=== PATIENT | female | born 1955 | race Caucasian/White ===

== ENCOUNTER 2019-10-30 12:19 | Outpatient (CLI) | payer BC, SELFPAY ==
--- NOTE | ~2019-10-30 | XR_ITS ---
XR shoulder RT min 2V DATE: 10/30/2019 12:41 INDICATION: Injury. Right shoulder pain. TECHNIQUE: 4 views COMPARISON: None FINDINGS: Osteopenia. There is mild osteoarthritis at the right glenohumeral joint. No fracture or dislocation, periosteal reaction or bone destruction or abnormal soft tissue calcifica tion at the right shoulder. IMPRESSION: Osteopenia Mild osteoarthritis Reviewed, dictated and finalized at location A.
== END 2019-10-30 12:20 | disposition home or self-care (01) ==
LOC: ANHIMG 12:27
PROVIDERS: PCP Internal Medicine; Visit Provider Internal Medicine
DX: S49.91XA Unspecified injury of right shoulder and upper arm, initial encounter (principal); M85.811 Other specified disorders of bone density and structure, right shoulder; M19.011 Primary osteoarthritis, right shoulder
CPT/HCPCS: 73030

== ENCOUNTER 2020-01-03 10:14 | Outpatient (CLI) | payer BC, SELFPAY ==
[2020-01-03 11:27] LABS: Hemoglobin A1C 5.7 % (<5.7)
[2020-01-03 11:29] LABS: Alanine Aminotransferase 19 U/L (4-35); Albumin Level 4.7 g/dL (3.5-5.1); Alkaline Phosphatase 77 U/L (38-126); Aspartate Amino Transferase 24 U/L (14-36); Bilirubin,Total 0.7 mg/dL (0.2-1.3); Blood Urea Nitrogen 21 mg/dL (7-17); Calcium 9.5 mg/dL (8.4-10.2); Carbon Dioxide 25 mmol/L (22-30); Chloride 104 mmol/L (98-107); Cholesterol 206 mg/dL (0-200); Estimated Glomerular Filt Rate > 60; Glucose 98 mg/dL (65-105); HDL Direct 42 mg/dL; Potassium 4.4 mmol/L (3.4-5.0); Sodium 137 mmol/L (137-145); Triglycerides 223 mg/dL (<150)
[2020-01-03 11:39] LABS: LDL Cholesterol Direct 123 mg/dL
[2020-01-03 12:21] LABS: Free T4 Free Thyroxine 0.96 ng/mL (0.78-2.19); Vitamin D 25 Hydroxy 57.4 ng/mL
== END 2020-01-03 10:15 | disposition home or self-care (01) ==
LOC: ANHLAB 10:16
PROVIDERS: PCP Internal Medicine; Visit Provider Internal Medicine
DX: R73.03 Prediabetes (principal); I10 Essential (primary) hypertension; E78.5 Hyperlipidemia, unspecified; Z79.899 Other long term (current) drug therapy; Z13.21 Encounter for screening for nutritional disorder
CPT/HCPCS: 36415; 80048; 80061; 80076; 82306; 83036; 83090; 84439; 84443

== ENCOUNTER 2020-08-11 10:54 | Outpatient (CLI) | payer BC, SELFPAY ==
--- NOTE | ~2020-08-11 | XR_ITS ---
XR thoracic spine 2V DATE: 08/11/2020 11:18 INDICATION: Upper back pain TECHNIQUE: AP, lateral, swimmer views COMPARISON: None FINDINGS: Moderately prominent degenerative disc disease at C5-6. Diffuse osteopenia. There is degenerative spurring of the thoracic spine. There is mild thoracic scoliosis. No fracture o r bone destruction is evident. The thoracic pedicles are intact. There is no paraspinal soft tissue t hickening. One or more apparent surgical clips overlying right upper quadrant, likely due to cholecystectomy. Ev idence of ventral abdominal wall surgical repair. IMPRESSION: Diffuse osteopenia Mild thoracic scoliosis Degenerative change Reviewed, dictated and finalized at location A. LER OPERATOR
--- NOTE | ~2020-08-11 | XR_ITS ---
EXAMINATION: XR chest 2V DATE: 08/11/2020 11:18 INDICATION: Unspecified abdominal pain. TECHNIQUE: Frontal and lateral views of the chest were obtained. COMPARISON: Chest 2 views 11/03/09, CT abdomen 01/03/2015 FINDINGS: The chest demonstrates clear lungs without pneumonia, pleural effusion, or pneumothorax. Th e heart size is normal. Surgical clips in the right upper quadrant are likely from cholecystectomy. T here are changes of ventral hernia repair. There is a benign bone island in right sixth rib. IMPRESSION: 1. No acute cardiopulmonary disease. Reviewed, dictated and finalized at location A. YER AUTOMATIC SPRAY MACHINE
== END 2020-08-11 10:55 | disposition home or self-care (01) ==
PROVIDERS: PCP Internal Medicine; Visit Provider Internal Medicine
DX: R10.9 Unspecified abdominal pain (principal); M54.6 Pain in thoracic spine; M85.88 Other specified disorders of bone density and structure, other site; M41.84 Other forms of scoliosis, thoracic region
CPT/HCPCS: 71046; 72070

== ENCOUNTER 2020-08-13 08:17 | Outpatient (CLI) | payer BC, SELFPAY ==
--- NOTE | ~2020-08-13 | CT_ITS ---
EXAMINATION: CT abdomen w con EXAM DATE: 08/13/2020 08:53 INDICATION: Upper left-sided abdominal pain, symptoms 5 weeks. TECHNIQUE: Spiral CT of the abdomen was performed following intravenous injection of 100 mL Omnipaque 350. Axial, coronal and sagittal images were reviewed. The dose-length product (DLP) for this exam ination was 567.37 mGy-cm. The exposure was tailored according to patient size (auto mA exposure con trol), and iterative reconstruction (ASIR) was used as additional dose reduction technique. Compariso n is made to prior examination from 01/03/2015. FINDINGS: There is large anterior abdominal wall mesh. The liver, spleen, adrenal glands and pancrea s are unremarkable. There are cholecystectomy clips. Portal and splenic veins are patent. Kidneys enhance symmetrically. There is no hydronephrosis. There is no retroperitoneal lymphadenopathy. There is mild scattered arteriosclerotic disease. There is small sliding gastroesophageal hiatal hernia. There is expected amount of colonic stool. No free intraperitoneal gas. The heart is normal in size. There are no pericardial or pleural effu sions. Small amount of basilar groundglass opacity slightly more pronounced than on previous exam, p robably air trapping or atelectasis. There are no osteoblastic or osteolytic lesions identified. IMPRESSION: 1. No acute intra-abdominal findings. 2. Small hiatal hernia. Reviewed, dictated and finalized at location B. UNLOADER HELPER
[2020-08-13 08:43] LABS: Estimated Glomerular Filt Rate 41
== END 2020-08-13 08:18 | disposition home or self-care (01) ==
PROVIDERS: PCP Internal Medicine; Visit Provider Internal Medicine
DX: R10.9 Unspecified abdominal pain (principal); M54.6 Pain in thoracic spine; G89.29 Other chronic pain; K44.9 Diaphragmatic hernia without obstruction or gangrene
CPT/HCPCS: 74160; Q9967

== ENCOUNTER → 2020-12-05 04:06 | Outpatient (CLI) | payer BC, SELFPAY ==
[2020-12-05 19:45] LABS: SARS-CoV-2 RNA PCR Negative
== END ==
PROVIDERS: PCP Internal Medicine; Visit Provider Internal Medicine Gastroenterology
DX: Z01.812 Encounter for preprocedural laboratory examination (principal); Z20.822 Contact with and (suspected) exposure to COVID-19
CPT/HCPCS: C9803; U0003; U0005

== ENCOUNTER 2021-04-02 07:27 | Outpatient (CLI) | payer MEDICARE, SELFPAY ==
--- NOTE | ~2021-04-02 | MM_ITS ---
EXAMINATION: MM screening [facility] BI w tobi HISTORY: Screening mammogram TECHNIQUE: Craniocaudal and mediolateral oblique 3-D tomosynthesis images were obtained and synthetic 2-D images were generated. CAD analysis was submitted and interpreted. COMPARISON: 07/31/2019, 01/16/2017, 10/06/2015 bilateral digital screening mammogram examinations BREAST PARENCHYMAL COMPOSITION: There are scattered areas of fibroglandular density. FINDINGS: There is no evidence of suspicious mass, calcification, or architectural distortion to sugg est malignancy in either breast. There has been no suspicious interval change. IMPRESSION: 1. No mammographic evidence of malignancy. 2. Recommend routine screening mammography in one year. BI-RADS Category 1: Negative Reviewed, dictated and finalized at location A.
== END 2021-04-02 07:28 | disposition home or self-care (01) ==
LOC: ANHIMG 07:30
PROVIDERS: PCP Internal Medicine; Visit Provider Internal Medicine
DX: Z12.31 Encounter for screening mammogram for malignant neoplasm of breast (principal)
CPT/HCPCS: 77063; 77067

== ENCOUNTER 2021-06-18 02:44 | Day surgery (SDC) | payer MEDICARE, SELFPAY ==
[2021-06-10 12:57] VITALS: BMI 33.3
[2021-06-18 10:15] VITALS: BP 148/70; PULSE 84; RESP 20; TEMP 36.2; O2SAT 98; BMI 33.7
--- NOTE | 2021-06-18 10:19 | WPDANESEPPF ---
Anes - Initial Pre Proc Eval Procedure: Operation Date: 06/18/21 11:30 Proposed Procedures p Esophagogastroduodenoscopy - Ferdinand Hightower MD Date/Time: 06/18/21 10:19 Surgeon: Ferdinand Hightower MD Pre Op Diagnosis: abominal pain, anemia, nausea Patient Data Age: 66 Gender: F Height: 1.5 m Weight: 75.8 kg Last Vital Signs Temp 36.2 C L 06/18/21 10:15 Pulse 84 06/18/21 10:15 Resp 20 06/18/21 10:15 BP 148/70 H 06/18/21 10:15 Pulse Ox 98 06/18/21 10:15 Allergies Allergy/AdvReac Type Severity Reaction Status Date / Time ezetimibe [From Zetia] AdvReac Mild myalgia Verified 06/18/21 10:14 Jpsbtse-XUA-DaD Reductase AdvReac Unknown Muscle Pain Verified 06/18/21 10:14 Inhibitor [[employer]-Ctv-Ymm Reductase Inhibitor] bempedoic acid AdvReac Muscle Pain Verified 06/18/21 10:14 [From Nexletol] Home Medications Medication Instructions Recorded Confirmed Type tofacitinib 11 mg tablet,extended 11 mg PO DAILY 06/14/19 06/10/21 History release 24 hr tramadol 50 mg tablet 50 mg PO Q6H PRN 06/14/19 06/10/21 History tizanidine 4 mg capsule 4 mg PO .qd PRN #90 cap 10/30/19 06/10/21 Rx turmeric 400 mg capsule 400 mg PO DAILY 10/30/19 06/10/21 History carvedilol 6.25 mg tablet See Rx Instructions .ROUTE 08/31/20 06/10/21 Rx .COMPLEX #180 tablet losartan 100 mg tablet See Rx Instructions .ROUTE 08/31/20 06/10/21 Rx .COMPLEX #90 tablet amlodipine 5 mg tablet See Rx Instructions .ROUTE 10/12/20 06/10/21 Rx .COMPLEX #90 tablet cholecalciferol (vitamin D3) 50 mcg PO DAILY 11/30/20 06/10/21 History [Vitamin D3] mruaivtbfite-kha-wbyo-FA-vit K 1 tablet PO DAILY 11/30/20 06/10/21 History [Adults Multivitamin] omega-3 fatty acids-vitamin E 4 cap DAILY 11/30/20 06/10/21 History [Fish Oil] spironolactone 25 mg tablet 25 mg PO DAILY 04/09/21 06/10/21 History omeprazole 40 mg capsule,delayed 40 mg PO BID #180 cap 05/05/21 06/10/21 Rx release Patient hx anesthesia problems: none Family hx anesthesia problems: none Results Review: All pre-operative results and documents have been reviewed as part of the pre-operative evaluation. [facility] Past Medical History Medical History Abdominal pain Acne Anemia Anxiety Arthritis Back pain Benign essential hypertension BMI 32.0-32.9,adult BMI 33.0-33.9,adult BMI 34.0-34.9,adult Encounter for routine adult health examination with abnormal findings Encounter for routine adult health examination without abnormal findings Encounter for screening mammogram for malignant neoplasm of breast Exposure to COVID-19 virus Fibromyalgia Follow up Frequent headaches GERD (gastroesophageal reflux disease) Hormone replacement therapy (HRT) Hyperlipidemia Hypersomnolence Hypersomnolence Insomnia Left flank pain Low hemoglobin Nausea On middle or intermediate school principal drug therapy Osteopenia Pre-diabetes Rheumatoid arthritis Right shoulder pain Seborrheic dermatitis Sjogrens syndrome Statin intolerance Family History Family History Mother Hypertension Cerebrovascular accident Father Hypertension Family history of heart disease in male family member before age 55, Onset Age: 60 Family history of cardiovascular disease Sibling Cerebrovascular accident Hypertension Family history of cardiovascular disease, Onset Age: 67 Other Family history of coronary artery disease Family history of premature coronary heart disease Social History Social History Smoking status: Never smoker Second hand tobacco smoke exposure: No Alcohol intake: never Substance use type: does not use Living arrangements: with family Spiritual care concerns: No Anes - Eval Final PreProcedure Day of Procedure 06/18/21 10:19 Patient weight: obese Heart: regular rate and rhythm Lungs: clear to ausc
[2021-06-18] MEDS: LACTATED RINGERS 1,000 ML 150 ML IV CONT (10:27)
--- NOTE | 2021-06-18 10:49 | WPDGICN ---
Assessment and Plan Assessment and plan (1) Low hemoglobin: Code(s): D64.9 - Anemia, unspecified Status: Acute Assessment and Plan: mild normochromic normocytic anemia. Is nonspecific. Stool Hemoccult negative. This may be related to RA. Will be evaluated by EGD (2) Rheumatoid arthritis: Qualifiers: Rheumatoid arthritis location: unspecified site Rheumatoid factor presence: unspecified presence Qualified Code(s): M06.9 - Rheumatoid arthritis, unspecified Code(s): M06.9 - Rheumatoid arthritis, unspecified Status: Acute (3) Epigastric abdominal pain: Code(s): R10.13 - Epigastric pain Status: Acute Assessment and Plan: epigastric pain lasted for several weeks but appears to have improved on starting omeprazole. Plan is for EGD to assess for mucosal damage. Follow-up and plans regarding ongoing therapy will be deferred until after EGD. (4) Dysphagia: Code(s): R13.10 - Dysphagia, unspecified Status: Acute Assessment and Plan: Patient complains of food passing slowly through the esophagus. Plan is for EGD to exclude narrowing of the esophagus further recommendations will be given after endoscopy. GI Consult Note Consult date/time: 06/18/21 10:49 HPI: Anjali Rodriguez is a 66 year old female Presents for EGD. Patient had epigastric pain in lasted for several weeks about a month ago. Patient reports epigastric pain has improved on taking Prilosec 20mg p.o. daily. She states during the same interval she has had difficulty swallowing. She feels as though food may catch in the mid substernal portion of the chest. This sensation has persisted but occurs only intermittently. She denies any weight loss or bleeding. Laboratory testing has revealed her to have a mild normochromic normocytic anemia. Stool Hemoccult has been negative. Patient has a past history of rheumatoid arthritis Review of Systems Review of Systems: All systems reviewed & are unremarkable except as noted in HPI and below PMFSH Past Medical History Medical History Abdominal pain Acne Anemia Anxiety Arthritis Back pain Benign essential hypertension BMI 32.0-32.9,adult BMI 33.0-33.9,adult BMI 34.0-34.9,adult Encounter for routine adult health examination with abnormal findings Encounter for routine adult health examination without abnormal findings Encounter for screening mammogram for malignant neoplasm of breast Exposure to COVID-19 virus Fibromyalgia Follow up Frequent headaches GERD (gastroesophageal reflux disease) Hormone replacement therapy (HRT) Hyperlipidemia Hypersomnolence Hypersomnolence Insomnia Left flank pain Low hemoglobin Nausea On long line [place] drug therapy Osteopenia Pre-diabetes Rheumatoid arthritis Right shoulder pain Seborrheic dermatitis Sjogrens syndrome Statin intolerance Family History Family History Mother Hypertension Cerebrovascular accident Father Hypertension Family history of heart disease in male family member before age 55, Onset Age: 60 Family history of cardiovascular disease Sibling Cerebrovascular accident Hypertension Family history of cardiovascular disease, Onset Age: 67 Other Family history of coronary artery disease Family history of premature coronary heart disease Social History Social History Smoking status: Never smoker Second hand tobacco smoke exposure: No Alcohol intake: never Substance use type: does not use Living arrangements: with family Spiritual care concerns: No Meds Home Medications and Allergies Home Medications Medication Instructions Recorded Confirmed Type tofacitinib 11 mg tablet,extended 11 mg PO DAILY 06/14/19 06/10/21 History release 24 hr tramadol 50 mg tablet 50 mg PO Q6H PRN 06/14/19 1
[2021-06-18 11:05] VITALS: BP 114/66; PULSE 88; RESP 24; O2SAT 99
[2021-06-18 11:15] VITALS: BP 106/61; PULSE 86; RESP 22; O2SAT 96
[2021-06-18 11:25] VITALS: BP 132/81; PULSE 82; RESP 16; O2SAT 97
== END 2021-06-18 12:08 | disposition home or self-care (01) ==
PROVIDERS: PCP Internal Medicine; Visit Provider Internal Medicine Gastroenterology
PROC: 0DJ08ZZ Inspection of Upper Intestinal Tract, Via Natural or Artificial Opening Endoscopic (ICD-10-PCS; CPT 43235; principal; 2021-06-18 11:30)
DX: R10.13 Epigastric pain (principal); Q39.4 Esophageal web; K22.10 Ulcer of esophagus without bleeding; D64.9 Anemia, unspecified; M06.9 Rheumatoid arthritis, unspecified; R13.10 Dysphagia, unspecified; M19.90 Unspecified osteoarthritis, unspecified site; I10 Essential (primary) hypertension; M79.7 Fibromyalgia; K21.9 Gastro-esophageal reflux disease without esophagitis; G47.00 Insomnia, unspecified; G47.10 Hypersomnia, unspecified; R73.03 Prediabetes; M35.00 Sjogren syndrome, unspecified; E66.9 Obesity, unspecified; Z68.33 Body mass index [BMI] 33.0-33.9, adult
CPT/HCPCS: 43450; J2001; J2704; J7120

== ENCOUNTER 2022-04-27 13:47 | Outpatient (CLI) | payer MEDICARE, SELFPAY ==
--- NOTE | ~2022-04-27 | MM_ITS ---
EXAMINATION: MM screening [facility] BI w tobi HISTORY: Screening TECHNIQUE: Craniocaudal and mediolateral oblique 3-D tomosynthesis images were obtained and synthetic 2-D images were generated. CAD analysis was submitted and interpreted. COMPARISON: Comparison to multiple prior studies sequentially, with oldest reviewed study dated 02/2013. BREAST PARENCHYMAL COMPOSITION: There are scattered areas of fibroglandular density. FINDINGS: There is no evidence of suspicious mass, calcification, or architectural distortion to sugg est malignancy in either breast. There has been no suspicious interval change. IMPRESSION: 1. No mammographic evidence of malignancy. 2. Recommend routine screening mammography in one year. BI-RADS Category 1: Negative Reviewed, dictated and finalized at location A.
== END 2022-04-27 13:48 | disposition home or self-care (01) ==
PROVIDERS: PCP Internal Medicine; Visit Provider Internal Medicine
DX: Z12.31 Encounter for screening mammogram for malignant neoplasm of breast (principal)
CPT/HCPCS: 77063; 77067

== ENCOUNTER 2022-05-27 10:45 | Outpatient (CLI) | payer MEDICARE, SELFPAY ==
[2022-05-27 12:17] LABS: Thyroid Stimulating Hormone < 0.015 uIU/mL (0.465-4.680)
[2022-05-31 03:09] LABS: Thyroglobulin 67.4 ng/mL (2.8-40.9); Thyroglobulin Antibodies <1 IU/mL (<=1); Thyroid Peroxidase Antibodies 1 IU/mL (<9)
[2022-05-31 15:38] LABS: Triiodothyronine T3 Free 4.5 pg/mL (2.3-4.2)
== END 2022-05-27 10:46 | disposition home or self-care (01) ==
PROVIDERS: PCP Internal Medicine; Visit Provider Internal Medicine
DX: R94.6 Abnormal results of thyroid function studies (principal)
CPT/HCPCS: 36415; 84432; 84443; 84481; 86376; 86800

== ENCOUNTER 2022-06-10 09:47 | Outpatient (CLI) | payer MEDICARE, SELFPAY ==
--- NOTE | ~2022-06-10 | US_ITS ---
EXAMINATION: US thyroid DATE: 06/10/2022 10:16 INDICATION: Abnormal results of thyroid function tests. TECHNIQUE: Multiple ultrasound images of the thyroid were obtained. COMPARISON: Thyroid ultrasound 10/12/2012. FINDINGS: The right thyroid lobe measures 4.7 x 2.7 x 3.0 cm. The left thyroid lobe measures 4.0 x 0.8 x 1.6 c m. In the right thyroid lobe, there is a 4.0 cm solid, hypoechoic, wider than tall nodule with nahum h margin without echogenic foci (TI-RADS TR4), increased from 2.3 cm on 10/12/2012. Biopsy on 11/09/2012 was benign. IMPRESSION: 1. Right thyroid nodule with increase in size from 10/12/2012. Consider ultrasound-guided fine-needle a spiration. Reviewed, dictated and finalized at location A. ER STRIPPER MACHINE IMPRESSION: 1. Right thyroid nodule with increase in size from 10/12/2012. Consider ultrasoun d-guided fine-needle aspiration.
== END 2022-06-10 09:48 | disposition home or self-care (01) ==
PROVIDERS: PCP Internal Medicine; Visit Provider Internal Medicine
DX: E04.1 Nontoxic single thyroid nodule (principal)
CPT/HCPCS: 76536

== ENCOUNTER 2022-06-22 12:28 | Outpatient (CLI) | payer MEDICARE, SELFPAY ==
--- NOTE | ~2022-06-22 | US_ITS ---
EXAMINATION: US FNA w image guidance DATE: 06/22/2022 13:52 INDICATION: Nontoxic single thyroid nodule. TECHNIQUE: The procedure and its benefits and risks were discussed with the patient. Risks specifically discusse d included bleeding. The patient verbalized understanding of the risks and agreed to proceed. The nec k was prepped and draped in the usual sterile manner. 1% lidocaine was used for local anesthesia. 6 passes were made with a 25G needle into the lesion under ultrasound guidance. There were no immedia te complications. FINDINGS: Grayscale ultrasound images demonstrate needles advanced into a 4.2 cm nodule in right thyroid lobe f or biopsy. IMPRESSION: 1. Ultrasound-guided fine needle aspiration of a right thyroid nodule. Reviewed, dictated and finalized at location A. EF DRILLER
== END 2022-06-22 12:29 | disposition home or self-care (01) ==
PROVIDERS: PCP Internal Medicine; Visit Provider Internal Medicine
DX: E04.1 Nontoxic single thyroid nodule (principal)
CPT/HCPCS: 10005; 88173; 88305

== ENCOUNTER 2022-11-02 13:54 | Outpatient (CLI) | payer MEDICARE, SELFPAY ==
--- NOTE | ~2022-11-02 | MMUS_ITS ---
EXAMINATION: MM diagnostic bautista LT w tobi, US breast LT complete HISTORY: Mastodynia, 4 o'clock TECHNIQUE: ML, MLO and CC 3-D tomosynthesis images of left breast were performed and synthetic 2-D im ages were generated. CAD analysis was submitted and interpreted. High resolution breast ultrasound wa s performed. COMPARISON: 04/27/2022, 04/02/2021, 07/31/2019 bilateral screening mammograms BREAST PARENCHYMAL COMPOSITION: There are scattered areas of fibroglandular density. FINDINGS: MAMMOGRAPHIC FINDINGS: No suspicious mass or architectural distortion, malignant calcification, skin thickening or retractio n or significant new or developing density is detected. ULTRASOUND: No suspicious mass or shadowing, cyst or other significant sonographic abnormality is noted. IMPRESSION: 1. No mammographic evidence of malignancy 2. Routine annual mammographic screening is recommended. BIRADS Category 1: Negative Reviewed, dictated and finalized at location A. IMPRESSION: 1. No mammographic evidence of malignancy 2. Routine annual mammographic screening is recommended. BIRADS Category 1: Negative
== END 2022-11-02 13:55 | disposition home or self-care (01) ==
LOC: ANHIMG 13:57
PROVIDERS: PCP Internal Medicine; Visit Provider Internal Medicine
DX: N64.4 Mastodynia (principal); N64.89 Other specified disorders of breast
CPT/HCPCS: 76641; 77061; 77065; G0279

== ENCOUNTER 2023-08-24 13:20 | Emergency (ER) | payer MEDICARE, SELFPAY ==
--- NOTE | ~2023-08-24 | XR_ITS ---
EXAMINATION: XR hand LT 2V DATE: 08/24/2023 17:08 INDICATION: Left hand pain post fall TECHNIQUE: Posteroanterior, oblique and lateral views of the left hand were obtained. COMPARISON: None. FINDINGS: Alignment is normal. No fracture. Mild polyarticular osteoarthritis at the triscaphe, first carpometa carpal and multiple interphalangeal joints. Soft tissues are unremarkable. IMPRESSION: 1. Mild polyarticular osteoarthritis at the left hand. No acute osseous abnormality. Reviewed, dictated and finalized at location A. OGICAL SCIENCE TECHNICIAN FISH IMPRESSION: 1. Mild polyarticular osteoarthritis at the left hand. No acute osseous abnorma lity.
--- NOTE | ~2023-08-24 | XR_ITS ---
EXAMINATION: XR forearm LT 2V, XR elbow LT 2V DATE: 08/24/2023 17:08 INDICATION: Left elbow and forearm pain post fall TECHNIQUE: 1. AP and lateral views of the left elbow were obtained. 2. AP an lateral views of the left forearm were obtained. COMPARISON: none FINDINGS: Small intra-articular fracture at the proximal head of the left radius. There is approximately 3 mm d epression of the head fragment which involves <20% of the articular surface area. No other fractures identified. Otherwise normal alignment at the left elbow, wrist and visualized hand. Mild osteoarthri tis at the left elbow with elbow joint effusion. Additional mild osteoarthritis at the radial aspect of the carpus. IMPRESSION: 1. Intra-articular fracture of the head of the proximal left radius with 3 mm depression of the small head fragment. Reviewed, dictated and finalized at location A. AGE COLLECTOR IMPRESSION: 1. Intra-articular fracture of the head of the proximal left radius with 3 mm d epression of the small head fragment.
--- NOTE | ~2023-08-24 | CT_ITS ---
EXAMINATION: CT brain wo con DATE: 08/24/2023 16:57 INDICATION: Ground-level fall. Facial injury and bruising. Left orbital, nasal abrasion TECHNIQUE: Computed tomography (CT) of the head was performed without intravenous contrast. The mA wa s adjusted according to patient size. Iterative reconstruction technique was employed. Exam dose: 60 5.33 mGy-cm total exam DLP. COMPARISON: 12/01/2010 MRI brain 12/01/2010 CT brain FINDINGS: No intracranial mass lesion or hemorrhage or cerebrovascular accident. No midline shift or mass effect. Normal ventricular size. No subdural or epidural hematoma is detected. Included portions of the nasal bones and orbits and frontozygomatic sutures and zygomatic arches are intact. Included paranasal sinuses are normally aerated. The mastoid air cells are normally aerated. No skull fracture or bone destruction is detected. IMPRESSION: No skull fracture or acute intracranial finding Reviewed, dictated and finalized at Location A. Reviewed, dictated and finalized at location L. VIORAL SCIENCES INSTRUCTOR
--- NOTE | ~2023-08-24 | XR_ITS ---
XR wrist LT 2V DATE: 08/24/2023 17:08 INDICATION: Fall. Left wrist pain TECHNIQUE: AP and lateral views COMPARISON: None FINDINGS: Osteopenia. Mild osteoarthritis at first carpometacarpal joint and some metacarpophalangeal joints. No fracture or dislocation, periosteal reaction or bone destruction is evident. No erosive change or chondrocalcinosis. IMPRESSION: Osteopenia Mild osteoarthritis Reviewed, dictated and finalized at location L. TABLE LOADER MACHINE OPERATOR
--- NOTE | ~2023-08-24 | CT_ITS ---
EXAMINATION: CT facial & cervical spine wo DATE: 08/24/2023 16:57 INDICATION: Head injury. TECHNIQUE: Computed tomography (CT) of the maxillofacial region and cervical spine was performed with out intravenous contrast. Automated exposure control and iterative reconstruction technique were empl oyed. The dose-length product was 476.21 mGy-cm. COMPARISON: None FINDINGS: MAXILLOFACIAL CT: The orbits are normal. There is rightward deviation of the nasal septum. No fracture. The paranasal s inuses are clear. The mastoid air cells are normal. CERVICAL SPINE CT: Bone alignment is normal. Vertebral body heights are normal. There is moderately decreased disc heigh t at C5-C6 and mildly decreased disc height at C6-C7. The following disc levels are specifically disc ussed: C2-C3: There is severe left uncovertebral joint osteoarthritis. There is mild right and severe left f acet joint osteoarthritis. There is mild left neural foraminal stenosis. There is no central canal st enosis. C3-C4: There is mild bilateral uncovertebral joint osteoarthritis. There is severe bilateral facet stephen int osteoarthritis. There is mild bilateral neural foraminal stenosis. There is no central canal sten osis. C4-C5: There is mild left uncovertebral joint osteoarthritis. There is severe left facet joint osteoa rthritis. There is mild left neural foraminal stenosis. There is no central canal stenosis. C5-C6: There is severe bilateral uncovertebral joint osteoarthritis. There is mild bilateral facet stephen int osteoarthritis. There is mild bilateral neural foraminal stenosis. There is mild central canal st enosis. C6-C7: There is mild right and severe left uncovertebral joint osteoarthritis. There is severe bilate ral facet joint osteoarthritis. There is mild bilateral neural foraminal stenosis. There is mild cent ral canal stenosis. C7-T1: There is no uncovertebral joint osteoarthritis. There is moderate right and severe left facet joint osteoarthritis. There is mild left neural foraminal stenosis. There is no central canal stenosi s. IMPRESSION: 1. No fracture. 2. Moderate cervical spondylosis. Reviewed, dictated and finalized at location A. LOT PACKER
--- NOTE | ~2023-08-24 | XR_ITS ---
XR humerus LT DATE: 08/24/2023 17:08 INDICATION: Injury TECHNIQUE: AP and lateral views COMPARISON: None FINDINGS: Osteopenia. Intra-articular radial head fracture is noted. Normal alignment at the acromioclavicular, glenohumeral and elbow joints. No humeral fracture or disl ocation, periosteal reaction or bone destruction. IMPRESSION: Radial head fracture Osteopenia Reviewed, dictated and finalized at location L. SORTER
--- NOTE | ~2023-08-24 | XR_ITS ---
EXAMINATION: XR chest 1V DATE: 08/24/2023 17:08 INDICATION: Fall. Trauma. TECHNIQUE: A single frontal view of the chest was obtained. COMPARISON: Chest 2 views 08/11/2020, CT abdomen 08/13/2020 FINDINGS: There is no pneumonia, pleural effusion, or pneumothorax. The heart size is normal. Surgica l clips in the right upper quadrant are likely from cholecystectomy. IMPRESSION: 1. No acute cardiopulmonary disease. Reviewed, dictated and finalized at location A. ECHNOLOGIST
[2023-08-24 13:40] VITALS: BP 164/81; PULSE 90; RESP 20; TEMP 36.3; O2SAT 96
--- NOTE | 2023-08-24 16:32 | WC.ED.TRAUMA ---
HPI - Trauma General Chief Complaint: Extremity Injury, Upper Stated Complaint: Fall Time Seen by Provider: 08/24/23 16:16 History of Present Illness HPI narrative: Patient is a 68 year old female with history of rheumatoid arthritis here after a fall. She notes that around 1:00 p.m. she was out for a walk. She states that she tripped over something on the ground and went face forward. She does note that she reached out her left hand to try to catch herself and has been having pain in her left arm since. She additionally did hit her face on the ground. She is not on blood thinners, she did not lose consciousness. She denies a headache, vision changes, difficulty breathing through her nares, any abnormal alignment with her jaw. She notes that her arm hurts around her elbow and throughout her forearm and hand. Related Data Home Medications Medication Instructions Recorded Confirmed tramadol 50 mg tablet 50 mg PO Q6H PRN Pain 06/14/19 05/25/23 turmeric 400 mg capsule 400 mg PO DAILY 10/30/19 05/25/23 multivit with minerals-iron 18 1 tablet PO DAILY 11/30/20 05/25/23 mg-folic ac 400 mcg-vit K 25 mcg tablet (Adults Multivitamin) omega-3 fatty acids-vitamin E 4 cap DAILY 11/30/20 05/25/23 1,000 mg capsule cholecalciferol (vitamin D3) 100 100 mcg PO DAILY 10/24/22 05/25/23 mcg (4,000 unit) tablet acetaminophen 500 mg tablet 1,000 mg PO TID 08/11/23 (Tylenol Extra Strength) leflunomide 20 mg tablet 20 mg PO DAILY 08/11/23 multivit with min-folic 1 tablet PO DAILY 08/11/23 acid-lutein 400 mcg-250 mcg chewable tablet (Centrum Silver) Allergies Allergy/AdvReac Type Severity Reaction Status Date / Time tofacitinib [From Xeljanz] AdvReac Intermediate Other Verified 05/25/23 13:44 ezetimibe [From Zetia] AdvReac Mild myalgia Verified 05/25/23 13:44 Xzdsbwe-FCP-FoH Reductase AdvReac Unknown Muscle Pain Verified 05/25/23 13:44 Inhibitor [Iihmqaq-Xxp-Vqy Reductase Inhibitor] bempedoic acid AdvReac Muscle Pain Verified 05/25/23 13:44 [From Nexletol] Review of Systems Review of Systems: All systems reviewed & are unremarkable except as noted in HPI and below PMFSH Past Medical History Medical History (Updated 08/24/23 @ 18:24 by Chelsea Jensen MD) Abdominal pain Abnormal urinalysis Acne Anemia Anxiety Anxiety with depression Back pain Benign essential hypertension BMI 32.0-32.9,adult BMI 33.0-33.9,adult BMI 34.0-34.9,adult BMI 35.0-35.9,adult Breast tenderness in female Colon cancer screening Elevated serum creatinine Encounter for routine adult health examination with abnormal findings Encounter for routine adult health examination without abnormal findings Encounter for screening mammogram for malignant neoplasm of breast Exposure to COVID-19 virus FHx: breast cancer Fibromyalgia Follow up Frequent headaches Fullness of breast Gastritis GERD (gastroesophageal reflux disease) Heterozygous familial hypercholesterolemia Hormone replacement therapy (HRT) Hyperlipidemia Hypersomnolence Hypothyroidism associated with surgical procedure Insomnia Left flank pain Low hemoglobin Muscle cramps at night Nausea On buttermaker drug therapy Osteopenia Pre-diabetes Rheumatoid arthritis Right shoulder pain Seborrheic dermatitis Sjogrens syndrome Statin intolerance Family History Family History Mother Hypertension Cerebrovascular accident Father Hypertension Family history of heart disease in male family member before age 55, Onset Age: 60 Family history of cardiovascular disease Sibling Cerebrovascular accident Hypertension Family history of cardiovascular disease, Onset Age: 67 Other Family history of coronary artery disease Family history of premature coronary heart disease Social History Social History Smoking status: Never smoker Second hand tobacc
[2023-08-24] MEDS: HYDROcodone/acetaminophen (*CRX) 5-325 MG TABLET 1 TAB PO (18:18)
== END 2023-08-24 18:54 | disposition home or self-care (01) ==
PROVIDERS: Emergency Provider Student in an Organized Health Care Education/Training Program; PCP Internal Medicine
DX: S52.122A Displaced fracture of head of left radius, initial encounter for closed fracture (principal); S00.12XA Contusion of left eyelid and periocular area, initial encounter; S69.92XA Unspecified injury of left wrist, hand and finger(s), initial encounter; S00.81XA Abrasion of other part of head, initial encounter; I10 Essential (primary) hypertension; K21.9 Gastro-esophageal reflux disease without esophagitis; E78.01 Familial hypercholesterolemia; R73.03 Prediabetes; M79.7 Fibromyalgia; M85.822 Other specified disorders of bone density and structure, left upper arm; M06.9 Rheumatoid arthritis, unspecified; M35.00 Sjogren syndrome, unspecified; Z86.2 Personal history of diseases of the blood and blood-forming organs and certain disorders involving the immune mechanism; M47.812 Spondylosis without myelopathy or radiculopathy, cervical region; M19.032 Primary osteoarthritis, left wrist; M19.042 Primary osteoarthritis, left hand; M18.9 Osteoarthritis of first carpometacarpal joint, unspecified; W18.09XA Striking against other object with subsequent fall, initial encounter
CPT/HCPCS: 29125; 70450; 70486; 71045; 72125; 73060; 73070; 73090; 73100; 73120; 99284; A9270

== ENCOUNTER 2023-10-02 09:41 | Outpatient (CLI) | payer MEDICARE, SELFPAY ==
--- NOTE | ~2023-10-02 | XR_ITS ---
XR elbow LT min 3V 10/02/2023 10:04 Indication: Nondisplaced fracture of the left radius Procedure: 4 views left elbow Comparison: 08/24/2023 Findings: The alignment of displaced intra-articular fracture left radius with approximately 2-3 mm d epression. No significant joint effusion. No foreign bodies. Impression: 1: Stable alignment of depressed radial head fracture. Reviewed, dictated and finalized at location B. Impression: 1: Stable alignment of depressed radial head fracture.
== END 2023-10-02 09:42 | disposition home or self-care (01) ==
LOC: ANHIMG 09:45
PROVIDERS: PCP Internal Medicine; Visit Provider Orthopaedic Surgery
DX: S52.125A Nondisplaced fracture of head of left radius, initial encounter for closed fracture (principal)
CPT/HCPCS: 73080

== ENCOUNTER 2023-10-31 13:25 | Outpatient (CLI) | payer MEDICARE, SELFPAY ==
--- NOTE | ~2023-10-31 | DEXA_ITS ---
Bone Density Report Name: VINCE TIAN I Age: 68 Sex: Female Ethnicity: White Date of : 1955 Indication: postmenopausal; screening for osteoporosis; history of glucocorticoids; hysterectomy; rheumatoid arthritis; Referring Provider: STEPH, MADIHA Carr Study: Bone densitometry was performed. Exam Date: October 31, 2023 Accession number: [id number] Bone Density: Region BMD T-score Z-score Classification AP Spine(L1-L4) 0.779 -2.4 -0.4 Osteopenia Femoral Neck (Left) 0.715 -1.2 0.5 Osteopenia Total Hip (Left) 0.870 -0.6 0.8 Normal Femoral Neck (Right) 0.637 -1.9 -0.2 Osteopenia Total Hip (Right) 0.889 -0.4 1.0 Normal Total Hip Mean 0.879 -0.5 0.9 Normal World Health Organization criteria for BMD impression classify patients as: Normal (T-score at or above -1.0), Osteopenia (T-score between -1.0 and -2.5), or Osteoporosis (T-score at or below -2.5). 10-year Fracture Risk(1): Major Osteoporotic Fracture 20% Hip Fracture 3.9% Reported Risk Factors: [place] (), Neck BMD=0.637, BMI=35.0, glucocorticoids, rheumatoid arthritis (1) FRAX(R) Version 3.08. Fracture probability calculated for an untreated patient. Fracture probability may be lower if the patient has received treatment. Clinical Information Provided by Patient: Has taken Glucocorticoids Has rheumatoid arthritis Has used the following medications: Vitamin D Has the following medical conditions: Hysterectomy Patient maximum height was 59 Menopause Age: 48 No regular weight bearing exercise Does not regularly consume dairy products Drinks caffeinated beverages Onset of menses at age 12 Number of children 2 Impression: The patient has low bone mass, based on the Total Spine T-score. The patient has an estimated ten-year risk of hip fracture of 3.9% and an estimated ten-year risk of major fracture of 20%, based on the WHO FRAX algorithm. The patient has risk factors, including: history of glucocorticoid therapy. Discussion: BONE DENSITY IS LOW AT ONE OR MORE SKELETAL SITES. THE PATIENT'S BMD AND CLINICAL RISK FACTORS CONTRIBUTE TO THIS PATIENT'S HIGH RISK OF FRACTURE. This patient's lowest T-score is low at one or more skeletal sites. It meets the World Health Organization's (WHO) criteria for ?low bone mass? (T-score between -1.0 and -2.5). The patient's 10-year risk of hip fracture and 10 year risk of a major osteoporotic fracture as calculated by FRAX exceeds the threshold where pharmacological therapy is recommended by the National Osteoporosis Foundation (NOF). However, all treatment decisions require clinical judgment and consideration of individual patient factors, including patient preferences, comorbidities, previous drug use, risk factors not captured in the FRAX model (e.g., frailty, falls, vitamin D defic
== END 2023-10-31 13:26 | disposition home or self-care (01) ==
LOC: ANHIMG 13:50
PROVIDERS: PCP Internal Medicine; Visit Provider Internal Medicine
DX: M05.79 Rheumatoid arthritis with rheumatoid factor of multiple sites without organ or systems involvement (principal); M85.89 Other specified disorders of bone density and structure, multiple sites; M47.812 Spondylosis without myelopathy or radiculopathy, cervical region; Z79.899 Other long term (current) drug therapy
CPT/HCPCS: 77080

== ENCOUNTER 2024-03-25 13:08 | Outpatient (CLI) | payer MEDICARE, SELFPAY ==
--- NOTE | ~2024-03-25 | XR_ITS ---
XR cervical spine 4-5V Ordering provider: David Savage MD History: . M54.2 - Cervicalgia NECK W/LT ARM PAIN AND TINGLING . Comparison: None. FINDINGS: VERTEBRAL BODIES: Normal height and alignment. No visible fracture or subluxation. The dens is intact . DISK SPACES: Narrowing of the disc C5-C6 and C6-C7. Multilevel uncovertebral joint osteoarthritic jori nges. PARASPINOUS SOFT TISSUES: No prevertebral soft tissue swelling. IMPRESSION: No acute osseous abnormality cervical spine. Multilevel degenerative disc disease. Reviewed, dictated and finalized at location A.
== END 2024-03-25 13:09 | disposition home or self-care (01) ==
PROVIDERS: PCP Internal Medicine; Visit Provider Internal Medicine
DX: M50.322 Other cervical disc degeneration at C5-C6 level (principal); M50.323 Other cervical disc degeneration at C6-C7 level
CPT/HCPCS: 72050

== ENCOUNTER 2024-04-17 12:02 | Outpatient (CLI) | payer MEDICARE, SELFPAY ==
--- NOTE | ~2024-04-17 | XR_ITS ---
Left Knee Technique: AP, lateral, and sunrise views were obtained. Clinical History: Pain Findings: No fracture or dislocation is seen. Osseous alignment is anatomic. There is large osteophyt e versus loose bodies along the superior pole of the patella. There is minimal spurring at the medial lateral joint lines. Soft tissues are unremarkable. No joint effusion is seen. Impression: Large osteophyte versus loose bodies along the superior pole the patella. Additional minimal degenerative changes, as above. Reviewed, dictated and finalized at location M. Impression: Large osteophyte versus loose bodies along the superior pole the patella. Additional minimal degenerative changes, as above.
== END 2024-04-17 12:03 | disposition home or self-care (01) ==
PROVIDERS: PCP Internal Medicine; Visit Provider Internal Medicine
DX: M25.562 Pain in left knee (principal); M25.462 Effusion, left knee
CPT/HCPCS: 73564

== ENCOUNTER 2024-04-18 09:12 | Outpatient (CLI) | payer MEDICARE, SELFPAY ==
--- NOTE | ~2024-04-18 | MR_ITS ---
MRI of the cervical spine Clinical History: Radiculopathy Technique: Axial T2-weighted and gradient images, and sagittal T1-weighted, T2-weighted, and STIR daron ges were acquired. Findings: There is no fracture or subluxation of the cervical spine. Vertebral bodies maintain normal height and alignment. No bone marrow signal abnormality seen. At C2-C3, there is no disc bulge or herniation. No spinal canal stenosis, cord compression, or neural foraminal narrowing. At C3-C4, there is no significant disc bulge or herniation. No spinal canal stenosis, cord compressio n, or neural foraminal narrowing. At C4-C5, there is no disc bulge or herniation. No spinal canal stenosis, cord compression, or right neural foraminal narrowing. There is mild left neural foraminal narrowing. Left facet arthropathy. At C5-C6, there is mild disc osteophyte complex. There is bilateral neural foraminal narrowing. There is minimal canal stenosis without reynaldo cord compression. At C6-C7, there is mild disc osteophyte complex. No canal stenosis or cord compression. There is mild bilateral neural foraminal narrowing. No abnormal signal seen in the spinal cord. Paravertebral soft tissues are unremarkable. Impression: Mild degenerative spondylosis overall, as above. Reviewed, dictated and finalized at [facility]. Impression: Mild degenerative spondylosis overall, as above.
== END 2024-04-18 09:13 | disposition home or self-care (01) ==
LOC: GOSHIMG 09:13
PROVIDERS: PCP Internal Medicine; Visit Provider Nurse Practitioner Family
DX: M47.812 Spondylosis without myelopathy or radiculopathy, cervical region (principal); M54.12 Radiculopathy, cervical region
CPT/HCPCS: 72141

== ENCOUNTER 2024-05-27 10:02 | Outpatient (CLI) | payer MEDICARE, SELFPAY ==
[2024-05-27 10:26] LABS: Hematocrit 37.1 % (37.0-47.0); Hemoglobin 12.4 g/dL (12.0-15.0)
--- NOTE | 2024-05-27 10:27 | ECG_ITS ---
Test Date: 2024-05-27 10:37:42 Measurements Intervals [place] Rate: 75 P: 15 [place]: 148 QRS: 18 QRSD: 77 T: 24 QT: 350 QTc: 392 Interpretive Statements SINUS RHYTHM CONSIDER INFERIOR INFARCT, AGE INDETERMINATE BASELINE ARTIFACT- I, II, III, AVR, AVF ABNORMAL ECG No previous ECG available for comparison Electronically Signed On 05-27-2024 10:40:29 OPTICAL MANUFACTURING TECHNICIAN by Feliciano Chang D.O.
[2024-05-27 10:56] LABS: Albumin Level 4.6 g/dL (3.5-5.1); Estimated Glomerular Filt Rate > 60; Glucose 99 mg/dL (65-110)
== END 2024-05-27 10:03 | disposition home or self-care (01) ==
PROVIDERS: PCP Internal Medicine; Visit Provider Orthopaedic Surgery
DX: Z01.818 Encounter for other preprocedural examination (principal); D64.9 Anemia, unspecified; R73.03 Prediabetes; R79.89 Other specified abnormal findings of blood chemistry; E78.2 Mixed hyperlipidemia; R94.31 Abnormal electrocardiogram [ECG] [EKG]; Z82.49 Family history of ischemic heart disease and other diseases of the circulatory system
CPT/HCPCS: 36415; 82040; 82565; 82947; 83036; 85014; 85018; 93005

== ENCOUNTER 2024-06-03 14:25 | Outpatient (CLI) | payer MEDICARE, SELFPAY ==
--- NOTE | ~2024-06-03 | MM_ITS ---
EXAMINATION: MM screening bautista BI w tobi HISTORY: Screening TECHNIQUE: Craniocaudal and mediolateral oblique 3-D tomosynthesis images were obtained and synthetic 2-D images were generated. CAD analysis was submitted and interpreted. COMPARISON: Comparison to multiple prior studies sequentially, with oldest reviewed study dated 10/05. BREAST PARENCHYMAL COMPOSITION: Not dense: There are scattered areas of fibroglandular density. FINDINGS: There is no evidence of suspicious mass, calcification, or architectural distortion to sugg est malignancy in either breast. There has been no suspicious interval change. IMPRESSION: 1. No mammographic evidence of malignancy. 2. Recommend routine screening mammography in one year. BI-RADS Category 1: Negative Reviewed, dictated and finalized at location B. E THINNER
== END 2024-06-03 14:26 | disposition home or self-care (01) ==
LOC: ANHIMG 14:28
PROVIDERS: PCP Internal Medicine; Visit Provider Internal Medicine
DX: Z12.31 Encounter for screening mammogram for malignant neoplasm of breast (principal)
CPT/HCPCS: 77063; 77067

== ENCOUNTER 2024-06-21 15:21 | Outpatient (CLI) | payer MEDICARE, SELFPAY ==
--- NOTE | 2024-06-21 15:36 | ECHO_ITS ---
Patient Info Name: Anjali Rodriguez Age: 69 years : 1955 Gender: Female Ht: 51 in Wt: 175 lbs BSA: 1.75 m2 HR: 77 bpm BP: 165 / 83 mmHg Technical Quality: Poor Exam Date: 06/21/2024 3:44 PM Exam Location: Echo Lab Patient Status: Outpatient Admit Date: 06/21/2024 Staff Ordering Physician: David Savage MD Department Of Mathematics Chair: Andre Stephenson RDCS Attending Provider: David Savage MD Referring Physician: Hussein THOMAS; Exam Type: CA echo dop color flow w con Study Info Indications - abnormal ekg Complete two-dimensional, color flow and Doppler transthoracic echocardiogram is performed with contrast to opacify the left ventricle and to improve the deliniation of the left ventricle endocardial borders. Contrast/Agitated Saline Contrast/Ag. Saline: Definity Amount: 2.00 ml Existing IV Access: Yes Reason for Poor Study: poor echocardiographic windows Summary 1. Left ventricular systolic function is normal, estimated at 65-70%. 2. There is mildly increased left ventricular wall thickness. 3. The left ventricular diastolic function is grade I diastolic dysfunction. 4. Left atrial chamber dimension is mildly enlarged. Left Ventricle Left ventricular chamber dimension is normal. Left ventricular systolic function is normal, estimated at 65-70%. There is mildly increased left ventricular wall thickness. Left ventricular septal wall motion is normal. The left ventricular diastolic function is grade I diastolic dysfunction. Right Ventricle Right ventricular chamber dimension is normal. Right ventricular systolic function is normal. Left Atria Left atrial chamber dimension is mildly enlarged. Right Atria Right atrial chamber dimension is normal. Atrial Septum Intact interatrial septum visualized by color flow imaging. Aortic Valve The aortic valve is trileaflet. There is no aortic valve sclerosis. There is no aortic valve stenosis. There is no aortic valve regurgitation. Pulmonic Valve The pulmonic valve is normal. There is no pulmonic valve stenosis. There is no pulmonic regurgitation. Mitral Valve The mitral valve has normal leaflets. There is no mitral valve stenosis. There is no mitral valve regurgitation. There is mild mitral valve calcification. Tricuspid Valve The tricuspid valve leaflets are normal. There is no significant tricuspid valve stenosis. There is no tricuspid valve regurgitation. No pulmonary hypertension, estimated pulmonary arterial systolic pressure is Empty. Pericardium/Pleural The pericardium appears normal. There is no pericardial effusion. Inferior Vena Cava Normal inferior vena cava with >50% collapse upon inspiration consistent with Empty right atrial pressure, 5 mmHg. Aorta The aortic root size at the sinus of Valsalva is normal. The prox ascending aorta size is normal. Left Ventricular Outflow Tract Name Value Normal LVOT 2D LVOT Diameter 2.07 cm LVOT Doppler LVOT Peak Gradient 4 mmHg LVOT Mean Gradient 2 mmHg LVOT VTI 18.80 cm LVOT VTI/AV VTI Ratio 0.65 LVOT Stroke Volume 63.44 ml LVOT CO 4.94 l/min LVOT CI 2.82 L/min/m2 Pulmonic Valve Name Value Normal RVOT Doppler RVOT Peak Gradient 4 mmHg PV Doppler PV Peak Gradient 5 mmHg Mitral Valve Name Value Normal MV Doppler MV Decel Tensas 316.14 cm/s2 MV PHT 0 s MV Area (PHT) 4.08 cm2 4.00-5.00 MV Diastolic Function MV E Peak Velocity 58.71 cm/s MV A Peak Velocity 129.67 cm/s MV E/A 0.45 MV Decel Time 0 s MV Annular TDI MV E/e' (Septal) 9.58 <=8.00 MV E/e' (Lateral) 7.43 <=8.00 MV E/e' (Average) 8.51 Tricuspid Valve Name Value Normal Estimated PAP/RSVP RA Pressure 5 mmHg <=5 Aorta Name Value Normal Ascending Aorta Ao Root Diameter (MM) 3.28 cm Ao Root Diam Index (MM) 1.87 cm/m2 Aortic Valve Name Value Normal AV Doppler AV Peak Velocity 138.48 cm/s AV Peak Gradient 8 mmHg AV Mean Gradient 5 mmHg AV VTI 28.83 cm AV Area (Cont Eq VTI) 2.20 cm2 >=3.00 AV Area (Cont Eq Guy) 2.38 cm2 AV Regurgitation 2D LVOT Area 3.37 cm2 Ventricles Name Value Normal LV Dimensions 2D/MM IVS Diastolic Thickness (2D) 1.51 cm 0.60-1.00 LVID Diastole (2D) 3.53 cm 3.80-5.20 LVIW Diastolic Thickness (2D) 1.35 cm 0.60-0.90 LVID Systole (2D) 2.08 cm 2.20-3.50 LVOT Diameter 2.07 cm LV Mass (2D Cubed) 181.27 g 67.00-162.00 LV Mass Index (2D Cubed) 0.01 g/cm2 0.00-0.01 Relative Wall Thickness (2D) 0.77 LV Fractional Shortening/Ejection Fraction 2D/MM LV Fractional Shortening (2D) 39 % 27-45 LV EF (2D Teicholz) 70 % 54-74 LV Diastolic Volume (4C MOD) 61.92 ml LV EF (4C MOD) 73 % LV Diastolic Volume (2C MOD) 58.74 ml LV EF (2C MOD) 72 % LV Diastolic Volume (BP MOD) 60.69 ml 46.00-106.00 LV Diastolic Volume Index (BP MOD) 0.03 l/m2 0.03-0.06 LV Systolic Volume (BP MOD) 16.78 ml 14.00-42.00 LV Systolic Volume Index (BP MOD) 0.01 l/m2 0.01-0.02 LV EF (BP MOD) 72 % 54-74 LV Diastolic Length (4C) 7.44 cm LV Systolic Length (4C) 6.09 cm LV Stroke Volume (4C MOD) 44.92 ml Atria Name Value Normal LA Dimensions LA Dimension (MM) 4.26 cm 2.70-3.80 LA Volume (4C A-L) 54.88 ml LA Volume (BP A-L) 51.17 ml Report Signatures
[2024-06-21] MEDS: PERFLUTREN LIPID MICROSPHERES 1.5 ML VIAL DILUTED TO 10 ML TOTAL VOLUME IV PUSH (16:40)
--- NOTE | 2024-06-21 17:03 | IVDEFINITY ---
Prior to administration of IV Definity the patient was educated on the risks and benefits of the imaging enhancing agent including potential adverse side effects. The patient verbalized understanding. Allergies were verified. No exclusion criteria were identified and at least one of the following inclusion criteria were met: 1) physician request, 2) patient technically difficult to image (per the [place] [employer] guidelines of two or more segments not discernable within the apical view), or 3) questionable left ventricular function. ?
--- NOTE | 2024-06-24 15:55 | IVDEFINITY ---
Prior to administration of IV Definity the patient was educated on the risks and benefits of the imaging enhancing agent including potential adverse side effects. The patient verbalized understanding. Allergies were verified. No exclusion criteria were identified and at least one of the following inclusion criteria were met: 1) physician request, 2) patient technically difficult to image (per the [place] [employer] guidelines of two or more segments not discernable within the apical view), or 3) questionable left ventricular function. ?
--- OUTSIDE RECORDS SUMMARY | 2024-06-25 01:26 | XMS_ITS | Clinical Summary ---
Author Organization [facility] [employer] Address [address] [place] [address] Care Team Providers Care Heavy Duty Press Operator Name Role Phone Unavailable Primary Care Provider Unavailabl e Source Comments [facility] [employer],non-owned Affiliates and Associated Physician Practices is amultiple site organization consisting of ambulatory clinics and hospital sitesin [place], [place], [place] and [place]. This disclosure is being madepursuant to the Care Everywhere program and may not contain all information available regarding this patient. Last updated 18.[facility] [employer] Allergies Active Allergy Reactions Criticality Noted Date Comments Amitriptyline 02/22/2012 Drowsiness Enbrel GI Discomfort 12/09/2014 Adalimumab GI Discomfort 12/09/2014 Hydroxychloroquine Nausea and/or Vomiting 04/09 Stomach pain Golimumab GI Discomfort 12/09/2014 Medications * Be aware that medications may not be up to date on this document. Alwaysverify current medications with the patient. Medication Sig Dispensed Refills Start Date End Date Status FISH OIL 1200 MG CAPS Take by mouth 2 times daily. Active Cyanocobalamin (B-12) 1000 MCG CAPS Take 1,000 mg by mouth once daily. 1 qd. Active aspirin 325 MG tablet Take 325 mg by mouth daily. Active vitamin D, cholecalciferol, 2000 UNITS tabletIndications:Vi tamin d deficiency Take 2 Tabs by mouth once daily. 08/06/2012 Active Additional Information Patient taking differently: 2,000 UnitsOral DAILY, Reported on 04/09/2015 indapamide (LOZOL) 2.5 MG tablet Take 2.5 mg by mouth once daily. Active traMADol (ULTRAM) 50 MG tablet Take 1 Tab by mouth 2 times daily as needed for Pain. 60 Tab 0 12/27/2012 Active losartan (COZAAR) 100 MG tablet Take by mouth once daily. Active amLODIPine (NORVASC) 5 MG tablet Take by mouth once daily. Active tiZANidine (ZANAFLEX) 4 MG tabletIndications:My ofascial pain Take 1 Tab by mouth at bedtime. 90 Tab 3 01/31/2014 Active Active Problems Problem Noted Date Diagnosed Date Fibromyalgia 10/01/2012 Rheumatoid arthritis 08/06/2012 Overview (05/17/2015): First seen by Dr. Moura 02/2006. Original dx wa fibromyalgia. She improved with trigger point injections and muscle relaxants. Had intermittent flares through 2009 and 2010. Dx by Dr. Moura 07/2011 based on steroid responsive arthralgias and markedly elevated CRP; CCP (+). She has always had severe paresthesias. Started on MTX. Cimzia added 05/2012; great response. Has seen neurologist Dr. Blake 2010; no dx was found. Switch to Humira 2012. Had to stop due to GI side effects. Tried Simponi. Also GI issues. Enbrel provoked cervical pain. On 04/2015 VAL (+) 1:640; SSA (+). Acquired polyneuropathy 06/28/2012 Myofascial pain Family History Medical History Relation Name Comments Diabetes Brother 1 High Blood Pressure Brother 2 High Blood Pressure Father Stroke Father High Blood Pressure Mother Stroke Mother Diabetes Sister 1 High Blood Pressure Sister 2 Relation Name Status Comments Brother 1 Brother 2 Father (Age 60) heart anup ck Mother Alive Sister 1 Sister 2 Social History Tobacco Use Types Packs/Day Years Used Date Smoking Tobacco: Never Alcohol Use Standard Drinks/Week Comments No 0 (1 standard drink = 0.6 oz pur e alcohol) Sex and Gender Information Value Date Recorded Sex Assigned at Not on file Gender Identity Not on file Sexual Orientation Not on file Last Filed Vital Signs Vital Sign Reading Time Taken Comments Blood Pressure 120/70 07/26/2016 2:39 PM AUTOMATIC COIN MACHINE MECHANIC Pulse 89 07/26/2016 2:39 PM AUTOMATIC COIN MACHINE MECHANIC Temperature 36.8 ??C (98.3 ??F) 07/26/2016 2:39 PM CS T Respiratory Rate 16 07/26/2016 2:39 PM AUTOMATIC COIN MACHINE MECHANIC Oxygen Saturation - - Inhaled Oxygen Concentration - - Weight 74.4 kg (164 lb) 07/26/2016 2:39 PM AUTOMATIC COIN MACHINE MECHANIC Height 149.9 cm (4' 11 ) 07/26/2016 2:39 PM AUTOMATIC COIN MACHINE MECHANIC Body Mass Index 33.12 07/26/2016 2:39 PM AUTOMATIC COIN MACHINE MECHANIC Plan of Treatment Health Maintenance Due Date Last Done Comments COLOGUARD (AGES 45-75) - COL ON CA SCREENING 1955 COLON MONITORING 1955 COLONOSCOPY - COLON CA SCREENING 1955 CT COLONOGRAPHY - COLON CA SCREENING 1955 Colorectal Cancer Screening 1955 FIT - COLON CA SCREENING 1955 FLEX SIG - COLON CA SCREENING 1955 LIPID TESTING 1955 MAMMOGRAM 1955 MEDICARE AWV ? 12 MONTHS 1955 DTAP/TDAP/TD VACCINES (1 - Tdap) 1974 ZOSTER VACCINE (1 of 2) 2005 PNEUMOCOCCAL VACCINE 65+ (1 of 1 - PCV) 2020 DEPRESSION SCREENING 07/10/2023 COVID-19 VACCINE ( - 2023-2 5 season) 2024 INFLUENZA VACCINE (#1) 2024 Respiratory Syncytial Virus (RSV) Vaccine Pt: or over 60 yrs (1 - 1-dose 75+ series) 2030 HEPATITIS C SCREENING Completed 07/21/2011 BONE DENSITY TESTING Completed 04/04/2018 HEPATITIS B VACCINE Aged Out No longe r eligible based on patient's age to complete this topic HIB VACCINE Aged Out No longer eligi ble based on patient's age to complete this topic HPV VACCINE Aged Out No longer eligi ble based on patient's age to complete this topic MENINGOCOCCAL VACCINE Aged Out No cathryn aliyah eligible based on patient's age to complete this topic Procedures Procedure Name Priority Date/Time Associated Diagnosis Comments DEXA BONE DENSITY AXIAL SKELETON Routine 04/04/2018 2:06 PM CDT Osteoporosis screening HEPATITIS SCREEN ACUTE Routine 07/21/2011 3:59 PM AUTOMATIC COIN MACHINE MECHANIC Fatigue from Last 3 Months or Most Recently Relevant to Health Maintenance Results * DEXA BONE DENSITY AXIAL SKELETON (04/04/2018 2:06 PM CDT) Anatomical Region Laterality Modality Mammography 04/04/2018 3:17 PM CDT Narrative 04/04/2018 3:25 PM CDT BONE MINERAL DENSITY STUDY INDICATION: ??Ovarian failure. FINDINGS: The average bone mineral density from L1 to L4 is 0.926 g/cm2. ??T-score is -2.1. ??Z-score is -1.1. The average bone mineral density of the total neck mean is 0.825 g/cm2. T-score is -1.5. ??Z-score is -0.4. ASSESSMENT: The above findings represent moderate increased risk of fracture through the spine and mild increased risk of fracture through femur. WORLD HEALTH ORGANIZATION DEFINITIONS OSTEOPENIA = -1 TO -2.5 SD BELOW T-SCORE OSTEOPOROSIS = LESS THAN -2.5 SD BELOW T-SCORE Edited by Deya Solorio on 04/04/2018 3:23 PM Reading Radiologist: Joe Ruffin MD on 04/04/2018 at 3:25 PM Procedure Note Joe Ruffin MD - 04/04/2018 BONE MINERAL DENSITY STUDY INDICATION: Ovarian failure. FINDINGS: The average bone mineral density from L1 to L4 is 0.926 g/cm2. T-score is -2.1. Z-score is -1.1. The average bone mineral density of the total neck mean is 0.825 g/cm2. T-score is -1.5. Z-score is -0.4. ASSESSMENT: The above findings represent moderate increased risk of fracture through the spine and mild increased risk of fracture through femur. WORLD HEALTH ORGANIZATION DEFINITIONS OSTEOPENIA = -1 TO -2.5 SD BELOW T-SCORE OSTEOPOROSIS = LESS THAN -2.5 SD BELOW T-SCORE Edited by Deya Solorio on 04/04/2018 3:23 PM Reading Radiologist: Joe Ruffin MD on 04/04/2018 at 3:25 PM Rio Carlton MD DEXA ORDERABLES * HEPATITIS SCREEN ACUTE (07/21/2011 3:59 PM AUTOMATIC COIN MACHINE MECHANIC) Hepatitis A Virus Antibody IgM Negative Negative [facility] ACCOUNT BILL Hepatitis B Virus Surface Antigen Negative Negative [facility] ACCOUNT BILL Hepatitis B Core Virus Antibody IgM Negative Negative [facility] ACCOUNT BILL Hepatitis C Virus Antibody <0.1 0.0 - 0.9 s/co ratio [facility] ACCOUNT BILL Comment: ? Negative: ? < 0.8 ? Indeterminate 0.8 - 0.9 ? Positive: ? > 0.9 ? . ? In order to reduce the incidence of a false positive ? result, the CDC recommends that all s/co ratios ? between 1.0 and 10.9 be confirmed with additional ? RIBA or PCR testing. Blood specimen (specimen) BLOOD SPECIMEN / Unknown 07/21/2011 3:59 PM AUTOMATIC COIN MACHINE MECHANIC 07/21/2011 10:03 PM AUTOMATIC COIN MACHINE MECHANIC Narrative Resulting Agency Comment [facility] [place] [address] ??[place] [id number] Grupo Moura MD LAB - CHEMISTRY O RDERABLES [facility] ACCOUNT BILL from Last 3 Months or Most Recently Relevant to Health Maintenance Anjali Rodriguez I Personal/Family Self 1955 [address] [place] [address] Anjali Rodriguez I Personal/Family Self 1955 [address] [place] [address]
--- OUTSIDE RECORDS SUMMARY | 2024-06-25 01:27 | XMS_ITS | Encounter Summary ---
Author Organization [facility] Address [address] [place] [address] Care Team Providers Care Press Smith Helper Name Role Phone Unavailable Primary Care Provider Unavailabl e Reason for Visit * Reason Onset Date Comments MEDICATION REFILL 10/06/2011 Encounter Details Date Type Department Care Team (Late st Contact Info) Description 10/06/2011 Refill [facility] Medical [facility] - Rheumatology [address] [place] [phone] Grupo Moura MD [address] [place] [address] [phone] MEDICATION REFILL Social History Tobacco Use Types Packs/Day Years Used Date Smoking Tobacco: Never Alcohol Use Standard Drinks/Week Comments No 0 (1 standard drink = 0.6 oz pur e alcohol) Sex and Gender Information Value Date Recorded Sex Assigned at Not on file Gender Identity Not on file Sexual Orientation Not on file documented as of this encounter Miscellaneous Notes * Telephone Encounter - Kimberly Huang RN - 10/07/2011 4:06 PM CDT Rx submitted. Pt aware via [employer]. * Telephone Encounter - Grupo Moura MD - 10/07/2011 9:02 AM CDT Try alternate 5 and 7.5. See me mid November. * Telephone Encounter - Kimberly Huang, SVITLANA - 10/06/2011 4:42 PM CDT Pt requesting prednisone refill. She resumed 7.5 mg due to flare at [facility] & was given 30 day supply. Please advise if should con't dose. documented in this encounter Plan of Treatment Not on file documented as of this encounter Visit Diagnoses Diagnosis Seronegative arthritis- Primary Other specified arthropathy, site unspecified documented in this encounter
--- OUTSIDE RECORDS SUMMARY | 2024-06-25 01:27 | XMS_ITS | Encounter Summary ---
Author Organization [facility] Address [address] [place] [address] Care Team Providers Care Claims Auditor Name Role Phone Unavailable Primary Care Provider Unavailabl e Reason for Visit * Reason Comments Follow-up Encounter Details Date Type Department Care Team (Late st Contact Info) Description 08/06/2012 3:00 PM ASSOCIATE DEAN OF STUDENTS Office Visit [facility] Medical [facility] - Rheumatology [address] [place] [phone] Grupo Moura MD [address] [place] [phone] Rheumatoid arthritis (HCC) (Primary Dx); Vitamin d deficiency; Acquired polyneuropathy; Myofascial pain; Immunosuppressed status (HCC) Social History Tobacco Use Types Packs/Day Years Used Date Smoking Tobacco: Never Alcohol Use Standard Drinks/Week Comments No 0 (1 standard drink = 0.6 oz pur e alcohol) Sex and Gender Information Value Date Recorded Sex Assigned at Not on file Gender Identity Not on file Sexual Orientation Not on file documented as of this encounter Last Filed Vital Signs Vital Sign Reading Time Taken Comments Blood Pressure 124/80 08/06/2012 3:11 PM ASSOCIATE DEAN OF STUDENTS Pulse 80 08/06/2012 3:11 PM ASSOCIATE DEAN OF STUDENTS Temperature - - Respiratory Rate - - Oxygen Saturation - - Inhaled Oxygen Concentration - - Weight 77.1 kg (170 lb) 08/06/2012 3:11 PM ASSOCIATE DEAN OF STUDENTS Height 149.9 cm (4' 11 ) 08/06/2012 3:11 PM ASSOCIATE DEAN OF STUDENTS Body Mass Index 34.34 08/06/2012 3:11 PM ASSOCIATE DEAN OF STUDENTS documented in this encounter Patient Instructions * Patient Instructions* Grupo Moura MD - 08/06/2012 3:29 PM ASSOCIATE DEAN OF STUDENTS Continue current plan See me 4 mos CIATE DEAN OF STUDENTS documented in this encounter Progress Notes * Grupo Moura MD - 08/06/2012 3:15 PM CST Subjective: PCP Dr. David Savage Stiffness lasts 30 History She's having the most stiffness in lower back, knees and ankles. She has noted improvement since starting Cimzia injections 1.5 months ago. She said she feels like I have my life back. Off prednisone. Off pain med. Review of Systems Fever: - Rash: - Raynaud's: - Nodules: - Med Side Effects: - Hair Loss: - Diff. swallowing: - Dry Eyes: - Dry Mouth: + Takes Meds: + Depression: - Swelling: - Smoke: - ETOH: - Sx: - Chest Pain: - Dyspnea: - GI Sx: - Elaborate on positives: RHEUM VITALS 06/18/2012 06/28/2012 08/06/2012 BP 122/84 133/90 124/80 Pulse 84 87 80 Wgt 166 lbs 169 lbs 170 lbs RHEUM GENA 02/22/2012 06/18/2012 08/06/2012 MHAQ 1.7 4.7 2.3 Pain 2 8 3 Global 4 7 3 Rapid 3 7.7 19.7 8.3 Sleep 4 9 6 GI 0 3.5 0 Fatigue 3 7 5 Tender Joints 0 7 - Swollen Joints 0 - - Global 4 - - Health Assessment Questionnaire MHAQ: 2.3 Pain: 3 Global: 3 Rapid 3: 8.3 Sleep: 6 GI: 0 Fatigue: 5 Objective: BP 124/80 Pulse 80 Ht 1.499 m (4' 11 ) Wt 77.111 kg (170 lb) BMI 34.34 kg/m2 General: alert; cooperative; no distress. Skin: Rash - Nodes/ Nodules: - Lungs: clear to auscultation bilaterally. Heart: regular rate and rhythm. S1, S2 normal. No murmur, click, rub or gallop. Pulses OK. No edema Abdomen: exam not performed Tinel???s Test +: Right: not done Left: not done Joint Review Right Left Shoulder Normal Normal Elbow Normal Normal Wrist Normal Normal MCP Normal Normal PIP Normal Normal DIP Normal Normal Knee Normal Normal Ankle Normal Normal Foot Normal Normal Normal Hip ROM: yes Swollen Joints: 0 Trigger/ tender Points; Tight Muscle Groups: no Imaging: Assessment RA doing well Immunosuppressed status Acquired neuropathy Plan Continue current plan See me 4 mos Avoid live vaccines; Flu shot OK CIATE DEAN OF STUDENTS documented in this encounter Plan of Treatment Not on file documented as of this encounter Visit Diagnoses Diagnosis Rheumatoid arthritis(714.0) ([facility])- Primary Rheumatoid arthritis Vitamin d deficiency Unspecified vitamin D deficiency Acquired polyneuropathy Unspecified hereditary and idiopathic peripheral neuropathy Myofascial pain Mylagia and myositis, unspecified Immunosuppressed status (HCC) Unspecified disorder of immune mechanism documented in this encounter
--- OUTSIDE RECORDS SUMMARY | 2024-06-25 01:27 | XMS_ITS | Encounter Summary ---
Author Organization [facility] Address [address] [place] [address] Care Team Providers Care Rn Community Name Role Phone Unavailable Primary Care Provider Unavailabl e Encounter Details Date Type Department Care Team (Latest Contact Info) Description 07/17/2020 Travel Social History Tobacco Use Types Packs/Day Years Used Date Smoking Tobacco: Never Alcohol Use Standard Drinks/Week Comments No 0 (1 standard drink = 0.6 oz pur e alcohol) Sex and Gender Information Value Date Recorded Sex Assigned at Not on file Gender Identity Not on file Sexual Orientation Not on file COVID-19 Exposure Response Date Recorded In the last month, have you been in contact with someone who was confirmed or suspected to have Coronavirus / COVID-19? 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
--- OUTSIDE RECORDS SUMMARY | 2024-06-25 01:27 | XMS_ITS | Encounter Summary ---
Author Organization [facility] Address [address] [place] [address] Care Team Providers Care Shore Working Supervisor Name Role Phone Unavailable Primary Care Provider Unavailabl e Reason for Visit * Reason Onset Date Comments General 08/10/2012 Encounter Details Date Type Department Care Team (Late st Contact Info) Description 08/10/2012 Telephone [facility] - Rheumatology [address] [place] [phone] Grupo Moura MD [address] [place] [address] [phone] General Social History Tobacco Use Types Packs/Day Years [...] Telephone Encounter - Kimberly Huang RN - 08/10/2012 4:45 PM CST Cimzia approved to be administered in office 08/08/2012-08/08/2013. Auth # [id number] [employer]SHAL * Telephone Encounter - Radha Martin - 08/10/2012 12:39 PM CST [facility] ([phone]) called. They called to speak with Gale regarding Cimzia. Please callhim back RVISING [employer] MARSHAL documented in this encounter Plan of Treatment Not on file documented as of this encounter Visit Diagnoses Not on filedocumented in this encounter
--- OUTSIDE RECORDS SUMMARY | 2024-06-25 01:27 | XMS_ITS | Encounter Summary ---
Author Organization [facility] Address [address] [place] [address] Care Team Providers Care Surgical Product Sales Consultant Name Role Phone Unavailable Primary Care Provider Unavailabl e Reason for Referral * Radiology Services (Routine) - Closed Specialty Diagnoses / Procedures Referred By Contac t Referred To Contact Diagnoses Osteoporosis screening Procedures DEXA BONE DENSITY AXIAL SKELETON Rio Carlton MD Referral ID Status Reason Start Date Expiration Date Visits Re quested Visits Authorized [id number] Closed 04/04/2018 10/01/2018 1 1 Reason for Visit * Radiology Services (Routine) - Closed Specialty Diagnoses / Procedures Referred By Contac t Referred To Contact Diagnoses Osteoporosis screening Procedures DEXA BONE DENSITY AXIAL SKELETON Rio Carlton MD Referral ID Status Reason Start Date Expiration Date Visits Re quested Visits Authorized [id number] Closed 04/04/2018 10/01/2018 1 1 Encounter Details Date Type Department Care Team (Latest Contact Info) Description 04/04/2018 1:52 PM CDT - 04/04/2018 11:59 PM CDT Hospital Encounter [facility] [address] [place], [place] [phone] Rio Carlton MD Discharge Disposition: Home or Self Care Social History Tobacco Use Types Packs/Day Years Used Date Smoking Tobacco: Never Alcohol Use Standard Drinks/Week Comments No 0 (1 standard drink = 0.6 oz pur e alcohol) Sex and Gender Information Value Date Recorded Sex Assigned at Not on file Gender Identity Not on file Sexual Orientation Not on file documented as of this encounter Medications at Time of Discharge Medication Sig Dispensed Refills Start Date End Date amLODIPine (NORVASC) 5 MG tablet Take by mouth once daily. aspirin 325 MG tablet Take 325 mg by mouth daily. Cyanocobalamin (B-12) 1000 MCG CAPS Take 1,000 mg by mouth once daily. 1 qd. FISH OIL 1200 MG CAPS Take by mouth 2 times daily. indapamide (LOZOL) 2.5 MG tablet Take 2.5 mg by mouth once daily. losartan (COZAAR) 100 MG tablet Take by mouth once daily. tiZANidine (ZANAFLEX) 4 MG tabletIndications:Myofasci al pain Take 1 Tab by mouth at bedtime. 90 Tab 3 01/31/2014 traMADol (ULTRAM) 50 MG tablet Take 1 Tab by mouth 2 times daily as needed for Pain. 60 Tab 0 12/27/2012 vitamin D, cholecalciferol, 2000 UNITS tabletIndications:Vitamin d deficiency Take 2 Tabs by mouth once daily. 08/06/2012 documented as of this encounter Plan of Treatment Not on file documented as of this encounter Procedures Procedure Name Priority Date/Time Associated Diagnosis Comments DEXA BONE DENSITY AXIAL SKELETON Routine 04/04/2018 2:06 PM CDT Osteoporosis screening documented in this encounter Results * DEXA BONE DENSITY AXIAL SKELETON [...] 3:25 PM Rio Carlton MD DEXA ORDERABLES documented in this encounter Visit Diagnoses Diagnosis Osteoporosis screening Special screening for osteoporosis documented in this encounter
--- OUTSIDE RECORDS SUMMARY | 2024-06-25 01:27 | XMS_ITS | Encounter Summary ---
Author Organization [facility] Address [address] [facility] [place] [address] Care Team Providers Care Production Truck Driver Name Role Phone Unavailable Primary Care Provider Unavailabl e Reason for Visit * Reason Onset Date Comments General 11/28/2012 Encounter Details Date Type Department Care Team (Late st Contact Info) Description 11/28/2012 Telephone [facility] - Rheumatology [address] [place] [phone] Grupo Moura MD [address] [place] [phone] General Social History Tobacco Use Types Packs/Day Years Used Date Smoking Tobacco: Never Alcohol Use Standard Drinks/Week Comments No 0 (1 standard drink = 0.6 oz pur e alcohol) Sex and Gender Information Value Date Recorded Sex Assigned at Not on file Gender Identity Not on file Sexual Orientation Not on file documented as of this encounter Miscellaneous Notes * Telephone Encounter - Francisca Cook LPN - 12/05/2012 1:36 PM CDT Patient notified. Remicade brochure mailed, she will contact us with her decision. * Telephone Encounter - Grupo Moura MD - 12/05/2012 10:19 AM CDT May need to opt for IV medicine. Give it another 2 weeks; if no better switch to Remicade. * Telephone Encounter - Francisca Cook LPN - 12/05/2012 9:10 AM CDT Results given. She doesn't think the Cimzia is as effective as it was the first 2 months. After herlast injection 2 weeks ago, she didn't feel well for about a week. She was fatigued and nauseous. * Telephone Encounter - Francisca Cook LPN - 12/04/2012 9:33 AM CDT Call returned, received voice mail. * Telephone Encounter - Priyanka Nichole MA - 11/28/2012 3:53 PM CDT Pt returning call about results, would like a call back documented in this encounter Plan of Treatment Not on file documented as of this encounter Visit Diagnoses Not on filedocumented in this encounter
--- OUTSIDE RECORDS SUMMARY | 2024-06-25 01:27 | XMS_ITS | Encounter Summary ---
Author Organization [facility] Address [address] [place] [address] Care Team Providers Care Director Of Preclinical Research Name Role Phone Unavailable Primary Care Provider Unavailabl e Reason for Referral * - Closed Specialty Diagnoses / Procedures Referred By Contac t Referred To Contact Diagnoses Acquired polyneuropathy Procedures EMG WITH [place] [id number] [place] [address] Referral ID Status Reason Start Date Expiration Date Visits Re quested Visits Authorized [id number] Closed 06/28/2012 12/25/2012 1 1 L WORKER Reason for Visit * Reason Comments Numbness Pain Encounter Details Date Type Department Care Team (Latest Contact Info) Description 06/28/2012 9:00 AM OFFAL WORKER Office Visit [facility] Neurosciences [id number] [place] [address] [place] [id number] [place] [address] Acquired polyneuropathy (Primary Dx) Social History Tobacco Use Types Packs/Day Years [...] Sign Reading Time Taken Comments Blood Pressure 133/90 06/28/2012 9:17 AM OFFAL WORKER Pulse 87 06/28/2012 9:17 AM OFFAL WORKER Temperature - - Respiratory Rate - - Oxygen Saturation - - Inhaled Oxygen Concentration - - Weight 76.7 kg (169 lb) 06/28/2012 9:17 AM OFFAL WORKER Height 147.3 cm (4' 10 ) 06/28/2012 9:17 AM OFFAL WORKER Body Mass Index 35.32 06/28/2012 9:17 AM OFFAL WORKER documented in this encounter Patient Instructions * Patient Instructions* Bubba Hawkins MD - 06/28/2012 9:54 AM OFFAL WORKER Stop SOMA until we are using Gabapentin. Use 300 mg Gabapentin at bedtime daily. If no side effects like increased drowsiness or dizzy feeling can start taking twice a day. Do not take [place] with Gabapentin and take Tramadol with care specially if driving. All these medications can alter your state of consciousness and impair driving ability if taken together. Javier Romano Peripheral Neuropathy GENERAL INFORMATION: What is peripheral neuropathy? Peripheral neuropathy is a condition that affects how your nerves work. Nerves carry information from your brain to your body and back. The information does not transfer along your nerves correctly when you have neuropathy. When you have peripheral neuropathy, the nerves in your legs, arms, feet, or hands are affected. It also may affect your organs, such as your lungs, stomach, bladder, or genitals. This condition may go away on its own or you may always have it. What causes peripheral neuropathy? The following are common risks: ?? Trauma or pressure on the nerve: A car or sports accident may cause nerve damage that leads to neuropathy. If you wear a cast or a splint, it may cause pressure that pinches nerves. Repeated movements, such as typing, may cause nerve pressure and pain. An example is carpal tunnel syndrome. ?? Alcohol abuse: You may develop neuropathy if you drink a lot of alcohol. This may cause a decrease of vitamins in your body which may cause peripheral neuropathy. ?? Family history: You may inherit a medical disorder that causes peripheral neuropathy. ?? Infections: You may get neuropathy after you are exposed to certain infections, such as herpes and Lyme disease. ?? Health conditions or treatments: Certain health conditions may cause you to develop neuropathy. Some examples are rheumatoid arthritis, cancer, and lupus. You are also at risk if you have some medical treatments, such as chemotherapy or surgery. Certain medicines for heart conditions or HIV alsoput you at risk. Ask for more information about these or other health conditions or treatments. What are the signs and symptoms of peripheral neuropathy? Peripheral neuropathy can affect the nerves that allow you to move or to feel things. It also may affect nerves that control your body functions, such as digestion (breaking down food) or urination. The following are common signs and symptoms: ?? You have pain or tingling in your legs, feet, arms, or hands. The pain may feel sharp, stabbing,or burning. The area may itch or be numb. ?? It is hard for you to walk or to keep your balance. ?? You feel weak or have a hard time holding things. ?? You lose your sense of touch. ?? You bruise easily. ?? It is hard for you to control your bladder or bowels, or to have sex. How is peripheral neuropathy diagnosed? Your caregiver will examine you and ask questions about your symptoms. He may ask you about your overall health and about your family history. Your caregiver may gently touch your skin in different areas with a cotton ball or a pin. This test is done to checkyour sense of touch. He may also check how well you can feel hot and cold. Your caregiver will ask you to do simple movements. For example, he may ask you to walk or to move your fingers. You may also have any of the following tests: ?? Blood tests: You may need blood taken to check for conditions that may be causing your peripheral neuropathy. The blood can be taken from a blood vessel in your hand, arm, or the bend in your elbow. You may need to have blood drawn more than once. ?? Electromyography: This is also called an EMG. An EMG is done to test the function of your muscles and the nerves that control them. Electrodes (wires) are placed on the area of muscle being tested. [place] that enter your skin may be attached to the electrodes. The electrical activity of your muscles and nerves is measured by a machine attached to the electrodes. Your muscles are tested at rest and with activity. ?? Nerve conduction studies: Nerve conduction studies (NCS) test how your nerves respond to stimulation. Electrodes (wires) are placed on affected areas of your body. Then they send electrical currents into the nerve to see how quickly it responds. ?? Nerve biopsies: A sample of skin and nerve tissue is collected by biopsy. Many methods and sitesmay be used for a biopsy. After a site is selected and cleaned, the area is numbed. A small piece of skin is removed so that nerves in the sample can be examined. Ask for more information about nervebiopsies. How is peripheral neuropathy treated? Treatment may help relieve your pain and help you function inyour daily activities. Treatment of the condition causing the peripheral neuropathy may improve your symptoms. You may need the following treatments: ?? Medicines: ?? Pain medicine: You may be given medicine to take away or decrease pain. You may take pain medicine as a pill or apply it to your skin. Do not wait until the pain is severe before you take your medicine. ?? Antidepressants: This medicine is given to decrease or stop the symptoms of depression. It also may be given to help with your pain. Take this medicine as directed. ?? Antiseizure medicine: This medicine is usually given to control seizures (uncontrolled movements), but it also helps with nerve pain. ?? Therapy: Physical and occupational therapists may exercise your arms, legs, and hands. They may teach you new ways to do things at home. ?? Transcutaneous electrical nerve stimulation: This treatment, called TENS, stimulates your nervesand may decrease your pain. Wires are attached to pads. The pads are attached to your skin. The wires send a mild current through your nerves. Do not have TENS if you have a pacemaker or are . ?? Brace or splint: You may need a device that supports you or holds a body part still. For example, if you have carpal tunnel syndrome, you may need to wear a wrist brace. What are the risks of peripheral neuropathy? ?? The needles used during EMG may cause pain when they are inserted and may leave bruises. If you have a nerve biopsy, you may lose your sense of touch in that area. Medicines used to treat your condition may cause you to feel sick to your stomach, dizzy, or sleepy. You may become dependent on some medicines (you feel like you have to take them). You may still have pain even while you are takingmedicines. Peripheral neuropathy may cause permanent damage to your nerves. It may not go away. ?? You may get a blood clot in your leg or arm. This can cause pain and swelling. It can also stop blood from flowing where it needs to go in your body. The blood clot may break loose and travel to your lungs. A blood clot in your lungs can cause chest pain and trouble breathing. This problem can be life-threatening. ?? You may injure yourself because you cannot control your movements. You may have a poor sense of touch and not be able to grasp things, such as zippers or keys. You may develop muscle or bone weakness and sores from lack of movement. Pain may make you feel upset or cause you not to sleep. You mayget an infection or kidney disease if it is hard for you to control your bladder or bowels. You mayhave trouble breathing if the nerves that work with your lungs are affected. This can be life-threatening. How can I manage my peripheral neuropathy? ?? Avoid falls: Move with care and stand up slowly. Wear shoes that support your feet, and do not go barefoot. Ask about walking aids, such as a cane or walker. You may want to install railings or nonslip pads in your home, especially in the bathroom. Ask for more information on how to avoid falls. ?? Check your skin daily: Sores can form where your skin makes contact with chairs, beds, or other body parts. They also can form under splints. Keep your skin clean, and check your skin daily for sores. ?? Exercise: Physical activity makes the heart stronger, lowers blood pressure, and helps keep you healthy. It may increase your balance and strength and may decrease your pain. It is best to start exercising slowly and do more as you get stronger. Talk to your primary healthcare provider before you start exercising. Together you can plan the best exercise program for you. ?? Limit alcohol: Limit the amount of alcohol you drink. Drinking too much can damage your brain, heart, and liver. The risk of getting high blood pressure and certain types of cancer are greater forpeople who drink too much alcohol. Drinking too much alcohol also increases the risk of having a stroke. Women should limit alcohol to one drink a day. Men should limit alcohol to two drinks a day. Adrink of alcohol is 12 ounces of beer, or five ounces of wine. One and one-half ounces of liquor, such as whiskey, is one drink of alcohol. If you drink alcohol, talk to your caregiver. ?? Manage stress: Stress may slow healing and cause illness later. Because it is hard to avoid stress, learn to control it. Learn new ways to relax, such as deep breathing, meditating, or listening to music. Talk to someone about things that upset you. Where can I find more information? Contact the following: ?? National [place] [employer] [address] [place] [address] Phone: Phone: Web Address: http://www.ninds.nih.gov ?? Neuropathy Association [address] [place] [address] Phone: Web Address: www.neuropathy.org When should I contact my caregiver? Contact your caregiver if: ?? Your pain is severe. ?? You cannot control your bladder. ?? You have trouble with sex. ?? Your medicine makes you feel sick to your stomach, sleepy, or dizzy. ?? You have questions about your condition or care. When should I seek immediate help? Seek care immediately or call 911 if: ?? You fall down. ?? You cannot walk at all. ?? Your arm or leg feels warm, tender, and painful. It may look swollen and red. ?? You have chest pain or trouble breathing that is getting worse over time. ?? You suddenly feel lightheaded and have trouble breathing. ?? You have new and sudden chest pain. You may have more pain when you take deep breaths or cough. You may cough up blood. CARE AGREEMENT: You have the right to help plan your care. Learn about your health condition and how it may be treated. Discuss treatment options with your caregivers to decide what care you want to receive. You always have the right to refuse treatment. Copyright ?? 2012. [employer]. All rights reserved. Information is for End User's use only andmay not be sold, redistributed or otherwise used for commercial purposes. The above information is an diet aide only. It is not intended as medical advice for individual conditions or treatments. Talk to your doctor, nurse or pharmacist before following any medical regimen to see if it is safe and effective for you. Call physician if symptoms worsen or with any questions. Take Medications as prescribed. For descriptions of a variety of neurological conditions please visit: [email or web address] Please contact our office 48 hours after testing is complete for results. L WORKER documented in this encounter Progress Notes * Adriana Shi - 07/11/2012 2:10 PM CST 25 modifier neede to be added to office visit because of same day testing. L WORKER * Bubba Hawkins MD - 06/28/2012 9:56 AM CST 06/28/2012 Anjali Rodriguez 57 y.o. Referring Physician: Dr. David Savage MD Chief Complaint: Chief Complaint Patient presents with ??? Numbness ??? Pain HPI: Ms Rodriguez is a 57 year old female who presents with chief complain of burning sensations of herfeet and hands for over 6-7 months. She says she has rheumatoid arthritis and is just starting on some injectable treatment for it. In the past she has been on steroids and that had helped initially but not any more. She thinks the burning sensations are worse now than before. She denies any bowel of bladder problems. She denies any visual symptoms or weakness. She has not fallen. About a year ago she had an episode of unstable gait and confusion and was worked up for possible TIA but MRI of the brain was normal and she was told it was likely due to sugar levels. She denies any recent illnesses but says she has had multiple hernia repairs. She also had low vitamin D levels and is being replaced. She says the pain of the arthritis has been helped by the injections and the prednisone. The burning is restricted to her feet and hands only. She feels otherwise healthy. She says when she moves it seems to be better. She denies any skin lesions or rash. She denies any memory problems. She has not had any injuries. She recently had an MRI of the C-Spine and L-Spine which I do not have the reports for. She tells me they found some disc bulging in her neck which she has know about for a while and has had epidural injections in the past. She says she also had an EMG NCV studies done of herLE BL which were normal. Past Medical History Diagnosis Date ??? High blood pressure ??? Migraine headache ??? High cholesterol Past Surgical History Procedure Date ??? Hernia repair 2008 2 ??? Hysterectomy ??? Other surgery gall bladder ??? Other surgery ovarian Current Outpatient Prescriptions Medication Sig Dispense Refill ??? gabapentin (NEURONTIN) 300 MG capsule Take 1 Cap by mouth at bedtime. 30 Cap 3 ??? certolizumab pegol (CIMZIA) KIT injection Inject 200 mg subcutaneously every 28 days. ??? traMADol (ULTRAM) 50 MG tablet Take 50 mg by mouth every 6 hours as needed. ??? certolizumab pegol (CIMZIA) KIT injection Inject 400 mg subcutaneously every 28 days. ??? hydrocodone-acetaminophen (NORCO) 5-325 MG tablet Take 1 Tab by mouth every 8 hours as needed for Pain. 12 Tab 0 ??? vitamin D, cholecalciferol, 2000 UNITS tablet Take 2,000 Units by mouth once daily. ??? indapamide (LOZOL) 1.25 MG tablet Take 1.25 mg by mouth once daily. ??? predniSONE (DELTASONE) 5 MG tablet Take 2 Tabs by mouth once daily. 45 Tab 1 ??? carisoprodol (SOMA) 350 MG tablet Take 2 Tabs by mouth at bedtime. 180 Tab 2 ??? aspirin 325 MG tablet Take 325 mg by mouth daily. ??? B-12 PO Take by mouth. 1 qd ??? ACIPHEX 20 MG TBEC Take 20 mg by mouth daily. ??? amlodipine-olmesartan (KEIKO) 5-20 MG tablet Take 1 Tab by mouth daily. ??? FISH OIL 1200 MG CAPS Take by mouth 4 times daily. Allergies Allergen Reactions ??? Amitriptyline Drowsiness History Social History ??? Marital Status: Spouse Name: N/A Number of Children: N/A ??? Years of Education: N/A Occupational History ??? Not on file. Social History Main Topics ??? Smoking status: Never Smoker ??? Smokeless tobacco: Not on file ??? Alcohol Use: No ??? Drug Use: No ??? Sexually Active: Not on file Other Topics Concern ??? Not on file Social History Narrative ??? No narrative on file Family Status Relation Status Age ??? Mother Alive ??? Father 60 heart attack REVIEW OF SYSTEMS: ROS Symptoms within the past 90 days include those in bold type. General: Tiredness, fatigue, fever Skin: Rash, abnormal color, cafe- au-lait spots, hair texture, recurrent sores or infections, hives, ulcers, scars. Head: Headache, recent trauma or falls. Ears: Infection, drainage, loss of hearing. Eyes: Changes in vision, pain, double vision, droopy eyelid, infection, drainage. Neck: Soreness, problems swallowing, hoarseness, stiffness, swollen glands, goiter or enlargement of thyroid gland. Respiratory: Cough, chest pain, wheezing,pneumonia, short of breath, erratic breathing pattern at night. Cardiac: Rapid heart beat, shortness of breath, palpitations, irregular heartbeat, fainting spells,increased sweating, ankle swelling. GI: Nausea, vomiting, diarrhea, constipation, heartburn, difficulty swallowing, recurrent abdominalpain or cramps, change in consistency or color of stool, blood in stool/bowel movements. : Blood pr pain when urinating, difficulty urinating, bedwetting, frequent urination. MS: Cramps, muscle pain, muscle weakness, neck pain, back pain, joint pain, joint swelling, curvature of back, injury Psych: Anxiety, sleep disturbances, depression, nervousness, emotional instability, loss of appetite. Neuro: Headache, dizziness, vertigo, light headedness, blackout spells, seizure, double vision, weakness of arm or leg, loss of coordination or balance, tremors, tingling sensation, numbness in fingers, toes or around lips, memory problems, speech changes, changes in hand writing. EXAMINATION: BP 133/90 Pulse 87 Wt 76.658 kg (169 lb) BMI 35.32 kg/m2 General: General appearance: well developed, in no distress Distal pulses are preserved. CVS: S1 S2 heard. No murmurs or gallop heard. Resp: Air entry is equal bilaterally without evidence of crackles or ronchi. Neurological Examination: Mental Status: Awake, Alert. Oriented x3. Follows commands, has normal fund of knowledge, attention, short term recall, fluency, comprehension and insight. Cranial Nerves: PERRLA 1. (Cranial Nr 2) Fundii - No evidence of papilledema. Venous pulsations - N Visual Acuity - 20/20 BL Visual [place] - Intact 2. (Cranial Nr 3,4,6) Extra Ocular Movements - Intact 3. (Cranial Nr 5) Facial sensation - Equal Bilaterally 4. (Cranial Nr 7) Facial expression - No Facial Asymmetry 5. (Cranial Nr 8) Hearing - Intact to conversation and finger rub 6. (Cranial Nr 9, 10) Voice - No change in quality or pitch Palate - Elevates equally Gag - Present 7. (Cranial Nr 11) Elevate shoulder - Bilaterally without paralysis 8. (Cranial Nr 12) Tongue - No deviation or wasting Motor: She has weakness in UE BL most so in arm extension. LE strength is symmetric and equal. No spasticity. No changes in in tone. No tremor. Sensation: She has 30% vibratory and pin prick sensations in her feet BL up to her ankles. She has no sensory loss noted in her fingers and hand. Reflexes: DTRs No clonus 1. Triceps(C7) - 2+ 2. Biceps (C5,6) - 2+ 2. Brachioradialis (C6) - 2+ 3. Patellar (L4) - 3+ 4. Achilles (S1) - 3+ 5. Plantar responses down going bilaterally. Coordination/Cerebellar: Intact to bdkrqm-niss-twcidc, nylr-vy-vthy exam. Gait: walks heel and toe without difficulty, normal tandem gait and Romberg test. Imaging/Laboratory review: Component Name 06/18/12 1552 10/26/11 1027 08/31/11 1557 SODIUM 139 137 138 POTASSIUM 4.4 4.0 4.0 CHLORIDE 102 101 101 CO2 22 23 25 BUN 12 13 17 CREATININE 0.59 0.62 0.56* GLUCOSE 100* 68 99 CALCIUM 9.9 9.7 9.3 Component Name 06/18/12 1552 10/26/11 1028 08/31/11 1557 WBC 9.8 12.6* 11.0* HGB 12.3 12.3 11.9 HCT 36.2 35.6 35.1 PLTCOUNT 392 382 363 No results found. Impression: 1) Acquired Polyneuropathy Differentials to be excluded include Vitamin deficiencies or hypervitaminoses, heavy metal exposure, iron deficiency, auto immune neuropathy, secondary to arthritic disease and vasculitis etc. HbA1C - 5.7 VAL +ve in past (2010). CRP increased in past (normal now - responded to steroids). Pain was responsive to prednisone clinically (could be incidental?). Vitamin D was 13 some time back now up to 22. Hepatitis screening has been negative. (July 2011) repeat testing is pending. High Cholesterol and LDL. (no statin use indicated in past) TSH normal. (November 2011) Discussion: Reflexes are brick in LE but no signs of myelopathy. She has posterior column signs in LE. Vitamin B12 and Folate need to be evaluated. I don't have the reports of the MRI cervical and lumbar spine done 2 days ago. Will review those. She has had an unremarkable EMG NCV of LE. Will do for UE and seeif repeat testing shows any more damage. No evidence that this is a central process. No overt signs of vasculitis. Does not appear to be hereditary. Further therapeutic and diagnostic considerations after testing results are reviewed along with imaging characteristics. I made the following recommendations: 1) B12 Folate B6 Heavy metal screen Vitamin E Copper Iron panel 2) Follow up on MRI reports of C-Spine and Lumbar spine 3) Follow up on MRI Brain done 1 year ago at [facility]. 4) EMG NCV UE Bilaterally. 5) Gabapentin 300 mg HS daily. Increase to 300 mg TID if no side effects. Follow up 3 months. L WORKER documented in this encounter Miscellaneous Notes * Addendum Note - Adriana Shi - 07/11/2012 2:11 PM CSTAddended by: ADRIANA SHI on: 07/11/2012 02:11 PM Modules accepted: Level of Service L WORKER documented in this encounter Plan of Treatment Not on file documented as of this encounter Procedures Procedure Name Priority Date/Time Associated Diagnosis Comments VDRL BLOOD Routine 06/28/2012 10:29 AM OFFAL WORKER Acquired polyneuropathy VITAMIN B6 Routine 06/28/2012 10:29 AM OFFAL WORKER Acquired polyneuropathy VITAMIN B12 FOLATE PANEL Routine 06/28/2012 10:29 AM OFFAL WORKER Acquired polyneuropathy HEAVY METALS BLOOD SCREEN Routine 06/28/2012 10:28 AM OFFAL WORKER Acquired polyneuropathy VITAMIN E Routine 06/28/2012 10:28 AM OFFAL WORKER Acquired polyneuropathy IRON + TIBC PANEL Routine 06/28/2012 10: 28 AM OFFAL WORKER Acquired polyneuropathy EMG WITH NERVE CONDUCTION STUDY Routine 06/28/2012 Acquired polyneuropathy documented in this encounter Results * VDRL BLOOD (06/28/2012 10:29 AM OFFAL WORKER) VDRL [facility] INSURANCE BILL Comment:Non Reactive VDRL Titer NOT NEEDED [facility] INSURANCE BILL Comment:Ancillary determined the test is not needed Blood specimen (specimen) BLOOD SPECIMEN / Unknown 06/28/2012 10:29 AM OFFAL WORKER 06/28/2012 1:27 PM OFFAL WORKER Narrative Resulting Agency Comment [address] ??[facility] [id number] Bubba Hawkins MD LAB - SEROLOGY ORDER DAYNE [facility] INSURANCE BILL * VITAMIN B6 (06/28/2012 10:29 AM OFFAL WORKER) Vitamin B6 28.0 2.0 - 32.8 ug/L [facility] INSURANCE BILL Blood specimen (specimen) BLOOD SPECIMEN / Unknown 06/28/2012 10:29 AM OFFAL WORKER 06/28/2012 1:27 PM OFFAL WORKER Narrative Resulting Agency Comment [facility] ??[facility] [phone] Bubba Hawkins MD LAB - CHEMISTRY ELIEZER BACON [facility] INSURANCE BILL * (ABNORMAL) VITAMIN B12 FOLATE PANEL (06/28/2012 10:29 AM OFFAL WORKER) Vitamin B12 1026(H) 211 - 946 pg/mL [facility] INSURANCE BILL Folate 16.2 >3.0 ng/mL [facility] INSURANCE BILL Comment: A serum folate concentration of less than 3.1 ng/mL is considered to represent clinical deficiency. Blood specimen (specimen) BLOOD SPECIMEN / Unknown 06/28/2012 10:29 AM OFFAL WORKER 06/28/2012 1:27 PM OFFAL WORKER Narrative Resulting Agency Comment [place] [id number] ??[facility] [phone] Bubba Hawkins MD LAB - CHEMISTRY ELIEZER BACON [facility] INSURANCE BILL * IRON + TIBC PANEL (06/28/2012 10:28 AM OFFAL WORKER) TIBC 268 250 - 450 ug/dL [facility] INS[facility]ANCE BILL UIBC 168 150 - 375 ug/dL [facility] BILL Iron 100 35 - 155 ug/dL [facility] BILL Iron Saturation 37 15 - 55 % [facility] BILL Blood specimen (specimen) BLOOD SPECIMEN / Unknown 06/28/2012 10:28 AM OFFAL WORKER 06/28/2012 1:27 PM OFFAL WORKER Narrative Resulting Agency Comment [facility] [address] [facility] ??[facility] [phone] Bubba Hawkins MD LAB - CHEMISTRY ELIEZER BACON Performing Organization Address [facility]/ZIP Co de Phone Number [facility] INS[facility]ANCE BILL * VITAMIN E (06/28/2012 10:28 AM OFFAL WORKER) Vitamin E Alpha Tocopherol 12.3 4.6 - 17.8 mg/L [facility] INS[facility]ANCE BILL Blood specimen (specimen) BLOOD SPECIMEN / Unknown 06/28/2012 10:28 AM OFFAL WORKER 06/28/2012 1:27 PM OFFAL WORKER Narrative Resulting Agency Comment [facility] [address] ??[facility] [phone] Bubba Hawkins MD LAB - CHEMISTRY ELIEZER BACON Performing Organization Address City/[facility]/ZIP Co de Phone Number [facility] INS[facility]ANCE BILL * HEAVY METALS BLOOD SCREEN (06/28/2012 10:28 AM OFFAL WORKER) Lead Blood 1 0 - 19 ug/dL [facility] INSURANCE BILL Comment: ? The Centers for Disease Control and Prevention states ? blood lead levels less than 10 ug/dL in children have ? been associated with numerous adverse health effects. ? [facility] Guidelines: Blood lead levels in the ? range 5-9 ug/dL have been associated with adverse ? health effects in children aged 6 years and younger. ? . ? Environmental Exposure: ?WHO Recommendation ?<20 ? Occupational Exposure: ?OSHA Lead Std ?40 ?SAÚL ?30 ?. ? Detection Limit = ??1 Arsenic 5 2 - 23 ug/L [facility] INSURANCE BILL Comment:Detection Limit = 1 Mercury 1.2 0.0 - 14.9 ug/L [facility] INS[facility]ANCE BILL Comment: ? Environmental Exposure: ??<15.0 ? Occupational Exposure: ?SAÚL - Inorganic Mercury: 15.0 ?. ? Detection Limit = ??1.0 Cadmium None Detected 0.0 - 1.2 ug/L [facility] INSURANCE BILL Comment: ?Environmental Exposure: ? Nonsmokers ?0.3 - 1.2 ? Smokers ? 0.6 - 3.9 ?Occupational Exposure: ? OSHA Cadmium Std ?5.0 ? SAÚL ? 5.0 ? . ? Detection Limit = 0.5 BLOOD SPECIMEN / Unknown 06/28/2012 10:28 AM OFFAL WORKER 06/28/2012 1:27 PM OFFAL WORKER Narrative Resulting Agency Comment [facility] [address] ??[facility] [phone] Bubba Hawkins MD LAB - CHEMISTRY ELIEZER BACON Performing Organization Address City/[facility]/ZIP Co de Phone Number [facility] INSURANCE BILL * EMG WITH NERVE CONDUCTION STUDY (06/28/2012) Bubba Hawkins MD NEUROLOGY ORDERABLES Performing Organization Address City/[facility]/ZIP Co de Phone Number [facility] RESULT SCAN documented in this encounter Visit Diagnoses Diagnosis Acquired polyneuropathy- Primary Unspecified hereditary and idiopathic peripheral neuropathy documented in this encounter
--- OUTSIDE RECORDS SUMMARY | 2024-06-25 01:27 | XMS_ITS | Encounter Summary ---
Author Organization [facility] Address [address] [facility] [place] [address] Care Team Providers Care Thiokol Operator Name Role Phone Unavailable Primary Care Provider Unavailabl e Reason for Visit * Reason Onset Date Comments MEDICATION REFILL 01/30/2014 Encounter Details Date Type Department Care Team (Late st Contact Info) Description 01/30/2014 Refill [facility] Medical [facility] - Rheumatology [address] [place] [phone] Grupo Moura MD [address] [place] [address] MEDICATION REFILL Social History Tobacco Use Types [...] Telephone Encounter - Kimberly Huang RN - 01/31/2014 10:01 AM CDT Called tizanidine [employer] home delivery documented in this encounter Plan of Treatment Not on file documented as of this encounter Visit Diagnoses Diagnosis Myofascial pain Mylagia and myositis, unspecified documented in this encounter
--- OUTSIDE RECORDS SUMMARY | 2024-06-25 01:27 | XMS_ITS | Encounter Summary ---
Author Organization [facility] Address [address] [facility] [place] [address] Care Team Providers Care Engineer Booster And Exhauster Name Role Phone Unavailable Primary Care Provider Unavailabl e Reason for Visit * Reason Onset Date Comments MEDICATION REFILL 12/27/2012 Encounter Details Date Type Department Care Team (Late st Contact Info) Description 12/27/2012 Refill [facility] Medical [facility] - Rheumatology [address] [place] [phone] Grupo Moura MD [address] [place] [address] [phone] MEDICATION REFILL Social History Tobacco Use Types Packs/Day Years Used Date Smoking Tobacco: Never Alcohol Use Standard Drinks/Week Comments No 0 (1 standard drink = 0.6 oz pur e alcohol) Sex and Gender Information Value Date Recorded Sex Assigned at Not on file Gender Identity Not on file Sexual Orientation Not on file documented as of this encounter Plan of Treatment Not on file documented as of this encounter Visit Diagnoses Not on filedocumented in this encounter
--- OUTSIDE RECORDS SUMMARY | 2024-06-25 01:27 | XMS_ITS | Encounter Summary ---
Author Organization [facility] Address [address] [facility] [place] [address] Care Team Providers Care Branch Director Name Role Phone Unavailable Primary Care Provider Unavailabl e Reason for Visit * Reason Comments Follow-up Rheumatoid Arthritis Encounter Details Date Type Department Care Team (Late st Contact Info) Description 11/20/2013 4:20 PM CDT Office Visit [facility] - Rheumatology [address] [place] [phone] Grupo Moura MD [address] [place] [address] [phone] Rheumatoid arthritis (HCC) (Primary Dx); Myofascial pain; Medication monitoring encounter; Immunosuppressed status (HCC); Medication side effect Social History Tobacco Use Types Packs/Day Years [...] Sign Reading Time Taken Comments Blood Pressure 142/80 11/20/2013 4:27 PM CDT Pulse 64 11/20/2013 4:27 PM CDT Temperature - - Respiratory Rate - - Oxygen Saturation - - Inhaled Oxygen Concentration - - Weight 75.3 kg (166 lb) 11/20/2013 4:27 PM CDT Height 149.9 cm (4' 11 ) 11/20/2013 4:27 PM CDT Body Mass Index 33.53 11/20/2013 4:27 PM CDT documented in this encounter Patient Instructions * Patient Instructions* Grupo Moura MD - 11/20/2013 4:52 PM CDT Stay at prednisone 10 MG OD Two more doses of Simponi Taper prednisone in 2 mos See me 3 mos; consider Actemra documented in this encounter Progress Notes * Grupo Moura MD - 11/20/2013 4:29 PM CDT Subjective: Stiffness: lasts 60 , returns with inactivity History Constant pain in feet, lower back, and knees. Intermittent pain in wrists and elbows. Pain has been worse the past week. She started 10 mg prednisone 3 days ago; pain has improved some. She's distracted by the pain; is starting to forget things and have difficulty concentrating. She'sfearful she'll lose her job. No improvement since she started Simponi. Has had two doses. Humira was helpful but made her develop GI issues. Methotrexate has not been helpful. Duc worked for only 3 months No recent hand films or TB test Review of Systems Fever: - Rash: - Raynaud's: - Nodules: - Med Side Effects: - Hair Loss: - Diff. swallowing: - Dry Eyes: - Dry Mouth: - Takes Meds: + Depression: + Swelling: + Smoke: - ETOH: - Sx: + Chest Pain: + Dyspnea: - GI Sx: + Elaborate on positives: Swelling L knee Dysuria recently GERD RHEUM VITALS 03/06/2013 08/06/2013 11/20/2013 BP 126/70 144/86 142/80 Pulse 80 88 64 Wgt 171 lbs 171 lbs 166 lbs RHEUM GENA 03/06/2013 08/06/2013 11/20/2013 MHAQ 1.3 2.7 3.3 Pain 2.5 2 7.5 Global 2.5 3 7 Rapid 3 6.3 7.7 17.8 Sleep 3.5 6.5 7.5 GI 2 3 3 Fatigue 7 4 5.5 Tender Joints - 0 2 Swollen Joints - 0 0 Global - 2 4 Health Assessment Questionnaire MHAQ: 3.3 Pain: 7.5 Global: 7 Rapid 3: 17.8 Sleep: 7.5 GI: 3 Fatigue: 5.5 Tender Joints: 2 Swollen Joints: 0 MD GLOBAL: 4 Objective: BP 142/80 Pulse 64 Ht 1.499 m (4' 11 ) Wt 75.297 kg (166 lb) BMI 33.51 kg/m2 General: alert; cooperative; no distress. Skin: [...] Tight Muscle Groups: no Imaging: Assessment RA Immunosuppressed status Steroid therapy Plan Stay at prednisone 10 MG OD Two more doses of Simponi Taper prednisone in 2 mos See me 3 mos; consider Actemra documented in this encounter Plan of Treatment Not on file documented as of this encounter Visit Diagnoses Diagnosis Rheumatoid arthritis(714.0) ([facility])- Primary Rheumatoid arthritis Myofascial pain Mylagia and myositis, unspecified Medication monitoring encounter Encounter for therapeutic drug monitoring Immunosuppressed status (HCC) Unspecified disorder of immune mechanism Medication side effect Unspecified adverse effect of unspecified drug, medicinal and biological substance documented in this encounter
--- OUTSIDE RECORDS SUMMARY | 2024-06-25 01:27 | XMS_ITS | Encounter Summary ---
Author Organization [facility] Address [address] [facility] [place] [address] Care Team Providers Care Counter Sales Representative Name Role Phone Unavailable Primary Care Provider Unavailabl e Encounter Details Date Type Department Care Team (Latest Contact Info) Description 04/16/2018 10:03 AM CDT - 04/16/2018 11:59 PM T Hospital Encounter [facility] Imaging Services - Radiology [address] [place], [place] [phone] Rio Carlton MD Discharge Disposition: Home or [...] Procedure Name Priority Date/Time Associated Diagnosis Comments XR ABDOMEN KUB Routine 04/16/2018 10:30 AM CDT Colon abnormality documented in this encounter Results * XR ABDOMEN 1 VW (04/16/2018 10:30 AM CDT) Anatomical Region Laterality Modality Abdomen Radiographic Sofy ging 04/16/2018 12:2 4 PM CDT Impressions 04/16/2018 12:25 PM CDT Normal bowel gas pattern. Reading Radiologist: Destiny Le MD on 04/16/2018 at 12:25 PM Narrative 04/16/2018 12:25 PM CDT Abdomen KUB one view INDICATION: Abdominal pain colonic abnormality KUB of the abdomen shows surgical coils in place throughout the abdomen. There is stool scattered throughout the colon. There is no obstruction. There are clips in the right upper quadrant. Bowel gas pattern is within normal limits. Degenerative changes are noted in the lumbar spine with a mild right convex scoliosis. Procedure Note Destiny Le MD - 04/16/2018 Abdomen KUB one view INDICATION: Abdominal pain colonic abnormality KUB of the abdomen shows surgical coils in place throughout the abdomen. There is stool scattered throughout the colon. There is no obstruction. There are clips in the right upper quadrant. Bowel gas pattern is within normal limits. Degenerative changes are noted in the lumbar spine with a mild right convex scoliosis. IMPRESSION Normal bowel gas pattern. Reading Radiologist: Destiny Le MD on 04/16/2018 at 12:25 PM Rio Carlton MD DIAGNOSTIC IMAGING O RDERABLES documented in this encounter Visit Diagnoses Diagnosis Colon abnormality Unspecified disorder of intestine documented in this encounter
--- OUTSIDE RECORDS SUMMARY | 2024-06-25 01:27 | XMS_ITS | Encounter Summary ---
Author Organization [facility] Address [address] [facility] [place] [address] Care Team Providers Care Counter Maker Name Role Phone Unavailable Primary Care Provider Unavailabl e Reason for Visit * Reason Onset Date Comments MEDICATION REFILL 11/01/2013 Encounter Details Date Type Department Care Team (Late st Contact Info) Description 11/01/2013 Refill [facility] Medical [facility] - Rheumatology [address] [place] [phone] Grupo Moura MD [address] [place] [phone] MEDICATION REFILL Social History Tobacco Use Types [...] Telephone Encounter - Kimberly Huang RN - 11/01/2013 9:05 AM CDT Spoke with t pharmacy & advised them additional Simponi refills should be for auto-injectorpens instead of PFS. documented in this encounter Plan of Treatment Not on file documented as of this encounter Visit Diagnoses Not on filedocumented in this encounter
--- OUTSIDE RECORDS SUMMARY | 2024-06-25 01:27 | XMS_ITS | Encounter Summary ---
Author Organization [facility] Address [address] [facility] [place] [address] Care Team Providers Care Hay Rake Operator Name Role Phone Unavailable Primary Care Provider Unavailabl e Reason for Visit * Reason Comments Follow-up Rheumatoid Arthritis Encounter Details Date Type Department Care Team (Late st Contact Info) Description 04/09/2015 2:20 PM CDT Office Visit [facility] - Rheumatology [address] [place] [phone] Grupo Moura MD [address] [place] [address] [phone] Rheumatoid arthritis(714.0) ([facility]) (Primary Dx); Acquired polyneuropathy; Abdominal pain, generalized Social History Tobacco Use Types Packs/Day Years [...] Sign Reading Time Taken Comments Blood Pressure 138/78 04/09/2015 2:47 PM CDT Pulse 92 04/09/2015 2:47 PM CDT Temperature - - Respiratory Rate - - Oxygen Saturation - - Inhaled Oxygen Concentration - - Weight 73.5 kg (162 lb) 04/09/2015 2:47 PM CDT Height 149.9 cm (4' 11 ) 04/09/2015 2:47 PM CDT Body Mass Index 32.72 04/09/2015 2:47 PM CDT documented in this encounter Progress Notes * Francisca Cook LPN - 04/28/2015 12:08 PM CDTQuick Note: Results given. * Grupo Moura MD - 04/23/2015 10:42 AM CDTQuick Note: Need VAL titer. * Grupo Moura MD - 04/09/2015 2:51 PM CDT Subjective: Stiffness: lasts 20 History Having pain feet, back, and neck. Pain is worst at night. I just can't get comfortable to sleep. Uses Tramadol during the day. It helps. Taking two Tylenol with tizanidine at hs. It helps some. She only took the Plaquenil for 2 weeks. Caused severe stomach pain and N/V. Was evaluated in [facility]. They could not find anything. Weaned off prednisone 2 months ago. Pain has been worse since. No recent hand films Review of Systems Fever: - Rash: - Raynaud's: - Nodules: - Med Side Effects: - Hair Loss: - Diff. swallowing: - Dry Eyes: - Dry Mouth: - Takes Meds: + Depression: + Swelling: - Smoke: - ETOH: - Sx: - Chest Pain: - Dyspnea: - GI Sx: + Elaborate on positives: Depression sometimes Frequently has stomach pain. Saw GI 12/2014; did not find cause. RHEUM VITALS 11/04/2014 12/09/2014 04/09/2015 BP 152/86 130/82 138/78 Pulse 74 82 92 Wgt 160 lbs 160 lbs 162 lbs RHEUM GENA 11/20/2013 02/05/2014 04/09/2015 MHAQ 3.3 2.3 2.3 Pain 7.5 2 3 Global 7 4 4 Rapid 3 17.8 8.3 9.3 Sleep 7.5 4 7 GI 3 3 7 Fatigue 5.5 8 7 Tender Joints 2 - - Swollen Joints 0 - - Global 4 - - Health Assessment Questionnaire MHAQ: 2.3 Pain: 3 Global: 4 Rapid 3: 9.3 Sleep: 7 GI: 7 Fatigue: 7 Objective: BP 138/78 mmHg Pulse 92 Ht 1.499 m (4' 11 ) Wt 73.483 kg (162 lb) BMI 32.70 kg/m2 General: alert; cooperative; no distress. Skin: [...] Tight Muscle Groups: no Imaging: Assessment RA not her major issue at present Recurrent abdominal pain with paresthesias Low D HBP Plan Screen for porphyria; it may be more helpful to do these tests when she's having an acute attack Recheck serology documented in this encounter Plan of Treatment Scheduled Orders Name Type Priority Associated Diagnoses Orde r Schedule CYCLIC CITRUL PEPTIDE ANTIBODY IGG/IGA ([facility]) Lab Routine Rheumatoid arthritis(714.0) ([facility]) Ordered: 04/09/2015 documented as of this encounter Procedures Procedure Name Priority Date/Time Associated Diagnosis Comments PORPHOBILINOGEN URINE QUANTITATIVE TIMED Routine 04/20/2015 2:21 PM CDT Abdominal pain, generalized VAL W REFLX (POSITIVE) Routine 5 3:57 PM CDT Rheumatoid arthritis(714.0) ([facility]) RHEUMATOID FACTOR BLOOD QUANTITATIVE Routine 04/09/2015 3:57 PM CDT Rheumatoid arthritis(714.0) ([facility]) VAL BLOOD SCREEN W/REFLEX TITER Routine 04/09/2015 3:57 PM CDT Rheumatoid arthritis(714.0) ([facility]) PORPHYRINS TOTAL BLOOD Routine 5 3:53 PM CDT Abdominal pain, generalized documented in this encounter Results * PORPHOBILINOGEN URINE QUANTITATIVE (04/20/2015 2:21 PM CDT) [facility] Total Volume 1100 mL [facility] Porphobilinogen umol/24 Hour Urine 0.0 <2.4 mg/24 h [facility] Interpretation see note [facility] Comment: Porphobilinogen (PBG) was within the normal range. This test may not detect an elevation of PBG if the patient is asymptomatic or is undergoing treatment at the time of collection. Test Performed at: [facility] [address] ??[phone] MIMI WILSON MD,PHD Urine specimen (specimen) TIMED URINE SPECIMEN / Unknown 04/20/2015 2:21 PM CDT 04/20/2015 2:22 PM CDT Grupo Moura MD LAB - URINE CHEMI STRY ORDERABLES Performing Organization Address [facility] Co de Phone Number [address] [address] * (ABNORMAL) VAL W REFLX (POSITIVE) (PO REF LAB) (04/09/2015 3:57 PM CDT) [facility] ANAchoice [TM] Screen POSITIVE( A) NEGATIVE [facility] Comment: Test Performed at: [facility] [address] [place], [place] ??[phone] ALYSSA MILLER DO,MPH Blood specimen (specimen) BLOOD SPECIMEN / Unknown 04/09/2015 3:57 PM CDT 04/09/2015 3:58 PM CDT Grupo Moura MD LAB - SEROLOGY OR DERABLES Performing Organization Address [facility] Co de Phone Number [address] [address] * (ABNORMAL) VAL BLOOD SCREEN W/REFLEX TITER (04/09/2015 3:57 PM CDT) [facility] VAL Screen POSITIVE( A) NEGATIVE [facility] Comment: Test Performed at: [facility] [address] [place], [place] ??[phone] ALYSSA MILLER DO,MPH Blood specimen (specimen) BLOOD SPECIMEN / Unknown 04/09/2015 3:57 PM CDT 04/09/2015 3:58 PM CDT Grupo Moura MD LAB - CHEMISTRY O RDERABLES Performing Organization Address [facility]/ZIP Co de Phone Number [facility] [phone] [place] [address] * RHEUMATOID FACTOR BLOOD QUANTITATIVE (04/09/2015 3:57 PM CDT) Pathologist [facility] Rheumatoid Factor 8 <14 IU/mL [facility] Comment: Test Performed at: [facility] [address] ??[phone] ALYSSA MILLER DO,MPH Blood specimen (specimen) BLOOD SPECIMEN / Unknown 04/09/2015 3:57 PM CDT 04/09/2015 3:58 PM CDT Grupo Moura MD LAB - CHEMISTRY O RDERABETTY Performing Organization Address [facility] Co de Phone Number [facility] [address] [place] [address] * (ABNORMAL) PORPHYRINS TOTAL BLOOD (04/09/2015 3:53 PM CDT) Pathologist [facility] Uroporphyrin SEE NOTE 0.2 OR LESS mcg/L [facility] Comment:Result is below repo rtable range for this analyte. Heptacarboxyporphyrin SEE NOTE 0.2 OR LESS mcg/L [facility] Comment:Result is below repo rtable range for this analyte. Hexacarboxyporphyrins SEE NOTE 0.3 OR LESS mcg/L [facility] Comment:Result is below repo rtable range for this analyte. Pentacarboxylporphyrin SEE NOTE 0.4 OR LESS mcg/L [facility] Comment:Result is below repo rtable range for this analyte. Coproporphyrin 1.0(H) 0.8 OR LESS mcg/L [facility] Protoporphyrin 0.7 0.4 - 4.8 mcg/L [facility] Total Porphyrins 1.7 1.0 - 5.6 mcg/L [facility] Interpretation SEE NOTE [facility] Comment: ?? Coproporphyrin was mildly elevated. All other porphyrins were within the normal range. An isolated mild elevation of coproporphyrin is likely of no clinical significance. However, this level of coproporphyrin has been found in mild cases of hereditary coproporphyria (HCP), variegate porphyria (TITLE INSURANCE AGENT), and in liver disease. If you haven't done so and in order to help with the differential diagnosis, please consider ordering either random or 24 hour urine fractionated porphyrins and porphobilinogen analyses and fecal fractionated porphyrins analysis. Please be aware that some porphyrins degrade when samples are unprotected from light or are transported at refrigerated or ambient temperature. Results reported as below reportable range are considered normal as there are no associations between low porphyrin levels and porphyrin disorders. Interpretation reviewed by: Zoraida Gonzalez, Ph.D., [facility] IF YOU HAVE ANY QUESTIONS REGARDING THESE RESULTS, PLEASE CONTACT THE [facility] AT ext [phone] or ext [phone] AND ASK TO SPEAK WITH THE ASSISTANT ACCOUNTING MANAGER HEEL SEAT FILLER. ??FOR GENERAL QUESTIONS ABOUT [facility], PLEASE CALL THE GENE INFO LINE AT [phone]. REPORT COMMENT: COLLECTION KIT GIVEN TO PATIENT. PATIENT ADVISED TO RETURN. Test Performed at: [facility] [address] [place], [place] ??[phone] DAR MATAMOROS MD PHD Blood specimen (specimen) BLOOD SPECIMEN / Unknown 04/09/2015 3:53 PM CDT 04/09/2015 3:55 PM CDT Narrative Authorizing Provider Result Case Moura MD LAB - CHEMISTRY O MARLYN [facility] [address] [place] [address] documented in this encounter Visit Diagnoses Diagnosis Rheumatoid arthritis(714.0) (HCC)- Primary Rheumatoid arthritis Acquired polyneuropathy Unspecified hereditary and idiopathic peripheral neuropathy Abdominal pain, generalized documented in this encounter
--- OUTSIDE RECORDS SUMMARY | 2024-06-25 01:27 | XMS_ITS | Encounter Summary ---
Author Organization [facility] Address [address] [facility] [place] [address] Care Team Providers Care Management Retail Intern Name Role Phone Unavailable Primary Care Provider Unavailabl e Reason for Visit * Reason Comments Follow-up Encounter Details Date Type Department Care Team (Late st Contact Info) Description 10/26/2011 10:00 AM CDT Office Visit [facility] Medical [facility] - Rheumatology [address] [place] [phone] Grupo Moura MD [address] [place] [phone] Myofascial pain (Primary Dx); Seronegative arthritis; Vitamin D deficiency; Medication monitoring encounter Social History Tobacco Use Types Packs/Day Years [...] Sign Reading Time Taken Comments Blood Pressure 146/82 10/26/2011 9:58 AM CDT Pulse 78 10/26/2011 9:58 AM CDT Temperature - - Respiratory Rate - - Oxygen Saturation - - Inhaled Oxygen Concentration - - Weight 75.8 kg (167 lb) 10/26/2011 9:58 AM CDT Height - - Body Mass Index 33.73 04/06/2009 3:10 PM CDT documented in this encounter Progress Notes * Grupo Moura MD - 10/27/2011 8:40 AM CDTQuick Note: Add D3 4000 u daily. Recheck D 4 weeks. CC PCP. * Grupo Moura MD - 10/26/2011 9:59 AM CDT Subjective: PCP Dr. Savage No hand films or ASAD Stiffness lasts 60 if not on prednisone History She's having pain and stiffness in both feet and knees. She feels like she walks like Frankenstein. She has sharp pains in bottom of feet and hands. In general she feels much better. She wonders what makes matters flare up. Review of Systems Fever: - Rash: - Raynaud's: - Nodules: + Med Side Effects: - Hair Loss: - Diff. swallowing: - Dry Eyes: - Dry Mouth: + Takes Meds: + Depression: + Swelling: + Smoke: - ETOH: - Sx: - Chest Pain: - Dyspnea: - GI Sx: - Elaborate on positives: Bump on top of right foot she's had for 6 months. She also has had a bump on side of left ankle for years that's non-painful. RHEUM VITALS 07/21/2011 08/31/2011 10/26/2011 BP 120/80 128/72 146/82 Pulse 84 100 78 Wgt 167 lbs 171 lbs 167 lbs RHEUM GENA 07/21/2011 08/31/2011 10/26/2011 MHAQ 2.7 1.3 3.3 Pain 7 1 8 Global 4 2 2 Rapid 3 13.7 4.3 13.3 Sleep 6 3 8 GI 1 3 0 Fatigue 4 2 6 Tender Joints 0 0 0 Swollen Joints 0 0 0 Global 5 1 2 Health Assessment Questionnaire MHAQ: 3.3 Pain: 8 Global: 2 Rapid 3: 13.3 Sleep: 8 GI: 0 Fatigue: 6 Tender Joints: 0 Swollen Joints: 0 MD GLOBAL: 2 Objective: BP 146/82 Pulse 78 Wt 167 lb (75.751 kg) General: alert; cooperative; no distress. Skin: Rash [...] Points; Tight Muscle Groups: no Imaging: Assessment Seronegative arthritis Myofascial pain Plan Discussed gluten and dairy elimination Add turmeric; continue fish oil CBC CMP CRP See me 4 mos documented in this encounter Plan of Treatment Not on file documented as of this encounter Procedures Procedure Name Priority Date/Time Associated Diagnosis Comments CBC W AUTO DIFFERENTIAL Routine 10/26/2011 10:28 AM CDT Medication monitoring encounter C-REACTIVE PROTEIN Routine 10/26/2011 10 :27 AM CDT Myofascial pain VITAMIN D 25-HYDROXY Routine 10/26/2011 10:27 AM CDT Vitamin D deficiency COMPREHENSIVE METABOLIC PANEL Routine 10/26/2011 10:27 AM CDT Medication monitoring encounter documented in this encounter Results * (ABNORMAL) CBC W AUTO DIFFERENTIAL (10/26/2011 10:28 AM CDT) WBC 12.6(H) 4.0 - 10.5 x10E3/uL [facility] ACCOUNT BILL RBC 4.03 3.80 - 5.10 x10E6/uL [facility] ACCOUNT BILL Hemoglobin 12.3 11.5 - 15.0 g/dL [facility] ACCOUNT BILL Hematocrit 35.6 34.0 - 44.0 % [facility] ACCOUNT BILL MCV 88 80 - 98 fL [facility] ACCOUNT BILL MCH 30.5 27.0 - 34.0 pg [facility] ACCOUNT BILL MCHC 34.6 32.0 - 36.0 g/dL [facility] ACCOUNT BILL RDW 14.4 11.7 - 15.0 % [facility] ACCOUNT BILL Platelet Count 382 140 - 415 x10E3/uL [facility] ACCOUNT BILL Granulocytes % 51 40 - 74 % [facility] ACCOUNT BILL Lymphocytes % 34 14 - 46 % [facility] ACCOUNT BILL Monocytes % 12 4 - 13 % [facility] ACCOUNT BILL Eosinophils % 2 0 - 7 % [facility] ACCOUNT BILL Basophils % 1 0 - 3 % [facility] ACCOUNT BILL Immature Cells NOT NEEDED [facility] ACCOUNT BILL Comment:Ancillary determined the test is not needed Granulocytes Absolute 6.5 1.8 - 7.8 x10E3/uL [facility] ACCOUNT BILL Lymphocytes Absolute 4.3 0.7 - 4.5 x10E3/uL [facility] ACCOUNT BILL Monocytes Absolute 1.5(H) 0.1 - 1.0 x10E3/uL [facility] ACCOUNT BILL Eosinophils Absolute 0.3 0.0 - 0.4 x10E3/uL [facility] ACCOUNT BILL Basophils Absolute 0.1 0.0 - 0.2 x10E3/uL [facility] ACCOUNT BILL Immature Granulocytes 0 0 - 2 % [facility] ACCOUNT BILL Immature Granulocytes Absolute 0.0 0.0 - 0.1 x10E3/uL [facility] ACCOUNT BILL nRBC NOT NEEDED [facility] ACCOUNT BILL Comment:Ancillary determined the test is not needed Comment Hematology NOT NEEDED [facility] ACCOUNT BILL Comment:Ancillary determined the test is not needed Blood specimen (specimen) BLOOD SPECIMEN / Unknown 10/26/2011 10:28 AM CDT 10/26/2011 9:15 PM CDT Narrative Resulting Agency Comment [facility] [address] ??[facility] [phone] Authorizing Provider Result Case Moura MD LAB - HEMATOLOGY ORDERABLES [facility] ACCOUNT BILL * (ABNORMAL) VITAMIN D 25-HYDROXY (10/26/2011 10:27 AM CDT) Vitamin D, 25 Hydroxy 13.3(L) 30.0 - 100.0 ng/mL [facility] ACCOUNT BILL Comment: Vitamin D deficiency has been defined by the Emm[place] of Medicine and an Endocrine Society practice guideline as a level of serum 25-OH vitamin D less than 20 ng/mL (1,2). The Endocrine Society went on to further define vitamin D insufficiency as a level between 21 and 29 ng/mL (2). 1. IOM ([place]ons of Medicine). 2010. Dietary reference ?? intakes for calcium and D. [place]: The ?? National Academies Press. 2. Lamar MF, Kartik NC, Kaity MUELLER, et al. ?? Evaluation, treatment, and prevention of vitamin D ?? deficiency: an Endocrine Society clinical practice ?? guideline. JCEM. 2010; 96(7):1911-30. Blood specimen (specimen) BLOOD SPECIMEN / Unknown 10/26/2011 10:27 AM CDT 10/26/2011 9:16 PM CDT Narrative Resulting Agency Comment [facility] [id number] ??[facility] [phone] Grupo Moura MD LAB - CHEMISTRY O RDERABLES Performing Organization Address City/[facility]/ZIP Co de Phone Number [facility] ACCOUNT BILL * C-REACTIVE PROTEIN (10/26/2011 10:27 AM CDT) C-Reactive Protein 1.5 0.0 - 4.9 mg/L [facility] ACCOUNT BILL Blood specimen (specimen) BLOOD SPECIMEN / Unknown 10/26/2011 10:27 AM CDT 10/26/2011 9:16 PM CDT Narrative Resulting Agency Comment [facility] [id number] ??[facility] [phone] Grupo Moura MD LAB - CHEMISTRY O RDERABLES [facility] ACCOUNT BILL * COMPREHENSIVE METABOLIC PANEL (10/26/2011 10:27 AM CDT) Glucose 68 65 - 99 mg/dL [facility] ACCOUNT BILL BUN 13 6 - 24 mg/dL [facility] ACCOUNT BILL Creatinine 0.62 0.57 - 1.00 mg/dL [facility] ACCOUNT BILL eGFR by MDRD 101 >59 mL/min/1.7 3 [facility] ACCOUNT BILL eGFR by MDRD 117 >59 mL/min/1.7 3 [facility] ACCOUNT BILL Comment: Note: A persistent eGFR <60 mL/min/1.73 m2 (3 months or more) may indicate chronic kidney disease. An eGFR >59 mL/min/1.73 m2 with an elevated urine protein also may indicate chronic kidney disease. Calculated using CKD-EPI formula. BUN/Creatinine Ratio 21 9 - 23 [facility] ACCOUNT BILL Sodium 137 134 - 144 mmol/L [facility] ACCOUNT BILL Potassium 4.0 3.5 - 5.2 mmol/L [facility] ACCOUNT BILL Chloride 101 97 - 108 mmol/L [facility] ACCOUNT BILL CO2 23 20 - 32 mmol/L [facility] ACCOUNT BILL Calcium 9.7 8.7 - 10.2 mg/dL [facility] ACCOUNT BILL Protein Total 7.1 6.0 - 8.5 g/dL [facility] ACCOUNT BILL Albumin 4.7 3.5 - 5.5 g/dL [facility] ACCOUNT BILL Globulin Total 2.4 1.5 - 4.5 g/dL [facility] ACCOUNT BILL Albumin/Globulin Ratio 2.0 1.1 - 2.5 [facility] ACCOUNT BILL Bilirubin Total 0.3 0.0 - 1.2 mg/dL [facility] ACCOUNT BILL Alkaline Phosphatase 67 25 - 150 IU/L [facility] ACCOUNT BILL AST 10 0 - 40 IU/L [facility] ACCOUNT BILL ALT 12 0 - 40 IU/L [facility] ACCOUNT BILL Blood specimen (specimen) BLOOD SPECIMEN / Unknown 10/26/2011 10:27 AM CDT 10/26/2011 9:16 PM CDT Narrative Resulting Agency Comment [facility] [address] ??[facility] [phone] Authorizing Provider Result Case Moura MD LAB - CHEMISTRY O RDERABLES [facility] ACCOUNT BILL documented in this encounter Visit Diagnoses Diagnosis Myofascial pain- Primary Mylagia and myositis, unspecified Seronegative arthritis Other specified arthropathy, site unspecified Vitamin d deficiency Unspecified vitamin D deficiency Medication monitoring encounter Encounter for therapeutic drug monitoring documented in this encounter
--- OUTSIDE RECORDS SUMMARY | 2024-06-25 01:27 | XMS_ITS | Encounter Summary ---
Author Organization [facility] Address [address] [place] [address] Care Team Providers Care Basic Acoustic Analyst Name Role Phone Unavailable Primary Care Provider Unavailabl e Reason for Visit * Reason Onset Date Comments Question 08/22/2012 Encounter Details Date Type Department Care Team (Late st Contact Info) Description 08/22/2012 Telephone [facility] Neurosciences [address] [place] [address] [place] [phone] [address] [facility] [address] [place], [place] [id number] Question Social History Tobacco Use Types Packs/Day Years Used Date Smoking Tobacco: Never Alcohol Use Standard Drinks/Week Comments No 0 (1 standard drink = 0.6 oz pur e alcohol) Sex and Gender Information Value Date Recorded Sex Assigned at Not on file Gender Identity Not on file Sexual Orientation Not on file documented as of this encounter Miscellaneous Notes * Telephone Encounter - Nancy Jang - 08/22/2012 4:50 PM CST Patient informed of Dr. Hawkins's response and stated she would try the increased dose of Gabapentin and she did not want to try the Ambien CR at this time. Mrs. Rodriguez will wait to see if the increased dose of Gabapentin will help. OMER EXPERIENCE LEADER * Telephone Encounter - Bubba Hawkins MD - 08/22/2012 3:25 PM CST Please call in A dose of Ambien CR 6.25 mg to be taken every night (#30) 3 refills. She can also double the dose of the gabapentin from 300 mg at night to 2pills at bedtime (total 600mg) Thanks Javier Hawkins OMER EXPERIENCE LEADER * Telephone Encounter - Nancy Jang - 08/22/2012 3:01 PM CST Patient called and stated she can not sleep at night due to the discomfort from her carpal tunnel. She is currently taking Gabapentin 300 mg at bedtime. Patient stated she doesn't really want pain medication, she just wants to be able to sleep at night. OMER EXPERIENCE LEADER documented in this encounter Plan of Treatment Not on file documented as of this encounter Visit Diagnoses Not on filedocumented in this encounter
--- OUTSIDE RECORDS SUMMARY | 2024-06-25 01:27 | XMS_ITS | Encounter Summary ---
Author Organization [facility] Address [address] [place] [address] Care Team Providers Care Business Services Administrator Name Role Phone Unavailable Primary Care Provider Unavailabl e Reason for Visit * Reason Comments Follow-up Rheumatoid Arthritis Encounter Details Date Type Department Care Team (Late st Contact Info) Description 11/04/2014 2:40 PM CDT Office Visit [facility] - Rheumatology [address] [place] [phone] Grupo Moura MD [address] [place] [phone] Rheumatoid arthritis(714.0) ([facility]) (Primary Dx); Myofascial pain; Acquired polyneuropathy Social History Tobacco Use Types Packs/Day Years [...] Sign Reading Time Taken Comments Blood Pressure 152/86 11/04/2014 2:45 PM CDT Pulse 74 11/04/2014 2:45 PM CDT Temperature - - Respiratory Rate - - Oxygen Saturation - - Inhaled Oxygen Concentration - - Weight 72.6 kg (160 lb) 11/04/2014 2:45 PM CDT Height 149.9 cm (4' 11 ) 11/04/2014 2:45 PM CDT Body Mass Index 32.32 11/04/2014 2:45 PM CDT documented in this encounter Progress Notes * Grupo Moura MD - 11/04/2014 2:48 PM CDT Subjective: Stiffness: lasts 45 History Intermittent pain in neck and lower back. She stopped taking Enbrel for a month. Neck and back pain improved. Pain has been worse since she resumed taking Enbrel. She was switched to Enbrel from [facility] 06/2014 due to GI upset; some improvement. She consulted Dr Thao. She had EGD; diagnosed with GERD. New grandson. No recent TB test or hand films Review of Systems Fever: - Rash: - Raynaud's: - Nodules: - Med Side Effects: + Hair Loss: - Diff. swallowing: - Dry Eyes: - Dry Mouth: - Takes Meds: + Depression: - Swelling: - Smoke: - ETOH: - Sx: - Chest Pain: + Dyspnea: - GI Sx: + Elaborate on positives: Recent chest pain after lifting; she says feels like costochondritis. RHEUM VITALS 02/05/2014 03/19/2014 11/04/2014 BP 130/70 158/86 152/86 Pulse 80 80 74 Wgt 167 lbs - - RHEUM GENA 08/06/2013 11/20/2013 02/05/2014 MHAQ 2.7 3.3 2.3 Pain 2 7.5 2 Global 3 7 4 Rapid 3 7.7 17.8 8.3 Sleep 6.5 7.5 4 GI 3 3 3 Fatigue 4 5.5 8 Tender Joints 0 2 - Swollen Joints 0 0 - Global 2 4 - Objective: BP 152/86 Pulse 74 Ht 1.499 m (4' 11 ) General: alert; cooperative; no distress. Skin: Rash [...] Muscle Groups: no Imaging: Assessment RA not well controlled Many med side effects Immunosuppressed status Hx of neuropathy Plan I suggested prednisone and Plaquenil She would prefer to take prednisone alone; will try 5 MG OD OV and weigh 4 weeks documented in this encounter Plan of Treatment Not on file documented as of this encounter Visit Diagnoses Diagnosis Rheumatoid arthritis(714.0) (HCC)- Primary Rheumatoid arthritis Myofascial pain Mylagia and myositis, unspecified Acquired polyneuropathy Unspecified hereditary and idiopathic peripheral neuropathy documented in this encounter
--- OUTSIDE RECORDS SUMMARY | 2024-06-25 01:27 | XMS_ITS | Encounter Summary ---
Author Organization [facility] Address [address] [place] [address] Care Team Providers Care Shrimp Boat Captain Name Role Phone Unavailable Primary Care Provider Unavailabl e Reason for Visit * Reason Comments Follow-up Encounter Details Date Type Department Care Team (Late st Contact Info) Description 11/21/2012 3:40 PM CDT Office Visit [facility] - Rheumatology [address] [place] [phone] Grupo Moura MD [address] [place] [address] [phone] Rheumatoid arthritis (HCC) (Primary Dx); Insomnia; Medication monitoring encounter; Immunosuppressed status (HCC) Social History Tobacco Use [...] Reading Time Taken Comments Blood Pressure 138/78 11/21/2012 4:01 PM CDT Pulse 80 11/21/2012 4:01 PM CDT Temperature - - Respiratory Rate - - Oxygen Saturation - - Inhaled Oxygen Concentration - - Weight 77.6 kg (171 lb) 11/21/2012 4:01 PM CDT Height 149.9 cm (4' 11 ) 11/21/2012 4:01 PM CDT Body Mass Index 34.54 11/21/2012 4:01 PM CDT documented in this encounter Patient Instructions * Patient Instructions* Grupo Moura MD - 11/21/2012 4:29 PM CDT Redo serology Continue Cimzia Restart prednisone 5 MG OD See POLYMER MATERIALS CONSULTANT 4 weeks; me 3 mos documented in this encounter Progress Notes * Francisca Cook LPN - 12/05/2012 11:45 AM CDT Cimzia Injections given subcu, 200 mg each arm (400 mg total) Patient tolerated well. * Francisca Cook LPN - 11/26/2012 3:37 PM CDT Cimzia injections given subcu, 200 mg, each upper arm (400 mg total). Patient tolerated well. * Grupo Moura MD - 11/25/2012 8:18 PM CDTQuick Note: Tell her RA test is now strong (+). Dx is RA. If not much improvement with Cimzia will need IV Rx. CC PCP. * Grupo Moura MD - 11/21/2012 4:04 PM CDT Subjective: Stiffness: lasts 60 , better warmer weather History Stopped taking prednisone 3 weeks ago. Increased pain and brain fog. Does not want to gain weight. Constant pain to feet, wrists, and hands. Swelling, redness, and pruritic sensation to knuckles. Pain to feet; burning sensation. Wonders if she has arthritis not rheumatiod arthritis. Improvement with Cimzia. Increased fatigue and brain fog. Trouble finishing thoughts. Does not sleep well. Stopped Soma; on gabapentin and Topamax HS now. Still not sleeping. She's not stressed; just wants to feel better. Review of Systems Fever: - Rash: - Raynaud's: - Nodules: + Med Side Effects: - Hair Loss: - Diff. swallowing: - Dry Eyes: - Dry Mouth: - Takes Meds: + Depression: + Swelling: + Smoke: - ETOH: - Sx: - Chest Pain: + Dyspnea: - GI Sx: - Elaborate on positives: Nodule to R foot Swelling to knuckle , toes and feet Feeling of pulled muscle to left side of chest RHEUM VITALS 08/06/2012 10/01/2012 11/21/2012 BP 124/80 121/80 138/78 Pulse 80 92 80 Wgt 170 lbs 171 lbs 171 lbs RHEUM GENA 06/18/2012 08/06/2012 11/21/2012 MHAQ 4.7 2.3 3.3 Pain 8 3 6 Global 7 3 7 Rapid 3 19.7 8.3 16.3 Sleep 9 6 7 GI 3.5 0 5 Fatigue 7 5 7.5 Tender Joints 7 0 0 Swollen Joints - 0 0 Global - 2 1 Health Assessment Questionnaire MHAQ: 3.3 Pain: 6 Global: 7 Rapid 3: 16.3 Sleep: 7 GI: 5 Fatigue: 7.5 Tender Joints: 0 Swollen Joints: 0 MD GLOBAL: 1 Objective: BP 138/78 Pulse 80 Ht 4' 11 (1.499 m) Wt 171 lb (77.565 kg) BMI 34.54 kg/m2 General: alert; cooperative; no distress. Skin: [...] 0 Trigger/ tender Points; Tight Muscle Groups: yes traps Imaging: Assessment Seronegative arthritis; steroid responsive. Partial improvement with Cimzia Insomnia due to above Immunosuppressed status Neuropathy Plan Redo serology Continue Cimzia Restart prednisone 5 MG OD See POLYMER MATERIALS CONSULTANT 4 weeks; me 3 mos documented in this encounter Miscellaneous Notes * Addendum Note - Francisca Cook LPN - 12/05/2012 11:47 AM CDTAddended by: FRANCISCA COOK on: 12/05/2012 11:47 AM Modules accepted: Orders * Addendum Note - Francisca Cook LPN - 11/26/2012 3:38 PM CDTAddended by: FRANCISCA COOK on: 11/26/2012 03:38 PM Modules accepted: Orders documented in this encounter Plan of Treatment Not on file documented as of this encounter Procedures Procedure Name Priority Date/Time Associated Diagnosis Comments CYCLIC CITRUL PEPTIDE ANTIBODY IGG/IGA ([facility]) Routine 11/21/2012 5:01 PM CDT Rheumatoid arthritis (HCC) CATALINO STAINING PATTERNS REFLEXED Routine 11/21/2012 5:01 PM CDT Rheumatoid arthritis ([facility]) RHEUMATOID FACTOR BLOOD QUANTITATIVE Routine 11/21/2012 5:01 PM CDT Rheumatoid arthritis ([facility]) VAL BLOOD SCREEN W/REFLEX TITER Routine 11/21/2012 5:01 PM CDT Rheumatoid arthritis ([facility]) documented in this encounter Results * CATALINO STAINING PATTERNS ([facility]) (11/21/2012 5:01 PM CDT) Homogeneous Pattern NOT NEEDED [facility] ACCOUNT BILL Comment:Ancillary determined the test is not needed Nucleolar Pattern NOT NEEDED [facility] ACCOUNT BILL Comment:Ancillary determined the test is not needed Speckled Pattern 1:80 [facility] ACCOUNT BILL Centromere Pattern NOT NEEDED [facility] ACCOUNT BILL Comment:Ancillary determined the test is not needed Note [facility] ACCOUNT BILL Comment: A positive VAL result may occur in healthy individuals or be associated with a variety of diseases. ??See interpre- tation below: ? . Pattern ?Antigen Detected ??Suggested Disease Association ? Homogeneous ??DNA(ds,ss,), ?High titers - SLE (Smooth) ? Histone ? Speckled ? Sm, MANAGER QA, SCL-70, ??SLE,MCTD,Scleroderma,Sjogrens ? SS-A/SS-B ? Nucleolar ?SCL-70, PM-1/SCL ??High titers Scleroderma Poly- ? myositis/Scleroderma Overlap ? Centromere ?? Centromere ?PSS w/Crest syndrome variable ?? BLOOD SPECIMEN / Unknown 11/21/2012 5:01 PM CDT 11/21/2012 9:48 PM CDT Narrative Resulting Agency Comment [facility] [place] [address] ??[place] [phone] Grupo Moura MD LAB - PATHOLOGY/C YTOLOGY ORDERABLES Performing Organization Address [facility] de Phone Number [facility] ACCOUNT BILL * VAL BLOOD SCREEN W/REFLEX TITER (11/21/2012 5:01 PM CDT) VAL See patterns [facility] ACCOUNT BILL Comment: ?Negative ?? <1:80 ?Borderline ??1:80 ?Positive ?? >1:80 Blood specimen (specimen) BLOOD SPECIMEN / Unknown 11/21/2012 5:01 PM CDT 11/21/2012 9:48 PM CDT Narrative Resulting Agency Comment [facility] [place] [address] ??[place] [phone] Grupo Moura MD LAB - CHEMISTRY O RDERABLES Performing Organization Address [facility] de Phone Number [facility] ACCOUNT BILL * (ABNORMAL) CYCLIC CITRUL PEPTIDE ANTIBODY IGG/IGA ([facility]) (11/21/2012 5:01 PM CDT) CCP Antibodies IgG/IgA 69(H) 0 - 19 units [facility] ACCOUNT BILL Comment: ? Negative ? <20 ? Weak positive ?20 - 39 ? Moderate positive ??40 - 59 ? Strong positive ?>59 BLOOD SPECIMEN / Unknown 11/21/2012 5:01 PM CDT 11/21/2012 9:48 PM CDT Narrative Resulting Agency Comment [facility] [address] ??[facility] [phone] Grupo Moura MD LAB - SEROLOGY OR DERABLES Performing Organization Address [facility] de Phone Number [facility] ACCOUNT BILL * RHEUMATOID FACTOR BLOOD QUANTITATIVE (RF) (11/21/2012 5:01 PM CDT) Rheumatoid Factor 7.2 0.0 - 13.9 IU/mL [facility] ACCOUNT BILL Blood specimen (specimen) BLOOD SPECIMEN / Unknown 11/21/2012 5:01 PM CDT 11/21/2012 9:48 PM CDT Narrative Resulting Agency Comment [facility] [place] [address] ??[facility] [phone] Grupo Moura MD LAB - CHEMISTRY O RDERABLES Performing Organization Address [facility] Co de Phone Number [facility] ACCOUNT BILL documented in this encounter Visit Diagnoses Diagnosis Rheumatoid arthritis(714.0) (HCC)- Primary Rheumatoid arthritis Insomnia Insomnia, unspecified Medication monitoring encounter Encounter for therapeutic drug monitoring Immunosuppressed status (HCC) Unspecified disorder of immune mechanism documented in this encounter
--- OUTSIDE RECORDS SUMMARY | 2024-06-25 01:27 | XMS_ITS | Encounter Summary ---
Author Organization [facility] Address [address] [place] [address] Care Team Providers Care Supplier Quality Specialist Name Role Phone Unavailable Primary Care Provider Unavailabl e Reason for Visit * Reason Comments Pain Leg Encounter Details Date Type Department Care Team (Late st Contact Info) Description 03/19/2014 1:00 PM CDT Office Visit [facility] Medical [facility] - Rheumatology [address] [place] [phone] Grupo Moura MD [address] [place] [phone] Phlebitis and thrombophlebitis of superficial vessels of lower extremities, left (Primary Dx) Social History Tobacco Use Types [...] Sign Reading Time Taken Comments Blood Pressure 158/86 03/19/2014 12:48 PM CDT Pulse 80 03/19/2014 12:48 PM CDT Temperature - - Respiratory Rate - - Oxygen Saturation - - Inhaled Oxygen Concentration - - Weight - - Height - - Body Mass Index - - documented in this encounter Progress Notes * Kimberly Huang RN - 03/19/2014 12:49 PM CDT Anjali Rodriguez BP 158/86 Pulse 80 During the night she developed severe pain in L thigh. Leg is tender to palpation. She feels a nodule or thickness under the skin but it is not visible. No erythema, swelling, or heat to area. Off prednisone. Tender superficial varicose vein; has a cord 3 cm long. A: Superficial phlebitis P: Aleve BID for 4 days Call if no better documented in this encounter Plan of Treatment Not on file documented as of this encounter Visit Diagnoses Diagnosis Phlebitis and thrombophlebitis of superficial vessels of lower extremities, left- Primary documented in this encounter
--- OUTSIDE RECORDS SUMMARY | 2024-06-25 01:27 | XMS_ITS | Encounter Summary ---
Author Organization [facility] Address [address] [facility] [place] [address] Care Team Providers Care Choir Director Name Role Phone Unavailable Primary Care Provider Unavailabl e Encounter Details Date Type Department Care Team (Late st Contact Info) Description 09/02/2011 Orders Only [facility] Medical [facility] - Rheumatology [address] [place] [id number] Francisca Cook LPN Medication monitoring encounter Social History Tobacco Use [...] as of this encounter Visit Diagnoses Diagnosis Medication monitoring encounter Encounter for therapeutic drug monitoring documented in this encounter
--- OUTSIDE RECORDS SUMMARY | 2024-06-25 01:27 | XMS_ITS | Encounter Summary ---
Author Organization [facility] Address [address] [facility] [place] [address] Care Team Providers Care Manager Drug Safety Name Role Phone Unavailable Primary Care Provider Unavailabl e Reason for Visit * Reason Comments Pain Muscle INSOMNIA Encounter Details Date Type Department Care Team (Late st Contact Info) Description 10/01/2012 11:20 AM CDT Office Visit [facility] Neurosciences [address] [place] [address] [place] [id number] [address] [place], [place] [id number] Fibromyalgia (Primary Dx); Rheumatoid arthritis (HCC) Social History Tobacco Use Types Packs/Day [...] Sign Reading Time Taken Comments Blood Pressure 121/80 10/01/2012 11:17 AM CDT Pulse 92 10/01/2012 11:17 AM CDT Temperature - - Respiratory Rate - - Oxygen Saturation - - Inhaled Oxygen Concentration - - Weight 77.6 kg (171 lb) 10/01/2012 11:17 AM CDT Height 149.9 cm (4' 11 ) 10/01/2012 11:17 AM CDT Body Mass Index 34.54 10/01/2012 11:17 AM CDT documented in this encounter Patient Instructions * Patient Instructions* Maia Yan 10/01/2012 11:45 AM CDT Call physician if symptoms worsen or with any questions. Take Medications as prescribed. For descriptions of a variety of neurological conditions please visit: [email or web address] documented in this encounter Progress Notes * Bubba Hawkins MD - 10/01/2012 11:45 AM CDT RE: Anjali Hobson Brinkmeyer Still having pins and needles in her hands and legs. Did get Trazodone for sleep. Somewhat helping.Wakes up due to pain in her shoulders and arms BL. Also pins and needles in her feet intermittently. Did get MRI of the neck and lower back. Never tried Ambien CR. Took Gabapentin in the day time andmade her too drowsy. No other neurological symptoms. Past medical history, social history, and family history are otherwise unchanged. A ten system Review of systems was obtained, and is unchanged from the last visit. Medicines include: Current Outpatient Prescriptions Medication Sig Dispense Refill ??? predniSONE (DELTASONE) 10 MG tablet Take 1 Tab by mouth once daily for 90 days. 90 Tab 4 ??? gabapentin (NEURONTIN) 300 MG capsule Take 2 Caps by mouth at bedtime for 90 days. 180 Cap 4 ??? indapamide (LOZOL) 2.5 MG tablet Take 2.5 mg by mouth once daily. ??? vitamin D, cholecalciferol, 2000 UNITS tablet Take 2 Tabs by mouth once daily. ??? certolizumab pegol (CIMZIA) KIT injection Inject 400 mg subcutaneously every 28 days. ??? traMADol (ULTRAM) 50 MG tablet Take 50 mg by mouth every 6 hours as needed. ??? aspirin 325 MG tablet Take 325 mg by mouth daily. ??? Cyanocobalamin (B-12) 1000 MCG CAPS Take 1,000 mg by mouth once daily. 1 qd. ??? ACIPHEX 20 MG TBEC Take 20 mg by mouth as needed. ??? amlodipine-olmesartan (KEIKO) 5-40 MG tablet Take 1 Tab by mouth once daily. ??? FISH OIL 1200 MG CAPS Take by mouth 2 times daily. . On examination, vital signs are as follows: BP 121/80 Pulse 92 Wt 171 lb (77.565 kg) BMI 34.54 kg/m2 General appearance: Well developed, in no distress Mental Status: Awake, Alert. Oriented x3. Follows commands. Speech fluent. Cranial Nerves: Extraocular movements intact. Facial movement intact, symmetric. Facial sensation intact V1-V3. Hearing intact to conversation. Tongue midline. Shoulder shrug full strength. Motor: limb movements and strength symmetric. Normal tone. Gait normal, no ataxia. Fibromyalgia Tender point survey: LEFT RIGHT 1. Base of Skull - N N 2. Neck Front - Y Y 3. Neck Back - Y Y 4. Shoulder - Y Y 5. Upper breast/chest - Y Y 6. Medial Elbow - N N 7. Medial Knee - Y Y 8. Upper Outer Buttock - Y Y 9. Hip bone - Y Y TOTAL - Also tender points over BL deltoids and triceps. I reviewed the following studies: Component Name 06/18/12 1552 10/26/11 1027 08/31/11 [...] 36.2 35.6 35.1 PLTCOUNT [id number] @RISNT@ IMPRESSION: 1. Fibromyalgia 2. Cervical radiculopathy 3. BL CTS Comment: She has severe muscle pain in UE and LE as well as multiple allied tender points. She could have Fibromyalgia and or dermatomyositis? She said this pain was helped by prednisone in the past and I would like to restart her on Prednisone small dose daily and see if that would alleviate her pain sincehigher doses of Gabapentin seem to make her drowsy. Also she is on Trazodone and that would be okay. If prednisone does not help I discussed using maybe Cymblata or Amitriptyline which she has tried in the past but has made her loopy. MRI reports of cervical spine and lumbar spine reviewed. Mild to moderate BL foraminal stenoses noted in cervical and lumbar spine. This would explain her numbness and pain symptoms although I feel not enough to explain the deep muscular pain. Non surgical changes overall. Would have to be conservatively managed. I recommend the followin) Start daily Prednisone 10 mg 2) Continue Gabapentin 600 mg HS 3) Continue Trazodone 100 mg HS More than half of 30 minutes was spent discussing the pathophysiology and treatment of the above medical issues and all questions were answered. I will plan to see Anjali Joce Rodriguez again in 4 months. documented in this encounter Plan of Treatment Not on file documented as of this encounter Visit Diagnoses Diagnosis Fibromyalgia- Primary Mylagia and myositis, unspecified Rheumatoid arthritis(714.0) ([facility]) Rheumatoid arthritis documented in this encounter
--- OUTSIDE RECORDS SUMMARY | 2024-06-25 01:27 | XMS_ITS | Encounter Summary ---
Author Organization [facility] Address [address] [facility] [place] [address] Care Team Providers Care Pump Operator Byproducts Name Role Phone Unavailable Primary Care Provider Unavailabl e Reason for Visit * Reason Comments Follow-up Encounter Details Date Type Department Care Team (Late st Contact Info) Description 08/31/2011 2:45 PM EMAIL SPECIALIST Office Visit [facility] - Rheumatology [address] [place] [id number] Grupo Moura MD [address] [place] [id number] Seronegative arthritis (Primary Dx); Medication monitoring encounter Social History Tobacco Use [...] Sign Reading Time Taken Comments Blood Pressure 128/72 08/31/2011 2:56 PM EMAIL SPECIALIST Pulse 100 08/31/2011 2:56 PM EMAIL SPECIALIST Temperature - - Respiratory Rate - - Oxygen Saturation - - Inhaled Oxygen Concentration - - Weight 77.6 kg (171 lb) 08/31/2011 2:56 PM EMAIL SPECIALIST Height - - Body Mass Index 34.54 04/06/2009 3:10 PM CDT documented in this encounter Progress Notes * Kimberly Huang RN - 09/02/2011 9:38 AM CSTQuick Note: LMOR; pt aware of results. Pt to return call if any questions. L SPECIALIST * Grupo Moura MD - 09/01/2011 5:15 PM Gee Note: OK. Same plan. CCPCP. L SPECIALIST * Grupo Moura MD - 08/31/2011 2:59 PM CST Subjective: Stiffness: lasts until she takes hot shower History Intermittent sharp pains and burning in hands and feet. Markedly better since I met her. Stiffness and pain has improved since DOMINIC. She had a flare; resumed 7.5 mg prednisone. She wants to know if she can take raspberry ketones for belly fat; she saw it on Dr Luis M. No recent hand films Review of Systems Fever: - Rash: - Raynaud's: - Nodules: - Med Side Effects: + Hair Loss: - Diff. swallowing: - Dry Eyes: - Dry Mouth: + Takes Meds: + Depression: - Swelling: + Smoke: - ETOH: - Sx: - Chest Pain: - Dyspnea: - GI Sx: + Elaborate on positives: Reflux, dry skin & mouth due to meds Swelling in feet & knees RHEUM VITALS 05/13/2011 07/21/2011 08/31/2011 BP 120/76 120/80 128/72 Pulse 92 84 100 Wgt - 167 lbs 171 lbs RHEUM GENA 12/03/2010 05/13/2011 07/21/2011 MHAQ 1.3 1 2.7 Pain 7 7 7 Global 2 7 4 Rapid 3 10.3 15 13.7 Sleep 10 9.5 6 GI 1 8.5 1 Fatigue 10 9 4 Tender Joints 0 - 0 Swollen Joints 0 - 0 Global 2 - 5 Health Assessment Questionnaire MHAQ: 1.3 Pain: 1 Global: 2 Rapid 3: 4.3 Sleep: 3 GI: 3 Fatigue: 2 Objective: BP 128/72 Pulse 100 Wt 171 lb (77.565 kg) General: alert; cooperative; no distress. Skin: Rash - Nodes/ Nodules: - Lungs: clear to auscultation bilaterally. Heart: regular rate and rhythm. S1, S2 normal. No murmur, click, rub or gallop. Pulses OK. No edema Abdomen: soft without mass, non-tender, with normal bowel sounds. Tinel???s Test +: Right: not done Left: not done Joint Review Right Left Shoulder Normal Normal Elbow Normal Normal Wrist Normal Normal MCP Normal Normal PIP Normal Normal DIP Normal Normal Knee Normal Normal Ankle Normal Normal Foot Normal Normal Normal Hip ROM: yes Swollen Joints: 0 Trigger/ tender Points; Tight Muscle Groups: no Imaging: Assessment Seronegative arthritis Myofascial pain Plan CBC CMP CRP See me 2 mos L SPECIALIST documented in this encounter Plan of Treatment Not on file documented as of this encounter Procedures Procedure Name Priority Date/Time Associated Diagnosis Comments C-REACTIVE PROTEIN Routine 08/31/2011 3: 57 PM EMAIL SPECIALIST Seronegative arthritis CBC W AUTO DIFFERENTIAL Routine 08/31/2011 3:57 PM EMAIL SPECIALIST Medication monitoring encounter COMPREHENSIVE METABOLIC PANEL Routine 08/31/2011 3:57 PM EMAIL SPECIALIST Medication monitoring encounter documented in this encounter Results * C-REACTIVE PROTEIN (08/31/2011 3:57 PM EMAIL SPECIALIST) C-Reactive Protein 1.7 0.0 - 4.9 mg/L [facility] ACCOUNT BILL Blood specimen (specimen) BLOOD SPECIMEN / Unknown 08/31/2011 3:57 PM EMAIL SPECIALIST 08/31/2011 6:40 PM EMAIL SPECIALIST Narrative Resulting Agency Comment [facility] [address] [facility] ??[facility] [id number] Grupo Moura MD LAB - CHEMISTRY O RDERABLES [facility] ACCOUNT BILL * (ABNORMAL) COMPREHENSIVE METABOLIC PANEL (08/31/2011 3:57 PM EMAIL SPECIALIST) Glucose 99 65 - 99 mg/dL [facility] ACCOUNT BILL BUN 17 6 - 24 mg/dL [facility] ACCOUNT BILL Creatinine 0.56(L) 0.57 - 1.00 mg/dL [facility] ACCOUNT BILL eGFR by MDRD 105 >59 mL/min/1.7 3 [facility] ACCOUNT BILL eGFR by MDRD 121 >59 mL/min/1.7 3 [facility] ACCOUNT BILL Comment: Note: A persistent eGFR <60 mL/min/1.73 m2 (3 months or more) may indicate chronic kidney disease. An eGFR >59 mL/min/1.73 m2 with an elevated urine protein also may indicate chronic kidney disease. Calculated using CKD-EPI formula. BUN/Creatinine Ratio 30(H) 9 - 23 [facility] ACCOUNT BILL Sodium 138 134 - 144 mmol/L [facility] ACCOUNT BILL Potassium 4.0 3.5 - 5.2 mmol/L [facility] ACCOUNT BILL Chloride 101 97 - 108 mmol/L [facility] ACCOUNT BILL CO2 25 20 - 32 mmol/L [facility] ACCOUNT BILL Calcium 9.3 8.7 - 10.2 mg/dL [facility] ACCOUNT BILL Protein Total 6.7 6.0 - 8.5 g/dL [facility] ACCOUNT BILL Albumin 4.2 3.5 - 5.5 g/dL [facility] ACCOUNT BILL Globulin Total 2.5 1.5 - 4.5 g/dL [facility] ACCOUNT BILL Albumin/Globulin Ratio 1.7 1.1 - 2.5 [facility] ACCOUNT BILL Bilirubin Total 0.2 0.0 - 1.2 mg/dL [facility] ACCOUNT BILL Alkaline Phosphatase 74 25 - 150 IU/L [facility] ACCOUNT BILL AST 12 0 - 40 IU/L [facility] ACCOUNT BILL ALT 14 0 - 40 IU/L [facility] ACCOUNT BILL Blood specimen (specimen) BLOOD SPECIMEN / Unknown 08/31/2011 3:57 PM EMAIL SPECIALIST 08/31/2011 6:40 PM EMAIL SPECIALIST Narrative Resulting Agency Comment [facility] [address] [facility] ??[facility] [id number] Authorizing Provider Result Case Moura MD LAB - CHEMISTRY O RDERABLES [facility] ACCOUNT BILL * (ABNORMAL) CBC W AUTO DIFFERENTIAL (08/31/2011 3:57 PM EMAIL SPECIALIST) WBC 11.0(H) 4.0 - 10.5 x10E3/uL [facility] ACCOUNT BILL RBC 3.98 3.80 - 5.10 x10E6/uL [facility] ACCOUNT BILL Hemoglobin 11.9 11.5 - 15.0 g/dL [facility] ACCOUNT BILL Hematocrit 35.1 34.0 - 44.0 % [facility] ACCOUNT BILL MCV 88 80 - 98 fL [facility] ACCOUNT BILL MCH 29.9 27.0 - 34.0 pg [facility] ACCOUNT BILL MCHC 33.9 32.0 - 36.0 g/dL [facility] ACCOUNT BILL RDW 13.9 11.7 - 15.0 % [facility] ACCOUNT BILL Platelet Count 363 140 - 415 x10E3/uL [facility] ACCOUNT BILL Granulocytes % 49 40 - 74 % [facility] ACCOUNT BILL Lymphocytes % 37 14 - 46 % [facility] ACCOUNT BILL Monocytes % 10 4 - 13 % [facility] ACCOUNT BILL Eosinophils % 3 0 - 7 % [facility] ACCOUNT BILL Basophils % 1 0 - 3 % [facility] ACCOUNT BILL Immature Cells NOT NEEDED [facility] ACCOUNT BILL Comment:Ancillary determined the test is not needed Granulocytes Absolute 5.5 1.8 - 7.8 x10E3/uL [facility] ACCOUNT BILL Lymphocytes Absolute 4.1 0.7 - 4.5 x10E3/uL [facility] ACCOUNT BILL Monocytes Absolute 1.1(H) 0.1 - 1.0 x10E3/uL [facility] ACCOUNT BILL [...] Blood specimen (specimen) BLOOD SPECIMEN / Unknown 08/31/2011 3:57 PM EMAIL SPECIALIST 08/31/2011 6:40 PM EMAIL SPECIALIST Narrative Resulting Agency Comment [facility] [address] ??[facility] [id number] Authorizing Provider Result Case Moura MD LAB - HEMATOLOGY ORDERABLES [facility] ACCOUNT BILL documented in this encounter Visit Diagnoses Diagnosis Seronegative arthritis- Primary Other specified arthropathy, site unspecified Medication monitoring encounter Encounter for therapeutic drug monitoring documented in this encounter
--- OUTSIDE RECORDS SUMMARY | 2024-06-25 01:27 | XMS_ITS | Encounter Summary ---
Author Organization [facility] Address [address] [facility] [place] [address] Care Team Providers Care Hand Mica Plate Layer Name Role Phone Unavailable Primary Care Provider Unavailabl e Encounter Details Date Type Department Care Team (Late st Contact Info) Description 06/05/2012 [facility] Visit EXTERNAL NON-[facility] DEPT Grupo Moura MD [address] [place] [id number] Social History Tobacco Use Types Packs/Day Years [...]
--- OUTSIDE RECORDS SUMMARY | 2024-06-25 01:27 | XMS_ITS | Encounter Summary ---
Author Organization [facility] Address [address] [place] [address] Care Team Providers Care Aircraft Part Assembler Name Role Phone Unavailable Primary Care Provider Unavailabl e Reason for Referral * Evaluate & Treat - Closed Specialty Diagnoses / Procedures Referred By Contandrew t Referred To Contact Diagnoses Cervical myelopathy (HCC) Grupo Morua MD [address] [place] [id number] [place]ub[place] [phone] [place] [phone] Referral ID Status Reason Start Date Expiration Date V isits Requested Visits Authorized [id number] Closed Specialty Services Required 06/18/2012 12/15/2012 1 1 TION SERVICES MANAGER Reason for Visit * Reason Comments Follow-up Encounter Details Date Type Department Care Team (Late st Contact Info) Description 06/18/2012 2:45 PM ADOPTION SERVICES MANAGER Office Visit [facility] - Rheumatology [phone] [place] [address] [address] [place] [address] Grupo Moura MD [address] [place] [address] [phone] Seronegative arthritis (Primary Dx); Myofascial pain; Medication monitoring encounter; Immunosuppressed status (HCC); Cervical myelopathy (HCC); Vitamin d deficiency; Rheumatoid arthritis (HCC) Social History Tobacco Use [...] Sign Reading Time Taken Comments Blood Pressure 122/84 06/18/2012 3:02 PM ADOPTION SERVICES MANAGER Pulse 84 06/18/2012 3:02 PM ADOPTION SERVICES MANAGER Temperature - - Respiratory Rate - - Oxygen Saturation - - Inhaled Oxygen Concentration - - Weight 75.3 kg (166 lb) 06/18/2012 3:02 PM ADOPTION SERVICES MANAGER Height 149.9 cm (4' 11 ) 06/18/2012 3:02 PM ADOPTION SERVICES MANAGER Body Mass Index 33.53 06/18/2012 3:02 PM ADOPTION SERVICES MANAGER documented in this encounter Patient Instructions * Patient Instructions* Grupo Moura MD - 06/18/2012 3:30 PM ADOPTION SERVICES MANAGER Get 2nd opinion from neurology Stay on prednisone for now. CBC CMP CRP D See me 6 weeks TION SERVICES MANAGER documented in this encounter Progress Notes * Francisca Cook LPN - 06/20/2012 11:30 AM CSTQuick Note: Results and notes sent via My Chart. Copy to Dr. Savage. TION SERVICES MANAGER * Grupo Moura MD - 06/19/2012 10:23 AM CSTQuick Note: Should be on D 4000 u OD. CC PCP. Proceed with neuro opinion. TION SERVICES MANAGER * Francisca Cook LPN - 06/19/2012 8:34 AM CST Cimzia loading dose injections given subcu, 200 mg left and right upper arm Patient tolerated well and supplied own medication. TION SERVICES MANAGER * Grupo Moura MD - 06/18/2012 3:04 PM CST Subjective: Stiffness: lasts until she showers; returns with inactivity History Intermittent pain in soles of feet, wrists, hands, hips, back, and knees. Pain is worse in the AM. She'd like x ray of her back. She doesn't sleep well due to pain. Arms (not hands) are numb. She had first Cimzia injections 06/04. She felt fatigue and aching the first 2 days after injections. She has not noticed any improvement. Had foot pains. Bone scan was (-). No recent hand films PPD current(PCP) Review of Systems Fever: - Rash: - Raynaud's: - Nodules: + Med Side Effects: + Hair Loss: - Diff. swallowing: - Dry Eyes: - Dry Mouth: + Takes Meds: + Depression: + Swelling: + Smoke: - ETOH: - Sx: - Chest Pain: - Dyspnea: - GI Sx: - Elaborate on positives: Nodules on fingers Intermittent swelling in hands & feet RHEUM VITALS 10/26/2011 02/22/2012 06/18/2012 BP 146/82 128/78 122/84 Pulse 78 100 84 Wgt 167 lbs 169 lbs 166 lbs RHEUM GENA 10/26/2011 02/22/2012 06/18/2012 MHAQ 3.3 1.7 4.7 Pain 8 2 8 Global 2 4 7 Rapid 3 13.3 7.7 19.7 Sleep 8 4 9 GI 0 0 3.5 Fatigue 6 3 7 Tender Joints 0 0 7 Swollen Joints 0 0 - Global 2 4 - Health Assessment Questionnaire MHAQ: 4.7 Pain: 8 Global: 7 Rapid 3: 19.7 Sleep: 9 GI: 3.5 Fatigue: 7 Tender Joints: 7 Objective: BP 122/84 Pulse 84 Ht 4' 11 (1.499 m) Wt 166 lb (75.297 kg) BMI 33.53 kg/m2 General: alert; cooperative; no distress. Skin: Rash - Nodes/ Nodules: - Lungs: clear to auscultation bilaterally. Heart: regular rate and rhythm. S1, S2 normal. No murmur, click, rub or gallop. Pulses OK. No edema Abdomen: soft without mass, non-tender, with normal bowel sounds. Tinel???s Test +: Right: yes Left: yes Joint Review Right Left Shoulder Normal Normal Elbow Normal Normal Wrist Normal Normal MCP Normal Normal PIP Normal Normal DIP Normal Normal Knee Normal Normal Ankle Normal Normal Foot Normal Normal Normal Hip ROM: yes Swollen Joints: 0 Trigger/ tender Points; Tight Muscle Groups: yes Imaging: Assessment Diffuse pain; may be neuropathic; very steroid responsive CTS bilateral. This may not be a primary finding. Low D Immunosuppressed status On steroids Plan Get 2nd opinion from neurology After verbal consent obtained, administered lido 1 ml. DM 20 MG L wrist under sterile technique. Nocomplications. Stay on prednisone for now. CBC CMP CRP D See me 6 weeks TION SERVICES MANAGER documented in this encounter Miscellaneous Notes * Addendum Note - Francisca Cook LPN - 06/19/2012 8:36 AM CSTAddended by: FRANCISCA COOK on: 06/19/2012 08:36 AM Modules accepted: Orders TION SERVICES MANAGER documented in this encounter Plan of Treatment Scheduled Referrals Name Type Priority Associated Diagnoses Orde r Schedule AMB REFERRAL TO NEUROLOGY Outpatient Referral Routine Cervical myelopathy (HCC) Ordered: 06/18/2012 documented as of this encounter Procedures Procedure Name Priority Date/Time Associated Diagnosis Comments C-REACTIVE PROTEIN Routine 06/18/2012 3: 52 PM ADOPTION SERVICES MANAGER Seronegative arthritis VITAMIN D 25-HYDROXY Routine 06/18/2012 3:52 PM ADOPTION SERVICES MANAGER Vitamin d deficiency CBC W AUTO DIFFERENTIAL Routine 06/18/2012 3:52 PM ADOPTION SERVICES MANAGER Medication monitoring encounter COMPREHENSIVE METABOLIC PANEL Routine 06/18/2012 3:52 PM ADOPTION SERVICES MANAGER Medication monitoring encounter documented in this encounter Results * (ABNORMAL) VITAMIN D 25-HYDROXY (06/18/2012 3:52 PM ADOPTION SERVICES MANAGER) Vitamin D, 25 Hydroxy 22.6(L) 30.0 - 100.0 ng/mL [facility] ACCOUNT BILL Comment: Vitamin D deficiency has been defined by the [place] of Medicine and an Endocrine Society practice guideline as a level of serum 25-OH vitamin D less than 20 ng/mL (1,2). The Endocrine Society went on to further define vitamin D insufficiency as a level between 21 and 29 ng/mL (2). 1. IOM ([place] of Medicine). 2010. Dietary reference ?? intakes for calcium and D. [place]: The ?? National [employer] Press. 2. Lamar MF, Kartik LINK, Kaity MUELLER, et al. ?? Evaluation, treatment, and prevention of vitamin D ?? deficiency: an Endocrine Society clinical practice ?? guideline. JCEM. 2010; 96(7):1911-30. Blood specimen (specimen) BLOOD SPECIMEN / Unknown 06/18/2012 3:52 PM ADOPTION SERVICES MANAGER 06/18/2012 8:56 PM ADOPTION SERVICES MANAGER Narrative Resulting Agency Comment [facility] [address] ??[facility] [id number] Grupo Moura MD LAB - CHEMISTRY O RDERABETTY Performing Organization Address [facility] Co de Phone Number [facility] ACCOUNT BILL * C-REACTIVE PROTEIN (06/18/2012 3:52 PM ADOPTION SERVICES MANAGER) C-Reactive Protein 1.7 0.0 - 4.9 mg/L [facility] ACCOUNT BILL Blood specimen (specimen) BLOOD SPECIMEN / Unknown 06/18/2012 3:52 PM ADOPTION SERVICES MANAGER 06/18/2012 8:56 PM ADOPTION SERVICES MANAGER Narrative Resulting Agency Comment [facility] ??[facility] [phone] Grupo Moura MD LAB - CHEMISTRY O RDERABETTY Performing Organization Address [facility]/State/ZIP Co de Phone Number [facility] ACCOUNT BILL * (ABNORMAL) COMPREHENSIVE METABOLIC PANEL (06/18/2012 3:52 PM ADOPTION SERVICES MANAGER) Glucose 100(H) 65 - 99 mg/dL [facility] ACCOUNT BILL BUN 12 6 - 24 mg/dL [facility] ACCOUNT BILL Creatinine 0.59 0.57 - 1.00 mg/dL [facility] ACCOUNT BILL eGFR by MDRD 102 >59 mL/min/1.7 3 [facility] ACCOUNT BILL eGFR by MDRD 118 >59 mL/min/1.7 3 [facility] ACCOUNT BILL BUN/Creatinine Ratio 20 9 - 23 [facility] ACCOUNT BILL Sodium 139 134 - 144 mmol/L [facility] ACCOUNT BILL Potassium 4.4 3.5 - 5.2 mmol/L [facility] ACCOUNT BILL Chloride 102 97 - 108 mmol/L [facility] ACCOUNT BILL CO2 22 20 - 32 mmol/L [facility] ACCOUNT BILL Calcium 9.9 8.7 - 10.2 mg/dL [facility] ACCOUNT BILL Protein Total 7.4 6.0 - 8.5 g/dL [facility] ACCOUNT BILL Albumin 4.7 3.5 - 5.5 g/dL [facility] ACCOUNT BILL Globulin Total 2.7 1.5 - 4.5 g/dL [facility] ACCOUNT BILL Albumin/Globulin Ratio 1.7 1.1 - 2.5 [facility] ACCOUNT BILL Bilirubin Total 0.2 0.0 - 1.2 mg/dL [facility] ACCOUNT BILL Alkaline Phosphatase 77 25 - 150 IU/L [facility] ACCOUNT BILL AST 13 0 - 40 IU/L [facility] ACCOUNT BILL ALT 13 0 - 32 IU/L [facility] ACCOUNT BILL Blood specimen (specimen) BLOOD SPECIMEN / Unknown 06/18/2012 3:52 PM ADOPTION SERVICES MANAGER 06/18/2012 8:56 PM ADOPTION SERVICES MANAGER Narrative Resulting Agency Comment [facility] [address] ??[facility] [phone] Authorizing Provider Result Case Moura MD LAB - CHEMISTRY O RDERABLES [facility] ACCOUNT BILL * CBC W AUTO DIFFERENTIAL (06/18/2012 3:52 PM ADOPTION SERVICES MANAGER) WBC 9.8 4.0 - 10.5 x10E3/uL [facility] ACCOUNT BILL RBC 4.22 3.77 - 5.28 x10E6/uL [facility] ACCOUNT BILL Hemoglobin 12.3 11.1 - 15.9 g/dL [facility] ACCOUNT BILL Hematocrit 36.2 34.0 - 46.6 % [facility] ACCOUNT BILL MCV 86 79 - 97 fL [facility] ACCOUNT BILL MCH 29.1 26.6 - 33.0 pg [facility] ACCOUNT BILL MCHC 34.0 31.5 - 35.7 g/dL [facility] ACCOUNT BILL RDW 13.8 12.3 - 15.4 % [facility] ACCOUNT BILL Platelet Count 392 140 - 415 x10E3/uL [facility] ACCOUNT BILL Granulocytes % 59 40 - 74 % [facility] ACCOUNT BILL Lymphocytes % 32 14 - 46 % [facility] Monocytes % 7 4 - 13 % [facility] ACCOUNT BILL Eosinophils % 1 0 - 7 % [facility] ACCOUNT BILL Basophils % 1 0 - 3 % [facility] ACCOUNT BILL Immature Cells NOT NEEDED [facility] ACCOUNT BILL Comment:Ancillary determined the test is not needed Granulocytes Absolute 5.8 1.8 - 7.8 x10E3/uL [facility] ACCOUNT BILL Lymphocytes Absolute 3.1 0.7 - 4.5 x10E3/uL [facility] ACCOUNT BILL Monocytes Absolute 0.7 0.1 - 1.0 x10E3/uL [facility] ACCOUNT BILL Eosinophils Absolute 0.1 0.0 - 0.4 x10E3/uL [facility] ACCOUNT BILL [...] Blood specimen (specimen) BLOOD SPECIMEN / Unknown 06/18/2012 3:52 PM ADOPTION SERVICES MANAGER 06/18/2012 8:56 PM ADOPTION SERVICES MANAGER Narrative Resulting Agency Comment [facility] [address] ??[facility] [phone] Authorizing Provider Result Case Moura MD LAB - HEMATOLOGY ORDERABLES [facility] ACCOUNT BILL documented in this encounter Visit Diagnoses Diagnosis Seronegative arthritis- Primary Other specified arthropathy, site unspecified Myofascial pain Mylagia and myositis, unspecified Medication monitoring encounter Encounter for therapeutic drug monitoring Immunosuppressed status (HCC) Unspecified disorder of immune mechanism Cervical myelopathy (HCC) Cervical spondylosis with myelopathy Vitamin d deficiency Unspecified vitamin D deficiency Rheumatoid arthritis(714.0) (HCC) Rheumatoid arthritis documented in this encounter
--- OUTSIDE RECORDS SUMMARY | 2024-06-25 01:27 | XMS_ITS | Encounter Summary ---
Author Organization [facility] Address [address] [place] [address] Care Team Providers Care Oil Dispatcher Name Role Phone Unavailable Primary Care Provider Unavailabl e Encounter Details Date Type Department Care Team (Latest Contact Info) Description 04/04/2018 1:51 PM CDT Hospital Encounter [facility] Imaging Services - Radiology [address] [place] [address] Discharge Disposition: Home or Self Care Social [...] Name Priority Date/Time Associated Diagnosis Comments XR LUMBAR SPINE COMPL 6VWS Routine 04/04/2018 2:05 PM CDT Neck pain documented in this encounter Results * XR LUMBAR SPINE W BENDING VW (04/04/2018 2:05 PM CDT) Anatomical Region Laterality Modality Spine Radiographic Sofy ging 04/04/2018 3:30 PM CDT Impressions 04/04/2018 3:31 PM CDT Mild anterolisthesis L4 upon L5 See above Reading Radiologist: Joe Ruffin MD on 04/04/2018 at 3:31 PM Narrative 04/04/2018 3:31 PM CDT Lumbar spine 6 views INDICATION: Low back pain and lumbar spine pain FINDINGS: 6 views of the lumbar spine to include flexion extension views reveal spina bifida occulta of L5. There is otherwise no acute fracture, subluxation or dislocation. Mild endplate degenerative changes are present. There is minimal anterolisthesis L4 upon L5. This is unchanged on the flexion extension view. Surgical clips are seen in the right side of the abdomen. Procedure Note Joe Ruffin MD - 04/04/2018 Lumbar spine 6 views INDICATION: Low back pain and lumbar spine pain FINDINGS: 6 views of the lumbar spine to include flexion extension views reveal spina bifida occulta of L5. There is otherwise no acute fracture, subluxation or dislocation. Mild endplate degenerative changes are present. There is minimal anterolisthesis L4 upon L5. This is unchanged on the flexion extension view. Surgical clips are seen in the right side of the abdomen. IMPRESSION Mild anterolisthesis L4 upon L5 See above Reading Radiologist: Joe Ruffin MD on 04/04/2018 at 3:31 PM Rio Carlton MD DIAGNOSTIC IMAGING O RDERABLES documented in this encounter Visit Diagnoses Diagnosis Neck pain Cervicalgia documented in this encounter
--- OUTSIDE RECORDS SUMMARY | 2024-06-25 01:27 | XMS_ITS | Encounter Summary ---
Author Organization [facility] Address [address] [facility] [place] [address] Care Team Providers Care Camouflage Specialist Name Role Phone Unavailable Primary Care Provider Unavailabl e Reason for Visit * Reason Onset Date Comments MEDICATION REFILL 01/29/2014 Encounter Details Date Type Department Care Team (Late st Contact Info) Description 01/29/2014 Refill [facility] Medical [facility] - Rheumatology [address] [place] [phone] Grupo Moura MD [address] [place] [address] [phone] MEDICATION REFILL Social History Tobacco Use Types [...]
--- OUTSIDE RECORDS SUMMARY | 2024-06-25 01:27 | XMS_ITS | Encounter Summary ---
Author Organization [facility] Address [address] [facility] [place] [address] Care Team Providers Care Ocean Freight Agent Name Role Phone Unavailable Primary Care Provider Unavailabl e Encounter Details Date Type Department Care Team (Latest Contact Info) Description 07/17/2020 10:03 AM HOSPITALITY SERVICES MANAGER - 07/17/2020 11:59 PM HOSPITALITY SERVICES MANAGER Hospital Encounter [facility] Imaging Services - Radiology [address] [place], [place] [phone] Rio Carlton MD Discharge Disposition: Home or [...] COVID-19? No / Unsure 07/17/2020 10:00 AM HOSPITALITY SERVICES MANAGER documented as of this encounter Medications at [...] Name Priority Date/Time Associated Diagnosis Comments XR KNEE BILAT 2VW OR LESS Routine 07/17/2020 10:14 AM HOSPITALITY SERVICES MANAGER Pain in both knees, unspecified chronicity documented in this encounter Results * XR KNEE BILAT ONE OR TWO VIEWS (07/17/2020 10:14 AM HOSPITALITY SERVICES MANAGER) Anatomical Region Laterality Modality Lower Extremity Radiographic Sofy ging 07/17/2020 2:35 PM HOSPITALITY SERVICES MANAGER Narrative 07/17/2020 2:37 PM HOSPITALITY SERVICES MANAGER EXAM: XR KNEE BILAT 2VW OR LESS*[id number] INDICATION: Bilateral knee pain COMPARISON: none available FINDINGS: There is no fracture, dislocation or osseous destruction in either knee. There is tricompartmental joint space narrowing and hypertrophic spurring in both knees. Enthesopathic changes are present at the quadriceps insertion in bilateral knees. There is a cluster of calcifications in the suprapatellar left knee which may represent a calcified loose body. *Reading Radiologist: Gion Frank on 07/17/2020 at 2:37 PM Procedure Note Gino Frank MD - 07/17/2020 EXAM: XR KNEE BILAT 2VW OR LESS*[id number] INDICATION: Bilateral knee pain COMPARISON: none available FINDINGS: There is no fracture, dislocation or osseous destruction in either knee. There is tricompartmental joint space narrowing and hypertrophic spurring in both knees. Enthesopathic changes are present at the quadriceps insertion in bilateral knees. There is a cluster of calcifications in the suprapatellar left knee which may represent a calcified loose body. *Reading Radiologist: Gino Frank on 07/17/2020 at 2:37 PM Rio Carlton MD DIAGNOSTIC IMAGING O RDERABLES documented in this encounter Visit Diagnoses Diagnosis Pain in both knees, unspecified chronicity documented in this encounter
--- OUTSIDE RECORDS SUMMARY | 2024-06-25 01:27 | XMS_ITS | Encounter Summary ---
Author Organization [facility] Address [address] [facility] [place] [address] Care Team Providers Care Special Effects Makeup Artist Name Role Phone Unavailable Primary Care Provider Unavailabl e Reason for Visit * Reason Onset Date Comments Update 10/01/2012 Encounter Details Date Type Department Care Team (Late st Contact Info) Description 10/01/2012 Telephone [facility] Neurosciences [id number] [address] [place] [address] [place] [id number] [address] [place] [address] Update Social History Tobacco Use Types Packs/Day Years Used Date Smoking Tobacco: Never Alcohol Use Standard Drinks/Week Comments No 0 (1 standard drink = 0.6 oz pur e alcohol) Sex and Gender Information Value Date Recorded Sex Assigned at Not on file Gender Identity Not on file Sexual Orientation Not on file documented as of this encounter Miscellaneous Notes * Telephone Encounter - Maia Yan - 10/01/2012 2:34 PM CDT Informed the patient of the response. * Telephone Encounter - Bubba Hawkins MD - 10/01/2012 2:21 PM CDT Yes to 2 pills at bedtime. Nas Hawkins * Telephone Encounter - Maia Yan - 10/01/2012 1:59 PM CDT The patient was suppose to call you and clarify what medication she was on. She is on trazadone 50 mg 1 tablet q hs. Is she suppose to increase this. documented in this encounter Plan of Treatment Not on file documented as of this encounter Visit Diagnoses Not on filedocumented in this encounter
--- OUTSIDE RECORDS SUMMARY | 2024-06-25 01:27 | XMS_ITS | Encounter Summary ---
Author Organization [facility] Address [address] [facility] [place] [address] Care Team Providers Care Lace Roller Operator Name Role Phone Unavailable Primary Care Provider Unavailabl e Encounter Details Date Type Department Care Team (Latest Contact Info) Description 04/04/2018 1:47 PM CDT - 04/04/2018 1:50 PM CDT Hospital Encounter [facility] Imaging Services - Radiology [address] [place] [phone] Rio Carlton MD Discharge Disposition: Home or [...] Name Priority Date/Time Associated Diagnosis Comments XR CERVICAL SPINE 6VW OR MORE Routine 04/04/2018 2:05 PM CDT Neck pain documented in this encounter Results * XR CERVICAL SPINE W OBL AND FLEX/EXT (04/04/2018 2:05 PM CDT) Anatomical Region Laterality Modality Spine Radiographic Sofy ging 04/04/2018 3:28 PM CDT Impressions 04/04/2018 3:29 PM CDT Cervical spondylitic changes as described Reading Radiologist: Joe Ruffin MD on 04/04/2018 at 3:29 PM Narrative 04/04/2018 3:29 PM CDT Cervical spine 7 views INDICATION: Neck pain and cervical spine pain FINDINGS: AP, lateral, oblique views, flexion-extension views and open-mouth odontoid views of the cervical spine were obtained. Endplate degenerative changes are present at C4, C5 and C6. There is no acute fracture or subluxation. The prevertebral soft tissues unremarkable. Procedure Note Joe Ruffin MD - 04/04/2018 Cervical spine 7 views INDICATION: Neck pain and cervical spine pain FINDINGS: AP, lateral, oblique views, flexion-extension views and open-mouth odontoid views of the cervical spine were obtained. Endplate degenerative changes are present at C4, C5 and C6. There is no acute fracture or subluxation. The prevertebral soft tissues unremarkable. IMPRESSION Cervical spondylitic changes as described Reading Radiologist: Joe Ruffin MD on 04/04/2018 at 3:29 PM Rio Carlton MD DIAGNOSTIC IMAGING O RDERABLES documented in this encounter Visit Diagnoses Diagnosis Neck pain Cervicalgia documented in this encounter
--- OUTSIDE RECORDS SUMMARY | 2024-06-25 01:27 | XMS_ITS | Encounter Summary ---
Author Organization [facility] Address [address] [facility] [place] [address] Care Team Providers Care Mimeograph Operator Name Role Phone Unavailable Primary Care Provider Unavailabl e Reason for Visit * Reason Comments Follow-up Rheumatoid Arthritis Encounter Details Date Type Department Care Team (Late st Contact Info) Description 03/06/2013 3:20 PM CDT Office Visit [facility] - Rheumatology [address] [place] [id number] Grupo Moura MD [address] [place] [address] [phone] Rheumatoid arthritis (HCC) (Primary Dx); Acquired polyneuropathy; Immunosuppressed status (HCC); Medication monitoring encounter Social History Tobacco Use [...] Sign Reading Time Taken Comments Blood Pressure 126/70 03/06/2013 3:20 PM CDT Pulse 80 03/06/2013 3:20 PM CDT Temperature - - Respiratory Rate - - Oxygen Saturation - - Inhaled Oxygen Concentration - - Weight 77.6 kg (171 lb) 03/06/2013 3:20 PM CDT Height 149.9 cm (4' 11 ) 03/06/2013 3:20 PM CDT Body Mass Index 34.54 03/06/2013 3:20 PM CDT documented in this encounter Patient Instructions * Patient Instructions* Grupo Moura MD - 03/06/2013 3:33 PM CDT Had lab tests done recently Suggest green tea with khang See me 4 mos documented in this encounter Progress Notes * Grupo Moura MD - 03/06/2013 3:21 PM CDT Subjective: Stiffness: lasts 10 History She has no pain. Only takes one tramadol a day, and this is for neuropathy discomfort. Noted improvement since she started Humira. Fatigue is her biggest complaint. Recent anxiety attacks with diaphoresis, palpitations, and fatigue. She questions if this is a Humira side effect. No recent TB or hand films Review of Systems Fever: - Rash: - Raynaud's: - Nodules: - Med Side Effects: + Hair Loss: - Diff. swallowing: - Dry Eyes: - Dry Mouth: - Takes Meds: + Depression: + Swelling: - Smoke: - ETOH: - Sx: - Chest Pain: - Dyspnea: - GI Sx: - Elaborate on positives: RHEUM VITALS 12/27/2012 01/31/2013 03/06/2013 BP 128/70 129/84 126/70 Pulse 76 89 80 Wgt 171 lbs 171 lbs 10 oz 171 lbs RHEUM GENA 08/06/2012 11/21/2012 12/27/2012 MHAQ 2.3 3.3 2.7 Pain 3 6 7 Global 3 7 6.5 Rapid 3 8.3 16.3 16.2 Sleep 6 7 7 GI 0 5 5 Fatigue 5 7.5 7.5 Tender Joints 0 0 - Swollen Joints 0 0 - Global 2 1 - Health Assessment Questionnaire MHAQ: 1.3 Pain: 2.5 Global: 2.5 Rapid 3: 6.3 Sleep: 3.5 GI: 2 Fatigue: 7 Objective: BP 126/70 Pulse 80 Ht 1.499 m (4' 11 ) Wt 77.565 kg (171 lb) BMI 34.54 kg/m2 General: alert; cooperative; no [...] Muscle Groups: no Imaging: Assessment RA doing better Immunosuppressed status Fatigue and anxiety; undiagnosed Neuropathy Plan Had lab tests done recently Suggest green tea with chamomille See me 4 mos documented in this encounter Plan of Treatment Not on file documented as of this encounter Visit Diagnoses Diagnosis Rheumatoid arthritis(714.0) ([facility])- Primary Rheumatoid arthritis Acquired polyneuropathy Unspecified hereditary and idiopathic peripheral neuropathy Immunosuppressed status ([facility]) Unspecified disorder of immune mechanism Medication monitoring encounter Encounter for therapeutic drug monitoring documented in this encounter
--- OUTSIDE RECORDS SUMMARY | 2024-06-25 01:27 | XMS_ITS | Encounter Summary ---
Author Organization [facility] Address [address] [place] [address] Care Team Providers Care Associate Director Of Sales Name Role Phone Unavailable Primary Care Provider Unavailabl e Reason for Visit * Reason Comments Imm Inj Cimzia Encounter Details Date Type Department Care Team (Latest Contact Info) Description 07/16/2012 3:30 PM BLANKET WASHER Clinical Support [facility] - Rheumatology [address] [place] [id number] Seronegative arthritis Social History Tobacco Use Types Packs/Day Years Used Date Smoking Tobacco: Never Alcohol Use Standard Drinks/Week Comments No 0 (1 standard drink = 0.6 oz pur e alcohol) Sex and Gender Information Value Date Recorded Sex Assigned at Not on file Gender Identity Not on file Sexual Orientation Not on file documented as of this encounter Progress Notes * Kimberly Huang, SVITLANA - 07/16/2012 3:09 PM CST Administered Cimzia 200 mg sub-Q each upper arm. Pt tolerated well; no adverse reaction. She has had significant improvement since last injections. I haven't felt this good in 3 years. She has not been taking prednisone. Advised her as long as she's feeling okay, no need to take it. Can call if she has a flare. She has completed 3 loading doses. Next injection scheduled 08/06. Pt supplied med from specialty pharmacy. KET WASHER documented in this encounter Plan of Treatment Not on file documented as of this encounter Visit Diagnoses Diagnosis Seronegative arthritis- Primary Other specified arthropathy, site unspecified documented in this encounter
--- OUTSIDE RECORDS SUMMARY | 2024-06-25 01:27 | XMS_ITS | Encounter Summary ---
Author Organization [facility] Address [address] [place] [address] Care Team Providers Care Assistant Men'S Lacrosse Coach Name Role Phone Unavailable Primary Care Provider Unavailabl e Encounter Details Date Type Department Care Team (Late st Contact Info) Description 06/08/2012 SS Outpatient Visit EXTERNAL NON-SS DEPT Grupo Moura MD [address] [place] [id number] Social History Tobacco Use Types Packs/Day Years [...]
--- OUTSIDE RECORDS SUMMARY | 2024-06-25 01:27 | XMS_ITS | Encounter Summary ---
Author Organization [facility] Address [address] [place] [address] Care Team Providers Care Barbecue Cook Name Role Phone Unavailable Primary Care Provider Unavailabl e Encounter Details Date Type Department Care Team (Late st Contact Info) Description 12/31/2012 SS Outpatient Visit EXTERNAL NON-SS DEPT Grupo Moura MD [address] [place] [id number] Social History Tobacco Use Types Packs/Day Years [...]
--- OUTSIDE RECORDS SUMMARY | 2024-06-25 01:27 | XMS_ITS | Encounter Summary ---
Author Organization [facility] Address [address] [facility] [place] [address] Care Team Providers Care Foundry Melt Supervisor Name Role Phone Unavailable Primary Care Provider Unavailabl e Encounter Details Date Type Department Care Team (Late st Contact Info) Description 04/09/2015 Orders Only [facility] - Rheumatology [address] [place] [id number] Grupo Moura MD [address] [place] [phone] Social History Tobacco Use Types Packs/Day Years Used Date Smoking Tobacco: Never Alcohol Use Standard Drinks/Week Comments No 0 (1 standard drink = 0.6 oz pur e alcohol) Sex and Gender Information Value Date Recorded Sex Assigned at Not on file Gender Identity Not on file Sexual Orientation Not on file documented as of this encounter Progress Notes * Yeimi Mueller RN - 04/15/2015 11:32 AM CDTQuick Note: See phone encounter * Grupo Moura MD - 04/13/2015 5:10 PM CDTQuick Note: One lupus test strongly (+); some of the labs not back yet. [facility] her will not prescribe anything new until we have all results. CC PCP. documented in this encounter Plan of Treatment Not on file documented as of this encounter Procedures Procedure Name Priority Date/Time Associated Diagnosis Comments INTERPRETATION (7) 04/09/2015 3: 57 PM CDT STAGE 1 REFLEXED 04/09/2015 3:57 PM CDT STAGE 2 REFLEXED 04/09/2015 3:57 PM CDT VAL BLOOD TITER 04/09/2015 3:57 PM CDT documented in this encounter Results * INTERPRETATION (7) (PO REF LAB) (04/09/2015 3:57 PM CDT) Interpretation [facility] Comment: This finding suggests Sjogren's syndrome. These antibodies may occasionally be positive early in other connective tissue diseases. A positive result at this stage of testing stops further testing, and does not preclude additional positive antibodies. Clinical correlation is required to assess the need for testing additional analytes. Test Performed at: [facility] [place], [place] ??[phone] ALYSSA MILLER DO,MPH 04/09/2015 3:57 PM CDT 04/09/2015 3:58 PM CDT Narrative Authorizing Provider Result Case Moura MD LAB - SEROLOGY OR DERABLES Performing Organization Address City/State/[facility] Co de Phone Number [facility] [address] [place] [address] * (ABNORMAL) STAGE 2 REFLEXED (PO REF LAB) (04/09/2015 3:57 PM CDT) Sjogren's Antibodies (SSA) 2.3 POS(A) <1.0 NEG AI [facility] Sjogren's Antibodies (SSB) <1.0 NEG <1.0 NEG AI [facility] SCL-70 Antibody <1.0 NEG <1.0 NEG AI [facility] Bela-1 Antibody <1.0 NEG <1.0 NEG AI [facility] Comment: Test Performed at: [facility] [address] [place], [place] ??[phone] ALYSSA MILLER DO,MPH 04/09/2015 3:57 PM CDT 04/09/2015 3:58 PM CDT Grupo Moura MD LAB - CHEMISTRY O MARLYN Performing Organization Address [facility] de Phone Number [facility] [address] [place] [address] * STAGE 1 REFLEXED (PO REF LAB) (04/09/2015 3:57 PM CDT) dsDNA Antibody 2 IU/mL [facility] Comment: ? IU/mL ? Interpretation ? < or = 4 ?Negative ? 5-9 ? Indeterminate ? > or = 10 ?? Positive SM Antibody <1.0 NEG <1.0 NEG AI [facility] SM/CREAM BEATER Antibody <1.0 NEG <1.0 NEG AI [facility] CREAM BEATER Antibody <1.0 NEG <1.0 NEG AI [facility] Chromatin Nucleosomal Antibody <1.0 NEG <1.0 NEG AI [facility] Comment: Test Performed at: [facility] [address] ??[phone] ALYSSA MILLER DO,MPH 04/09/2015 3:57 PM CDT 04/09/2015 3:58 PM CDT Grupo Moura MD LAB - CHEMISTRY O MARLYN Performing Organization Address [facility] de Phone Number [facility] [address] [place] [address] * (ABNORMAL) VAL BLOOD TITER (04/09/2015 3:57 PM CDT) VAL Pattern DUAL(A) [facility] VAL SEE BELOW(A) titer [facility] Comment: Pattern:ATYPICAL SPECKLED Titer: ??1:640 Pattern:HOMOGENEOUS Titer: ??1:160 ?Reference Range ?<1:40 ?Negative ?1:40-1:80 ?Low Antibody Level ?>1:80 ?Elevated Antibody Level Test Performed at: [facility] [id number] [place] [address] ??[phone] ALYSSA MILLER DO,MPH 04/09/2015 3:57 PM CDT 04/09/2015 3:58 PM CDT Narrative Authorizing Provider Result Case Moura MD LAB - CHEMISTRY O RDERABLES [facility] [address] [place] [address] documented in this encounter Visit Diagnoses Not on filedocumented in this encounter
--- OUTSIDE RECORDS SUMMARY | 2024-06-25 01:27 | XMS_ITS | Encounter Summary ---
Author Organization [facility] Address [address] [place] [address] Care Team Providers Care Silk Spooler Name Role Phone Unavailable Primary Care Provider Unavailabl e Reason for Visit * Reason Comments Imm Inj request tb skin test Encounter Details Date Type Department Care Team (Late st Contact Info) Description 12/11/2017 3:20 PM CDT Office Visit [facility] [address] [place] [address] Provider, Fausto Exp Nameoki PPD screening test (Primary Dx) Social History Tobacco Use Types Packs/Day Years Used Date Smoking Tobacco: Never Alcohol Use Standard Drinks/Week Comments No 0 (1 standard drink = 0.6 oz pur e alcohol) Sex and Gender Information Value Date Recorded Sex Assigned at Not on file Gender Identity Not on file Sexual Orientation Not on file documented as of this encounter Progress Notes * Wes Singh APRN-KYE - 12/11/2017 2:43 PM CDT PPD Placement note Anjali Rodriguez, 62 y.o. female is here today for placement of PPD test Reason for PPD test: tx protocol Pt taken PPD test before: yes Verified in allergy area and with patient that they are not allergic to the products PPD is made of(Phenol or Tween). None Is patient taking any oral or IV steroid medication now or have they taken it in the last month? No Has the patient ever received the BCG vaccine?: no Has the patient been in recent contact with anyone known or suspected of having active TB disease?:no Patient's Country of origin?: [place] O: Alert and oriented in NAD. P: PPD placed on 12/11/2017. Patient advised to return for reading within 48-72 hours. documented in this encounter Plan of Treatment Not on file documented as of this encounter Procedures Procedure Name Priority Date/Time Associated Diagnosis Comments SKIN TEST PPD - POINT OF CARE Routine 12/11/2017 PPD screening test documented in this encounter Results * SKIN TEST PPD - POINT OF CARE (12/11/2017) PPD 0 mm Other MISCELLANEOUS SAMPLE S / Unknown 12/11/2017 [facility] - POINT OF CARE ORDERABLES documented in this encounter Visit Diagnoses Diagnosis PPD screening test- Primary Screening examination for pulmonary tuberculosis documented in this encounter Administered Medications Administered Medications Medication Order MAR Action Action Date Dose Rate Site PPD Intradermal Given 12/11/2017 14:45 CDT 0.1 mL Left Fore arm documented in this encounter
--- OUTSIDE RECORDS SUMMARY | 2024-06-25 01:27 | XMS_ITS | Patient Health Summary ---
Author Organization [facility] Address [address] [place] [address] Care Team Providers Care Business Services Associate Name Role Phone Unavailable Primary Care Provider Unavailabl e Note from [facility],non-owned Affiliates and Associated Physician Practices is amultiple site organization consisting of ambulatory clinics and hospital sitesin [place], [place], [place] and [place]. This disclosure is being madepursuant to the Care Everywhere program and may not contain all information available regarding this patient. Last updated 18.[facility] [employer] Allergies * Amitriptyline(Drowsiness) * Enbrel(GI Discomfort) * Adalimumab(GI Discomfort) * Hydroxychloroquine(Nausea and/or Vomiting) * Golimumab(GI Discomfort) * Other-See Past Updates,Inactive Medications * Be aware that medications may not be up to date on this document. Alwaysverify current medications with the patient. * FISH OIL 1200 MG CAPS Take by mouth 2 times daily. * Cyanocobalamin (B-12) 1000 MCG CAPS Take 1,000 mg by mouth once daily. 1 qd. * aspirin 325 MG tablet Take 325 mg by mouth daily. * vitamin D, cholecalciferol, 2000 UNITS tablet(Started 08/06/2012) Take 2 Tabs by mouth once daily. * indapamide (LOZOL) 2.5 MG tablet Take 2.5 mg by mouth once daily. * traMADol (ULTRAM) 50 MG tablet(Started 12/27/2012) Take 1 Tab by mouth 2 times daily as needed for Pain. * losartan (COZAAR) 100 MG tablet Take by mouth once daily. * amLODIPine (NORVASC) 5 MG tablet Take by mouth once daily. * tiZANidine (ZANAFLEX) 4 MG tablet(Started 01/31/2014) Take 1 Tab by mouth at bedtime. 3 refills left Active Problems Problem Noted Date Diagnosed Date Fibromyalgia 10/01/2012 Rheumatoid arthritis 08/06/2012 Acquired polyneuropathy 06/28/2012 Myofascial pain Social History Tobacco Use Types Packs/Day Years [...] Comments Blood Pressure 120/70 07/26/2016 2:39 PM BOLOGNA MAKER Pulse 89 07/26/2016 2:39 PM BOLOGNA MAKER Temperature 36.8 ??C (98.3 ??F) 07/26/2016 2:39 PM CS T Respiratory Rate 16 07/26/2016 2:39 PM BOLOGNA MAKER Oxygen Saturation - - Inhaled Oxygen Concentration - - Weight 74.4 kg (164 lb) 07/26/2016 2:39 PM BOLOGNA MAKER Height 149.9 cm (4' 11 ) 07/26/2016 2:39 PM BOLOGNA MAKER Body Mass Index 33.12 07/26/2016 2:39 PM BOLOGNA MAKER Procedures * XR KNEE BILAT 2VW OR LESS(Performed 07/17/2020) Performed for Pain in both knees, unspecified chronicity * XR ABDOMEN KUB(Performed 04/16/2018) Performed for Colon abnormality * DEXA BONE DENSITY AXIAL SKELETON(Performed 04/04/2018) Performed for Osteoporosis screening * XR LUMBAR SPINE COMPL 6VWS(Performed 04/04/2018) Performed for Neck pain * XR CERVICAL SPINE 6VW OR MORE(Performed 04/04/2018) Performed for Neck pain * SKIN TEST PPD - POINT OF CARE(Performed 12/11/2017) Performed for PPD screening test * CULTURE URINE(Performed 07/26/2016) Performed for Dysuria * URINALYSIS AUTO - POINT OF CARE (AMB) STL(Performed 07/26/2016) Performed for Dysuria * PORPHOBILINOGEN URINE QUANTITATIVE TIMED(Performed 04/20/2015) Performed for Abdominal pain, generalized * INTERPRETATION (7)(Performed 04/09/2015) * STAGE 2 REFLEXED(Performed 04/09/2015) * STAGE 1 REFLEXED(Performed 04/09/2015) * VAL BLOOD TITER(Performed 04/09/2015) * VAL W REFLX (POSITIVE)(Performed 04/09/2015) Performed for Rheumatoid arthritis(714.0) ([facility]) * VAL BLOOD SCREEN W/REFLEX TITER(Performed 04/09/2015) Performed for Rheumatoid arthritis(714.0) ([facility]) * RHEUMATOID FACTOR BLOOD QUANTITATIVE(Performed 04/09/2015) Performed for Rheumatoid arthritis(714.0) ([facility]) * PORPHYRINS TOTAL BLOOD(Performed 04/09/2015) Performed for Abdominal pain, generalized * REF LAB-SPECIMEN NOT CENTRIFUGED(Performed 12/09/2014) * C-REACTIVE PROTEIN(Performed 12/09/2014) Performed for Medication monitoring encounter * CBC W AUTO DIFFERENTIAL(Performed 12/09/2014) Performed for Medication monitoring encounter * COMPREHENSIVE METABOLIC PANEL(Performed 12/09/2014) Performed for Medication monitoring encounter * C-REACTIVE PROTEIN(Performed 08/06/2013) Performed for Rheumatoid Arthritis ([facility]) * COMPREHENSIVE METABOLIC PANEL(Performed 08/06/2013) Performed for Immunosuppressed status ([facility]), Medication monitoring encounter * CBC W AUTO DIFFERENTIAL(Performed 08/06/2013) Performed for Immunosuppressed status ([facility]), Medication monitoring encounter * CATALINO STAINING PATTERNS REFLEXED(Performed 11/21/2012) Performed for Rheumatoid arthritis ([facility]) * VAL BLOOD SCREEN W/REFLEX TITER(Performed 11/21/2012) Performed for Rheumatoid arthritis ([facility]) * CYCLIC CITRUL PEPTIDE ANTIBODY IGG/IGA (CCP)(Performed 11/21/2012) Performed for Rheumatoid arthritis ([facility]) * RHEUMATOID FACTOR BLOOD QUANTITATIVE(Performed 11/21/2012) Performed for Rheumatoid arthritis ([facility]) * VDRL BLOOD(Performed 06/28/2012) Performed for Acquired polyneuropathy * VITAMIN B6(Performed 06/28/2012) Performed for Acquired polyneuropathy * VITAMIN B12 FOLATE PANEL(Performed 06/28/2012) Performed for Acquired polyneuropathy * IRON + TIBC PANEL(Performed 06/28/2012) Performed for Acquired polyneuropathy * VITAMIN E(Performed 06/28/2012) Performed for Acquired polyneuropathy * HEAVY METALS BLOOD SCREEN(Performed 06/28/2012) Performed for Acquired polyneuropathy * EMG WITH NERVE CONDUCTION STUDY(Performed 06/28/2012) Performed for Acquired polyneuropathy * IMAGING/RADIOLOGY/XRAY RESULTS ORDER(Performed 06/26/2012) * IMAGING/RADIOLOGY/XRAY RESULTS ORDER(Performed 06/26/2012) * VITAMIN D 25-HYDROXY(Performed 06/18/2012) Performed for Vitamin d deficiency * C-REACTIVE PROTEIN(Performed 06/18/2012) Performed for Seronegative arthritis * COMPREHENSIVE METABOLIC PANEL(Performed 06/18/2012) Performed for Medication monitoring encounter * CBC W AUTO DIFFERENTIAL(Performed 06/18/2012) Performed for Medication monitoring encounter * EMG WITH NERVE CONDUCTION STUDY(Performed 11/24/2011) * LAB RESULTS ORDER(Performed 11/23/2011) * CBC W AUTO DIFFERENTIAL(Performed 10/26/2011) Performed for Medication monitoring encounter * VITAMIN D 25-HYDROXY(Performed 10/26/2011) Performed for Vitamin D deficiency * C-REACTIVE PROTEIN(Performed 10/26/2011) Performed for Myofascial pain * COMPREHENSIVE METABOLIC PANEL(Performed 10/26/2011) Performed for Medication monitoring encounter * C-REACTIVE PROTEIN(Performed 08/31/2011) Performed for Seronegative arthritis * COMPREHENSIVE METABOLIC PANEL(Performed 08/31/2011) Performed for Medication monitoring encounter * CBC W AUTO DIFFERENTIAL(Performed 08/31/2011) Performed for Medication monitoring encounter * CBC W AUTO DIFFERENTIAL(Performed 08/18/2011) Performed for Medication monitoring encounter * CBC W AUTO DIFFERENTIAL(Performed 08/04/2011) Performed for Medication monitoring encounter * URINE MICROSCOPIC ONLY(Performed 07/21/2011) Performed for Seronegative arthritis * URINALYSIS REFLEX MICROSCOPIC REFLEX CULTURE(Performed 07/21/2011) Performed for Seronegative arthritis * CK BLOOD(Performed 07/21/2011) Performed for Seronegative arthritis * C-REACTIVE PROTEIN(Performed 07/21/2011) Performed for Seronegative arthritis * HEPATITIS SCREEN ACUTE(Performed 07/21/2011) Performed for Fatigue * CULTURE URINE(Performed 07/21/2011) Performed for Seronegative arthritis * CK BLOOD(Performed 05/13/2011) Performed for Seronegative arthritis * VAL BLOOD SCREEN W/REFLEX TITER(Performed 05/13/2011) Performed for Seronegative arthritis * C-REACTIVE PROTEIN(Performed 05/13/2011) Performed for Seronegative arthritis * RHEUMATOID FACTOR BLOOD QUANTITATIVE(Performed 05/13/2011) Performed for Seronegative arthritis * CBC W AUTO DIFFERENTIAL(Performed 05/13/2011) Performed for Seronegative arthritis Results * XR KNEE BILAT ONE OR TWO VIEWS (07/17/2020 10:14 AM BOLOGNA MAKER) Anatomical Region Laterality Modality Lower Extremity Radiographic Sofy ging 07/17/2020 2:35 PM BOLOGNA MAKER Narrative 07/17/2020 2:37 PM BOLOGNA MAKER EXAM: XR KNEE BILAT 2VW OR LESS*[id number] INDICATION: Bilateral knee pain COMPARISON: none available [...] Gino Frank on 07/17/2020 at 2:37 PM Procedure Note Gino Frank MD - 07/17/2020 EXAM: XR KNEE BILAT 2VW OR LESS*[id number] INDICATION: Bilateral knee pain COMPARISON: none available [...] Rio Carlton MD DIAGNOSTIC IMAGING O RDERABLES * XR ABDOMEN 1 VW (04/16/2018 10:30 [...] Rio Carlton MD DIAGNOSTIC IMAGING O RDERABLES * DEXA BONE DENSITY AXIAL SKELETON (04/04/2018 [...] Solorio on 04/04/2018 3:23 PM Reading Radiologist: Jeo Ruffin MD on 04/04/2018 at 3:25 PM [...] PM Rio Carlton MD DEXA ORDERABLES * XR LUMBAR SPINE W BENDING VW [...] Rio Carlton MD DIAGNOSTIC IMAGING O RDERABLES * XR CERVICAL SPINE W OBL AND [...] Rio Carlton MD DIAGNOSTIC IMAGING O RDERABLES * SKIN TEST PPD - POINT OF CARE (12/11/2017) PPD 0 mm Other MISCELLANEOUS SAMPLE S / Unknown 12/11/2017 Wes Singh EMPLOYMENT LAW ATTORNEY-HEAD TURNING MACHINE OPERATOR LAB - POINT OF CARE ORDERABLES * CULTURE URINE (07/26/2016 2:41 PM BOLOGNA MAKER) Only the most recent of2 resultswithin the time period is included. Urine Culture Routine Final report [facility] ACCOUNT BILL Result 1 [facility] ACCOUNT BILL Comment: Mixed urogenital sheridan Less than 10,000 colonies/mL Urine URINE SPECIMEN OBTAINED BY CLEAN CATCH PROCEDURE / Unknown 07/26/2016 2:41 PM BOLOGNA MAKER 07/26/2016 Narrative Resulting Agency Comment [facility] [place] [address] ??[place] [id number] Felecia Lay EMPLOYMENT LAW ATTORNEY-HEAD TURNING MACHINE OPERATOR LAB - MICROBI OLOGY ORDERABLES [facility] [address] * (ABNORMAL) URINALYSIS AUTO - POINT OF CARE (AMB) STL (07/26/2016 2:40 PM BOLOGNA MAKER) Clarity UA POCT clear Color UA POCT yellow Leukocyte UA 15 Negative Nitrite UA POCT neg Negative Urobilinogen UA 0.2 0.1 - 1.0 Protein UA POCT 15 Negative pH UA 5.0 5.0 - 8.0 pH units Blood UA 50 Negative Specific [place] UA POCT 1.020 1.002 - 1.030 Ketone UA neg Negative Bilirubin UA POCT neg Negative Glucose UA neg Negative Expiration Date [id number] Lot # [id number] QC Verified Yes Yes URINE / Unknown 07/26/2016 2 :40 PM BOLOGNA MAKER Felecia Lay EMPLOYMENT LAW ATTORNEY-HEAD TURNING MACHINE OPERATOR LAB - POINT O F CARE ORDERABLES * PORPHOBILINOGEN URINE QUANTITATIVE (04/20/2015 2:21 PM CDT) Total Volume 1100 mL [facility] Porphobilinogen umol/24 Hour Urine 0.0 <2.4 mg/24 h [facility] Interpretation see note [facility] Comment: Porphobilinogen (PBG) was within the normal range. This test may not detect an elevation of PBG if the patient is asymptomatic or is undergoing treatment at the time of collection. Test Performed at: [facility] [address] ??[phone] MIMI WILSON MD,PHD Urine specimen (specimen) TIMED URINE SPECIMEN / Unknown 04/20/2015 2:21 PM CDT 04/20/2015 2:22 PM CDT Grupo Moura MD LAB - URINE CHEMI STRY ORDERABLES [facility] [address] [place] [address] * INTERPRETATION (7) (PO REF LAB) (04/09/2015 3:57 PM CDT) Interpretation [facility] Comment: This finding suggests Sjogren's syndrome. These antibodies may occasionally be positive early in other connective tissue diseases. A positive result at this stage of testing stops further testing, and does not preclude additional positive antibodies. Clinical correlation is required to assess the need for testing additional analytes. Test Performed at: [place] ??[phone] ALYSSA MILLER DO,MPH 04/09/2015 3:57 PM CDT 04/09/2015 3:58 PM CDT Grupo Moura MD LAB - SEROLOGY OR DERABLES Performing Organization Address [facility] de Phone Number [facility] [address] [place] [address] * STAGE 1 REFLEXED (PO REF LAB) (04/09/2015 3:57 PM CDT) dsDNA Antibody 2 IU/mL [facility] Comment: ? IU/mL ? Interpretation ? < or = 4 ?Negative ? 5-9 ? Indeterminate ? > or = 10 ?? Positive SM Antibody <1.0 NEG <1.0 NEG AI [facility] SM/MANAGER SALES TRAINING Antibody <1.0 NEG <1.0 NEG AI [facility] MANAGER SALES TRAINING Antibody <1.0 NEG <1.0 NEG AI [facility] Chromatin Nucleosomal Antibody <1.0 NEG <1.0 NEG AI [facility] Comment: Test Performed at: [facility] [address] [place] ??[phone] ALYSSA MILLER DO,MPH 04/09/2015 3:57 PM CDT 04/09/2015 3:58 PM CDT Grupo Moura MD LAB - CHEMISTRY O RDERABLES Performing Organization Address [facility] Co de Phone Number [facility] [phone] [place] [address] * (ABNORMAL) STAGE 2 REFLEXED (PO REF LAB) (04/09/2015 3:57 PM CDT) Pathologist [facility] Sjogren's Antibodies (SSA) 2.3 POS(A) <1.0 NEG AI [facility] Sjogren's Antibodies (SSB) <1.0 NEG <1.0 NEG AI [facility] SCL-70 Antibody <1.0 NEG <1.0 NEG AI [facility] Bela-1 Antibody <1.0 NEG <1.0 NEG AI [facility] Comment: Test Performed at: [facility] [address] [place] ??[phone] ALYSSA MILLER DO,MPH 04/09/2015 3:57 PM CDT 04/09/2015 3:58 PM CDT Narrative Authorizing Provider Result Case Moura MD LAB - CHEMISTRY O RDERABLES Performing Organization Address [facility] [place] [address] * (ABNORMAL) VAL W REFLX (POSITIVE) (PO REF LAB) (04/09/2015 3:57 PM CDT) Pathologist [facility] ANAchoice [TM] Screen POSITIVE( A) NEGATIVE [facility] Comment: Test Performed at: [facility] [address] [place] ??[phone] ALYSSA MILLER DO,MPH Blood specimen (specimen) BLOOD SPECIMEN / Unknown 04/09/2015 3:57 PM CDT 04/09/2015 3:58 PM CDT Narrative Authorizing Provider Result Case Moura MD LAB - SEROLOGY OR DERABLES Performing Organization Address [facility] [place] [address] * RHEUMATOID FACTOR BLOOD QUANTITATIVE (04/09/2015 3:57 PM CDT) Only the most recent of3 resultswithin the time period is included. Pathologist [facility] Rheumatoid Factor 8 <14 IU/mL [facility] Comment: Test Performed at: [facility] [address] ??[phone] ALYSSA MILLER DO,MPH Blood specimen (specimen) BLOOD SPECIMEN / Unknown 04/09/2015 3:57 PM CDT 04/09/2015 3:58 PM CDT Grupo Moura MD LAB - CHEMISTRY O RDYASSINE Performing Organization Address [facility] de Phone Number [facility] [phone] [place] [phone] * (ABNORMAL) VAL BLOOD TITER (04/09/2015 3:57 PM CDT) Pathologist [facility] VAL Pattern DUAL(A) [facility] VAL SEE BELOW(A) titer [facility] Comment: Pattern:ATYPICAL SPECKLED Titer: ??1:640 Pattern:HOMOGENEOUS Titer: ??1:160 ?Reference Range ?<1:40 ?Negative ?1:40-1:80 ?Low Antibody Level ?>1:80 ?Elevated Antibody Level Test Performed at: [facility] [address] ??[phone] ALYSSA MILLER DO,MPH 04/09/2015 3:57 PM CDT 04/09/2015 3:58 PM CDT Grupo Moura MD LAB - CHEMISTRY O MARLYN Performing Organization Address [facility] de Phone Number [facility] [phone] [place] [address] * (ABNORMAL) VAL BLOOD SCREEN W/REFLEX TITER (04/09/2015 3:57 PM CDT) Only the most recent of3 resultswithin the time period is included. Pathologist [facility] VAL Screen POSITIVE( A) NEGATIVE [facility] Comment: Test Performed at: [facility] [address] [place], [place] ??[address] ALYSSA MILLER DO,MPH Blood specimen (specimen) BLOOD SPECIMEN / Unknown 04/09/2015 3:57 PM CDT 04/09/2015 3:58 PM CDT Grupo Moura MD LAB - CHEMISTRY O RDERABLES [facility] [address] [place] [address] * (ABNORMAL) PORPHYRINS TOTAL BLOOD (04/09/2015 3:53 PM CDT) [facility] Uroporphyrin SEE NOTE 0.2 OR LESS mcg/L [...] cases of hereditary coproporphyria (HCP), variegate porphyria (MERCHANDISING CONSULTANT), and in liver disease. If you haven't [...] disorders. Interpretation reviewed by: Zoraida Gonzalez, Ph.D., [facility] IF YOU HAVE ANY QUESTIONS REGARDING THESE RESULTS, PLEASE CONTACT THE [facility] AT ext [phone] or ext [phone] AND ASK TO SPEAK WITH THE TOOL AND DIE ENGINEER NURSE REVIEWER. ??FOR GENERAL QUESTIONS ABOUT [facility], PLEASE CALL THE GENE INFO LINE AT [phone]. REPORT COMMENT: COLLECTION KIT GIVEN TO PATIENT. PATIENT ADVISED TO RETURN. Test Performed at: [facility] [address] [place], [place] ??[phone] DAR MATAMOROS MD PHD Blood specimen (specimen) BLOOD SPECIMEN / Unknown 04/09/2015 3:53 PM CDT 04/09/2015 3:55 PM CDT Grupo Moura MD LAB - CHEMISTRY O RDERABLES Performing Organization Address [facility] Co de Phone Number [employer] [address] [place] [address] * NO REF LAB-SPECIMEN NOT CENTRIFUGED (12/09/2014 3:19 PM CDT) Specimen Integrity Compromised See Below [facility] Comment: Whole blood, unspun or partially spun gel barrier tube was received more than 6 hours since collection. A false elevation of K, Phos and LD as well as a false decrease in glucose may occur due to prolonged contact with red cells. Test Performed at: [facility] [address] [place], [place] ??[phone] ALYSSA MILLER DO,MPH 12/09/2014 3:19 PM CDT 12/10/2014 5:11 AM CDT Sabrina Mcdaniels EMPLOYMENT LAW ATTORNEY-HEAD TURNING MACHINE OPERATOR LAB - CHEMISTRY ORDERABLES Performing Organization Address [facility] Co de Phone Number [facility] [address] [place] [address] * C-REACTIVE PROTEIN (12/09/2014 3:19 PM CDT) Only the most recent of7 resultswithin the time period is included. [facility] C-Reactive Protein 0.19 <0.80 mg/dL [facility] Comment: Please be advised that patients taking Carboxypenicillins may exhibit falsely decreased C-Reactive Protein levels due to an analytical interference in this assay. Test Performed at: [facility] [address] [place] ??[phone] ALYSSA MILLER DO,MPH Blood specimen (specimen) BLOOD SPECIMEN / Unknown 12/09/2014 3:19 PM CDT 12/10/2014 5:11 AM CDT Sabrina Mcdaniels EMPLOYMENT LAW ATTORNEY-HEAD TURNING MACHINE OPERATOR LAB - CHEMISTRY ORDERABLES Performing Organization Address City/State/[facility] Co de Phone Number [facility] [address] [place] [address] * (ABNORMAL) CBC W AUTO DIFFERENTIAL (12/09/2014 3:19 PM CDT) Only the most recent of8 resultswithin the time period is included. [facility] White Blood Cell Count 11.5(H) 3.8 - 10.8 Thousand/u L [facility] RBC 4.08 3.80 - 5.10 Million/uL [facility] Hemoglobin 12.7 11.7 - 15.5 g/dL [facility] Hematocrit 36.8 35.0 - 45.0 % [facility] MCV 90.3 80.0 - 100.0 fL [facility] MCH 31.3 27.0 - 33.0 pg [facility] MCHC 34.6 32.0 - 36.0 g/dL [facility] RDW 14.1 11.0 - 15.0 % [facility] Platelet Count 373 140 - 400 Thousand/u L [facility] MPV 8.1 7.5 - 11.5 fL [facility] Neutrophil Absolute 9005(H) 1500 - 7800 cells/uL [facility] Lymphocytes Absolute 1886 850 - 3900 cells/uL [facility] Absolute Monocytes 529 200 - 950 cells/uL [facility] Eosinophils Absolute 35 15 - 500 cells/uL [facility] Basophils Absolute 46 0 - 200 cells/uL [facility] Granulocytes % 78.3 % [facility] Lymphocytes % 16.4 % [facility] Monocytes % 4.6 % [facility] Eosinophils % 0.3 % [facility] Basophils % 0.4 % [facility] Comment: Test Performed at: [facility] [address] [place] ??[phone] ALYSSA MILLER DO,MPH Blood specimen (specimen) BLOOD SPECIMEN / Unknown 12/09/2014 3:19 PM CDT 12/10/2014 5:11 AM CDT Sabrina Mcdaniels EMPLOYMENT LAW ATTORNEY-HEAD TURNING MACHINE OPERATOR LAB - HEMATOLOGY ORDERABLES [facility] [address] [place] [address] * (ABNORMAL) COMPREHENSIVE METABOLIC PANEL (12/09/2014 3:19 PM CDT) Only the most recent of5 resultswithin the time period is included. Glucose 115(H) 65 - 99 mg/dL [facility] Comment: ? Fasting reference interval BUN 18 7 - 25 mg/dL [facility] Creatinine 0.83 0.50 - 1.05 mg/dL [facility] Comment: For patients >49 years of age, the reference limit for Creatinine is approximately 13% higher for people identified as -Citizen Of [place]. eGFR by MDRD 77 > OR = 60 mL/min/1 .73m2 [facility] eGFR by MDRD 89 > OR = 60 mL/min/1 .73m2 [facility] BUN/Creatinine Ratio NOT APPLICABLE 6 - 22 (calc) [facility] Sodium 134(L) 135 - 146 mmol/L [facility] Potassium 4.0 3.5 - 5.3 mmol/L [facility] Chloride 98 98 - 110 mmol/L [facility] CO2 24 19 - 30 mmol/L [facility] Calcium 9.9 8.6 - 10.4 mg/dL [facility] Protein Total 7.6 6.1 - 8.1 g/dL [facility] Albumin 4.5 3.6 - 5.1 g/dL [facility] Globulin Total 3.1 1.9 - 3.7 g/dL (calc) [facility] Albumin/Globulin Ratio 1.5 1.0 - 2.5 (calc) [facility] Bilirubin Total 0.3 0.2 - 1.2 mg/dL [facility] Alkaline Phosphatase 74 33 - 130 U/L [facility] AST 10 10 - 35 U/L [facility] ALT 13 6 - 29 U/L [facility] Comment: Test Performed at: [facility] [address] [place] ??[address] ALYSSA MILLER DO,MPH Blood specimen (specimen) BLOOD SPECIMEN / Unknown 12/09/2014 3:19 PM CDT 12/10/2014 5:11 AM CDT Sabrina Mcdaniels EMPLOYMENT LAW ATTORNEY-HEAD TURNING MACHINE OPERATOR LAB - CHEMISTRY ORDERABLES Performing Organization Address [facility] Co de Phone Number [facility] [address] [place] [address] * (ABNORMAL) CYCLIC CITRUL PEPTIDE ANTIBODY IGG/IGA (CCP) (11/21/2012 5:01 PM CDT) CCP Antibodies IgG/IgA 69(H) 0 - 19 units [facility] ACCOUNT BILL Comment: ? Negative ? <20 ? Weak positive ?20 - 39 ? Moderate positive ??40 - 59 ? Strong positive ?>59 BLOOD SPECIMEN / Unknown 11/21/2012 5:01 PM CDT 11/21/2012 9:48 PM CDT Narrative Resulting Agency Comment [facility] [address] ??[facility] [phone] Grupo Moura MD LAB - SEROLOGY OR DERABLES [facility] ACCOUNT BILL * CATALINO STAINING PATTERNS ([facility]) (11/21/2012 5:01 PM CDT) Homogeneous Pattern NOT NEEDED [facility] ACCOUNT [place] Comment:Ancillary determined the test is not needed Nucleolar Pattern NOT NEEDED [facility] ACCOUNT [place] Comment:Ancillary determined the test is not needed Speckled Pattern 1:80 [facility] ACCOUNT BILL Centromere Pattern NOT NEEDED [facility] ACCOUNT [place] Comment:Ancillary determined the test is not needed Note [facility] ACCOUNT [place] Comment: A positive VAL result may occur in healthy individuals or be associated with a variety of diseases. ??See interpre- tation below: ? . Pattern ?Antigen Detected ??Suggested Disease Association ? Homogeneous ??DNA(ds,ss,), ?High titers - SLE (Smooth) ? Histone ? Speckled ? Sm, MANAGER SALES TRAINING, SCL-70, ??SLE,MCTD,Scleroderma,Sjogrens ? SS-A/SS-B ? Nucleolar ?SCL-70, PM-1/SCL ??High titers Scleroderma Poly- ? myositis/Scleroderma Overlap ? Centromere ?? Centromere ?PSS w/Crest syndrome variable ?? BLOOD SPECIMEN / Unknown 11/21/2012 5:01 PM CDT 11/21/2012 9:48 PM CDT Narrative Resulting Agency Comment [facility] ??[facility] [phone] Grupo Moura MD LAB - PATHOLOGY/C YTOLOGY ORDERABLES [facility] ACCOUNT BILL * VDRL BLOOD (06/28/2012 10:29 AM BOLOGNA MAKER) VDRL [facility] INSURANCE BILL Comment:Non Reactive VDRL Titer NOT NEEDED [facility] INSURANCE BILL Comment:Ancillary determined the test is not needed Blood specimen (specimen) BLOOD SPECIMEN / Unknown 06/28/2012 10:29 AM BOLOGNA MAKER 06/28/2012 1:27 PM BOLOGNA MAKER Narrative Resulting Agency Comment [facility] [address] ??[facility] [phone] Bubba Hawkins MD LAB - SEROLOGY ORDER DAYNE [facility] INSURANCE BILL * VITAMIN B6 (06/28/2012 10:29 AM BOLOGNA MAKER) Vitamin B6 28.0 2.0 - 32.8 ug/L [facility] INSURANCE BILL Blood specimen (specimen) BLOOD SPECIMEN / Unknown 06/28/2012 10:29 AM BOLOGNA MAKER 06/28/2012 1:27 PM BOLOGNA MAKER Narrative Resulting Agency Comment [facility] [address] ??[facility] [phone] Bubba Hawkins MD LAB - CHEMISTRY ELIEZER BACON Performing Organization Address [facility] Co de Phone Number [facility] INSURANCE BILL * (ABNORMAL) VITAMIN B12 FOLATE PANEL (06/28/2012 10:29 AM BOLOGNA MAKER) Vitamin B12 1026(H) 211 - 946 pg/mL [facility] INSURANCE BILL Folate 16.2 >3.0 ng/mL [facility] INSURANCE BILL Comment: A serum folate concentration of less than 3.1 ng/mL is considered to represent clinical deficiency. Blood specimen (specimen) BLOOD SPECIMEN / Unknown 06/28/2012 10:29 AM BOLOGNA MAKER 06/28/2012 1:27 PM BOLOGNA MAKER Narrative Resulting Agency Comment [facility] ??[facility] [phone] Bubba Hawkins MD LAB - CHEMISTRY ELIEZER BACON Performing Organization Address [facility] de Phone Number [facility] INSURANCE BILL * HEAVY METALS BLOOD SCREEN (06/28/2012 10:28 AM BOLOGNA MAKER) Lead Blood 1 0 - 19 ug/dL [facility] INSURANCE BILL Comment: ? The Centers for Disease Control and Prevention states ? blood lead levels less than 10 ug/dL in children have ? been associated with numerous adverse health effects. ? [place] Guidelines: Blood lead levels in the ? [...] BLOOD SPECIMEN / Unknown 06/28/2012 10:28 AM BOLOGNA MAKER 06/28/2012 1:27 PM BOLOGNA MAKER Narrative Resulting Agency Comment [address] ??[facility] [phone] Bubba Hawkins MD LAB - CHEMISTRY ELIEZER BACON Performing Organization Address [facility] de Phone Number [facility] INSURANCE BILL * VITAMIN E (06/28/2012 10:28 AM BOLOGNA MAKER) Vitamin E Alpha Tocopherol 12.3 4.6 - 17.8 mg/L [facility] INSURANCE BILL Blood specimen (specimen) BLOOD SPECIMEN / Unknown 06/28/2012 10:28 AM BOLOGNA MAKER 06/28/2012 1:27 PM BOLOGNA MAKER Narrative Resulting Agency Comment [address] ??[facility] [phone] Bubba Hawkins MD LAB - CHEMISTRY ELIEZER BACON Performing Organization Address City/State/ZIP [place] de Phone Number [facility] INSURANCE BILL * IRON + TIBC PANEL (06/28/2012 10:28 AM BOLOGNA MAKER) TIBC 268 250 - 450 ug/dL [facility] INSURANCE BILL UIBC 168 150 - 375 ug/dL [facility] INSURANCE BILL Iron 100 35 - 155 ug/dL [facility] INSURANCE BILL Iron Saturation 37 15 - 55 % [facility] INSURANCE BILL Blood specimen (specimen) BLOOD SPECIMEN / Unknown 06/28/2012 10:28 AM BOLOGNA MAKER 06/28/2012 1:27 PM BOLOGNA MAKER Narrative Resulting Agency Comment [facility] [place] [address] ??[facility] [phone] Bubba Hawkins MD LAB - CHEMISTRY GISELLEGail BACON Performing Organization Address [facility] de Phone Number [facility] INSURANCE BILL * EMG WITH NERVE CONDUCTION STUDY (06/28/2012) Bubba Hawkins MD NEUROLOGY ORDERABLES Performing Organization Address [facility] Co de Phone Number [facility] RESULT SCAN * IMAGING/RADIOLOGY/XRAY RESULTS ORDER (06/26/2012) Only the most recent of2 resultswithin the time period is included. Anatomical Region Laterality Modality Other Bubba Hawkins MD IMAGING * (ABNORMAL) VITAMIN D 25-HYDROXY (06/18/2012 3:52 PM BOLOGNA MAKER) Only the most recent of2 resultswithin the time period is included. Vitamin D, 25 Hydroxy 22.6(L) 30.0 - 100.0 ng/mL [facility] ACCOUNT BILL Comment: Vitamin D deficiency has been defined by the [place] of Medicine and an Endocrine Society practice guideline as a level of serum 25-OH vitamin D less than 20 ng/mL (1,2). The Endocrine Society went on to further define vitamin D insufficiency as a level between 21 and 29 ng/mL (2). 1. IOM ([place] of [place]). 2010. Dietary reference ?? intakes for calcium and D. [place]: The ?? National Academies Press. 2. Lamar MF, Kartik NC, Kaity MUELLER, et al. ?? Evaluation, treatment, and prevention of vitamin D ?? deficiency: an Endocrine Society clinical practice ?? guideline. JCEM. 2010; 96(7):1911-30. Blood specimen (specimen) BLOOD SPECIMEN / Unknown 06/18/2012 3:52 PM BOLOGNA MAKER 06/18/2012 8:56 PM BOLOGNA MAKER Narrative Resulting Agency Comment [facility] [place] [address] ??[facility] [phone] Grupo Moura MD LAB - CHEMISTRY O RDERABLES [facility] ACCOUNT BILL * EMG WITH NERVE CONDUCTION STUDY (11/24/2011) David Savage MD NEUROLOGY ORDERABLES * LAB RESULTS ORDER (11/23/2011) David Savage MD LAB - THERAPEUTIC DR UG MONITORING ORDERABLES * (ABNORMAL) URINALYSIS ROUTINE W/REFLEX TO CULTURE (07/21/2011 3:59 PM BOLOGNA MAKER) Specific [place] UA 1.014 1.005 - 1.030 [facility] ACCOUNT BILL pH UA 7.0 5.0 - 7.5 [facility] ACCOUNT BILL Color UA Yellow Yellow [facility] ACCOUNT BILL Appearance Clear Clear [facility] ACCOUNT BILL Leukocyte UA 1+(A) Negative [facility] ACCOUNT BILL Protein UA Negative Negative/Tra ce [facility] ACCOUNT BILL Glucose UA Negative Negative [facility] ACCOUNT BILL Glucose Reflex NOT NEEDED [facility] ACCOUNT BILL Comment:Ancillary determined the test is not needed Ketone UA Negative Negative [facility] ACCOUNT BILL Occult Blood Urine Negative Negative [facility] ACCOUNT BILL Bilirubin UA Negative Negative [facility] ACCOUNT BILL Urobilinogen 0.2 0.0 - 1.9 mg/dL [facility] ACCOUNT BILL Nitrite UA Negative Negative [facility] ACCOUNT BILL Microscopic Examination Urine See below: [facility] ACCOUNT BILL Microscopic Examination Urine NOT NEEDED [facility] ACCOUNT BILL Comment:Ancillary determined the test is not needed Urinalysis Reflex [facility] ACCOUNT BILL Comment:This specimen has re flexed to a Urine Culture. Urine specimen (specimen) BLOOD SPECIMEN / Unknown 07/21/2011 3:59 PM BOLOGNA MAKER 07/21/2011 10:03 PM BOLOGNA MAKER Narrative Resulting Agency Comment [facility] [address] ??[facility] [phone] Grupo Moura MD LAB - URINALYSIS ORDERABLES [facility] ACCOUNT BILL * (ABNORMAL) URINALYSIS MICROSCOPIC ONLY (07/21/2011 3:59 PM BOLOGNA MAKER) WBC UA 6-10(A) 0 - 5 /hpf [facility] ACCOUNT BILL RBC UA 0-3 0 - 3 /hpf [facility] ACCOUNT BILL Epithelial Cells (non renal) 0-10 0 - 10 /hpf [facility] ACCOUNT BILL Epithelial Cells (renal) NOT NEEDED [facility] ACCOUNT BILL Comment:Ancillary determined the test is not needed Casts ua NOT NEEDED [facility] ACCOUNT BILL Comment:Ancillary determined the test is not needed Casts UA NOT NEEDED [facility] ACCOUNT BILL Comment:Ancillary determined the test is not needed Crystals UA Present(A) N/A [facility] ACCOUNT BILL Crystals UA Amorphous Sediment N/A [facility] ACCOUNT BILL Mucus UA NOT NEEDED [facility] ACCOUNT BILL Comment:Ancillary determined the test is not needed Bacteria UA Few None seen/Few [facility] ACCOUNT BILL Yeast UA NOT NEEDED [facility] ACCOUNT BILL Comment:Ancillary determined the test is not needed Trichomonas UA NOT NEEDED [facility] ACCOUNT BILL Comment:Ancillary determined the test is not needed Comment Urine NOT NEEDED [facility] ACCOUNT BILL Comment:Ancillary determined the test is not needed BLOOD SPECIMEN / Unknown 07/21/2011 3:59 PM BOLOGNA MAKER 07/21/2011 10:03 PM BOLOGNA MAKER Narrative Resulting Agency Comment [facility] [address] ??[facility] [phone] Authorizing Provider Result Case Moura MD LAB - URINALYSIS ORDERABLES Performing Organization Address City/[facility]/ZIP Co de Phone Number [facility] ACCOUNT BILL * CK BLOOD (07/21/2011 3:59 PM BOLOGNA MAKER) Only the most recent of2 resultswithin the time period is included. CK 39 24 - 173 U/L [facility] ACCOUNT BILL Blood specimen (specimen) BLOOD SPECIMEN / Unknown 07/21/2011 3:59 PM BOLOGNA MAKER 07/21/2011 10:03 PM BOLOGNA MAKER Narrative Resulting Agency Comment [facility] [address] ??[facility] [phone] Authorizing Provider Result Case Moura MD LAB - CHEMISTRY O RDERABLES Performing Organization Address City/[facility]/ZIP Co de Phone Number [facility] ACCOUNT BILL * HEPATITIS SCREEN ACUTE (07/21/2011 3:59 PM BOLOGNA MAKER) Hepatitis A Virus Antibody IgM Negative Negative [...] BLOOD SPECIMEN / Unknown 07/21/2011 3:59 PM BOLOGNA MAKER 07/21/2011 10:03 PM BOLOGNA MAKER Narrative Resulting Agency Comment [facility] [place] [address] ??[place] [phone] Grupo Moura MD LAB - CHEMISTRY O RDERABLES [facility] ACCOUNT BILL
--- OUTSIDE RECORDS SUMMARY | 2024-06-25 01:27 | XMS_ITS | Encounter Summary ---
Author Organization [facility] Address [address] [facility] [place] [address] Care Team Providers Care Performance Makeup Artist Name Role Phone Unavailable Primary Care Provider Unavailabl e Reason for Visit * Reason Comments Imm Inj Cimzia Encounter Details Date Type Department Care Team (Latest Contact Info) Description 09/03/2012 3:30 PM TICKER MAINTAINER Clinical Support [facility] - Rheumatology [address] [place] [id number] Rheumatoid arthritis ([facility]) Social History Tobacco Use Types Packs/Day Years Used Date Smoking Tobacco: Never Alcohol Use Standard Drinks/Week Comments No 0 (1 standard drink = 0.6 oz pur e alcohol) Sex and Gender Information Value Date Recorded Sex Assigned at Not on file Gender Identity Not on file Sexual Orientation Not on file documented as of this encounter Progress Notes * Kimberly Huang RN - 09/03/2012 3:48 PM CST Administered Cimzia 200 mg sub-Q each upper arm. Pt tolerated well; no adverse reaction noted. Pt supplied med. Pt had a flare & she took 10 mg prednisone for 3 days & then decreased to 7.5 mg for the past 3 days. She is feeling better. Advised to con't to taper by 2.5 mg every 3 days until she is off of it again & to contact office if s/s recur. ER MAINTAINER documented in this encounter Plan of Treatment Not on file documented as of this encounter Visit Diagnoses Diagnosis Rheumatoid arthritis(714.0) ([facility])- Primary Rheumatoid arthritis documented in this encounter
--- OUTSIDE RECORDS SUMMARY | 2024-06-25 01:27 | XMS_ITS | Encounter Summary ---
Author Organization [facility] Address [address] [place] [address] Care Team Providers Care Rapid Outsole Stitcher Name Role Phone Unavailable Primary Care Provider Unavailabl e Reason for Visit * Reason Comments Follow-up Encounter Details Date Type Department Care Team (Late st Contact Info) Description 12/27/2012 3:00 PM CDT Office Visit [facility] Medical [facility] - Rheumatology [address] [place] [address] HiramgiudiSabrina mckee, FRUIT OR NUT FARM WORKER-COAL HIKER [id number] [place] [address] Rheumatoid arthritis (HCC) (Primary Dx); Myofascial pain; Neuropathy; Immunosuppressed status (HCC); Fatigue; Vitamin d deficiency Social History Tobacco Use Types Packs/Day Years [...] Sign Reading Time Taken Comments Blood Pressure 128/70 12/27/2012 3:02 PM CDT Pulse 76 12/27/2012 3:02 PM CDT Temperature - - Respiratory Rate - - Oxygen Saturation - - Inhaled Oxygen Concentration - - Weight 77.6 kg (171 lb) 12/27/2012 3:02 PM CDT Height 149.9 cm (4' 11 ) 12/27/2012 3:02 PM CDT Body Mass Index 34.54 12/27/2012 3:02 PM CDT documented in this encounter Patient Instructions * Patient Instructions* Sabrina Mcdaniels ANP - 12/27/2012 4:51 PM CDT Humira sample inj today; education given on med and how to self inj Cont gabapentin at HS Up vit D 4000 units daily Compound cream to feet and ankles Cont prednisone 10 mg for 1 week then taper to 5 mg daily Keep appt w/ Dr Moura documented in this encounter Progress Notes * Sabrina Mcdaniels ANP - 12/27/2012 3:58 PM CDT Health Assessment Questionnaire MHAQ: 2.7 Pain: 7 Global: 6.5 Rapid 3: 16.2 Sleep: 7 GI: 5 Fatigue: 7.5 HPI: Here for a month follow up for RA: Previously on Cimzia injections but developed immunity. Joint pain/swelling mostly in wrists, ankles, feet and knees. Has been on prednisone x 1 month; has to up dose to 10 mg for a week now to control pain. Also reports of neuropathy at night w/c gabapentin helps but unable to function on days when she takes med. Finally been approved with Humira; will get a dose and self injection education today. Objective: BP 128/70 Pulse 76 Ht 1.499 m (4' 11 ) Wt 77.565 kg (171 lb) BMI 34.54 kg/m2 General: oriented to person, place, and time, alert; cooperative; no distress. Skin: Rash - Nodes/ Nodules: - Lungs: clear to auscultation bilaterally. Heart: regular rate and rhythm. S1, S2 normal. No murmur, click, rub or gallop. Pulses OK. No edema Abdomen: soft without mass, non-tender, with normal bowel sounds. Tinel???s Test +: Right: not done Left: not done Joint Review Right Left Shoulder Normal Normal Elbow Normal Normal Wrist Swelling swelling MCP Normal Normal PIP Normal Normal DIP Normal Normal Knee Normal Normal Ankle Normal Normal Foot Normal Normal Normal Hip ROM: yes Swollen Joints: 2 Trigger/ tender Points; Tight Muscle Groups: yes ankles/feet Imaging: Assessment RA Immunosuppressed Neuropathy Myofascial pain Fatigue Vit D def Plan Humira sample inj today; education given on med and how to self inj Cont gabapentin at HS Up vit D 4000 units daily Compound cream to feet and ankles Cont prednisone 10 mg for 1 week then taper to 5 mg daily Keep appt w/ Dr Moura * Francisca Cook LPN - 12/27/2012 3:03 PM CDT Subjective: PCP Dr. Savage Stiffness lasts all day History She's here for a follow up visit for RA. She was on Cimzia for 5 months, and was having good results for the first 3 months, then the effectiveness seemed to diminish. Her stiffness is mostly in her feet, ankles, wrists and knees. She was just approved for Humira, and we will give her a sample injection today. She's doing well on gabapentin for neuropathy, which was prescribed by Dr. Padilla. She is requesting a refill of tramadol which was prescribed by another provider. Review of Systems Fever: - Rash: - Raynaud's: - Nodules: - Med Side Effects: - Hair Loss: - Diff. swallowing: - Dry Eyes: - Dry Mouth: - Takes Meds: + Depression: + Swelling: + Smoke: - ETOH: - Sx: + Chest Pain: + Dyspnea: - GI Sx: - Elaborate on positives: Swollen feet RHEUM VITALS 10/01/2012 11/21/2012 12/27/2012 BP 121/80 138/78 128/70 Pulse 92 80 76 Wgt 171 lbs 171 lbs 171 lbs RHEUM GENA 08/06/2012 11/21/2012 12/27/2012 MHAQ 2.3 3.3 2.7 Pain 3 6 7 Global 3 7 6.5 Rapid 3 8.3 16.3 16.2 Sleep 6 7 7 GI 0 5 5 Fatigue 5 7.5 7.5 Tender Joints 0 0 - Swollen Joints 0 0 - Global 2 1 - documented in this encounter Plan of Treatment Not on file documented as of this encounter Visit Diagnoses Diagnosis Rheumatoid arthritis(714.0) ([facility])- Primary Rheumatoid arthritis Myofascial pain Mylagia and myositis, unspecified Neuropathy Mononeuritis of unspecified site Immunosuppressed status ([facility]) Unspecified disorder of immune mechanism Fatigue Other malaise and fatigue Vitamin d deficiency Unspecified vitamin D deficiency documented in this encounter
--- OUTSIDE RECORDS SUMMARY | 2024-06-25 01:27 | XMS_ITS | Encounter Summary ---
Author Organization [facility] Address [address] [facility] [place] [address] Care Team Providers Care Research Physiologist Name Role Phone Unavailable Primary Care Provider Unavailabl e Reason for Visit * Reason Comments Rheumatoid Arthritis Encounter Details Date Type Department Care Team (Late st Contact Info) Description 02/11/2013 3:40 PM CDT Office Visit [facility] - Rheumatology [address] [place] [address] Grupo Moura MD [address] [place] [address] Carpal tunnel syndrome (Primary Dx); Rheumatoid arthritis (HCC) Social History [...] as of this encounter Progress Notes * Osiris Carter - 03/07/2013 11:00 AM CDT injection * Grupo Moura MD - 02/11/2013 3:45 PM CDT Patient is here with complaints of L shoulder pain, radiating down her arm. Pain is similar to CTS sx she had in the past. Tinel's strong (+) on L. A: CTS L P: After verbal consent obtained, administered lido 1/2 ml. DM 20 MG L wrist under sterile technique. No complications. documented in this encounter Miscellaneous Notes * Addendum Note - Osiris Carter - 03/07/2013 11:00 AM CDTAddended by: OSIRIS CARTER on: 03/07/2013 11:00 AM Modules accepted: Level of Service documented in this encounter Plan of Treatment Not on file documented as of this encounter Visit Diagnoses Diagnosis Carpal tunnel syndrome- Primary Rheumatoid arthritis(714.0) (HCC) Rheumatoid arthritis documented in this encounter
--- OUTSIDE RECORDS SUMMARY | 2024-06-25 01:27 | XMS_ITS | Encounter Summary ---
Author Organization [facility] Address [address] [facility] [place] [address] Care Team Providers Care Tea Bag Machine Tender Name Role Phone Unavailable Primary Care Provider Unavailabl e Encounter Details Date Type Department Care Team (Late st Contact Info) Description 12/26/2012 SS Outpatient Visit EXTERNAL NON-SS DEPT Grupo Moura MD [address] [place] [phone] Social History Tobacco Use Types Packs/Day Years [...]
--- OUTSIDE RECORDS SUMMARY | 2024-06-25 01:27 | XMS_ITS | Encounter Summary ---
Author Organization [facility] Address [address] [facility] [place] [address] Care Team Providers Care Box Finisher Name Role Phone Unavailable Primary Care Provider Unavailabl e Reason for Visit * Reason Onset Date Comments Results 07/05/2012 Encounter Details Date Type Department Care Team (Late st Contact Info) Description 07/05/2012 Telephone [facility] Neurosciences [address] [place] [address] [place] [address] [address] [place], [place] [phone] Results Social History Tobacco Use Types Packs/Day Years Used Date Smoking Tobacco: Never Alcohol Use Standard Drinks/Week Comments No 0 (1 standard drink = 0.6 oz pur e alcohol) Sex and Gender Information Value Date Recorded Sex Assigned at Not on file Gender Identity Not on file Sexual Orientation Not on file documented as of this encounter Miscellaneous Notes * Telephone Encounter - Bubba Hawkins MD - 07/05/2012 10:51 AM CST Spoke with her today. Gabapentin helps her symptoms. Her lab work is all normal. She is having problems sleeping. Have asked her to restart the Soma cautiously over the weekend. If no excessive somnolence then she can continue that and add another dose of 300 mg Gabapentin in daytime. Thank Javier Hawkins NESS RELATIONSHIP MANAGER * Telephone Encounter - Nancy Jang - 07/05/2012 10:02 AM CST Mrs. Rodriguez called and would like her lab results. NESS RELATIONSHIP MANAGER documented in this encounter Plan of Treatment Not on file documented as of this encounter Visit Diagnoses Not on filedocumented in this encounter
--- OUTSIDE RECORDS SUMMARY | 2024-06-25 01:27 | XMS_ITS | Encounter Summary ---
Author Organization [facility] Address [address] [facility] [place] [address] Care Team Providers Care Mixer Operator Raw Salt Name Role Phone Unavailable Primary Care Provider Unavailabl e Reason for Visit * Reason Comments Follow-up Encounter Details Date Type Department Care Team (Late st Contact Info) Description 02/22/2012 2:45 PM CDT Office Visit [facility] Medical [facility] - Rheumatology [address] [place] [address] Grupo Moura MD [address] [place] [id number] Seronegative arthritis (Primary Dx); Myofascial pain; Zoster; Immunosuppressed status (HCC) Social History Tobacco Use [...] Sign Reading Time Taken Comments Blood Pressure 128/78 02/22/2012 2:52 PM CDT Pulse 100 02/22/2012 2:52 PM CDT Temperature - - Respiratory Rate - - Oxygen Saturation - - Inhaled Oxygen Concentration - - Weight 76.7 kg (169 lb) 02/22/2012 2:52 PM CDT Height 149.9 cm (4' 11 ) 02/22/2012 2:52 PM CDT Body Mass Index 34.13 02/22/2012 2:52 PM CDT documented in this encounter Patient Instructions * Patient Instructions* Grupo Moura MD - 02/22/2012 3:16 PM CDT Increase prednisone to 10 MG OD Call 5 days; consider different immunosuppression. MTX was not helpful See me 4 mos documented in this encounter Progress Notes * Grupo Moura MD - 02/22/2012 2:55 PM CDT Subjective: Stiffness: lasts 30 History Intermittent pain in feet, wrists, ankles, and knees. Episodes of awful pain followed by normal spells. No better with dietary restrictions. Went off prednisone 2 weeks because she felt better; pain returned. On daily 5 mg now. No side effects; a bit hungry. Recent painful rash R side. No recent hand films Review of Systems Fever: - Rash: + Raynaud's: - Nodules: + Med Side Effects: - Hair Loss: - Diff. swallowing: - Dry Eyes: - Dry Mouth: + Takes Meds: + Depression: + Swelling: - Smoke: - ETOH: - Sx: - Chest Pain: - Dyspnea: - GI Sx: - Elaborate on positives: Recent anxiety attack after her niece was in a car accident Intermittent painful nodule R foot RHEUM VITALS 08/31/2011 10/26/2011 02/22/2012 BP 128/72 146/82 128/78 Pulse 100 78 100 Wgt 171 lbs 167 lbs 169 lbs RHEUM GENA 08/31/2011 10/26/2011 02/22/2012 MHAQ 1.3 3.3 1.7 Pain 1 8 2 Global 2 2 4 Rapid 3 4.3 13.3 7.7 Sleep 3 8 4 GI 3 0 0 Fatigue 2 6 3 Tender Joints 0 0 0 Swollen Joints 0 0 0 Global 1 2 4 Health Assessment Questionnaire MHAQ: 1.7 Pain: 2 Global: 4 Rapid 3: 7.7 Sleep: 4 GI: 0 Fatigue: 3 Tender Joints: 0 Swollen Joints: 0 MD GLOBAL: 4 Objective: BP 128/78 Pulse 100 Ht 4' 11 (1.499 m) Wt 169 lb (76.658 kg) BMI 34.13 kg/m2 General: alert; cooperative; tearful. Skin: Rash + zoster rash R T8 spine Nodes/ Nodules: - Lungs: clear to auscultation [...] Points; Tight Muscle Groups: no Imaging: Assessment Zoster Seronegative arthritis Immunosuppressed status Myofascial pain Plan Increase prednisone to 10 MG OD Call 5 days; consider different immunosuppression. MTX was not helpful See me 4 mos documented in this encounter Plan of Treatment Not on file documented as of this encounter Visit Diagnoses Diagnosis Seronegative arthritis- Primary Other specified arthropathy, site unspecified Myofascial pain Mylagia and myositis, unspecified Zoster Herpes zoster without mention of complication Immunosuppressed status (HCC) Unspecified disorder of immune mechanism documented in this encounter
--- OUTSIDE RECORDS SUMMARY | 2024-06-25 01:27 | XMS_ITS | Encounter Summary ---
Author Organization [facility] Address [address] [facility] [place] [address] Care Team Providers Care Dairy Farm Worker Name Role Phone Unavailable Primary Care Provider Unavailabl e Reason for Visit * Reason Onset Date Comments Results 07/28/2016 Encounter Details Date Type Department Care Team (Late st Contact Info) Description 07/28/2016 Telephone [facility] [employer] [facility] [address] [place] [address] Lynn Fay APRN-CNP [address] [place] [address] Results Social History Tobacco Use Types Packs/Day [...]
--- OUTSIDE RECORDS SUMMARY | 2024-06-25 01:27 | XMS_ITS | Encounter Summary ---
Author Organization [facility] Address [address] [facility] [place] [address] Care Team Providers Care Bid Clerk Name Role Phone Unavailable Primary Care Provider Unavailabl e Reason for Visit * Reason Onset Date Comments Pain Knee 03/19/2014 Encounter Details Date Type Department Care Team (Late st Contact Info) Description 03/19/[address] [facility] - Rheumatology [address] [place] [id number] Grupo Moura MD [address] [place] [phone] Pain Knee Social History Tobacco Use Types Packs/Day Years [...] Telephone Encounter - Kimberly Huang RN - 03/19/2014 11:09 AM CDT Pt coming in this afternoon * Telephone Encounter - Grupo Moura MD - 03/19/2014 10:27 AM CDT I am not sure what her preference is. She does not live close by. She may prefer to see her primarycare doctor who may want to run tests to see if she has a clot. If she would prefer for me to see her I will certainly do this. * Telephone Encounter - Kimberly Huang RN - 03/19/2014 9:50 AM CDT She awoke this AM with pain in L thigh. Leg is tender to palpation. She can feel a knot under the skin but it is not visible. No erythema, swelling, or heat. * Telephone Encounter - Louisa Chacko MA - 03/19/2014 9:25 AM CDT Pt says she woke this AM with knot on the side of the left leg. The pain level is 4 and goes to theback of her leg. Pt is asking what this could be and what should be done. documented in this encounter Plan of Treatment Not on file documented as of this encounter Visit Diagnoses Not on filedocumented in this encounter
--- OUTSIDE RECORDS SUMMARY | 2024-06-25 01:27 | XMS_ITS | Encounter Summary ---
Author Organization [facility] Address [address] [facility] [place] [address] Care Team Providers Care Stone Cleaner Name Role Phone Unavailable Primary Care Provider Unavailabl e Encounter Details Date Type Department Care Team (Late st Contact Info) Description 12/09/2014 Orders Only [facility] - Rheumatology [id number] [place] [address] [address] [place], [place] [id number] Sabrina Mcdaniels, RESIDENCE DIRECTOR-CHILD NUTRITION ASSISTANT [id number] [place] [address] Social History Tobacco Use Types Packs/Day Years [...] Procedure Name Priority Date/Time Associated Diagnosis Comments REF LAB-SPECIMEN NOT CENTRIFUGED 12/09/2014 3:19 PM CDT documented in this encounter Results * NO REF LAB-SPECIMEN NOT CENTRIFUGED (12/09/2014 3:19 PM CDT) Specimen Integrity Compromised See Below QUEST Comment: Whole blood, unspun or partially spun gel barrier tube was received more than 6 hours since collection. A false elevation of K, Phos and LD as well as a false decrease in glucose may occur due to prolonged contact with red cells. Test Performed at: [facility] [id number] ??[id number] ALYSSA MILLER DO,MPH 12/09/2014 3:19 PM CDT 12/10/2014 5:11 AM CDT Sabrina Mcdaniels RESIDENCE DIRECTOR-CHILD NUTRITION ASSISTANT LAB - CHEMISTRY ORDERABLES Performing Organization Address City/State/[facility] Co de Phone Number [facility] [address] [place] [address] documented in this encounter Visit Diagnoses Not on filedocumented in this encounter
--- OUTSIDE RECORDS SUMMARY | 2024-06-25 01:27 | XMS_ITS | Encounter Summary ---
Author Organization [facility] Address [address] [facility] [place] [address] Care Team Providers Care Tumbler Machine Operator Name Role Phone Unavailable Primary Care Provider Unavailabl e Reason for Visit * Reason Comments Imm Inj Cimzia Encounter Details Date Type Department Care Team (Latest Contact Info) Description 10/04/2012 2:30 PM CDT Clinical Support [facility] - Rheumatology [address] [place] [id number] Seronegative arthritis Social History Tobacco Use Types [...] Progress Notes * Kimberly Huang RN - 10/04/2012 2:54 PM CDT Administered Cimizia 200 mg sub-Q each upper arm for 400 mg total. No adverse reaction noted. Drug supplied from specialty pharmacy. documented in this encounter Plan of Treatment Not on file documented as of this encounter Visit Diagnoses Diagnosis Seronegative arthritis- Primary Other specified arthropathy, site unspecified documented in this encounter
--- OUTSIDE RECORDS SUMMARY | 2024-06-25 01:27 | XMS_ITS | Encounter Summary ---
Author Organization [facility] Address [address] [place] [address] Care Team Providers Care Emt Dispatcher Name Role Phone Unavailable Primary Care Provider Unavailabl e Reason for Visit * Reason Comments Numbness and tingling in hand s General burning sensation in hands Encounter Details Date Type Department Care Team (Latest Contact Info) Description 06/28/2012 11:00 AM ACCURACY EXPERT Procedure visit [facility] Neurosciences [address] [address] [facility] [address] [place] [address] Carpal tunnel syndrome Social History Tobacco Use Types Packs/Day Years [...] Visit Diagnoses Diagnosis Carpal tunnel syndrome- Primary documented in this encounter
--- OUTSIDE RECORDS SUMMARY | 2024-06-25 01:27 | XMS_ITS | Encounter Summary ---
Author Organization [facility] Address [address] [facility] [place] [address] Care Team Providers Care Legal Paraprofessional Name Role Phone Unavailable Primary Care Provider Unavailabl e Reason for Visit * Reason Onset Date Comments General 05/18/2012 Encounter Details Date Type Department Care Team (Late st Contact Info) Description 05/18/2012 Telephone [facility] - Rheumatology [address] [place] [address] Grupo Moura MD [address] [place] [address] [phone] General Social History Tobacco Use Types Packs/Day [...] Telephone Encounter - Kimberly Huang RN - 05/18/2012 3:40 PM CST Pt agreeable to [place]. Rx submitted & pt instructed to f/u in 3 days ETING SALES SUPERVISOR * Telephone Encounter - Grupo Moura MD - 05/18/2012 3:36 PM MARKETING SALES SUPERVISOR We can add low dose narcotic if Ok with her. Try hydrocodone 5 tid prn; call us 3 days. ETING SALES SUPERVISOR * Telephone Encounter - Kimberly Huang, RN - 05/18/2012 3:34 PM CST Awaiting PPD & hep screen results to try Cimzia. Please advise ETING SALES SUPERVISOR * Telephone Encounter - Radha Martin - 05/18/2012 3:25 PM CST Pt is still in alot of pain on the bottom of her feet. Pt feels like her hands are burning. Pt wants to know if their is something she can take besides her current medications to help with the pain. Please call pt ETING SALES SUPERVISOR documented in this encounter Plan of Treatment Not on file documented as of this encounter Visit Diagnoses Not on filedocumented in this encounter
--- OUTSIDE RECORDS SUMMARY | 2024-06-25 01:27 | XMS_ITS | Encounter Summary ---
Author Organization [facility] Address [address] [place] [address] Care Team Providers Care Pipeline Executive Name Role Phone Unavailable Primary Care Provider Unavailabl e Reason for Visit * Reason Onset Date Comments Medication Prior Auth Request 09/16/2013 Encounter Details Date Type Department Care Team (Late st Contact Info) Description 09/16/2013 Telephone [facility] - Rheumatology [address] [place] [address] [phone] Grupo Moura MD [address] [place] [address] [phone] Medication Prior Auth Request Social History Tobacco Use Types Packs/Day Years [...] Telephone Encounter - Francisca Cook LPN - 09/16/2013 3:50 PM CDT Prior-auth initiated. They are faxing form. * Telephone Encounter - Kathy Martinez MA - 09/16/2013 2:37 PM CDT A pre cert is needed for golimumab (SIMPONI) 50 MG/0.5ML please call pre cert number listed documented in this encounter Plan of Treatment Not on file documented as of this encounter Visit Diagnoses Not on filedocumented in this encounter
--- OUTSIDE RECORDS SUMMARY | 2024-06-25 01:27 | XMS_ITS | Encounter Summary ---
Author Organization [facility] Address [address] [facility] [place] [address] Care Team Providers Care Brass Wind Instruments Tube Bender Name Role Phone Unavailable Primary Care Provider Unavailabl e Encounter Details Date Type Department Care Team (Latest Contact Info) Description 11/01/2012 3:00 PM CDT Clinical Support [facility] - Rheumatology [address] [place], [place] [phone] Rheumatoid arthritis (HCC) Social History Tobacco Use Types Packs/Day Years Used Date Smoking Tobacco: Never Alcohol Use Standard Drinks/Week Comments No 0 (1 standard drink = 0.6 oz pur e alcohol) Sex and Gender Information Value Date Recorded Sex Assigned at Not on file Gender Identity Not on file Sexual Orientation Not on file documented as of this encounter Progress Notes * Daniela Carter - 12/17/2012 4:12 PM CDT Per office wrong dx was used for injection should of been RA * Francisca Cook LPN - 11/05/2012 12:02 PM CDT Cimzia injections given 200 mg, each upper arm (400 mg total), subcu. Patient tolerated well, and did not supply own mediction this visit. documented in this encounter Miscellaneous Notes * Addendum Note - Francisca Cook LPN - 11/06/2012 11:58 AM CDTAddended by: FRANCISCA COOK on: 11/06/2012 11:58 AM Modules accepted: Orders * Addendum Note - Francisca Cook LPN - 11/06/2012 11:41 AM CDTAddended by: FRANCISCA COOK on: 11/06/2012 11:41 AM Modules accepted: Orders documented in this encounter Plan of Treatment Not on file documented as of this encounter Visit Diagnoses Diagnosis Rheumatoid arthritis(714.0) (HCC)- Primary Rheumatoid arthritis documented in this encounter
--- OUTSIDE RECORDS SUMMARY | 2024-06-25 01:27 | XMS_ITS | Encounter Summary ---
Author Organization [facility] Address [address] [place] [address] Care Team Providers Care Donor Services Specialist Name Role Phone Unavailable Primary Care Provider Unavailabl e Reason for Visit * Reason Onset Date Comments Results 04/15/2015 Encounter Details Date Type Department Care Team (Late st Contact Info) Description 04/15/2015 Telephone [facility] - Rheumatology [address] [address] [place] [address] [facility] [address] [place] [address] Results Social History Tobacco Use Types Packs/Day Years Used Date Smoking Tobacco: Never Alcohol Use Standard Drinks/Week Comments No 0 (1 standard drink = 0.6 oz pur e alcohol) Sex and Gender Information Value Date Recorded Sex Assigned at Not on file Gender Identity Not on file Sexual Orientation Not on file documented as of this encounter Miscellaneous Notes * Telephone Encounter - Yeimi Mueller RN - 04/15/2015 11:31 AM CDT Called but had to LMOR to call our office. Okay to inform of results. * Telephone Encounter - Yeimi Mueller RN - 04/15/2015 11:31 AM CDT ----- Message from Grupo Moura MD sent at 04/13/2015 5:10 PM CDT ----- One lupus test strongly (+); some of the labs not back yet. Avni her will not prescribe anything new until we have all results. CC PCP. documented in this encounter Plan of Treatment Not on file documented as of this encounter Visit Diagnoses Not on filedocumented in this encounter
--- OUTSIDE RECORDS SUMMARY | 2024-06-25 01:27 | XMS_ITS | Encounter Summary ---
Author Organization [facility] Address [address] [place] [address] Care Team Providers Care Shipping Assistant Name Role Phone Unavailable Primary Care Provider Unavailabl e Reason for Visit * Reason Onset Date Comments Results 11/28/2012 Encounter Details Date Type Department Care Team (Late st Contact Info) Description 11/28/2012 Telephone [facility] - Rheumatology [address] [place] [address] Dain Moura MD [address] [place] [phone] Results Social History Tobacco Use Types Packs/Day [...] Encounter - Francisca Cook LPN - 12/05/2012 9:14 AM CDT Results given. Please see other phone encounter. * Telephone Encounter - Francisca Cook LPN - 11/28/2012 3:28 PM CDT Message left to call for lab results. Ok to give notes (rheumatoid factor strongly positive), need to know if she is noticing improvement with Cimzia. I can speak with her if she would like. * Telephone Encounter - Francisca Cook LPN - 11/28/2012 3:28 PM CDT Message copied by FRANCISCA COOK on MonNovember 28, 2012 3:28 PM ------ Message from: DAIN MOURA Created: Jennifer November 25, 2012 8:18 PM Tell her RA test is now strong (+). Dx is RA. If not much improvement with Cimzia will need IV Rx. CC PCP. documented in this encounter Plan of Treatment Not on file documented as of this encounter Visit Diagnoses Not on filedocumented in this encounter
--- OUTSIDE RECORDS SUMMARY | 2024-06-25 01:27 | XMS_ITS | Referral Summary ---
Author Organization [facility] Address [address] [place] [address] Care Team Providers Care Fingernail Technician Name Role Phone Unavailable Primary Care Provider Unavailabl e Source Comments [facility],non-owned Affiliates and Associated Physician Practices is amultiple site organization consisting of ambulatory clinics and hospital sitesin [place], [place], [place] and [place]. This disclosure is being madepursuant to the Care Everywhere program and may not contain all information available regarding this patient. Last updated 18.[facility] Allergies Active Allergy Reactions Criticality Noted Date [...] SSA (+). Acquired polyneuropathy 06/28/2012 Myofascial pain Social History [...] Comments Blood Pressure 120/70 07/26/2016 2:39 PM ADDICTION MEDICINE PHYSICIAN Pulse 89 07/26/2016 2:39 PM ADDICTION MEDICINE PHYSICIAN Temperature 36.8 ??C (98.3 ??F) 07/26/2016 2:39 PM CS T Respiratory Rate 16 07/26/2016 2:39 PM ADDICTION MEDICINE PHYSICIAN Oxygen Saturation - - Inhaled Oxygen Concentration - - Weight 74.4 kg (164 lb) 07/26/2016 2:39 PM ADDICTION MEDICINE PHYSICIAN Height 149.9 cm (4' 11 ) 07/26/2016 2:39 PM ADDICTION MEDICINE PHYSICIAN Body Mass Index 33.12 07/26/2016 2:39 PM ADDICTION MEDICINE PHYSICIAN Plan of Treatment Not on file Procedures Procedure Name Priority Date/Time Associated Diagnosis Comments DEXA BONE DENSITY AXIAL SKELETON Routine 04/04/2018 2:06 PM CDT Osteoporosis screening HEPATITIS SCREEN ACUTE Routine 07/21/2011 3:59 PM ADDICTION MEDICINE PHYSICIAN Fatigue from Last 3 Months or Most [...] * HEPATITIS SCREEN ACUTE (07/21/2011 3:59 PM ADDICTION MEDICINE PHYSICIAN) Hepatitis A Virus Antibody IgM Negative Negative [...] BLOOD SPECIMEN / Unknown 07/21/2011 3:59 PM ADDICTION MEDICINE PHYSICIAN 07/21/2011 10:03 PM ADDICTION MEDICINE PHYSICIAN Narrative Resulting Agency Comment [facility] [place] [address] [facility] [place] [id number] Grupo Moura MD LAB - CHEMISTRY O RDERABLES [facility] ACCOUNT BILL from Last 3 Months or Most Recently Relevant to Health Maintenance Administered Medications Michael Anjali I Personal/Family Self 1955 [address] [facility] [facility] [address] [address] Anjali Rodriguez I Personal/Family Self 1955 [address] [place] [address]
--- OUTSIDE RECORDS SUMMARY | 2024-06-25 01:27 | XMS_ITS | Encounter Summary ---
Author Organization [facility] Address [address] [facility] [place] [address] Care Team Providers Care Cell Geneticist Name Role Phone Unavailable Primary Care Provider Unavailabl e Reason for Visit * Reason Onset Date Comments MEDICATION REFILL 09/17/2012 Encounter Details Date Type Department Care Team (Late st Contact Info) Description 09/17/2012 Refill [facility] Neurosciences [address] [facility] [address] [place] [address] [place] [address] [address] [facility] [address] [place] [address] MEDICATION REFILL Social History Tobacco Use Types [...] * Telephone Encounter - Maia Yan - 09/17/2012 10:22 AM CDT Spoke with Nirali @ the pharmacy and gave the verbal order for the increased dose. documented in this encounter Plan of Treatment Not on file documented as of this encounter Visit Diagnoses Not on filedocumented in this encounter
--- OUTSIDE RECORDS SUMMARY | 2024-06-25 01:27 | XMS_ITS | Encounter Summary ---
Author Organization [facility] Address [address] [facility] [place] [address] Care Team Providers Care Mri Tech Name Role Phone Unavailable Primary Care Provider Unavailabl e Reason for Visit * Reason Comments Lower Leg Pain Numbness Encounter Details Date Type Department Care Team (Latest Contact Info) Description 01/31/2013 2:40 PM CDT Office Visit [facility] Neurosciences [address] [place], [place] [phone] [place] [address] [address] [facility] [address] [place], [place] [phone] Acquired polyneuropathy (Primary Dx); Myofascial pain Social History Tobacco Use Types [...] Sign Reading Time Taken Comments Blood Pressure 129/84 01/31/2013 2:46 PM CDT Pulse 89 01/31/2013 2:46 PM CDT Temperature - - Respiratory Rate - - Oxygen Saturation - - Inhaled Oxygen Concentration - - Weight 77.8 kg (171 lb 9.6 oz) 01/31/2013 2:46 P M CDT Height 151 cm (4' 11.45 ) 01/31/2013 2:46 PM CDT Body Mass Index 34.14 01/31/2013 2:46 PM CDT documented in this encounter Patient Instructions * Patient Instructions* Maia Yan - 01/31/2013 3:00 PM CDT Call physician if symptoms worsen or with any questions. Take Medications as prescribed. For descriptions of a variety of neurological conditions please visit: [email or web address] documented in this encounter Progress Notes * Bubba Hawkins MD - 01/31/2013 3:01 PM CDT RE: Anjali Rodriguez is being seen for chief complains of leg pain and numbness. She has fibromyalgia and RA. She is on Gabapentin and Steroids as well as Humira for RA. Her sympotms are present but stable.Gets very weak Past medical history, social history, and family history are otherwise unchanged. A ten system Review of systems was obtained, and is unchanged from the last visit. Medicines include: Current Outpatient Prescriptions Medication Sig Dispense Refill ??? losartan (COZAAR) 100 MG tablet Take by mouth once daily. ??? amLODIPine (NORVASC) 5 MG tablet Take by mouth once daily. ??? adalimumab (HUMIRA) 40 MG/0.8ML injection Inject 0.8 mL subcutaneously every 14 days. 6 Pen 3 ??? traMADol (ULTRAM) 50 MG tablet Take 1 Tab by mouth 2 times daily as needed for Pain. 60 Tab 0 ??? gabapentin (NEURONTIN) 300 MG capsule Take 600 mg by mouth 2 times daily. ??? topiramate (TOPAMAX) 50 MG tablet Take 100 mg by mouth at bedtime. ??? indapamide (LOZOL) 2.5 MG tablet Take 2.5 mg by mouth once daily. ??? vitamin D, cholecalciferol, 2000 UNITS tablet Take 2 Tabs by mouth once daily. ??? aspirin 325 MG tablet Take 325 mg by mouth daily. ??? Cyanocobalamin (B-12) 1000 MCG CAPS Take 1,000 mg by mouth once daily. 1 qd. ??? ACIPHEX 20 MG TBEC Take 20 mg by mouth as needed. ??? FISH OIL 1200 MG CAPS Take by mouth 2 times daily. . On examination, vital signs are as follows: BP 129/84 Pulse 89 Wt 77.837 kg (171 lb 9.6 oz) BMI 34.14 kg/m2 General appearance: Well developed, in no distress Mental Status: Awake, Alert. Oriented x3. Follows commands. Speech fluent. Cranial Nerves: Extraocular movements intact. Facial movement intact, symmetric. Facial sensation intact V1-V3. Hearing intact to conversation. Tongue midline. Shoulder shrug full strength. Motor: limb movements and strength symmetric. Normal tone. Gait normal, no ataxia. I reviewed the following studies: Component Name [...] 36.2 35.6 35.1 PLTCOUNT [phone] @RISRCNT@ IMPRESSION: 1. Fibromyalgia 2. BL Carpal tunnel syndrome 3. Cervical radiculopathy Doing fair. Still has symptoms. Prednisone helps so does Gabapentin. Since her symptoms are more towards the evening I would concentrate doses towards the evening. Prednisone take 10 mg every other day. I recommend the followin) Change Gabapentin to 300 noon and night 2) Prednisone take 10 mg every OTHER day 3) Continue activity as tolerated More than half of 30 minutes was spent discussing the pathophysiology and treatment of the above medical issues and all questions were answered. I will plan to see Anjali Rodriguez again in 4 months. documented in this encounter Plan of Treatment Not on file documented as of this encounter Visit Diagnoses Diagnosis Acquired polyneuropathy- Primary Unspecified hereditary and idiopathic peripheral neuropathy Myofascial pain Mylagia and myositis, unspecified documented in this encounter
--- OUTSIDE RECORDS SUMMARY | 2024-06-25 01:27 | XMS_ITS | Encounter Summary ---
Author Organization [facility] Address [address] [facility] [place] [address] Care Team Providers Care Competency Evaluated Nurse Aide Name Role Phone Unavailable Primary Care Provider Unavailabl e Reason for Visit * Reason Comments Follow-up Rheumatoid Arthritis Encounter Details Date Type Department Care Team (Late st Contact Info) Description 08/06/2013 3:40 PM PARLIAMENTARY COUNSEL Office Visit [facility] - Rheumatology [address] [place] [phone] Grupo Moura MD [address] [place] [address] [phone] Rheumatoid arthritis (HCC) (Primary Dx); Myofascial pain; Immunosuppressed status (HCC); Medication monitoring encounter Social [...] Sign Reading Time Taken Comments Blood Pressure 144/86 08/06/2013 3:47 PM PARLIAMENTARY COUNSEL Pulse 88 08/06/2013 3:47 PM PARLIAMENTARY COUNSEL Temperature - - Respiratory Rate - - Oxygen Saturation - - Inhaled Oxygen Concentration - - Weight 77.6 kg (171 lb) 08/06/2013 3:47 PM PARLIAMENTARY COUNSEL Height 149.9 cm (4' 11 ) 08/06/2013 3:47 PM PARLIAMENTARY COUNSEL Body Mass Index 34.54 08/06/2013 3:47 PM PARLIAMENTARY COUNSEL documented in this encounter Patient Instructions * Patient Instructions* Grupo Moura MD - 08/06/2013 3:58 PM PARLIAMENTARY COUNSEL Add tizanidine 4 MG HS CBC CMP CRP See me 4 mos IAMENTARY COUNSEL documented in this encounter Progress Notes * Francisca Cook LPN - 08/07/2013 5:29 PM CSTQugui Note: Sent via My Chart. Copy to Dr. Savage. IAMENTARY COUNSEL * Grupo Moura MD - 08/07/2013 10:08 AM CSTQuick Note: Potassium is low. She should discuss with her primary care doctor. Otherwise normal. IAMENTARY COUNSEL * Grupo Moura MD - 08/06/2013 3:49 PM CST Subjective: Stiffness: L knee History Constant pain and stiffness L knee. Pain in feet with increased activity. Noted improvement since she started Humira. Her pain was worse when she had to go without it due toinsurance. She has difficulty sleeping due to pain. No recent TB test or hand films Review of Systems Fever: - Rash: - Raynaud's: - Nodules: - Med Side Effects: - Hair Loss: + Diff. swallowing: - Dry Eyes: - Dry Mouth: - Takes Meds: + Depression: - Swelling: - Smoke: - ETOH: - Sx: - Chest Pain: - Dyspnea: - GI Sx: + Elaborate on positives: Abdominal cramping that lasted [address] Savage & had EGD. S/s improved when she started taking Aciphex daily. RHEUM VITALS 01/31/2013 03/06/2013 08/06/2013 BP 129/84 126/70 144/86 Pulse 89 80 88 Wgt 171 lbs 10 oz 171 lbs 171 lbs RHEUM GENA 12/27/2012 03/06/2013 08/06/2013 MHAQ 2.7 1.3 2.7 Pain 7 2.5 2 Global 6.5 2.5 3 Rapid 3 16.2 6.3 7.7 Sleep 7 3.5 6.5 GI 5 2 3 Fatigue 7.5 7 4 Tender Joints - - 0 Swollen Joints - - 0 Global - - 2 Health Assessment Questionnaire MHAQ: 2.7 Pain: 2 Global: 3 Rapid 3: 7.7 Sleep: 6.5 GI: 3 Fatigue: 4 Tender Joints: 0 Swollen Joints: 0 MD GLOBAL: 2 Objective: BP 144/86 Pulse 88 Ht 1.499 m (4' 11 ) Wt [...] Tight Muscle Groups: no Imaging: Assessment RA Insomnia/ myofascial pain Immunosuppressed status Plan Add tizanidine 4 MG HS CBC CMP CRP See me 4 mos IAMENTARY COUNSEL documented in this encounter Plan of Treatment Not on file documented as of this encounter Procedures Procedure Name Priority Date/Time Associated Diagnosis Comments C-REACTIVE PROTEIN Routine 08/06/2013 4: 18 PM PARLIAMENTARY COUNSEL Rheumatoid Arthritis (Hcc) CBC W AUTO DIFFERENTIAL Routine 08/06/2013 4:18 PM PARLIAMENTARY COUNSEL Immunosuppressed status (HCC) Medication monitoring encounter COMPREHENSIVE METABOLIC PANEL Routine 08/06/2013 4:18 PM PARLIAMENTARY COUNSEL Immunosuppressed status (HCC) Medication monitoring encounter documented in this encounter Results * C-REACTIVE PROTEIN (08/06/2013 4:18 PM PARLIAMENTARY COUNSEL) C-Reactive Protein 2.2 0.0 - 4.9 mg/L [facility] ACCOUNT BILL Blood specimen (specimen) BLOOD SPECIMEN / Unknown 08/06/2013 4:18 PM PARLIAMENTARY COUNSEL 08/06/2013 10:53 PM PARLIAMENTARY COUNSEL Narrative Resulting Agency Comment [facility] [place] [id number] ??[facility] [phone] Authorizing Provider Result Case Moura MD LAB - CHEMISTRY O RDERABLES [facility] ACCOUNT BILL * (ABNORMAL) COMPREHENSIVE METABOLIC PANEL (08/06/2013 4:18 PM PARLIAMENTARY COUNSEL) Glucose 111(H) 65 - 99 mg/dL [facility] ACCOUNT BILL BUN 13 6 - 24 mg/dL [facility] ACCOUNT BILL Creatinine 0.70 0.57 - 1.00 mg/dL [facility] ACCOUNT BILL eGFR by MDRD 96 >59 mL/min/1.7 3 [facility] ACCOUNT BILL eGFR by MDRD 110 >59 mL/min/1.7 3 [facility] ACCOUNT BILL BUN/Creatinine Ratio 19 9 - 23 [facility] ACCOUNT BILL Sodium 139 134 - 144 mmol/L [facility] ACCOUNT BILL Potassium 3.4(L) 3.5 - 5.2 mmol/L [facility] ACCOUNT BILL Chloride 98 97 - 108 mmol/L [facility] ACCOUNT BILL CO2 26 19 - 28 mmol/L [facility] ACCOUNT BILL Calcium 10.1 8.7 - 10.2 mg/dL [facility] ACCOUNT BILL Protein Total 7.6 6.0 - 8.5 g/dL [facility] ACCOUNT BILL Albumin 4.6 3.5 - 5.5 g/dL [facility] ACCOUNT BILL Globulin Total 3.0 1.5 - 4.5 g/dL [facility] ACCOUNT BILL Albumin/Globulin Ratio 1.5 1.1 - 2.5 [facility] ACCOUNT BILL Bilirubin Total 0.3 0.0 - 1.2 mg/dL [facility] ACCOUNT BILL Alkaline Phosphatase 71 39 - 117 IU/L [facility] ACCOUNT BILL AST 16 0 - 40 IU/L [facility] ACCOUNT BILL ALT 22 0 - 32 IU/L [facility] ACCOUNT BILL Blood specimen (specimen) BLOOD SPECIMEN / Unknown 08/06/2013 4:18 PM PARLIAMENTARY COUNSEL 08/06/2013 10:53 PM PARLIAMENTARY COUNSEL Narrative Resulting Agency Comment [facility] [place] [id number] ??[facility] [phone] Authorizing Provider Result Case Moura MD LAB - CHEMISTRY O RDERABLES [facility] ACCOUNT BILL * CBC W AUTO DIFFERENTIAL (08/06/2013 4:18 PM PARLIAMENTARY COUNSEL) WBC 8.5 3.4 - 10.8 x10E3/uL [facility] ACCOUNT BILL RBC 4.06 3.77 - 5.28 x10E6/uL [facility] ACCOUNT BILL Hemoglobin 12.0 11.1 - 15.9 g/dL [facility] ACCOUNT BILL Hematocrit 35.8 34.0 - 46.6 % [facility] ACCOUNT BILL MCV 88 79 - 97 fL [facility] ACCOUNT BILL MCH 29.6 26.6 - 33.0 pg [facility] ACCOUNT BILL MCHC 33.5 31.5 - 35.7 g/dL [facility] ACCOUNT BILL RDW 13.0 12.3 - 15.4 % [facility] ACCOUNT BILL Platelet Count 341 155 - 379 x10E3/uL [facility] ACCOUNT BILL Granulocytes % 51 40 - 74 % [facility] ACCOUNT BILL Lymphocytes % 37 14 - 46 % [facility] ACCOUNT BILL Monocytes % 9 4 - 12 % [facility] ACCOUNT BILL Eosinophils % 2 0 - 5 % [facility] ACCOUNT BILL Basophils % 1 0 - 3 % [facility] ACCOUNT BILL Immature Cells NOT NEEDED [facility] ACCOUNT BILL Comment:Ancillary determined the test is not needed Granulocytes Absolute 4.3 1.4 - 7.0 x10E3/uL [facility] ACCOUNT BILL Lymphocytes Absolute 3.1 0.7 - 3.1 x10E3/uL [facility] ACCOUNT BILL Monocytes Absolute 0.8 0.1 - 0.9 x10E3/uL [facility] ACCOUNT BILL Eosinophils Absolute 0.2 0.0 - 0.4 x10E3/uL [facility] ACCOUNT BILL [...] Blood specimen (specimen) BLOOD SPECIMEN / Unknown 08/06/2013 4:18 PM PARLIAMENTARY COUNSEL 08/06/2013 10:53 PM PARLIAMENTARY COUNSEL Narrative Resulting Agency Comment [facility] [id number] ??[facility] [phone] Authorizing Provider Result Case Moura MD LAB - HEMATOLOGY ORDERABLES [facility] ACCOUNT BILL documented in this encounter Visit Diagnoses Diagnosis Rheumatoid arthritis(714.0) (HCC)- Primary Rheumatoid arthritis Myofascial pain Mylagia and myositis, unspecified Immunosuppressed status (HCC) Unspecified disorder of immune mechanism Medication monitoring encounter Encounter for therapeutic drug monitoring documented in this encounter
--- OUTSIDE RECORDS SUMMARY | 2024-06-25 01:27 | XMS_ITS | Encounter Summary ---
Author Organization [facility] Address [address] [facility] [place] [address] Care Team Providers Care Dry Sand Molder Name Role Phone Unavailable Primary Care Provider Unavailabl e Reason for Visit * Reason Comments Imm Inj Cimzia Encounter Details Date Type Department Care Team (Latest Contact Info) Description 06/04/2012 3:30 PM CHEMICAL PROCESSING LABORER Clinical Support [facility] - Rheumatology [address] [place] [phone] Seronegative arthritis Social History Tobacco Use Types Packs/Day Years Used Date Smoking Tobacco: Never Alcohol Use Standard Drinks/Week Comments No 0 (1 standard drink = 0.6 oz pur e alcohol) Sex and Gender Information Value Date Recorded Sex Assigned at Not on file Gender Identity Not on file Sexual Orientation Not on file documented as of this encounter Progress Notes * Kimberly Huang, RN - 06/04/2012 4:45 PM CST Discussed Cimzia administration & potential side effects with patient. Administered sample 200 mg Cimzia sub-Q each upper arm. Pt monitored for 10 ; no adverse reaction noted. Submitted insuranceVOB & 12 week challenge. Pt will have next sample injection 06/18 at [facility]. ICAL PROCESSING LABORER documented in this encounter Plan of Treatment Not on file documented as of this encounter Visit Diagnoses Diagnosis Seronegative arthritis- Primary Other specified arthropathy, site unspecified documented in this encounter
--- OUTSIDE RECORDS SUMMARY | 2024-06-25 01:27 | XMS_ITS | Encounter Summary ---
Author Organization [facility] Address [address] [facility] [place] [address] Care Team Providers Care Software Tools Engineer Name Role Phone Unavailable Primary Care Provider Unavailabl e Reason for Visit * Reason Comments Pain Urinary x 5 days Encounter Details Date Type Department Care Team (Late st Contact Info) Description 07/26/2016 3:00 PM SECURITY RISK ANALYST Office Visit [facility] [address] [place] [address] Provider, Stefan Exp Nameshila Dysuria (Primary Dx); Acute cystitis with hematuria Social History Tobacco Use Types Packs/Day Years [...] Comments Blood Pressure 120/70 07/26/2016 2:39 PM SECURITY RISK ANALYST Pulse 89 07/26/2016 2:39 PM SECURITY RISK ANALYST Temperature 36.8 ??C (98.3 ??F) 07/26/2016 2:39 PM CS T Respiratory Rate 16 07/26/2016 2:39 PM SECURITY RISK ANALYST Oxygen Saturation - - Inhaled Oxygen Concentration - - Weight 74.4 kg (164 lb) 07/26/2016 2:39 PM SECURITY RISK ANALYST Height 149.9 cm (4' 11 ) 07/26/2016 2:39 PM SECURITY RISK ANALYST Body Mass Index 33.12 07/26/2016 2:39 PM SECURITY RISK ANALYST documented in this encounter Patient Instructions * Patient Instructions* Felecia Lay, TIMBER GIRDLER-CURRICULUM AND ASSESSMENT DIRECTOR - 07/26/2016 2:38 PM SECURITY RISK ANALYST Images from the original note were not included. Increase water intake, decrease caffeine. May drink cranberry juice to help with symptoms. May use OTC Azo for bladder spasms as needed (this may change the color of your urine). Tylenol or motrin as needed Proper hygiene No bubble baths If no improvement in 48-72 hours follow up with PCP or return to clinic Urinary Tract Infection in Women WHAT YOU NEED TO KNOW: A urinary tract infection (UTI) is caused by bacteria that get inside your urinary tract. Your urinary tract includes your kidneys, ureters, bladder, and urethra. Urine is made in your kidneys, and it flows from the ureters to the bladder. Urine leaves the bladder through the urethra. A UTI is morecommon in your lower urinary tract, which includes your bladder and urethra. DISCHARGE INSTRUCTIONS: Seek care immediately if: ?? You are urinating very little or not at all. ?? You are vomiting. ?? You have a high fever with shaking chills. ?? You have side or back pain that gets worse. Contact your healthcare provider if: ?? You have a fever. ?? You have white or yellow discharge from your vagina. ?? You do not feel better after 2 days of taking antibiotics. ?? You have questions or concerns about your condition or care. Medicines: ?? Medicines help treat the bacterial infection or decrease pain and burning when you urinate. You may also need medicines to decrease the urge to urinate often. ?? Take your medicine as directed. Contact your healthcare provider if you think your medicine is not helping or if you have side effects. Tell him or her if you are allergic to any medicine. Keep a list of the medicines, vitamins, and herbs you take. Include the amounts, and when and why you take them. Bring the list or the pill bottles to follow-up visits. Carry your medicine list with you in case of an emergency. Follow up with your healthcare provider as directed: Write down your questions so you remember to ask them during your visits. Self-care: ?? Urinate when you feel the urge. Do not hold your urine. Urinate as soon as you feel you have to. ?? Drink liquids as directed. Ask how much liquid to drink each day and which liquids are best for you. You may need to drink more liquids than usual to help flush out the bacteria. Do not drink alcohol, caffeine, and citrus juices. These can irritate your bladder and increase your symptoms. ?? Apply heat on your abdomen for 20 to 30 minutes every 2 hours for as many days as directed. Heathelps decrease discomfort and pressure in your bladder. ?? 2016 [employer]. Information is for End User's use only and may not be sold, redistributed or otherwise used for commercial purposes. All illustrations and images included in CareNotes?? are the copyrighted property of [employer]. or [employer]. The above information is an educational technician only. It is not intended as medical advice for individual conditions or treatments. Talk to your doctor, nurse or pharmacist before following any medical regimen to see if it is safe and effective for you. RITY RISK ANALYST documented in this encounter Progress Notes * Eugenia Deng - 07/27/2016 7:22 AM CST [place] [id number] to [id number] due to not enough supporting documentation RITY RISK ANALYST * Felecia Lay APRN-CNP - 07/26/2016 2:31 PM CST [facility] Chief Complaint Patient presents with ??? Pain Urinary x 5 days SUBJECTIVE: General The history is provided by the patient. This is a new problem. The current episode started more than 2 days ago. The problem occurs constantly. The problem has been gradually worsening. The pain is mild. Body Location: urinating.Pertinent negatives include no shortness of breath. Was treated for uti 1 month ago did not take the medication correctly Past Medical History Diagnosis Date ??? High blood pressure ??? High cholesterol ??? Lupus ??? Migraine headache ??? RA (rheumatoid arthritis) Current Outpatient Prescriptions on File Prior to Visit Medication Sig Dispense Refill ??? tiZANidine (ZANAFLEX) 4 MG tablet Take 1 Tab by mouth at bedtime. 90 Tab 3 ??? losartan (COZAAR) 100 MG tablet Take by mouth once daily. ??? amLODIPine (NORVASC) 5 MG tablet Take by mouth once daily. ??? traMADol (ULTRAM) 50 MG tablet Take 1 Tab by mouth 2 times daily as needed for Pain. 60 Tab 0 ??? indapamide (LOZOL) 2.5 MG tablet Take 2.5 mg by mouth once daily. ??? vitamin D, cholecalciferol, 2000 UNITS tablet Take 2 Tabs by mouth once daily. (Patient taking differently: Take 2,000 Units by mouth once daily ) ??? aspirin 325 MG tablet Take 325 mg by mouth daily. ??? Cyanocobalamin (B-12) 1000 MCG CAPS Take 1,000 mg by mouth once daily. 1 qd. ??? FISH OIL 1200 MG CAPS Take by mouth 2 times daily. No current facility-administered medications on file prior to visit. Past Surgical History Procedure Laterality Date ??? Hernia repair 2008 2 ??? Hysterectomy ??? Other surgery gall bladder ??? Other surgery ovarian History Social History ??? Marital status: Spouse name: N/A ??? Number of children: N/A ??? Years of education: N/A Occupational History ??? Not on file. Social History Main Topics ??? Smoking status: Never Smoker ??? Smokeless tobacco: Not on file ??? Alcohol use: No ??? Drug use: No ??? Sexual activity: Not on file Other Topics Concern ??? Not on file Social History Narrative Family History Problem Relation Age of Onset ??? High Blood Pressure Father ??? Stroke Father ??? High Blood Pressure Mother ??? Stroke Mother ??? Diabetes Brother ??? High Blood Pressure Brother ??? Diabetes Sister ??? High Blood Pressure Sister Current Outpatient Prescriptions Medication Sig Dispense Refill ??? levoFLOXacin (LEVAQUIN) 500 MG tablet Take 1 Tab by mouth once daily for 7 days 7 Tab 0 ??? tiZANidine (ZANAFLEX) 4 MG tablet Take 1 Tab by mouth at bedtime. 90 Tab 3 ??? losartan (COZAAR) 100 MG tablet Take by mouth once daily. ??? amLODIPine (NORVASC) 5 MG tablet Take by mouth once daily. ??? traMADol (ULTRAM) 50 MG tablet Take 1 Tab by mouth 2 times daily as needed for Pain. 60 Tab 0 ??? indapamide (LOZOL) 2.5 MG tablet Take 2.5 mg by mouth once daily. ??? vitamin D, cholecalciferol, 2000 UNITS tablet Take 2 Tabs by mouth once daily. (Patient taking differently: Take 2,000 Units by mouth once daily ) ??? aspirin 325 MG tablet Take 325 mg by mouth daily. ??? Cyanocobalamin (B-12) 1000 MCG CAPS Take 1,000 mg by mouth once daily. 1 qd. ??? FISH OIL 1200 MG CAPS Take by mouth 2 times daily. No current facility-administered medications for this visit. Allergies Allergen Reactions ??? Amitriptyline Drowsiness ??? Enbrel GI Discomfort ??? Humira [Adalimumab] GI Discomfort ??? Plaquenil [Hydroxychloroquine] Nausea and/or Vomiting Stomach pain ??? Simponi [Golimumab] GI Discomfort REVIEW OF SYSTEMS: Review of Systems Constitutional: Negative for chills and fever. Respiratory: Negative for cough and shortness of breath. Genitourinary: Positive for dysuria, flank pain, frequency and urgency. Suprapubic pressure OBJECTIVE: General appearance: alert, well appearing, and in no distress. BP 120/70 Pulse 89 Temp 98.3 ??F (Oral) Resp 16 Ht 1.499 m (4' 11 ) Wt 74.4 kg (164 lb) BMI 33.12 kg/m2 Physical Exam Constitutional: She is oriented to person, place, and time and well-developed, well-nourished, and in no distress. HENT: Head: Normocephalic and atraumatic. Cardiovascular: Normal rate and regular rhythm. Pulmonary/Chest: Effort normal and breath sounds normal. Genitourinary: Genitourinary Comments: Left cva tenderness, suprapubic pressure Neurological: She is alert and oriented to person, place, and time. Vitals reviewed. ASSESSMENT: Office Visit on 07/26/16 URINALYSIS AUTO - POINT OF CARE (AMB) STL Result Value Ref Range Clarity UA clear Color UA yellow Leukocyte UA 15 Negative Nitrite UA neg Negative Urobilinogen UA 0.2 0.1 - 1.0 Protein UA 15 Negative pH UA 5.0 5.0 - 8.0 pH units Blood UA 50 Negative Specific [place] UA 1.020 1.002 - 1.030 Ketone UA neg Negative Bili UA neg Negative Glucose UA neg Negative Expiration Date [id number] Lot Number [id number] QC VERIFIED Yes Yes Encounter Diagnoses Name Primary? Dysuria Yes ??? Acute cystitis with hematuria PLAN: Increase water intake, decrease caffeine. May drink cranberry juice to help with symptoms. May use OTC Azo for bladder spasms as needed (this may change the color of your urine). Tylenol or motrin as needed Proper hygiene No bubble baths If no improvement in 48-72 hours follow up with PCP or return to clinic RITY RISK ANALYST documented in this encounter Plan of Treatment Not on file documented as of this encounter Procedures Procedure Name Priority Date/Time Associated Diagnosis Comments CULTURE URINE Routine 07/26/2016 2:41 PM SECURITY RISK ANALYST Dysuria URINALYSIS AUTO - POINT OF CARE (AMB) STL Routine 07/26/2016 2:40 PM SECURITY RISK ANALYST Dysuria documented in this encounter Results * CULTURE URINE (07/26/2016 2:41 PM SECURITY RISK ANALYST) Urine Culture Routine Final report [facility] ACCOUNT BILL Result 1 [facility] ACCOUNT BILL Comment: Mixed urogenital sheridan Less than 10,000 colonies/mL Urine URINE SPECIMEN OBTAINED BY CLEAN CATCH PROCEDURE / Unknown 07/26/2016 2:41 PM SECURITY RISK ANALYST 07/26/2016 Narrative Resulting Agency Comment [facility] [address] ??[facility] [phone] Felecia PEACOCK LAB - MICROBI OLOGY ORDERABLES [facility] ACCOUNT BILL [address] [place] [address] * (ABNORMAL) URINALYSIS AUTO - POINT OF CARE (AMB) STL (07/26/2016 2:40 PM SECURITY RISK ANALYST) Clarity UA POCT clear Color UA POCT yellow Leukocyte UA 15 Negative Nitrite UA POCT neg Negative Urobilinogen UA 0.2 0.1 - 1.0 Protein UA POCT 15 Negative pH UA 5.0 5.0 - 8.0 pH units Blood UA 50 Negative Specific [place] UA POCT 1.020 1.002 - 1.030 Ketone UA neg Negative Bilirubin UA POCT neg Negative Glucose UA neg Negative Expiration Date [id number] Lot # [id number] QC Verified Yes Yes URINE / Unknown 07/26/2016 2 :40 PM SECURITY RISK ANALYST Felecia Lay TIMBER GIRDLER-CURRICULUM AND ASSESSMENT DIRECTOR LAB - POINT O F CARE ORDERABLES documented in this encounter Visit Diagnoses Diagnosis Dysuria- Primary Acute cystitis with hematuria Acute cystitis documented in this encounter
--- OUTSIDE RECORDS SUMMARY | 2024-06-25 01:27 | XMS_ITS | Encounter Summary ---
Author Organization [facility] Address [address] [facility] [place] [address] Care Team Providers Care Pipe Maker Name Role Phone Unavailable Primary Care Provider Unavailabl e Reason for Visit * Reason Onset Date Comments Nausea 07/12/2012 Encounter Details Date Type Department Care Team (Late st Contact Info) Description 07/12/2012 Telephone [facility] - Rheumatology [address] [place] [phone] Grupo Moura MD [address] [place] [phone] Nausea Social History Tobacco Use Types Packs/Day Years [...] Telephone Encounter - Kimberly Huang RN - 07/12/2012 9:30 AM CST Per 's previous note, pt can take Zofran for 24 hrs. Pt advised if s/s persist, will need to contact PCP for appt. SWAINS MATE * Telephone Encounter - Radha Martin - 07/12/2012 9:20 AM CST Pt has been talking with Gale regarding pt's stomach flu pt unable to keep anything down. Pt stated she would like some nausea medication called into her pharmacy. SWAINS MATE documented in this encounter Plan of Treatment Not on file documented as of this encounter Visit Diagnoses Not on filedocumented in this encounter
--- OUTSIDE RECORDS SUMMARY | 2024-06-25 01:27 | XMS_ITS | Encounter Summary ---
Author Organization [facility] Address [address] [facility] [place] [address] Care Team Providers Care Regulatory Affairs Manager Name Role Phone Unavailable Primary Care Provider Unavailabl e Reason for Visit * Reason Comments Fibromyalgia Arthritis Encounter Details Date Type Department Care Team (Late st Contact Info) Description 02/05/2014 2:30 PM CDT Office Visit [facility] - Rheumatology [address] [place] [phone] HiramgiudiSabrina mckee, COAT EXAMINER-CAMPUS AIDE [address] [facility] [address] [place] [address] Rheumatoid arthritis (HCC) (Primary Dx); Immunosuppressed status (HCC); High risk medications (not anticoagulants) long-term use; Acquired polyneuropathy; Myofascial pain; Fatigue; Vitamin D deficiency Social History Tobacco Use Types Packs/Day [...] Sign Reading Time Taken Comments Blood Pressure 130/70 02/05/2014 3:19 PM CDT Pulse 80 02/05/2014 3:19 PM CDT Temperature - - Respiratory Rate - - Oxygen Saturation - - Inhaled Oxygen Concentration - - Weight 75.8 kg (167 lb) 02/05/2014 3:19 PM CDT Height 149.9 cm (4' 11 ) 02/05/2014 3:19 PM CDT Body Mass Index 33.73 02/05/2014 3:19 PM CDT documented in this encounter Patient Instructions * Patient Instructions* Sabrina Mcdaniels APRN-CNP - 02/05/2014 4:23 PM CDT Plan Cont Simponi Taper prednisone to 5 mg OD Cont gabapentin Monitoring lab results to be faxed to us by PCP Cont D See Dr Moura in 4 mos documented in this encounter Progress Notes * Sabrina Mcdaniels APRN-CNP - 02/05/2014 3:08 PM CDT Subjective: No ASAD or TB test Stiffness lasts 45 History Joint stiffness in back, knees, elbows and feet. Chronic fatigue past 2 weeks. Prednisone is helpful. She's not taken recently because she has a class reunion and doesn't want flaquito too puffy. Monthly Simponi is helpful Dr. Savage recently put her on OTC potassium. Only takes gabapentin when her feet are bothering her, mostly at night. Review of Systems Fever: - Rash: - Raynaud's: - Nodules: - Med Side Effects: - Hair Loss: - Diff. swallowing: - Dry Eyes: - Dry Mouth: - Takes Meds: + Depression: - Swelling: + Smoke: - ETOH: - Sx: - Chest Pain: - Dyspnea: - GI Sx: - Elaborate on positives: Swelling in feet RHEUM VITALS 03/06/2013 08/06/2013 11/20/2013 BP 126/70 [...] - 2 4 Health Assessment Questionnaire MHAQ: 2.3 Pain: 2 Global: 4 Rapid 3: 8.3 Sleep: 4 GI: 3 Fatigue: 8 Objective: BP 130/70 Pulse 80 Ht 1.499 m (4' 11 ) Wt 75.751 kg (167 lb) BMI 33.71 kg/m2 General: oriented to person, place, and time, alert; cooperative; no distress. Skin: Rash - Nodes/ Nodules: - Lungs: clear to auscultation bilaterally. Heart: regular rate and rhythm. S1, S2 normal. No murmur, click, rub or gallop. Pulses OK. Trace edema both feet Abdomen: soft without mass, non-tender, with normal [...] Points; Tight Muscle Groups: no Imaging: Assessment RA- controlled Immunosuppressed Myofascial pain HTN Neuropathy Fatigue D def Plan Cont Simponi Taper prednisone to 5 mg OD Cont gabapentin Monitoring lab results to be faxed to us by PCP Cont D See Dr Moura in 4 mos Needs Quantiferon TB gold documented in this encounter Plan of Treatment Not on file documented as of this encounter Visit Diagnoses Diagnosis Rheumatoid arthritis(714.0) (HCC)- Primary Rheumatoid arthritis Immunosuppressed status (HCC) Unspecified disorder of immune mechanism High risk medications (not anticoagulants) long-term use Encounter for long-term (current) use of other medications Acquired polyneuropathy Unspecified hereditary and idiopathic peripheral neuropathy Myofascial pain Mylagia and myositis, unspecified Fatigue Other malaise and fatigue Vitamin D deficiency documented in this encounter
--- OUTSIDE RECORDS SUMMARY | 2024-06-25 01:27 | XMS_ITS | Encounter Summary ---
Author Organization [facility] Address [address] [facility] [place] [address] Care Team Providers Care Manager Program Management Name Role Phone Unavailable Primary Care Provider Unavailabl e Reason for Visit * Reason Comments Pain Rheumatoid Arthritis Encounter Details Date Type Department Care Team (Late st Contact Info) Description 12/09/2014 3:00 PM CDT Office Visit [facility] - Rheumatology [address] [place] [phone] HiramgiudiSabrina mckee, APPLICATION INTEGRATOR-ESTHETICIAN/OWNER [address] [place] [address] Rheumatoid arthritis(714.0) (HCC) (Primary Dx); Medication monitoring encounter; Immunosuppressed status (HCC); Myofascial pain Social History Tobacco Use Types [...] Sign Reading Time Taken Comments Blood Pressure 130/82 12/09/2014 2:46 PM CDT Pulse 82 12/09/2014 2:46 PM CDT Temperature - - Respiratory Rate - - Oxygen Saturation - - Inhaled Oxygen Concentration - - Weight 72.6 kg (160 lb) 12/09/2014 2:46 PM CDT Height 149.9 cm (4' 11 ) 12/09/2014 2:46 PM CDT Body Mass Index 32.32 12/09/2014 2:46 PM CDT documented in this encounter Progress Notes * Sabrina Mcdaniels APRN-CNP - 12/10/2014 3:04 PM CDTQuick Note: Mildly elevated WBC probably from prednisone. CRP ok; CMP not done * Sabrina Mcdaniels APRN-CNP - 12/09/2014 2:47 PM CDT Subjective: Stiffness: lasts 45-60 History Increased pain in feet, knees, legs, and hands. She's not sleeping well due to pain. Fatigue is bothersome. Increased stress due to spouse's illness; her s/s have been worse. 4-5 days ago she increased prednisone to 10 mg. Pain has improved but fatigue has not. She has forgetfulness when she takes tramadol. GI pain when she takes biologics. She doesn't want infusions. Review of Systems Fever: - Rash: - Raynaud's: - Nodules: - Med Side Effects: + Hair Loss: - Diff. swallowing: - Dry Eyes: + Dry Mouth: - Takes Meds: + Depression: + Swelling: + Smoke: - ETOH: - Sx: - Chest Pain: - Dyspnea: - GI Sx: + Elaborate on positives: Pain & erythema OD x past week Swelling in feet Persistent abdominal pain RHEUM VITALS 03/19/2014 11/04/2014 12/09/2014 BP 158/86 152/86 130/82 Pulse 80 74 82 Wgt - 160 lbs 160 lbs RHEUM GENA 08/06/2013 11/20/2013 02/05/2014 MHAQ 2.7 3.3 2.3 Pain 2 7.5 2 Global 3 7 4 Rapid 3 7.7 17.8 8.3 Sleep 6.5 7.5 4 GI 3 3 3 Fatigue 4 5.5 8 Tender Joints 0 2 - Swollen Joints 0 0 - Global 2 4 - Objective: BP 130/82 mmHg Pulse 82 Ht 1.499 m (4' 11 ) Wt 72.576 kg (160 lb) BMI 32.30 kg/m2 General: oriented to person, place, and time, alert; cooperative; no distress. Skin: Rash - Nodes/ Nodules: - Lungs: clear to auscultation bilaterally. Heart: regular rate and rhythm. S1, S2 normal. No murmur, click, rub or gallop. Pulses OK. No edema Abdomen: soft without mass, non-tender, with normal bowel sounds. Tinel???s Test +: Right: no Left: no Joint Review Right Left Shoulder Normal Normal Elbow Normal Normal Wrist Normal Normal MCP [id number] PIP Normal Normal DIP Normal Normal Knee Normal Normal Ankle Normal Normal Foot Normal Normal Normal Hip ROM: yes Swollen Joints: 0 Trigger/ tender Points; Tight Muscle Groups: no Imaging: Assessment RA- doing fair Immunosuppressed Side effects to biologics Myofascial pain Plan Rx Plaquenil; explained may take 2-6 mos to work Cont 5 mg prednisone CBC CMP CRP Repeat CMP in 2 mos Follow in 4 mos documented in this encounter Plan of Treatment Scheduled Orders Name Type Priority Associated Diagnoses Orde r Schedule COMPREHENSIVE METABOLIC PANEL Lab Routine Medication monitoring encounter Ordered: 12/09/2014 documented as of this encounter Procedures Procedure Name Priority Date/Time Associated Diagnosis Comments C-REACTIVE PROTEIN Routine 12/09/2014 3: 19 PM CDT Medication monitoring encounter CBC W AUTO DIFFERENTIAL Routine 12/09/2014 3:19 PM CDT Medication monitoring encounter COMPREHENSIVE METABOLIC PANEL Routine 12/09/2014 3:19 PM CDT Medication monitoring encounter documented in this encounter Results * C-REACTIVE PROTEIN (12/09/2014 3:19 PM CDT) Pathologist [facility] C-Reactive Protein 0.19 <0.80 mg/dL [facility] Comment: Please be advised that patients taking Carboxypenicillins may exhibit falsely decreased C-Reactive Protein levels due to an analytical interference in this assay. Test Performed at: [facility] [facility] [employer] [address] [place], [place] ??[id number] ALYSSA MILLER DO,MPH Blood specimen (specimen) BLOOD SPECIMEN / Unknown 12/09/2014 3:19 PM CDT 12/10/2014 5:11 AM CDT Sabrina Mcdaniels [facility] LAB - CHEMISTRY ORDERABLES Performing Organization Address [facility] Co de Phone Number [facility] [address] [place] [address] * (ABNORMAL) CBC W AUTO DIFFERENTIAL (12/09/2014 3:19 PM CDT) Pathologist [facility] White Blood Cell Count 11.5(H) [...] 0.4 % [facility] Comment: Test Performed at: [employer] [employer] [address] ??[phone] ALYSSA MILLER DO,MPH Blood specimen (specimen) BLOOD SPECIMEN / Unknown 12/09/2014 3:19 PM CDT 12/10/2014 5:11 AM CDT Sabrina Mcdaniels [facility] - HEM[facility] ORDER[facility] Performing Organization Address [facility] Co de Phone Number [facility] [phone] [place] [address] * (ABNORMAL) COMPREHENSIVE METABOLIC PANEL (12/09/2014 3:19 PM CDT) Glucose 115(H) 65 - 99 mg/dL [facility] Comment: ? Fasting reference interval BUN 18 7 - 25 mg/dL [facility] Creatinine 0.83 0.50 - 1.05 mg/dL [facility] Comment: For patients >49 years of age, the reference limit for Creatinine is approximately 13% higher for people identified as -O[place]i. eGFR by MDRD 77 > OR = [...] 29 U/L [facility] Comment: Test Performed at: [employer] [address] ??[phone] ALYSSA MILLER DO,MPH Blood specimen (specimen) BLOOD SPECIMEN / Unknown 12/09/2014 3:19 PM CDT 12/10/2014 5:11 AM CDT Sabrina Mcdaniels APPLICATION INTEGRATOR-ESTHETICIAN/OWNER LAB - CHEMISTRY ORDERABLES [facility] [address] [place] [address] documented in this encounter Visit Diagnoses Diagnosis Rheumatoid arthritis(714.0) (HCC)- Primary Rheumatoid arthritis Medication monitoring encounter Encounter for therapeutic drug monitoring Immunosuppressed status (HCC) Unspecified disorder of immune mechanism Myofascial pain Mylagia and myositis, unspecified documented in this encounter
--- OUTSIDE RECORDS SUMMARY | 2024-06-25 01:27 | XMS_ITS | Encounter Summary ---
Author Organization [facility] Address [address] [facility] [place] [address] Care Team Providers Care Meat Trimmer Name Role Phone Unavailable Primary Care Provider Unavailabl e Reason for Visit * Reason Onset Date Comments Medication Issue 12/20/2012 Encounter Details Date Type Department Care Team (Late st Contact Info) Description 12/20/2012 Telephone [facility] - Rheumatology [address] [place] [phone] Grupo Moura MD [address] [place] [address] Medication Issue Social History Tobacco Use Types Packs/Day Years [...] Telephone Encounter - Kimberly Huang RN - 12/24/2012 10:13 AM CDT Pt advised of 's instructions. She currently takes gabapentin 600 mg HS. She has appt 12/27 &will reevaluate at that time. * Telephone Encounter - Grupo Moura MD - 12/24/2012 9:50 AM CDT Med list says she's on gabapentin 600 HS. If this is accurate can add 300 MG with evening meal to see if it helps pain. If no better within 4 days will try tizanidine. Will see her if not improved. * Telephone Encounter - Kimberly Huang RN - 12/24/2012 9:38 AM CDT Pt is agreeable to Humira. Will contact pt once insurance approval received. Pt says she has been having pain in chest & back for several months. She has hx of costochondritis. She says she knows it's not her heart & doesn't want cardiac workup. She increased prednisone to 10 mg from 5 mg 3 days ago but it has not improved. Pain is worse at HS. Please advise. * Telephone Encounter - Kimberly Huang RN - 12/24/2012 9:29 AM CDT LMOR for pt to return call. Will submit Nikita PA. * Telephone Encounter - Grupo Moura MD - 12/22/2012 12:26 PM CDT OK to try Humira. 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 No response with [employer]. Sister in law on Humira which works very well. Would like to check if she can get Himira. * Telephone Encounter - Kathy Martinez MA - 12/20/2012 1:20 PM CDT Pt is considering getting off of Cimzia and was sent brochures on the infusion. Pt has question about the infusion she would like to discuss with the nurse. documented in this encounter Plan of Treatment Not on file documented as of this encounter Visit Diagnoses Not on filedocumented in this encounter
--- OUTSIDE RECORDS SUMMARY | 2024-06-25 01:27 | XMS_ITS | Encounter Summary ---
Author Organization [facility] Address [address] [facility] [place] [address] Care Team Providers Care Track Greaser Name Role Phone Unavailable Primary Care Provider Unavailabl e Reason for Visit * Reason Onset Date Comments Refill Request 09/17/2012 Encounter Details Date Type Department Care Team (Late st Contact Info) Description 09/17/2012 Telephone [facility] Neurosciences [phone] [place] [address] [place] [address] [place], [place] [phone] Refill Request Social History Tobacco Use Types Packs/Day [...] * Telephone Encounter - Nancy Jang - 09/17/2012 2:14 PM CDT PATIENT CALLED AND REQUESTED A REFILL ON HER GABAPENTIN SINCE DR LONGORIA INCREASED THE DOSE FROM 1 TABBY MOUTH AT BEDTIME TO 2 TABS BY MOUTH AT BEDTIME. I NOTIFIED MRS. RODRIGUEZ THAT HUMBERTO FROM OUR OFFICE SPOKE TO LIBBY AT THE PHARMACY AND THE SCRIPT HAS BEEN APPROVED. documented in this encounter Plan of Treatment Not on file documented as of this encounter Visit Diagnoses Not on filedocumented in this encounter
--- OUTSIDE RECORDS SUMMARY | 2024-06-25 01:27 | XMS_ITS | Encounter Summary ---
Author Organization [facility] Address [address] [facility] [place] [address] Care Team Providers Care Feedmobile Driver Name Role Phone Unavailable Primary Care Provider Unavailabl e Reason for Visit * Reason Onset Date Comments MEDICATION REFILL 12/31/2012 Encounter Details Date Type Department Care Team (Late st Contact Info) Description 12/31/2012 Refill [facility] Medical [facility] - Rheumatology [address] [place] [phone] Grpuo Moura MD [address] [place] [address] [phone] MEDICATION REFILL Social History Tobacco Use Types [...] Telephone Encounter - Kimberly Huang RN - 12/31/2012 12:19 PM CDT Resent Humira rx to [facility] documented in this encounter Plan of Treatment Not on file documented as of this encounter Visit Diagnoses Not on filedocumented in this encounter
--- OUTSIDE RECORDS SUMMARY | 2024-06-25 01:28 | XMS_ITS | Encounter Summary ---
Author Organization [facility] Address [address] [facility] [place] [address] Care Team Providers Care Pediatric Nurse Practitioner Name Role Phone Unavailable Primary Care Provider Unavailabl e Encounter Details Date Type Department Care Team (Late st Contact Info) Description 08/05/2011 Orders Only [facility] Medical [facility] - Rheumatology [address] [place] [phone] Francisca Cook LPN Medication monitoring encounter [...] as of this encounter Progress Notes * Francisca Cook LPN - 08/09/2011 10:05 AM CSTQuick Note: Results sent via My Chart. Copy to Dr. Savage. MACHINE OPERATOR * Grupo Moura MD - 08/08/2011 9:43 AM CSTQuick Note: OK. CC PCP. MACHINE OPERATOR documented in this encounter Plan of Treatment Not on file documented as of this encounter Procedures Procedure Name Priority Date/Time Associated Diagnosis Comments CBC W AUTO DIFFERENTIAL Routine 08/04/2011 2:18 PM DISH MACHINE OPERATOR Medication monitoring encounter documented in this encounter Results * (ABNORMAL) CBC W AUTO DIFFERENTIAL (08/04/2011 2:18 PM DISH MACHINE OPERATOR) White Blood Cell Count 10.9(H) 3.8 - 10.8 Thousand/u L [facility] RBC 3.89 3.80 - 5.10 Million/uL [facility] Hemoglobin 12.1 11.7 - 15.5 g/dL [facility] Hematocrit 35.7 35.0 - 45.0 % [facility] MCV 91.7 80.0 - 100.0 fL [facility] MCH 31.1 27.0 - 33.0 pg [facility] MCHC 34.0 32.0 - 36.0 g/dL [facility] RDW 13.8 11.0 - 15.0 % [facility] Platelet Count 329 140 - 400 Thousand/u L [facility] Neutrophil Absolute 6104 1500 - 7800 cells/uL [facility] Lymphocytes Absolute 3466 850 - 3900 cells/uL [facility] Absolute Monocytes 937 200 - 950 cells/uL [facility] Eosinophils Absolute 283 15 - 500 cells/uL [facility] Basophils Absolute 109 0 - 200 cells/uL [facility] Granulocytes % 56.0 % [facility] Lymphocytes % 31.8 % [facility] Monocytes % 8.6 % [facility] Eosinophils % 2.6 % [facility] Basophils % 1.0 % [facility] Comment: REPORT COMMENT: AN UPDATE OR CORRECTION HAS BEEN MADE TO NAME Test Performed at: [facility] [address] ??[phone] ALYSSA MILLER DO,MPH Blood specimen (specimen) BLOOD SPECIMEN / Unknown 08/04/2011 2:18 PM DISH MACHINE OPERATOR 08/04/2011 2:21 PM DISH MACHINE OPERATOR Narrative Authorizing Provider Result Csae Moura MD LAB - HEMATOLOGY ORDERABLES [facility] [address] [place] [address] documented in this encounter Visit Diagnoses Diagnosis Medication monitoring encounter Encounter for therapeutic drug monitoring documented in this encounter
--- OUTSIDE RECORDS SUMMARY | 2024-06-25 01:28 | XMS_ITS | Encounter Summary ---
Author Organization [facility] Address [address] [facility] [place] [address] Care Team Providers Care Records And Information Manager Name Role Phone Unavailable Primary Care Provider Unavailabl e Reason for Visit * Reason Comments Follow-up 6mths Encounter Details Date Type Department Care Team (Late st Contact Info) Description 09/28/2009 3:00 PM CDT Office Visit [facility] Medical [facility] - Rheumatology [address] [place] [phone] Grupo Moura MD [address] [place] [phone] [phone] Myofascial Pain (Primary Dx) Social History Tobacco Use Types [...] Sign Reading Time Taken Comments Blood Pressure 146/84 09/28/2009 3:34 PM CDT Pulse 68 09/28/2009 3:34 PM CDT Temperature - - Respiratory Rate - - Oxygen Saturation - - Inhaled Oxygen Concentration - - Weight 76.2 kg (168 lb) 09/28/2009 3:34 PM CDT Height - - Body Mass Index 33.93 04/06/2009 3:10 PM CDT documented in this encounter Progress Notes * Grupo Moura MD - 09/28/2009 3:38 PM CDT Subjective: Stiffness: lasts 30 History Pain: Intermittent in feet & body aches. Major problem is fatigue. She does not want a sleep test. No recent ASAD Review of Systems Fever: - Rash: - Raynaud's: - Nodules: + Med Side Effects: + Hair Loss: - Diff. swallowing: + Dry Eyes: - Dry Mouth: - Takes Meds: + Depression: + Swelling: - Smoke: - ETOH: - Sx: + Chest Pain: + Dyspnea: - GI Sx: + Elaborate on positives: Nodule on L wrist Drowsiness due to meds Painful urination & occasional pelvic pain; would like UA Occasional sternum pain due to arthritis Occasional abdominal pain & bloating Health Assessment Questionnaire MHAQ: 0.7 Pain: 1.5 Global: 0.5 Rapid 3: 2.7 Sleep: 0 GI: 0.5 Fatigue: 2 Tender Joints: 0 Swollen Joints: 0 MD GLOBAL: 1 Objective: BP 146/84 Pulse 68 Wt 76.204 kg (168 lb) General: alert, cooperative, no distress Skin: Rash - Nodules: - Lungs: clear to auscultation bilaterally Heart: regular rate and rhythm, S1, S2 normal, no murmur, click, rub or gallop .Pulses OK. No edema Abdomen: exam not performed Tinel???s Test +: Right: no Left: no Joint Review Right Left Shoulder normal normal Elbow normal normal Wrist normal normal MCP normal normal PIP normal normal DIP normal normal Knee normal normal Ankle normal normal Foot normal normal Normal Hip ROM: yes Swollen Joints: 0 Trigger/ tender Points; Tight Muscle Groups: yes tight hamstrings. Normal vibr sensation LE. Imaging: Assessment Myofascial pain Plan Hamstring stretches See me 6 mos documented in this encounter Plan of Treatment Not on file documented as of this encounter Visit Diagnoses Diagnosis Myofascial pain- Primary Mylagia and myositis, unspecified documented in this encounter
--- OUTSIDE RECORDS SUMMARY | 2024-06-25 01:28 | XMS_ITS | Encounter Summary ---
Author Organization [facility] Address [address] [facility] [place] [address] Care Team Providers Care Writer Name Role Phone Unavailable Primary Care Provider Unavailabl e Reason for Visit * Reason Comments Follow-up 6mths Encounter Details Date Type Department Care Team (Late st Contact Info) Description 04/21/2010 3:15 PM CDT Office Visit [facility] - Rheumatology [address] [place] [phone] Grupo Moura MD [address] [place] [address] [phone] Myofascial pain (Primary Dx); Carpal tunnel syndrome; Unspecified essential hypertension Social History Tobacco Use Types Packs/Day Years [...] Reading Time Taken Comments Blood Pressure 138/78 04/21/2010 3:43 PM CDT Pulse 76 04/21/2010 3:43 PM CDT Temperature - - Respiratory Rate - - Oxygen Saturation - - Inhaled Oxygen Concentration - - Weight 76.9 kg (169 lb 9.6 oz) 04/21/2010 3:43 P M CDT Height - - Body Mass Index 34.26 04/06/2009 3:10 PM CDT documented in this encounter Progress Notes * Grupo Moura MD - 04/21/2010 3:45 PM CDT Subjective: Stiffness: lasts few History Intermittent pain in soles of feet and lower back. Intermittent sharp pains in L hand and L foot x past month. Pains last seconds. In general doing very well. No recent ASAD Review of Systems Fever: - Rash: - Raynaud's: - Nodules: + Med Side Effects: - Hair Loss: - Diff. swallowing: - Dry Eyes: - Dry Mouth: - Takes Meds: + Depression: + Swelling: + Smoke: - ETOH: - Sx: + Chest Pain: - Dyspnea: - GI Sx: + Elaborate on positives: Nodules on L hand Swelling in ankles Lower abd pain; she attributes to bladder Intermittent bloating & constipation Health Assessment Questionnaire MHAQ: 1.7 Pain: 2 Global: 1 Rapid 3: 4.7 Sleep: 4.5 GI: 3 Fatigue: 5 Objective: BP 138/78 Pulse 76 Wt 169 lb 9.6 oz (76.93 kg) General: alert, cooperative, no distress Skin: Rash - Nodes/ Nodules: - Lungs: clear to auscultation bilaterally Heart: regular rate and rhythm, S1, S2 normal, no murmur, click, rub or gallop. Pulses OK. Trace LEedema Abdomen: exam not performed Tinel???s Test +: Right: no Left: + Joint Review Right Left Shoulder Normal Normal Elbow Normal Normal Wrist Normal Normal MCP Normal Normal PIP Normal Normal DIP Normal Normal Knee Normal Normal Ankle Normal Normal Foot Normal Normal Normal Hip ROM: yes Swollen Joints: 0 Trigger/ tender Points; Tight Muscle Groups: no Imaging: Assessment HBP Likely has early CTS on L Edema Plan Will encourage low Na diet See me yearly documented in this encounter Plan of Treatment Not on file documented as of this encounter Visit Diagnoses Diagnosis Myofascial pain- Primary Mylagia and myositis, unspecified Carpal tunnel syndrome Unspecified essential hypertension documented in this encounter
--- OUTSIDE RECORDS SUMMARY | 2024-06-25 01:28 | XMS_ITS | Encounter Summary ---
Author Organization [facility] Address [address] [place] [address] Care Team Providers Care Road Cleaner Name Role Phone Unavailable Primary Care Provider Unavailabl e Reason for Visit * Reason Onset Date Comments MEDICATION REFILL 10/11/2010 Encounter Details Date Type Department Care Team (Late st Contact Info) Description 10/11/2010 Refill [facility] Medical [facility] - Rheumatology [address] [place] [phone] Grupo Moura MD [address] [place] [address] [phone] MEDICATION REFILL Social History Tobacco Use Types [...] encounter Miscellaneous Notes * Telephone Encounter - Patricia Odom MA - 10/11/2010 2:11 PM CDT Pt called back [facility] then we mailed her a script for her to sendout to [facility] home delivery. * Telephone Encounter - Divine Cates - 10/11/2010 9:44 AM CDT LM for patient to call office. Have rec'd 2 different refill request forms for her prescription of Soma 350 mg. Just need to know which pharmacy would she like her prescription e-scribed to either [facility] home delivery or [facility]? documented in this encounter Plan of Treatment Not on file documented as of this encounter Visit Diagnoses Not on filedocumented in this encounter
--- OUTSIDE RECORDS SUMMARY | 2024-06-25 01:28 | XMS_ITS | Encounter Summary ---
Author Organization [facility] Address [address] [facility] [place] [address] Care Team Providers Care Medical Billing Associate Name Role Phone Unavailable Primary Care Provider Unavailabl e Reason for Visit * Reason Onset Date Comments MEDICATION REFILL 04/06/2011 Encounter Details Date Type Department Care Team (Late st Contact Info) Description 04/06/[address] [facility] Medical [facility] - Rheumatology [address] [place] [phone] Grupo Moura MD [address] [place] [address] [phone] MEDICATION REFILL Social History Tobacco Use Types [...] Telephone Encounter - Kimberly Huang RN - 04/06/2011 11:57 AM CDT Requested drug refills are approved. Mailed to pt * Telephone Encounter - Joyce Das - 04/06/2011 11:16 AM CDT Pt would like this script mailed to her. documented in this encounter Plan of Treatment Not on file documented as of this encounter Visit Diagnoses Not on filedocumented in this encounter
--- OUTSIDE RECORDS SUMMARY | 2024-06-25 01:28 | XMS_ITS | Encounter Summary ---
Author Organization [facility] Address [address] [facility] [place] [address] Care Team Providers Care Hospital Superintendent Name Role Phone Unavailable Primary Care Provider Unavailabl e Reason for Visit * Reason Onset Date Comments Results 05/17/2011 Encounter Details Date Type Department Care Team (Late st Contact Info) Description 05/17/2011 Telephone [facility] - Rheumatology [address] [place] [address] 69704 Grupo Moura MD [address] [place] [address] [phone] Results Social History Tobacco Use Types Packs/Day [...] Telephone Encounter - Francisca Cook LPN - 05/17/2011 3:28 PM CST Results and notes given. Will send refill of prednisone since she's almost out. She said she's doing a little better, but will call if not better and see Dr. Moura. She has appt end of [facility] repeat lab if needed. YARD OPERATOR documented in this encounter Plan of Treatment Not on file documented as of this encounter Visit Diagnoses Diagnosis Seronegative arthritis- Primary Other specified arthropathy, site unspecified documented in this encounter
--- OUTSIDE RECORDS SUMMARY | 2024-06-25 01:28 | XMS_ITS | Encounter Summary ---
Author Organization [facility] Address [address] [place] [address] Care Team Providers Care Campus Manager Name Role Phone Unavailable Primary Care Provider Unavailabl e Encounter Details Date Type Department Care Team (Late st Contact Info) Description 08/12/2011 Orders Only [facility] - Rheumatology [address] [place] [phone] Grupo Moura MD [address] [place] [address] [phone] Medication monitoring encounter Social History Tobacco Use [...]
--- OUTSIDE RECORDS SUMMARY | 2024-06-25 01:28 | XMS_ITS | Encounter Summary ---
Author Organization [facility] Address [address] [facility] [place] [address] Care Team Providers Care Fine Arts Instructor Name Role Phone Unavailable Primary Care Provider Unavailabl e Reason for Visit * Reason Comments Follow-up Encounter Details Date Type Department Care Team (Late st Contact Info) Description 05/13/2011 9:20 AM CDT Office Visit [facility] Medical [facility] - Rheumatology [address] [place] [address] [phone] Grupo Moura MD [address] [place] [address] [phone] Myofascial pain (Primary Dx); Seronegative arthritis Social History Tobacco Use Types [...] Sign Reading Time Taken Comments Blood Pressure 120/76 05/13/2011 9:26 AM CDT Pulse 92 05/13/2011 9:26 AM CDT Temperature - - Respiratory Rate - - Oxygen Saturation - - Inhaled Oxygen Concentration - - Weight - - Height - - Body Mass Index - - documented in this encounter Progress Notes * Kimberly Huang RN - 05/17/2011 8:56 AM CSTQuick Note: LMOR for pt to return call; also sent [employer] msg. IER HOST/HOSTESS * Grupo Moura MD - 05/16/2011 1:41 PM CSTQuick Note: Markedly elevated CRP. Will need more testing; for now we need to know if steroids helped. If she'sbetter will need to stay at 10 MG until CRP comes down and sx improve. See me 4 weeks if she has done better; sooner if no better. CC PCP. IER HOST/HOSTESS * Grupo Moura MD - 05/13/2011 9:27 AM CDT Subjective: Stiffness: lasts 30-60 History Sharp, stabbing pains in feet. Constant pain in neck; worse at HS. She would like steroid injection; noted improvement with previous injections. Had blood tests done in September because of hypoglycemia. Review of Systems Fever: - Rash: - Raynaud's: - Nodules: - Med Side Effects: - Hair Loss: - Diff. swallowing: + Dry Eyes: + Dry Mouth: + Takes Meds: + Depression: + Swelling: - Smoke: - ETOH: - Sx: - Chest Pain: - Dyspnea: - GI Sx: + Elaborate on positives: Swollen glands Occasional constipation RHEUM VITALS 04/21/2010 12/03/2010 05/13/2011 BP 138/78 120/70 120/76 Pulse 76 81 92 Wgt 169 lbs 10 oz 162 lbs - RHEUM GENA 09/28/2009 04/21/2010 12/03/2010 MHAQ 0.7 1.7 1.3 Pain 1.5 2 7 Global 0.5 1 2 Rapid 3 2.7 4.7 10.3 Sleep 0 4.5 10 GI 0.5 3 1 Fatigue 2 5 10 Tender Joints 0 0 0 Swollen Joints 0 0 0 Global 1 2 2 Health Assessment Questionnaire MHAQ: 1 Pain: 7 Global: 7 Rapid 3: 15 Sleep: 9.5 GI: 8.5 Fatigue: 9 Objective: BP 120/76 Pulse 92 General: alert; cooperative; tearful. Skin: Rash - Nodes/ Nodules: - Lungs: clear to auscultation bilaterally. Heart: regular rate and rhythm. S1, S2 normal. No murmur, click, rub or gallop.. Pulses OK. No edema Abdomen: soft without [...] Tight Muscle Groups: yes traps Imaging: Assessment Myofascial pain Seronegative arthritis Plan CBC CRP RF VAL Add 5 day trial of prednisone 10 MG OD Will call her with suggestions documented in this encounter Plan of Treatment Not on file documented as of this encounter Procedures Procedure Name Priority Date/Time Associated Diagnosis Comments RHEUMATOID FACTOR BLOOD QUANTITATIVE Routine 05/13/2011 9:48 AM CDT Seronegative arthritis C-REACTIVE PROTEIN Routine 05/13/2011 9: 48 AM CDT Seronegative arthritis VAL BLOOD SCREEN W/REFLEX TITER Routine 05/13/2011 9:48 AM CDT Seronegative arthritis CBC W AUTO DIFFERENTIAL Routine 05/13/2011 9:48 AM CDT Seronegative arthritis CK BLOOD Routine 05/13/2011 9:48 AM CDT Seronegative arthritis documented in this encounter Results * CK BLOOD (05/13/2011 9:48 AM CDT) CK 42 24 - 173 U/L [facility] ACCOUNT BILL Blood specimen (specimen) BLOOD SPECIMEN / Unknown 05/13/2011 9:48 AM CDT 05/13/2011 9:49 PM CDT Narrative Resulting Agency Comment [facility] [address] ??[facility] [id number] Grupo Moura MD LAB - CHEMISTRY O RDERABLES [facility] ACCOUNT BILL * VAL BLOOD SCREEN W/REFLEX TITER (05/13/2011 9:48 AM CDT) VAL Negative [facility] ACCOUNT BILL Comment: ?Negative ?? <1:80 ?Borderline ??1:80 ?Positive ?? >1:80 Blood specimen (specimen) BLOOD SPECIMEN / Unknown 05/13/2011 9:48 AM CDT 05/13/2011 9:49 PM CDT Narrative Resulting Agency Comment [facility] [place] [address] ??[place] [phone] Grupo Moura MD LAB - CHEMISTRY O MARLYN Performing Organization Address [facility] de Phone Number [facility] ACCOUNT BILL * (ABNORMAL) C-REACTIVE PROTEIN (05/13/2011 9:48 AM CDT) C-Reactive Protein 30.1(H) 0.0 - 4.9 mg/L [facility] ACCOUNT BILL Blood specimen (specimen) BLOOD SPECIMEN / Unknown 05/13/2011 9:48 AM CDT 05/13/2011 9:49 PM CDT Narrative Resulting Agency Comment [facility] [address] ??[place] [phone] Grupo Moura MD LAB - CHEMISTRY O RDERABLES Performing Organization Address [facility] de Phone Number [facility] ACCOUNT BILL * RHEUMATOID FACTOR BLOOD QUANTITATIVE (RF) (05/13/2011 9:48 AM CDT) Rheumatoid Factor 6.3 0.0 - 13.9 IU/mL [facility] ACCOUNT BILL Blood specimen (specimen) BLOOD SPECIMEN / Unknown 05/13/2011 9:48 AM CDT 05/13/2011 9:50 PM CDT Narrative Resulting Agency Comment [facility] [address] ??[facility] [id number] Authorizing Provider Result Case Moura MD LAB - CHEMISTRY O RDERABLES [facility] ACCOUNT BILL * CBC W AUTO DIFFERENTIAL (05/13/2011 9:48 AM CDT) WBC 10.5 4.0 - 10.5 x10E3/uL [facility] ACCOUNT BILL RBC 4.31 3.80 - 5.10 x10E6/uL [facility] ACCOUNT BILL Hemoglobin 12.6 11.5 - 15.0 g/dL [facility] ACCOUNT BILL Hematocrit 37.4 34.0 - 44.0 % [facility] ACCOUNT BILL MCV 87 80 - 98 fL [facility] ACCOUNT BILL MCH 29.2 27.0 - 34.0 pg [facility] ACCOUNT BILL MCHC 33.7 32.0 - 36.0 g/dL [facility] ACCOUNT BILL RDW 13.4 11.7 - 15.0 % [facility] ACCOUNT BILL Platelet Count 328 140 - 415 x10E3/uL [facility] ACCOUNT BILL Granulocytes % 63 40 - 74 % [facility] ACCOUNT BILL Lymphocytes % 23 14 - 46 % [facility] Monocytes % 9 4 - 13 % [facility] ACCOUNT BILL Eosinophils % 4 0 - 7 % [facility] ACCOUNT BILL Basophils % 1 0 - 3 % [facility] ACCOUNT BILL Immature Cells NOT NEEDED [facility] ACCOUNT BILL Comment:Ancillary determined the test is not needed Granulocytes Absolute 6.6 1.8 - 7.8 x10E3/uL [facility] ACCOUNT BILL Lymphocytes Absolute 2.4 0.7 - 4.5 x10E3/uL [facility] ACCOUNT BILL Monocytes Absolute 1.0 0.1 - 1.0 x10E3/uL [facility] ACCOUNT BILL Eosinophils Absolute 0.4 0.0 - 0.4 x10E3/uL [facility] ACCOUNT BILL [...] Blood specimen (specimen) BLOOD SPECIMEN / Unknown 05/13/2011 9:48 AM CDT 05/13/2011 9:50 PM CDT Narrative Resulting Agency Comment [facility] [place] [id number] [facility] ??[facility] [phone] Authorizing Provider Result Case Moura MD LAB - HEMATOLOGY ORDERABLES [facility] ACCOUNT BILL documented in this encounter Visit Diagnoses Diagnosis Myofascial pain- Primary Mylagia and myositis, unspecified Seronegative arthritis Other specified arthropathy, site unspecified documented in this encounter
--- OUTSIDE RECORDS SUMMARY | 2024-06-25 01:28 | XMS_ITS | Encounter Summary ---
Author Organization [facility] Address [address] [facility] [place] [address] Care Team Providers Care Flexographic Press Operator Name Role Phone Unavailable Primary Care Provider Unavailabl e Reason for Visit * Reason Onset Date Comments General 07/15/2011 Encounter Details Date Type Department Care Team (Late st Contact Info) Description 07/15/2011 Telephone [facility] - Rheumatology [address] [place] [address] [phone] Grupo Moura MD [address] [place] [address] [phone] General Social History Tobacco Use Types Packs/Day [...] Telephone Encounter - Kimberly Huang RN - 07/15/2011 11:52 AM DIABETES TRAINER Pt scheduled for OV 07/21. Sent rx for prednisone 7.5 mg; she had stopped taking it when rx ran out. ETES TRAINER * Telephone Encounter - Grupo Moura MD - 07/15/2011 10:58 AM DIABETES TRAINER I'm afraid we need to document more. The last note (May) says that we should stay on prednisone and get more testing; no comments on what has happened since then. OK for prednisone 7.5 MG OD; will need OV and consider MTX. ETES TRAINER * Telephone Encounter - Melinda Minor - 07/15/2011 10:06 AM CST Pt c/o aches and pains and hurting all over body. Just stopped prednisone and all of the symptoms are back as they were before. Pt is requesting something, for these problems. She is out of Tramadol and all meds. ETES TRAINER documented in this encounter Plan of Treatment Not on file documented as of this encounter Visit Diagnoses Diagnosis Seronegative arthritis- Primary Other specified arthropathy, site unspecified documented in this encounter
--- OUTSIDE RECORDS SUMMARY | 2024-06-25 01:28 | XMS_ITS | Encounter Summary ---
Author Organization [facility] Address [address] [facility] [place] [address] Care Team Providers Care Labor Relations Or Personnel Negotiator Name Role Phone Unavailable Primary Care Provider Unavailabl e Reason for Visit * Reason Onset Date Comments MEDICATION REFILL 08/10/2009 Encounter Details Date Type Department Care Team (Late st Contact Info) Description 08/10/2009 Refill [facility] Medical [facility] - Rheumatology [address] [place] [address] [phone] Grupo Moura MD [address] [place] [address] [phone] MEDICATION REFILL Social History Tobacco Use Types [...] Telephone Encounter - Patricia Odom MA - 08/10/2009 2:52 PM STOPE MINER Pt called we need to [facility] for this med and send a 3 month in the mail to her. Isac has 3 tabs left so she wont have enough left. She does the [employer] [facility] mail so she wont have enough pills till then so we need to call in 1 to the pharmacy. E MINER documented in this encounter Plan of Treatment Not on file documented as of this encounter Visit Diagnoses Not on filedocumented in this encounter
--- OUTSIDE RECORDS SUMMARY | 2024-06-25 01:28 | XMS_ITS | Encounter Summary ---
Author Organization [facility] Address [address] [facility] [place] [address] Care Team Providers Care Veneer Supervisor Name Role Phone Unavailable Primary Care Provider Unavailabl e Reason for Visit * Reason Onset Date Comments MEDICATION REFILL 10/11/2010 Encounter Details Date Type Department Care Team (Late st Contact Info) Description 10/11/2010 Refill [facility] Medical [facility] - Rheumatology [address] [place] [phone] Grupo Moura MD [address] [place] [address] [phone] MEDICATION REFILL Social History Tobacco Use Types [...] encounter Miscellaneous Notes * Telephone Encounter - Divine Cates - 10/11/2010 9:00 AM CDT Prescription was refilled on 10/05/2010. rec'd 2nd notice of refill request from pharmacy. documented in this encounter Plan of Treatment Not on file documented as of this encounter Visit Diagnoses Not on filedocumented in this encounter
--- OUTSIDE RECORDS SUMMARY | 2024-06-25 01:28 | XMS_ITS | Encounter Summary ---
Author Organization [facility] Address [address] [facility] [place] [address] Care Team Providers Care Stationary Engineer Apprentice Name Role Phone Unavailable Primary Care Provider Unavailabl e Encounter Details Date Type Department Care Team (Late st Contact Info) Description 07/29/[address] [facility] - Rheumatology [address] [place] [phone] Grupo Moura MD [address] [place] [address] [phone] Medication monitoring encounter Social History Tobacco Use [...]
--- OUTSIDE RECORDS SUMMARY | 2024-06-25 01:28 | XMS_ITS | Encounter Summary ---
Author Organization [facility] Address [address] [place] [address] Care Team Providers Care Loom Control Chain Builder Name Role Phone Unavailable Primary Care Provider Unavailabl e Reason for Visit * Reason Comments Pain Neck left arm left side c hest. Results of mri of spine Dx b ulding disc Nausea Encounter Details Date Type Department Care Team (Late st Contact Info) Description 09/26/2008 11:30 AM CDT Office Visit [facility] Medical [facility] - Rheumatology [address] [place] [address] [phone] Grupo Moura MD [address] [place] [address] [phone] Myofascial Pain (Primary Dx); Leg Cramps Social History Tobacco Use Types Packs/Day Years [...] Reading Time Taken Comments Blood Pressure 120/70 09/26/2008 12:01 PM CDT Pulse 76 09/26/2008 12:01 PM CDT Temperature - - Respiratory Rate - - Oxygen Saturation - - Inhaled Oxygen Concentration - - Weight 74.4 kg (164 lb) 09/26/2008 12:01 PM CDT Height - - Body Mass Index - - documented in this encounter Progress Notes * Grupo Moura MD - 09/26/2008 12:07 PM CDT Anjali Rodriguez 53 y.o. female Chief Complaint Patient presents with ??? Pain Neck left arm left side chest. ??? Results of mri of spine Dx bulding disc ??? 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 Also complains of knot behid R knee. Back of leg aches BP 120/70 Pulse 76 Wt 74.39 kg (164 lb) Subjective: Sleep: 7 Pain: 7 Fatigue: several Stiffness yes: 1 hr Review of Systems Fever: - Rash: + Raynaud's: - Nodules: - Med Side Effects: - Diff. swallowing: - Dry Eyes: - Dry Mouth: - Takes Meds: + Depression: - Swelling: - Smoke: - EtOH: - Objective: BP 120/70 Pulse 76 Wt 74.39 kg (164 lb) General: al2ert, cooperative, no distress Skin: Lungs: Rash - clear to auscultation bilaterally Heart: regular rate and rhythm, S1, S2 normal, no murmur, click, rub or gallop Abdomen: soft without mass, non-tender, with normal bowel sounds Swollen joints: 0 Tinel???s Test +: Right: not done Left: not done Joint Review Left Right Shoulder normal normal Elbow normal normal Wrist normal normal MCP normal normal PIP normal normal DIP normal normal Knee normal Crepitus; tender hamstring insertion Ankle normal normal Foot normal normal Normal Hip ROM: yes Assessment: Myofascial pain DDD neck Muscle tightness R knee Plan: Injected L traps with DM 30 Lido 2c Neck and knee exercise/ stretch documented in this encounter Plan of Treatment Not on file documented as of this encounter Visit Diagnoses Diagnosis Myofascial pain- Primary Mylagia and myositis, unspecified Leg cramps Cramp of limb documented in this encounter
--- OUTSIDE RECORDS SUMMARY | 2024-06-25 01:28 | XMS_ITS | Encounter Summary ---
Author Organization [facility] Address [address] [facility] [place] [address] Care Team Providers Care Cigarette Making Examiner Name Role Phone Unavailable Primary Care Provider Unavailabl e Reason for Visit * Reason Onset Date Comments MEDICATION REFILL 10/05/2010 Encounter Details Date Type Department Care Team (Late st Contact Info) Description 10/05/2010 Refill [facility] Medical [facility] - Rheumatology [address] [place] [phone] Grupo Moura MD [address] [place] [address] [phone] MEDICATION REFILL Social History Tobacco Use Types [...] * Telephone Encounter - Divine Cates - 10/05/2010 4:28 PM CDT Requested drug refills are approved. DOMINIC 04/21/2010 * Telephone Encounter - Melinda Minor - 10/05/2010 4:15 PM CDT [facility] order. documented in this encounter Plan of Treatment Not on file documented as of this encounter Visit Diagnoses Not on filedocumented in this encounter
--- OUTSIDE RECORDS SUMMARY | 2024-06-25 01:28 | XMS_ITS | Encounter Summary ---
Author Organization [facility] Address [address] [facility] [place] [address] Care Team Providers Care Wood Planer Name Role Phone Unavailable Primary Care Provider Unavailabl e Reason for Visit * Reason Comments Follow-up Encounter Details Date Type Department Care Team (Late st Contact Info) Description 12/03/2010 2:30 PM CDT Office Visit [facility] Medical [facility] - Rheumatology [address] [place] [phone] Grupo Moura MD [address] [place] [address] [phone] Myofascial pain (Primary Dx) Social History Tobacco Use Types [...] Reading Time Taken Comments Blood Pressure 120/70 12/03/2010 2:54 PM CDT Pulse 81 12/03/2010 2:54 PM CDT Temperature - - Respiratory Rate - - Oxygen Saturation - - Inhaled Oxygen Concentration - - Weight 73.5 kg (162 lb) 12/03/2010 2:54 PM CDT Height - - Body Mass Index 32.72 04/06/2009 3:10 PM CDT documented in this encounter Progress Notes * Grupo Moura MD - 12/03/2010 2:58 PM CDT Subjective: PCP Dr. Savage Hand films two years ago Stiffness lasts 30 History She has a sharp pain in her left hand. Bottom of feet burn. Pain in lower back and neck that gets worse at night. Her main concern is her left knee. It aches and seems like it catches and that something slips. She is having a fibromyalgia flare up for the past week. She is taking tramadol that alleviates some of the pain. She is waking up during the night with back pain and has tried taking Soma, but gets little relief. She also is having pain in her tailbone that sometimes radiates to her feet. Dr. Savage has referred her to Dr. Beckford, a neurologist . Had an attack of athlete's foot that got bacterial infection. This has cleared. Has eczema. Two spells of feeling absence at work; told that she had TIA but all vascular studies were OK. Review of Systems Fever: - Rash: - Raynaud's: - Nodules: - Med Side Effects: - Hair Loss: - Diff. swallowing: - Dry Eyes: - Dry Mouth: - Takes Meds: + Depression: + Swelling: - Smoke: - ETOH: - Sx: - Chest Pain: - Dyspnea: - GI Sx: + Elaborate on positives: occasional constipation RHEUM VITALS 09/28/2009 04/21/2010 12/03/2010 BP 146/84 138/78 120/70 Pulse 68 76 81 Wgt 168 lbs 169 lbs 10 oz 162 lbs RHEUM GENA 09/28/2009 04/21/2010 12/03/2010 MHAQ 0.7 1.7 1.3 Pain 1.5 2 7 Global 0.5 1 2 Rapid 3 2.7 4.7 10.3 Sleep 0 4.5 10 GI 0.5 3 1 Fatigue 2 5 10 Tender Joints 0 0 0 Swollen Joints 0 0 0 Global 1 2 2 Health Assessment Questionnaire MHAQ: 1.3 Pain: 7 Global: 2 Rapid 3: 10.3 Sleep: 10 GI: 1 Fatigue: 10 Tender Joints: 0 Swollen Joints: 0 MD GLOBAL: 2 Objective: BP 120/70 Pulse 81 Wt 162 lb (73.483 kg) General: alert; cooperative; no distress. Skin: Rash - Nodes/ Nodules: - Lungs: clear to auscultation bilaterally. Heart: regular rate and rhythm. S1, S2 normal. No murmur, click, rub or gallop.. Pulses OK. No edema Abdomen: exam not performed Tinel???s Test +: Right: not done Left: not done Joint Review Right Left Shoulder Normal Normal Elbow Normal Normal Wrist Normal Normal MCP Normal Normal PIP Normal Normal DIP Normal Normal Knee Normal Normal Ankle Normal Normal Foot Normal Normal Normal Hip ROM: yes Swollen Joints: 0 Trigger/ tender Points; Tight Muscle Groups: yes quads and IT bands Imaging: Assessment May have had migraines Myofascial pain Plan Instructed on stretches Increase Soma to 1 1/2 tabs 2 hours before bedtime See me if no better documented in this encounter Plan of Treatment Not on file documented as of this encounter Visit Diagnoses Diagnosis Myofascial pain- Primary Mylagia and myositis, unspecified documented in this encounter
--- OUTSIDE RECORDS SUMMARY | 2024-06-25 01:28 | XMS_ITS | Clinical Summary ---
Author Organization [facility] Address [address] [place] [address]. [place], [place] [address] [place] [address] Care Team Providers Care Associate Of Science In Nursing Name Role Phone David Savage MD Primary Care Provider [phone] Social History Tobacco Use Types Packs/Day Years Used Date Smoking Tobacco: Never Assessed Comments Unknown Sex and Gender Information Value Date Recorded Sex Assigned at Not on file Legal Sex Female 10:07 AM CDT Gender Identity Not on file Sexual Orientation Not on file Plan of Treatment Health Maintenance Due Date Last Done Comments Colorectal Cancer Screening Colonoscopy (10 Years) 1955 Hepatitis C 1973 DTaP, Tdap and Td Vaccines (1 - Tdap) 1974 Mammogram Screening 1995 Zoster Vaccines (2 of 2) 07/14/2019 05/19/2019 Annual Medicare Wellness Visit 2020 Pneumococcal Vaccine: 65+ Years (2 of 2 - PPSV23 or PCV20) 2020 03/19/2019 COVID-19 Vaccine ( season) 2024 05/06/2022, 05/28/2021, 09/30/2020, Additional history exists Influenza Adult (#1) 2024 03/09/2020, 03/19/2019, 04/25/2018, Additional history exists Dexa Scan (General) Completed 04/04/2018 RSV Immunization or 60+ Years Completed 06/06/2023 Meningococcal Vaccine Aged Out No cathryn aliyah eligible based on patient's age to complete this topic RSV Immunizations Under 20 Months Aged Out No longer eligible based on patient's age to complete this topic Insurance MEDICARE Care Teams Associate Of Science In Nursing Relationship Specialty Start Date End Date David Savage MD [address] - [facility] [address] [place] [address] PCP - General INTERNAL MEDICINE 03/13/24
--- OUTSIDE RECORDS SUMMARY | 2024-06-25 01:28 | XMS_ITS | Encounter Summary ---
Author Organization [facility] Address [address] [facility] [place] [address] Care Team Providers Care J2Ee Consultant Name Role Phone Unavailable Primary Care Provider Unavailabl e Reason for Visit * Reason Onset Date Comments Pain Neck 09/24/2008 Encounter Details Date Type Department Care Team (Late st Contact Info) Description 09/24/2008 Telephone [facility] - Rheumatology [address] [place] [address] Grupo Moura MD [address] [place] [address] Pain Neck Social History Tobacco Use Types Packs/Day Years Used Date Smoking Tobacco: Never Assessed Sex and Gender Information Value Date Recorded Sex Assigned at Not on file Gender Identity Not on file Sexual Orientation Not on file documented as of this encounter Miscellaneous Notes * Telephone Encounter - Marilin Christian MA - 09/25/2008 10:02 AM CDT SCHED APPOINT TOMORROW AT 11:45 * Telephone Encounter - Grupo Moura MD - 09/24/2008 6:09 PM CDT Have pt. Come in 11:45 tomorrow. * Telephone Encounter - Rahel Vela - 09/24/2008 4:19 PM CDT PT HAVING NECK PAIN WANT TO KNOW IF DR WILL GIVE HER INJ HAD MRI (BULDGING DISK) documented in this encounter Plan of Treatment Not on file documented as of this encounter Visit Diagnoses Not on filedocumented in this encounter
--- OUTSIDE RECORDS SUMMARY | 2024-06-25 01:28 | XMS_ITS | Encounter Summary ---
Author Organization [facility] Address [address] [facility] [address] Care Team Providers Care Nondestructive Tester Name Role Phone Unavailable Primary Care Provider Unavailabl e Reason for Visit * Reason Comments Follow-up Encounter Details Date Type Department Care Team (Late st Contact Info) Description 04/06/2009 3:00 PM CDT Office Visit [facility] Medical [facility] - Rheumatology [address] [place] [address] Grupo Moura MD [address] [place] [address] Myofascial Pain (Primary Dx); Sleep Disturbance Social History Tobacco Use Types Packs/Day Years [...] Sign Reading Time Taken Comments Blood Pressure 116/78 04/06/2009 3:10 PM CDT Pulse 80 04/06/2009 3:10 PM CDT Temperature - - Respiratory Rate - - Oxygen Saturation - - Inhaled Oxygen Concentration - - Weight 74.4 kg (164 lb) 04/06/2009 3:10 PM CDT Height 149.9 cm (4' 11 ) 04/06/2009 3:10 PM CDT Body Mass Index 33.12 04/06/2009 3:10 PM CDT documented in this encounter Progress Notes * Grupo Moura MD - 04/06/2009 3:18 PM CDT Subjective: Stiffness 30 mins No pain today Fatigue Lump right side of mid back Right breast feels like a bubble moving aroung in it for about 6 weeks Review of Systems Fever: - Rash: - Raynaud's: - Nodules: - Med Side Effects: - Hair Loss: - Diff. swallowing: - Dry Eyes: - Dry Mouth: - Takes Meds: + Depression: - Swelling: + Smoke: - ETOH: - Sx: - Chest Pain: - Dyspnea: - GI Sx: + Elaborate on positives: Swelling feet every night GI Sx bloating, diarrhea or constipation (IBS) Health Assessment Questionnaire MHAQ: 2 Pain: 2 Global: 2 Rapid 3: 6 Sleep: 2 GI: 0 Fatigue: 5 ] Objective: BP 116/78 Pulse 80 Ht 1.499 m (4' 11 ) Wt 74.39 kg (164 lb) General: alert, cooperative, no distress Skin: Rash - Lipoma R lat chest; large Nodules: - Lungs: clear to auscultation bilaterally Heart: regular rate and rhythm, S1, S2 normal, no murmur, click, rub or gallop .Pulses OK.No edema Abdomen: obese Tinel???s Test +: Right: no Left: no Joint Review Right Left Shoulder normal normal Elbow normal normal Wrist normal normal MCP normal normal PIP normal normal DIP normal normal Knee normal normal Ankle normal normal Foot normal normal Normal Hip ROM: yes Swollen Joints: 0 Trigger/ tender Points; Tight Muscle Groups: yes Assessment: Myofascial pain; better Fatigue still a problem Lipoma Plan: Sleep study Consider Pro Chu if sleep is normal documented in this encounter Plan of Treatment Scheduled Orders Name Type Priority Associated Diagnoses Orde r Schedule POLYSOMNOGRAPHY Sleep Center Routine Sleep Disturbance Ordered: 04/06/2009 documented as of this encounter Visit Diagnoses Diagnosis Myofascial pain- Primary Mylagia and myositis, unspecified Sleep disturbance Sleep disturbance, unspecified documented in this encounter
--- OUTSIDE RECORDS SUMMARY | 2024-06-25 01:28 | XMS_ITS | Encounter Summary ---
Author Organization [facility] Address Formerly [facility] [place], [place] [address] [place] [address] Care Team Providers Care Termite Control Representative Name Role Phone David Savage MD Primary Care Provider [phone] Encounter Details Date Type Department Care Team (Latest Contact Info) Description 03/13/2024 Travel Social History Tobacco Use Types Packs/Day [...] Diagnoses Not on filedocumented in this encounter Care Teams Termite Control Representative Relationship Specialty Start Date End Date David Savage MD [address] [place] [id number] PCP - General INTERNAL MEDICINE 03/13/24 documented as of this encounter
--- OUTSIDE RECORDS SUMMARY | 2024-06-25 01:28 | XMS_ITS | Encounter Summary ---
Author Organization [facility] Address [address] [place] [address] Care Team Providers Care Case Mgr Name Role Phone Unavailable Primary Care Provider Unavailabl e Reason for Visit * Reason Onset Date Comments MEDICATION REFILL 08/25/2009 Encounter Details Date Type Department Care Team (Late st Contact Info) Description 08/25/2009 Refill [facility] Medical [facility] - Rheumatology [address] [place] [address] Grupo Moura MD [address] [place] [address] MEDICATION REFILL Social History Tobacco Use Types [...] encounter Miscellaneous Notes * Telephone Encounter - Laura Garcia MA - 08/25/2009 10:34 AM RECORDER OF DEEDS Patient needs the SOMA prescription mailed to her for mail order. She is requesting a 90day supply with refills. Please notify patient once mailed out. RDER OF DEEDS documented in this encounter Plan of Treatment Not on file documented as of this encounter Visit Diagnoses Not on filedocumented in this encounter
--- OUTSIDE RECORDS SUMMARY | 2024-06-25 01:28 | XMS_ITS | Encounter Summary ---
Author Organization [facility] Address [address] [facility] [place] [address] Care Team Providers Care Typing Element Machine Operator Name Role Phone Unavailable Primary Care Provider Unavailabl e Encounter Details Date Type Department Care Team (Late st Contact Info) Description 08/19/2011 Orders Only [facility] Medical [facility] - Rheumatology [address] [place] [address] Francisca Cook LPN Medication monitoring encounter [...] Progress Notes * Francisca Cook LPN - 09/07/2011 10:51 AM CSTQuick Note: Results sent via My Chart. Copy to Dr. Savage. LLERY DESIGNER * Grupo Moura MD - 08/19/2011 9:36 AM CSTQuick Note: OK. CC PCP. LLERY DESIGNER documented in this encounter Plan of Treatment Not on file documented as of this encounter Procedures Procedure Name Priority Date/Time Associated Diagnosis Comments CBC W AUTO DIFFERENTIAL Routine 08/18/2011 2:33 PM JEWELLERY DESIGNER Medication monitoring encounter documented in this encounter Results * (ABNORMAL) CBC W AUTO DIFFERENTIAL (08/18/2011 2:33 PM JEWELLERY DESIGNER) White Blood Cell Count 11.4(H) 3.8 - 10.8 Thousand/u L [facility] RBC 3.84 3.80 - 5.10 Million/uL [facility] Hemoglobin 12.1 11.7 - 15.5 g/dL [facility] Hematocrit 35.0 35.0 - 45.0 % [facility] MCV 91.3 80.0 - 100.0 fL [facility] MCH 31.5 27.0 - 33.0 pg [facility] MCHC 34.6 32.0 - 36.0 g/dL [facility] RDW 14.0 11.0 - 15.0 % [facility] Platelet Count 332 140 - 400 Thousand/u L [facility] Neutrophil Absolute 7319 1500 - 7800 cells/uL [facility] Lymphocytes Absolute 2896 850 - 3900 cells/uL [facility] Absolute Monocytes 832 200 - 950 cells/uL [facility] Eosinophils Absolute 285 15 - 500 cells/uL [facility] Basophils Absolute 68 0 - 200 cells/uL [facility] Granulocytes % 64.2 % [facility] Lymphocytes % 25.4 % [facility] Monocytes % 7.3 % [facility] Eosinophils % 2.5 % [facility] Basophils % 0.6 % [facility] Comment: Test Performed at: [facility] ??[id number] ALYSSA MILLER DO,MPH Blood specimen (specimen) BLOOD SPECIMEN / Unknown 08/18/2011 2:33 PM JEWELLERY DESIGNER 08/18/2011 2:36 PM JEWELLERY DESIGNER Narrative Authorizing Provider Result Case Moura MD LAB - HEMATOLOGY ORDERABLES [facility] [address] [place] [address] documented in this encounter Visit Diagnoses Diagnosis Medication monitoring encounter Encounter for therapeutic drug monitoring documented in this encounter
--- OUTSIDE RECORDS SUMMARY | 2024-06-25 01:28 | XMS_ITS | Encounter Summary ---
Author Organization [facility] Address [address] [place] [address]. [address] [address] Care Team Providers Care Economics Department Chair Name Role Phone David Savage MD Primary Care Provider [phone] Reason for Referral * Imaging (Routine) - Closed Specialty Diagnoses / Procedures Referred By Contac t Referred To Contact RADIOLOGY Diagnoses Screening, heart disease, ischemic Procedures CT HEART DIAG CALCIUM SCORE Harjinder Holley MD [address] [address] Phone: tel: fax: Referral ID Status Reason Start Date Expiration Date Visits Re quested Visits Authorized [id number] Closed 02/21/2024 02/21/2025 1 1 Reason for Visit * Imaging (Routine) - Closed Specialty Diagnoses / Procedures Referred By Maria Luz law Referred To Contact RADIOLOGY Diagnoses Screening, heart disease, ischemic Procedures CT HEART DIAG CALCIUM SCORE Harjinder Holley MD [address] [address] Phone: tel: fax: Referral ID Status Reason Start Date Expiration Date Visits Re quested Visits Authorized [id number] Closed 02/21/2024 02/21/2025 1 1 Encounter Details Date Type Department Care Team (Late st Contact Info) Description 03/13/2024 4:07 PM CDT - 03/13/2024 11:59 PM CDT Hospital Encounter [facility] [address] [place] [address] [address] Harjinder Holley MD [address] [place] [address] Discharge Disposition: Home or Self Care (Routine Discharge) Social History Tobacco Use Types Packs/Day Years [...] Procedure Name Priority Date/Time Associated Diagnosis Comments CT HEART DIAG CALCIUM SCORE Routine 03/13/2024 4:29 PM CDT Screening, heart disease, ischemic documented in this encounter Results * CT HEART DIAG CALCIUM SCORE (03/13/2024 4:29 PM CDT) Anatomical Region Laterality Modality Computed Tomogra phy 03/14/2024 12:1 0 AM CDT Impressions 03/14/2024 12:12 AM CDT IMPRESSION: ??The total calcium score for this patient is 220 which is suggestive of moderate coronary artery disease. The percentile ranking is between 75% and 90%. The Computed Tomography of the coronary arteries detected coronary calcifications. ??According to the current state of knowledge [1], coronary calcifications are a marker for coronary atherosclerosis. ??The more calcium is detected, the higher is the likelihood for an obstructive coronary disease. ??However there is no unique relationship between the amount of detected calcium and the extent or localization of this disease. ??The amount of calcium is closely correlated with the extent of coronary atherosclerosis, although the true plaque burden is underestimated. ??With a high amount of coronary calcium, a moderate to high risk of a cardiovascular event within the next 2 to 5 years can be assumed. ?? Referred By: HARJINDER HOLLEY Interpreted By: Cristopher Goodman DO 03/14/2024 12:10 AM Narrative 03/14/2024 12:12 AM CDT [place] [address] CT CORONARY CALCIUM SCORE COMPARISON: ??None. TECHNIQUE: ??High-resolution ECG synchronized Computed Tomography of the heart with attention to the coronary arteries was performed using Siemens HeartView CT. ??Coronary calcification was analyzed using Siemens calcium scoring software. A dose lowering technique was used for this procedure, which may include, but is not limited to, dose reduction technique, automated exposure control, the use of degenerative reconstruction, and ALARA/image gently techniques. These are the results of the evaluation: ANATOMIC FINDINGS: The overall size of the heart appears normal. No pericardial effusion is seen. No pathologic adenopathy is noted within the mediastinum or shirley. Visualized pulmonary windows reveal the lungs to be clear. No significant pulmonary nodules, areas of consolidation, or pleural fluid are present. FINDINGS: (LM) Left Main ??0.0 (LAD) Left Anterior Descending 126 (CX) Circumflex 0.354 (RCA) Right Coronary Artery 93.6 Total Calcium Score: ??220 which means moderate calcification. Procedure Note Cristopher Goodman DO - 03/14/[address] [address] [address] CORONARY CALCIUM SCORE COMPARISON: None. TECHNIQUE: High-resolution ECG synchronized Computed Tomography of theheart with attention to the coronary arteries was performed using BeautifiedView CT. Coronary calcification was analyzed using Siemens calciumscoring software. A dose lowering technique was used for this procedure, which may include,but is not limited to, dose reduction technique, automated exposurecontrol, the use of degenerative reconstruction, and ALARA/image gentlytechniques. These are the results of the evaluation: ANATOMIC FINDINGS: The overall size of the heart appears normal. No pericardial effusion isseen. No pathologic adenopathy is noted within the mediastinum or shirley. Visualized pulmonary windows reveal the lungs to be clear. No significantpulmonary nodules, areas of consolidation, or pleural fluid are present. FINDINGS: (LM) Left Main 0.0 (LAD) Left Anterior Descending 126 (CX) Circumflex 0.354 (RCA) Right Coronary Artery 93.6 Total Calcium Score: 220 which means moderate calcification. IMPRESSION: The total calcium score for this patient is 220 which issuggestive of moderate coronary artery disease. The percentile ranking isbetween 75% and 90%. The Computed Tomography of the coronary arteries detected coronarycalcifications. According to the current state of knowledge [1], coronarycalcifications are a marker for coronary atherosclerosis. The morecalcium is detected, the higher is the likelihood for an obstructivecoronary disease. However there is no unique relationship between theamount of detected calcium and the extent or localization of this disease.The amount of calcium is closely correlated with the extent of coronaryatherosclerosis, although the true plaque burden is underestimated.With a high amount of coronary calcium, a moderate to high risk of acardiovascular event within the next 2 to 5 years can be assumed. Referred By: HARJINDER HOLLEY Interpreted By: Cristopher Goodman DO, 03/14/2024 12:10 AM us Harjinder Holley MD CT Final Result documented in this encounter Visit Diagnoses Diagnosis Screening, heart disease, ischemic Screening for ischemic heart disease documented in this encounter Care Teams Economics Department Chair Relationship Specialty Start Date End Date David Savage MD [address] [facility] [address] [place] [address] PCP - General INTERNAL MEDICINE 03/13/24 documented as of this encounter
--- OUTSIDE RECORDS SUMMARY | 2024-06-25 01:28 | XMS_ITS | Encounter Summary ---
Author Organization [facility] Address [address] [facility] [place] [address] Care Team Providers Care Oil Well Cable Tool Operator Name Role Phone Unavailable Primary Care Provider Unavailabl e Reason for Visit * Reason Onset Date Comments Question 11/26/2009 Encounter Details Date Type Department Care Team (Late st Contact Info) Description 11/26/2009 Telephone [facility] Medical Group - Rheumatology [address] [place] [address] Grupo Moura MD [address] [place] [address] Question Social History Tobacco Use Types Packs/Day Years Used Date Smoking Tobacco: Never Alcohol Use Standard Drinks/Week Comments No 0 (1 standard drink = 0.6 oz pur e alcohol) Sex and Gender Information Value Date Recorded Sex Assigned at Not on file Gender Identity Not on file Sexual Orientation Not on file documented as of this encounter Miscellaneous Notes * Telephone Encounter - Grupo Moura MD - 11/26/2009 4:34 PM CDT I spoke to her. I reassured her. I suggested a stretching regimen; she will call back if she's no better. * Telephone Encounter - Lia Reeves MA - 11/26/2009 3:53 PM CDT Please call patient. * Telephone Encounter - Lia Reeves MA - 11/26/2009 3:50 PM CDT Patient called is having muscle pain on the R arm below the shoulder radiates down the R upper extremity. Patient had questions on what could cause this. Explained to patient it is hard to tell without seeing a doctor or running test. Patient states shewould wait this out did not want to go through testing. Explained to patient I would relay message to nurse or the doctor. Patient asked if it could be a medication causing it or her Fibromyalgia. Explained to patient that would be a good question for the pharmacy all medications have side effects but it is unlikely. Patient wanted to know if it could be fibromyalgia. Explained to her I would relay message to her nurse. documented in this encounter Plan of Treatment Not on file documented as of this encounter Visit Diagnoses Not on filedocumented in this encounter
--- OUTSIDE RECORDS SUMMARY | 2024-06-25 01:28 | XMS_ITS | Encounter Summary ---
Author Organization [facility] Address [address] [facility] [place] [address] Care Team Providers Care Associate Consulting Engineer Name Role Phone Unavailable Primary Care Provider Unavailabl e Reason for Visit * Reason Comments Follow-up Pain Encounter Details Date Type Department Care Team (Late st Contact Info) Description 07/21/2011 3:30 PM TELEPHONER Office Visit [facility] Medical [facility] - Rheumatology [address] [place] [id number] Grupo Moura MD [address] [place] [address] [id number] Seronegative arthritis (Primary Dx); Fatigue; Medication monitoring encounter Social History Tobacco Use [...] Sign Reading Time Taken Comments Blood Pressure 120/80 07/21/2011 3:25 PM TELEPHONER Pulse 84 07/21/2011 3:25 PM TELEPHONER Temperature - - Respiratory Rate - - Oxygen Saturation - - Inhaled Oxygen Concentration - - Weight 75.8 kg (167 lb) 07/21/2011 3:25 PM TELEPHONER Height - - Body Mass Index 33.73 04/06/2009 3:10 PM CDT documented in this encounter Progress Notes * Francisca Cook LPN - 07/26/2011 9:09 AM CSTQuick Note: Results given via My Chart. Copy to Dr. Savage. PHONER * Grupo Moura MD - 07/25/2011 10:45 AM CSTGeno Note: OK. Same plan. CC PCP. PHONER * Grupo Moura MD - 07/21/2011 3:28 PM CST Subjective: Stiffness: lasts 30-60 History Intermittent pain and tingling in hands, knees, elbows, and soles of feet. She has diffuse burning sensation. Pain improves with prednisone. When she took 10 mg she did not need tramadol. Review of Systems Fever: - Rash: - Raynaud's: - Nodules: - Med Side Effects: - Hair Loss: - Diff. swallowing: - Dry Eyes: - Dry Mouth: - Takes Meds: + Depression: + Swelling: + Smoke: - ETOH: - Sx: + Chest Pain: - Dyspnea: - GI Sx: - Elaborate on positives: LE swelling Dysuria; Dr Savage did blood work RHEUM VITALS 12/03/2010 05/13/2011 07/21/2011 BP 120/70 120/76 120/80 Pulse 81 92 84 Wgt 162 lbs - 167 lbs RHEUM GENA 12/03/2010 05/13/2011 07/21/2011 MHAQ 1.3 1 2.7 Pain 7 7 7 Global 2 7 4 Rapid 3 10.3 15 13.7 Sleep 10 9.5 6 GI 1 8.5 1 Fatigue 10 9 4 Tender Joints 0 - 0 Swollen Joints 0 - 0 Global 2 - 5 Health Assessment Questionnaire MHAQ: 2.7 Pain: 7 Global: 4 Rapid 3: 13.7 Sleep: 6 GI: 1 Fatigue: 4 Tender Joints: 0 Swollen Joints: 0 MD GLOBAL: 5 Objective: BP 120/80 Pulse 84 Wt 167 lb (75.751 kg) General: alert; [...] Muscle Groups: no Imaging: Assessment Seronegative arthritis with markedly elevated CRP; steroid responsive Paresthesias; doubt neuropathy Plan Add methotrexate 15 mg a week Hep screen CK sent Should have CBC done in 2 and 4 weeks See me 6 weeks PHONER documented in this encounter Plan of Treatment Scheduled Orders Name Type Priority Associated Diagnoses Orde r Schedule CBC W AUTO DIFFERENTIAL Lab Routine Medication monitoring encounter E-2Weeks for 2 Occurrences starting 07/21/2011 until 07/21/2012 documented as of this encounter Procedures Procedure Name Priority Date/Time Associated Diagnosis Comments URINALYSIS REFLEX MICROSCOPIC REFLEX CULTURE Routine 07/21/2011 3:59 PM TELEPHONER Seronegative arthritis URINE MICROSCOPIC ONLY Routine 07/21/2011 3:59 PM TELEPHONER Seronegative arthritis C-REACTIVE PROTEIN Routine 07/21/2011 3: 59 PM TELEPHONER Seronegative arthritis CULTURE URINE Routine 07/21/2011 3:59 PM TELEPHONER Seronegative arthritis CK BLOOD Routine 07/21/2011 3:59 PM TELEPHONER Seronegative arthritis HEPATITIS SCREEN ACUTE Routine 07/21/2011 3:59 PM TELEPHONER Fatigue documented in this encounter Results * CULTURE URINE (07/21/2011 3:59 PM TELEPHONER) Urine Culture Routine Final report [facility] ACCOUNT BILL Result 1 No growth [facility] ACCOUNT BILL BLOOD SPECIMEN / Unknown 07/21/2011 3:59 PM TELEPHONER 07/21/2011 10:03 PM TELEPHONER Narrative Resulting Agency Comment [facility] [address] ??[facility] [phone] Grupo Moura MD LAB - MICROBIOLOG Y ORDERABLES [facility] ACCOUNT BILL * (ABNORMAL) URINALYSIS MICROSCOPIC ONLY (07/21/2011 3:59 PM TELEPHONER) WBC UA 6-10(A) 0 - 5 /hpf [...] BLOOD SPECIMEN / Unknown 07/21/2011 3:59 PM TELEPHONER 07/21/2011 10:03 PM TELEPHONER Narrative Resulting Agency Comment [facility] [address] ??[facility] [phone] Grupo Moura MD LAB - URINALYSIS ORDERABLES [facility] ACCOUNT BILL * (ABNORMAL) URINALYSIS ROUTINE W/REFLEX TO CULTURE (07/21/2011 3:59 PM TELEPHONER) Specific [place] UA 1.014 1.005 - 1.030 [facility] ACCOUNT [...] BLOOD SPECIMEN / Unknown 07/21/2011 3:59 PM TELEPHONER 07/21/2011 10:03 PM TELEPHONER Narrative Resulting Agency Comment [facility] [place] [address] ??[facility] [phone] Grupo Moura MD LAB - URINALYSIS ORDERABLES [facility] ACCOUNT BILL * CK BLOOD (07/21/2011 3:59 PM TELEPHONER) CK 39 24 - 173 U/L [facility] ACCOUNT BILL Blood specimen (specimen) BLOOD SPECIMEN / Unknown 07/21/2011 3:59 PM TELEPHONER 07/21/2011 10:03 PM TELEPHONER Narrative Resulting Agency [facility] [address] ??[facility] [phone] Grupo Moura MD LAB - CHEMISTRY O RDERABLES [facility] ACCOUNT BILL * C-REACTIVE PROTEIN (07/21/2011 3:59 PM TELEPHONER) C-Reactive Protein 0.9 0.0 - 4.9 mg/L [facility] ACCOUNT BILL Blood specimen (specimen) BLOOD SPECIMEN / Unknown 07/21/2011 3:59 PM TELEPHONER 07/21/2011 10:03 PM TELEPHONER Narrative Resulting Agency Comment [facility] [address] ??[facility] [phone] Grupo Moura MD LAB - CHEMISTRY O RDERABLES [facility] ACCOUNT BILL * HEPATITIS SCREEN ACUTE (07/21/2011 3:59 PM TELEPHONER) Hepatitis A Virus Antibody IgM Negative Negative [...] BLOOD SPECIMEN / Unknown 07/21/2011 3:59 PM TELEPHONER 07/21/2011 10:03 PM TELEPHONER Narrative Resulting Agency Comment [facility] [place] [address] [place] ??[facility] [phone] Authorizing Provider Result Case Moura MD LAB - CHEMISTRY O RDERABLES [facility] ACCOUNT BILL documented in this encounter Visit Diagnoses Diagnosis Seronegative arthritis- Primary Other specified arthropathy, site unspecified Fatigue Other malaise and fatigue Medication monitoring encounter Encounter for therapeutic drug monitoring documented in this encounter
--- OUTSIDE RECORDS SUMMARY | 2024-06-25 01:29 | XMS_ITS | Encounter Summary ---
Author Organization [facility] Address [address] [place] [address] Phone Care Team Providers Care Foil Operator Name Role Phone David Savage MD Primary Care Provider [phone] Encounter Details Date Type Department Care Team (Late st Contact Info) Description 11/11/2022 Documentation [facility] Surgery [address] [facility] Advanced Medicine 5th [place] [address] [place] [address] Simone Miller Social History Tobacco Use Types Packs/Day Years Used Date Smoking Tobacco: Never Comments Unknown Sex and Gender Information Value Date Recorded Sex Assigned at Not on file Legal Sex 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 Records in review with Dr. Buck documented in this encounter Plan of Treatment Not on file documented as of this encounter Visit Diagnoses Not on filedocumented in this encounter Care Teams Foil Operator Relationship Specialty Start Date End Date David Savage MD [address] [facility] [address] [place] [address] PCP - General Internal Medicine 06/23/22 documented as of this encounter
--- OUTSIDE RECORDS SUMMARY | 2024-06-25 01:29 | XMS_ITS | Encounter Summary ---
Author Organization [facility] Address [address] [place] [address] Phone Care Team Providers Care Eye Surgeon Name Role Phone David Savage MD Primary Care Provider [phone] Encounter Details Date Type Department Care Team (Late st Contact Info) Description 12/12/2022 Telephone [facility] Surgery [address] 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 Based on NM review at [facility] last week, can proceed with hemithyroidectomy only. She was comfortable with this. She is think after mid- January. I think this is reasonable. documented in this encounter Plan of Treatment Not on file documented as of this encounter Visit Diagnoses Diagnosis Toxic adenoma- Primary Toxic uninodular goiter without mention of thyrotoxic crisis or storm documented in this encounter Care Teams Eye Surgeon Relationship Specialty Start Date End Date David Savage MD [address] [facility] [address] [facility] [address] [place] [address] PCP - General Internal Medicine 06/23/22 documented as of this encounter
--- OUTSIDE RECORDS SUMMARY | 2024-06-25 01:29 | XMS_ITS | Encounter Summary ---
Author Organization [facility] Address [address] [place] [address] Phone Care Team Providers Care Die Try Out Worker Name Role Phone David Savage MD Primary Care Provider [phone] Encounter Details Date Type Department Care Team (Late st Contact Info) Description 01/17/2023 Orders Only [facility] Surgery [address] 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 Gender Identity Not on file Sexual Orientation Not on file documented as of this encounter Plan of Treatment Not on file documented as of this encounter Procedures Procedure Name Priority Date/Time Associated Diagnosis Comments T3, FREE Routine 01/18/2023 12:33 PM CDT Hyperthyroidism TSH Routine 01/18/2023 12:33 PM CDT Hyperthyroidism T4, FREE Routine 01/18/2023 12:33 PM CDT Hyperthyroidism documented in this encounter Results * T4, free (01/18/2023 12:33 PM CDT) Free T4 1.1 0.8 - 1.8 ng/dL [facility] Blood 01/18/2023 12:3 3 PM CDT 01/18/2023 12:34 PM CDT Narrative [facility] - 01/19/2023 7:11 AM CDT FASTING:NO FASTING: NO us T.K. Brandon Buck MD LAB BLOOD ORDERABLES Fin al Result Performing Organization Address [facility]/ZIP Co de Phone Number [facility] [address] [place] [address] * T3, free (01/18/2023 12:33 PM CDT) Free T3 4.2 2.3 - 4.2 pg/mL [facility] Blood 01/18/2023 12:3 3 PM CDT 01/18/2023 12:34 PM CDT Narrative [facility] - 01/19/2023 7:11 AM CDT FASTING:NO FASTING: NO T.K. Brandon Buck MD LAB BLOOD ORDERABLES Fin al Result Performing Organization Address [facility] Co de Phone Number [facility] [address] [place] [address] * (ABNORMAL) TSH (01/18/2023 12:33 PM CDT) TSH 0.01(L) 0.40 - 4.50 mIU/L [facility] 01/18/2023 12:3 3 PM CDT 01/18/2023 12:34 PM CDT Narrative [facility] - 01/19/2023 7:11 AM CDT FASTING:NO FASTING: NO us T.Deidre. Brandon Buck MD LAB BLOOD ORDERABLES Fin al Result [facility] [address] [place] [address] documented in this encounter Visit Diagnoses Diagnosis Hyperthyroidism- Primary Thyrotoxicosis without mention of goiter or other cause, without mention of thyrotoxic crisis or storm documented in this encounter Care Teams Die Try Out Worker Relationship Specialty Start Date End Date David Savage MD [address] [place] [id number] PCP - General Internal Medicine 06/23/22 documented as of this encounter
--- OUTSIDE RECORDS SUMMARY | 2024-06-25 01:29 | XMS_ITS | Encounter Summary ---
Author Organization [facility] Address [address] [place] [address] Phone Care Team Providers Care Law Office Assistant Name Role Phone David Savage MD Primary Care Provider [phone] Encounter Details Date Type Department Care Team (Late st Contact Info) Description 02/02/2023 Orders Only [facility] Surgery [address] [facility] Advanced Medicine 5th [place] [address] [place] [address] Javi Buck MD [address] [facility] [address] [place], [place] [id number] Hyperthyroidism (Primary Dx) Social History Tobacco Use Types Packs/Day Years Used Date Smoking Tobacco: Never Personal Safety Answer Date Recorded Have you ever been in or are you currently in a harmful physical or emotional relationship or is someone making you feel afraid or unsafe? 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
--- OUTSIDE RECORDS SUMMARY | 2024-06-25 01:29 | XMS_ITS | Encounter Summary ---
Author Organization [facility] Address [address] [facility] [address] [place] [address] Care Team Providers Care Bonding And Composite Fabricator Name Role Phone David Savage MD Primary Care Provider [phone] Encounter Details Date Type Department Care Team (Late st Contact Info) Description 02/27/[address] [facility] LAB INTERFACE [address] David Savage MD [address] [place] [address] Social History Tobacco Use Types Packs/Day Years Used Date Smoking Tobacco: Never Personal Safety Answer Date Recorded Have you ever been in or are you currently in a harmful physical or emotional relationship or is someone making you feel afraid or unsafe? 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 Gender Identity Not on file Sexual Orientation Not on file documented as of this encounter Plan of Treatment Not on file documented as of this encounter Procedures Procedure Name Priority Date/Time Associated Diagnosis Comments PTH, INTACT (ICMA) AND IONIZED CALCIUM Routine 02/27/2023 9:59 AM CDT COPY RECEIVED FROM Routine 02/27/2023 9: 59 AM CDT TSH Routine 02/27/2023 9:59 AM CDT T4, FREE Routine 02/27/2023 9:59 AM CDT HEMOGLOBIN A1C Routine 02/27/2023 9:59 AM CDT LIPID PANEL Routine 02/27/2023 9:59 AM CDT COMPREHENSIVE METABOLIC PANEL Routine 02/27/2023 9:59 AM CDT documented in this encounter Results * (ABNORMAL) Hemoglobin A1c (02/27/2023 9:59 AM CDT) Hgb A1C 6.0(H) <5.7 % of total Hgb [facility] Comment: For someone without known diabetes, a hemoglobin A1c value between 5.7% and 6.4% is consistent with prediabetes and should be confirmed with a follow-up test. For someone with known diabetes, a value <7% indicates that their diabetes is well controlled. A1c targets should be individualized based on duration of diabetes, age, comorbid conditions, and other considerations. This assay result is consistent with an increased risk of diabetes. Currently, no consensus exists regarding use of hemoglobin A1c for diagnosis of diabetes for children. 02/27/2023 9:59 AM CDT 02/27/2023 10:02 AM CDT Narrative [facility] - 02/28/2023 10:06 AM CDT FASTING:YES FASTING: YES David Savage MD LAB BLOOD ORDERABLES Final [facility] [address] [place] [address] * (ABNORMAL) TSH (02/27/2023 9:59 AM CDT) TSH 30.26(H) 0.40 - 4.50 mIU/L [facility] 02/27/2023 9:59 AM CDT 02/27/2023 10:02 AM CDT Narrative [facility] - 02/28/2023 10:06 AM CDT FASTING:YES FASTING: YES David Savage MD LAB BLOOD ORDERABLES Final Re sult Performing Organization Address [facility] Co de Phone Number [facility] [address] [place] [address] * (ABNORMAL) T4, free (02/27/2023 9:59 AM CDT) Pathologist [facility] Free T4 0.7(L) 0.8 - 1.8 ng/dL [facility] 02/27/2023 9:59 AM CDT 02/27/2023 10:02 AM CDT Narrative [facility] - 02/28/2023 10:06 AM CDT FASTING:YES FASTING: YES David Savage MD LAB BLOOD ORDERABLES Final Re sult Performing Organization Address [facility] Co de Phone Number [facility] [address] [place] [address] * (ABNORMAL) Comprehensive metabolic panel (02/27/2023 9:59 AM CDT) [facility] Glucose 99 65 - 99 mg/dL [facility] Comment: ? Fasting reference interval BUN 27(H) 7 - 25 mg/dL [facility] Creatinine 1.17(H) 0.50 - 1.05 mg/dL [facility] eGFR 51(L) > OR = 60 mL/min/1.7 3m2 [facility] BUN/creat ratio 23(H) 6 - 22 (calc) [facility] Sodium 135 135 - 146 mmol/L [facility] Potassium, pl 4.9 3.5 - 5.3 mmol/L [facility] Chloride 99 98 - 110 mmol/L [facility] CO2 27 20 - 32 mmol/L [facility] Calcium 10.1 8.6 - 10.4 mg/dL [facility] Protein, sr 7.8 6.1 - 8.1 g/dL [facility] Albumin 4.8 3.6 - 5.1 g/dL [facility] GLOBULIN 3.0 1.9 - 3.7 g/dL (calc) [facility] Alb/glob ratio 1.6 1.0 - 2.5 (calc) [facility] Bilirubin, total 0.9 0.2 - 1.2 mg/dL [facility] Alk phos 107 37 - 153 U/L [facility] AST 15 10 - 35 U/L [facility] ALT (SGPT) 18 6 - 29 U/L [facility] 02/27/2023 9:59 AM CDT 02/27/2023 10:02 AM CDT Narrative [facility] - 02/28/2023 10:06 AM CDT FASTING:YES FASTING: YES David Savage MD LAB BLOOD ORDERABLES Final Re sult [facility] [address] [place] [address] * (ABNORMAL) Lipid panel (02/27/2023 9:59 AM CDT) [facility] Cholesterol 268(H) <200 mg/dL [facility] HDL 39(L) > OR = 50 mg/dL [facility] Triglycerides 282(H) <150 mg/dL [facility] Comment: If a non-fasting specimen was collected, consider repeat triglyceride testing on a fasting specimen if clinically indicated. Kana et al. J. of Clin. Lipidol. 2015;9:129-169. LDL 179(H) mg/dL (calc) [facility] Comment: Reference range: <100 Desirable range <100 mg/dL for primary prevention; ?? <70 mg/dL for patients with CHD or diabetic patients with > or = 2 CHD risk factors. LDL-C is now calculated using the Raymundo calculation, which is a validated novel method providing better accuracy than the Friedewald equation in the estimation of LDL-C. Tr BOLIVAR et al. TATI. 2013;310(19): 6905-8601 (http://education.[employer]/faq/QEO664) Chol/HDL ratio 6.9(H) <5.0 (calc) [facility] Non-HDL, (LDL+VLDL) 229(H) <130 mg/dL (calc) [facility] Comment: Non-HDL level > or = 220 is very high and may indicate genetic familial hypercholesterolemia (FH). Clinical assessment and measurement of blood lipid levels should be considered for all first-degree relatives of patients with an FH diagnosis. For patients with diabetes plus 1 major ASCVD risk factor, treating to a non-HDL-C goal of <100 mg/dL (LDL-C of <70 mg/dL) is considered a therapeutic option. 02/27/2023 9:59 AM CDT 02/27/2023 10:02 AM CDT [facility] - 02/28/2023 10:06 AM CDT FASTING:YES FASTING: YES David Savage MD LAB BLOOD ORDERABLES Final Re [facility]ult [facility] [address] [place] [address] * pTH, Intact (ICMA) and Ionized Calcium (02/27/2023 9:59 AM CDT) Parathyroid hormone, intact 42 16 - 77 pg/mL [facility] Comment: Interpretive Guide ?Intact PTH ? Calcium ? ------- Normal Parathyroid ?Normal ? Normal Hypoparathyroidism ?Low or Low Normal ?Low Hyperparathyroidism ?? Primary ?Normal or High ? High ?? Secondary ?High ? Normal or Low ?? Tertiary ? High ? High Non-Parathyroid ?? Hypercalcemia ?Low or Low Normal ?High Calcium 9.9 8.6 - 10.4 mg/dL [facility] Calcium, Ionized 5.1 4.7 - 5.5 mg/dL [facility] 02/27/2023 9:59 AM CDT 02/27/2023 10:02 AM CDT Narrative [facility] - 02/28/2023 10:06 AM CDT FASTING:YES FASTING: YES us David Savage MD LAB BLOOD ORDERABLES Final Re sult Performing Organization Address [facility] Co de Phone Number [facility] [address] [place] [address] * Copy received from (02/27/2023 9:59 AM CDT) Copy Rec'd from: [facility] Comment: ?[facility] ?[facility] ?[facility] ?[address] ?[place] [address] 02/27/2023 9:59 AM CDT 02/27/2023 10:02 AM CDT Narrative [facility] - 02/28/2023 10:06 AM CDT FASTING:YES FASTING: YES us David Savage MD LAB BLOOD ORDERABLES Final Re sult [facility] documented in this encounter Visit Diagnoses Not on filedocumented in this encounter Care Teams Bonding And Composite Fabricator Relationship Specialty Start Date End Date David Savage MD [address] [place] [address] PCP - General Internal Medicine 06/23/22 documented as of this encounter
--- OUTSIDE RECORDS SUMMARY | 2024-06-25 01:29 | XMS_ITS | Encounter Summary ---
Author Organization [facility] Address [address] [place] [address] Phone Care Team Providers Care Rn Clinical Coordinator Name Role Phone David Savage MD Primary Care Provider [phone] Encounter Details Date Type Department Care Team (Late st Contact Info) Description 11/14/2022 Telephone [facility] Surgery [address] [facility] 5th [place] [address] [place] [address] Saira Elder Social History Tobacco Use Types Packs/Day Years Used Date Smoking Tobacco: Never Comments Unknown Sex and Gender Information Value Date Recorded Sex Assigned at Not on file 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 Advise patient of us the day she comes in and also inform patient she will receive a new patient packet by mail. documented in this encounter Plan of Treatment Not on file documented as of this encounter Visit Diagnoses Not on filedocumented in this encounter Care Teams Rn Clinical Coordinator Relationship Specialty Start Date End Date David Savage MD [address] [facility] [address] [place] [address] PCP - General Internal Medicine 06/23/22 documented as of this encounter
--- OUTSIDE RECORDS SUMMARY | 2024-06-25 01:29 | XMS_ITS | Encounter Summary ---
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
--- OUTSIDE RECORDS SUMMARY | 2024-06-25 01:29 | XMS_ITS | Encounter Summary ---
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
--- OUTSIDE RECORDS SUMMARY | 2024-06-25 01:29 | XMS_ITS | Encounter Summary ---
Author Organization [facility] Address [address] [place] [address] Phone Care Team Providers Care Hatch Boss Name Role Phone David Savage MD Primary Care Provider [phone] Reason for Visit * Reason Comments Follow-up Encounter Details Date Type Department Care Team (Latest Contact Info) Description 02/14/2023 8:30 AM CDT Office Visit [facility] Surgery [address] 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 I visited with her by herself today. She has done well since surgery. No major complaints. No difficulty with swallowing. Pain has improved. Neck range of motion improving. Pathology BENIGN I have personally reviewed the pathology results in detail. PHYSICAL EXAM Ht 149.9 cm (4' 11 ) Wt 78 kg (172 lb) BMI 34.74 kg/m?? Voice: no obvious hoarseness, clear and at baseline Neck: Steri-strips removed. Incision is healing well. No swelling or erythema. Incision essentiallyinvisible already. ASSESSMENT Expected recovery following right hemithyroidectomy for a toxic adenoma. We discussed strategies tominimize scar formation including scar massage and sun safety. She noted that she does feel fairly tired since surgery and is gaining about 2 pounds a week. I am not sure this is entirely due to her thyroid surgery, but possible given she was hyperthyroid and now is likely euthyroid or possibly hypothyroid. She is going on a trip this weekend. Will plan to check thyroid labs at [facility] on Monday. PLAN Follow-up TSH. I will obtain this Monday of this week at [facility] and initiate thyroid hormone replacement if indicated Given benign pathology results and no worrisome nodules in the contralateral thyroid lobe, no follow-up ultrasounds will be needed. will contact me with any issues going forward Javi Lowe MD, MPH Endocrine Surgeon Section of Surgical Oncology documented in this encounter Miscellaneous Notes * Addendum Note - Javi Lowe MD - 02/14/2023 8:30 AM CDTAddended by: Javi LOWE on: 02/14/2023 12:19 PM Modules accepted: Orders documented in this encounter Plan of Treatment Scheduled Orders Name Type Priority Associated Diagnoses Orde r Schedule TSH Lab Routine S/P partial thyroidectomy Expected: 02/17/2023 (Approximate), Expires: 02/15/2024 T4, free Lab Routine S/P partial thyroidectomy Expected: 02/17/2023 (Approximate), Expires: 02/15/2024 documented as of this encounter Visit Diagnoses Diagnosis S/P partial thyroidectomy- Primary Other postprocedural status documented in this encounter Care Teams Hatch Boss Relationship Specialty Start Date End Date David Savage MD [address] [facility] [address] [facility] [address] [place] [address] PCP - General Internal Medicine 06/23/22 documented as of this encounter
--- OUTSIDE RECORDS SUMMARY | 2024-06-25 01:29 | XMS_ITS | Referral Summary ---
Author Organization [facility] Address [facility] [place] [address] Care Team Providers Care Suction Roller Name Role Phone David Savage MD Primary Care Provider [phone] Allergies Active Allergy Reactions Criticality Noted Date Comments Adalimumab Unknown 12/09/2014 Amitriptyline Other (See comments) Low 02/22/2012 Drowsiness Etanercept Stomach upset Low 12/09/2014 Golimumab Stomach upset Low 12/09/2014 Hydroxychloroquine Nausea And Vomiting 04/09/20 15 Stomach pain Medications omega 4-aqs-who-fish oil (Fish OiL) 1,200 (144-216) mg capsuleIndicati ons:hypertrigly ceridemia Take 1 capsule by mouth 2 (two) times a day Active amLODIPine (NORVASC) 5 mg tabletIndicatio ns:hypertension Take 1 tablet (5 mg total) by mouth liner machine operator helper before breakfast 3 Active carvediloL (COREG) 6.25 mg tabletIndicatio ns:hypertension Take 1 tablet (6.25 mg total) by mouth 2 (two) times a day 3 Active cholecalciferol (VITAMIN D-3) 2000 unit tabletIndicatio ns:Vitamin D Deficiency Take 2 tablets (4,000 Units total) by mouth liner machine operator helper before breakfast 3 Active losartan (COZAAR) 100 mg tabletIndicatio ns:hypertension Take 1 tablet (100 mg total) by mouth liner machine operator helper before breakfast Active tiZANidine (ZANAFLEX) 4 mg tabletIndicatio ns:Muscle Spasm Take 1 tablet (4 mg total) by mouth nightly 4 Active traMADoL (ULTRAM) 50 mg tablet Take 1 tablet (50 mg total) by mouth 2 (two) times a day as needed 3 Active predniSONE (DELTASONE) 5 mg tablet Take 1-2 tablets (5-10 mg) by mouth as needed Exacerbation of RA 2 Active omeprazole (PriLOSEC) 40 mg capsuleIndicati ons:Treatment of Non-Bleeding Gastric Disorder Take 1 capsule (40 mg total) by mouth daily before breakfast 3 Active azaTHIOprine (IMURAN) 50 mg tabletIndicatio ns:autoimmune disease,RA Take 2 tablets (100 mg total) by mouth liner machine operator helper before breakfast 3 Active lorazepam (ATIVAN ORAL) Take by mouth as needed Active acetaminophen 500 mg capsuleIndicati ons:Pain Take 2 capsules (1,000 mg total) by mouth every 6 (six) hours as needed for pain Use first for management of pain 3 Active ibuprofen (ADVIL,MOTRIN) 600 mg tablet Take 1 tablet (600 mg total) by mouth every 6 (six) hours as needed for pain 20 tablet 3 Active Active Problems Problem Noted Date Diagnosed Date Hyperthyroidism 12/20/2022 Vaginal pain 12/19/2011 Urinary tract infection 11/05/2007 Overview (10/20/2017): Description: Hx Social History Tobacco Use Types Packs/Day Years [...] on file 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 Gender Identity Not on file Sexual Orientation Not on file Last Filed Vital Signs Vital Sign Reading Time Taken Comments Blood Pressure 124/62 01/25/2023 1:45 PM CDT Pulse 79 01/25/2023 1:45 PM CDT Temperature 36.6 ??C (97.9 ??F) 01/25/2023 12:30 PM C DT Respiratory Rate 16 01/25/2023 1:45 PM CDT Oxygen Saturation 93% 01/25/2023 1:45 PM CDT Inhaled Oxygen Concentration - - Weight 78 kg (172 lb) 02/14/2023 8:10 AM CDT Height 149.9 cm (4' 11 ) 02/14/2023 8:10 AM CDT Body Mass Index 34.74 02/14/2023 8:10 AM CDT Plan of Treatment Not on file [id number] MEDICARE [facility] MEDICARE [employer] SENIOR SUPPLEMENT Advance Directives For more information, please contact: [phone] * Full Code (Latest Code Status on File) Date Activated Date Inactivated Comments 01/25/2023 12:44 PM 01/25/2023 8:51 PM Care Teams Suction Roller Relationship Specialty Start Date End Date David Savage MD [address] [facility] [address] [place] [address] PCP - General Internal Medicine 06/23/22
--- OUTSIDE RECORDS SUMMARY | 2024-06-25 01:29 | XMS_ITS | Encounter Summary ---
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
--- OUTSIDE RECORDS SUMMARY | 2024-06-25 01:29 | XMS_ITS | Encounter Summary ---
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
--- OUTSIDE RECORDS SUMMARY | 2024-06-25 01:29 | XMS_ITS | Encounter Summary ---
Author Organization [facility] Address [address] [place] [address] Phone Care Team Providers Care Front End Technician Name Role Phone David Savage MD Primary Care Provider [phone] Encounter Details Date Type Department Care Team (Late st Contact Info) Description 11/15/2022 Documentation [facility] Surgery [address] 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
--- OUTSIDE RECORDS SUMMARY | 2024-06-25 01:29 | XMS_ITS | Encounter Summary ---
Author Organization [facility] Healthcare Address [address] [place] [address] Care Team Providers Care Health Information Technologist Name Role Phone David Savage MD Primary Care Provider Reason for Visit * Auth/Cert (Routine) Specialty Diagnoses / Procedures Referred By Maria Luz t Referred To Contact Diagnoses Hyperthyroidism Hyperthyroidism [E05.90] Procedures CO TOTAL THYROID LOBECTOMY UNI W/WO ISTHMUSECTOMY HEMITHYROIDECTOMY Referral ID Status Reason Start Date Expiration Date Visits Re quested Visits Authorized [id number] 1 1 Encounter Details Date Type Department Care Team (Late st Contact Info) Description 01/25/2023 8:29 AM CDT Anesthesia Event [facility] Operating Room [address] [place] [address] Leo Ray MD [address] [facility] [address] [place] [address] Jenae Butler NP [address] [facility] [id number] [place] [address] Anesthesia Record Procedure Summary Procedure Name Responsible Anesthesiologist Anesthesia Start Time Anesthesia Stop Time HEMITHYROIDECTOMY (Right: Neck) Leo Ray MD 01/25/23 0829 01/25/23 1114 Events Date Time Event Comment 01/25/2023 0635 In Preop 0645 0829 An Start 0830 In Room 0831 An Start Data 0836 An Induction The patient was reevaluated immediately before moderate or deep sedation use and before anesthesia induction. 0838 An Intubation 0845 Anesthesia Ready 0905 Proc Start 0908 Incision Start 0919 Quick Note BP cuff changed to R leg 1059 An Extubation 1102 Proc Fin 1104 an stop data 1105 Out of Room 1114 An Stop 1114 Handoff to RN I completed my handoff to the receiving nurse during which we: 1. Patient identified 2. Responsible provider identified 3. Pertinent medical history reviewed 4. Procedure type and surgical course discussed 5. Intraoperative anesthetic management and any significant issues discussed 6. Expectations and concerns for postop period discussed 7. Questions solicited from receiving nurse 8. Patient disposition at the time of handoff: No value filed. Meds Name Total lidocaine (cardiac) syringe 2 % 60 mg propofol 160 mg fentaNYL 250 mcg HYDROmorphone 2 mg/mL 0.8 mg succinylcholine 90 mg ondansetron PF (ZOFRAN) 2 mg/mL injectio n 4 mg scopolamine patch 72 hour 1 patch 0 patc h dexAMETHasone 4 mg/mL 8 mg famotidine 20 mg phenylephrine infusion (100 mcg/mL) 0.11 mg dexmedeTOMIDine 80mcg/20mL (4 mcg/mL) 32 mcg ketorolac 15 mg Lactated Ringer's (LR) infusion 1,000 mL * Agents Name O2% N2O O2 N2O Air Sevoflurane Inspired Sevoflurane * Blood No blood administrations on file. Lines, Drains, and Airways Type Details Placement Removal Peripheral IV Placement Date: 09/28/22; Placement Time: 1207; Catheter Size: 22 G; Orientation: Right; Location: Antecubital; Site Prep: Chlorhexidine; Technique: Anatomical landmarks; Inserted by: [email or web address]; Insertion Attempts: 1 09/28/22 1207 by Sandy Mayo RT Peripheral IV Placement Date: 01/25/23; Placement Time: 07; Catheter Size: 20 G; Orientation: Distal, Right, Lateral; Location: Forearm; Site Prep: Chlorhexidine; Insertion Attempts: 1; Patient Tolerance: Tolerated well; Removal Date: 01/25/23; Removal Time: 1630; Removal Reason: Discharge 01/25/23 07 by Meenu Puente RN 01/25/23 1630 by Bambi Delgado RN ETT Placement Date: 01/25/23; Placement Time: 902 (created via procedure documentation); Mask Ventilation: 1; Technique: Video laryngoscopy; Type: NIM tube; Single Lumen Tube Size: 7 mm; Cuffed: Yes; Blade Size: 2; Location: Oral; Grade View: Grade I; Insertion Attempts: 1; Placement Verification: Auscultation; Airway Comment: Atraumatic intubation. Dentition unchanged following intubation. 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 Gender Identity Not on file Sexual Orientation Not on file documented as of this encounter OR Notes * Anesthesia Postprocedure Evaluation - Leo Ray MD - 01/25/2023 11:30 AM CDT Patient: Anjali Rodriguez Procedure Summary Date: 01/25/23 Room / Location: [facility] OR POD 1 ROOM 332 / [facility] OR POD 1 Anesthesia Start: 828 Anesthesia Stop: 1113 Procedure: HEMITHYROIDECTOMY (Right: Neck) Diagnosis: Hyperthyroidism (Hyperthyroidism [E05.90]) Surgeons: Javi Buck MD Responsible Provider: Leo Ray MD Anesthesia Type: general ASA Status: 2 Anesthesia Type: general Last vitals BP 137/73 Pulse 84 Temp 36.5 ??C (97.7 ??F) Resp 14 SpO2 94% Anesthesia Post Evaluation Patient location during evaluation: PACU Patient participation: complete - patient participated Level of consciousness: fully awake Pain management: satisfactory to patient Airway patency: adequate Evidence of recall: no Cardiovascular status: acceptable and hemodynamically stable Respiratory status: acceptable Hydration status: acceptable Pt is: normothermic Nausea/Vomiting status: none No notable events documented. * Anesthesia Procedure Notes - Fe Ramos CRNA - 01/25/2023 9:01 AM CDTAssociated Order(s): Airway Airway Patient location: OR Urgency: elective Indications for airway management: anesthesia Difficult airway: no Staff: Supervising provider: Leo Ray MD Placed by: MEAT MOLDER: Fe Ramos CRNA Emergent airway documentation: Risks and benefits discussed: yes Consent obtained: yes Consent given by: patient Airway prep: Preoxygenated: yes Patient position: sniffing MILS maintained throughout: yes Mask difficulty assessment: 1 - vent by mask Spontaneous ventilation during airway: absent Sedation level during airway: GA Final airway details: Final airway type: endotracheal airway Tube type: NIM tube ETT size: 7.0 mm Cuffed: yes Technique used for successful ETT placement: video laryngoscopy Devices/Methods used in placement: intubating stylet Insertion site: oral Video blade type: Ospina Blade size: 2 Cormack-Lehane (direct): grade I - full view of glottis Cuff volume: 8 mL Cuff inflated with: air ETT to teeth: 21 cm Placement verified by: auscultation Airway secured with: silk tape Number of attempts: 1 Additional comments: Atraumatic intubation. Dentition unchanged following intubation. Elective use of macgrath to place NIMS tube. * Anesthesia Preprocedure Evaluation - Leo Ray MD - 01/05/2023 1:01 PM CDT Images from the original note were not included. [facility] for Preoperative Assessment and Planning Preoperative Evaluation Record Evaluation type/location: TPAP from [facility] Planned procedure site: [facility] PVT OR (Pod 1) Date: 01/05/23 NOTE: This note represents a preoperative evaluation initiated via telephone interview. NO PHYSICALEXAM was performed at the time of initial assessment. A physical exam may be added to this note anddocumented below. Anesthesia Evaluation Anjali Rodriguez is a 67 y.o. female Procedure(s): HEMITHYROIDECTOMY Pre-Op Diagnosis Codes: * Hyperthyroidism [E05.90] HISTORY HPI Anjali Rodriguez, 67 year old female, with history of anxiety, HTN, anemia, GERD, RA, and hyperthyroidism. Undergoing evaluation prior to right HEMITHYROIDECTOMY. Past Medical History Information obtained from: patient and chart. Neurological + Psychiatric history (PRN meds) - anxiety Pertinent negatives: seizures; neuromuscular disease; CVA/stroke and TIA Cardiovascular + Hypertension (Does not check BP at home) Hypertension year diagnosed: 1999. Pertinent negatives: CAD ; OR ; CABG ; valvular heart disease; atrial fibrillation; pacemaker/ICD; DVT/PE; negative for CHF; drug-eluting stent(s) and bare metal stent(s) Respiratory Pertinent negatives: COPD; asthma; sleep apnea (IRENA); pulmonary hypertension; no O2 use outside thehospital and non-smoker Hepatic / Heme + History of anemia (most recent H/H 11.1/33.5 (2020)) Pertinent negatives: liver disease Gastrointestinal + GERD - on daily therapy. Asymptomatic. Renal / Pertinent negatives: renal disease; dialysis and nephrolithiasis Endocrine / Other + Thyroid disease (toxic adenoma vs toxic multinodular goiter) - hyperthyroidism + Rheumatological disease (on imuran , and PRN predinosone 5 mg- follows with Rheum) - rheumatoid arthritis. Pertinent negatives: diabetes mellitus; obesity (BMI >30); cancer history; transplanted organ and infectious disease Functional Capacity Functional capacity: 4-6 METs Comments: Denies SOB or CP with 2 flights of stairs. Limited activity 2/2 knee pain. 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 Review of Systems + palpitations (occasionally) Pertinent negatives: productive cough; SOB; recent cold/flu; fever; chest pain; orthopnea; pedal edema; PND; previous transfusion; easy bruising; bleeding problems; syncope and dizziness PAT Summary and Plans Cardiac risk classification of planned procedure: intermediate cardiac risk. Preoperative assessment status: complete. Additional comments: Anjali Rodriguez is a 67 y.o. female who is being evaluated prior to undergoing an intermediate cardiac risk surgery. Revised Cardiac Risk Index factors are (none) for a total RCRI of 0 out of 6. Functional capacity is 4-6 METs. +History of PONV. + Per surgeon- TFT studies currently are significant for suppressed but detectable TSH, normal FT3 and FT4 (11/11/22). Of note those labs were shortly after the MMI/PTU was stopped (patient report she was unable to tolerate). +TSH was repeated 12/08/22 (results in media) and was suppressed but detectable (FT3 and FT4 results were not available). Obstructive sleep apnea (IRENA) screening status is STOP-BANG incomplete at 3-4 suggesting MODERATE risk for IRENA. Neck circumference pending. May need IRENA order set initiated if Co2 >27. This assessment was performed via telephone. Therefore the physical exam has been deferred to the day of surgery team. The patient was provided with preoperative instructions for their medications. Patient instructions were provided by telephone and electronically sent via [employer]. Patient verbalized understanding of instructions. Blood bank needs for day of procedure: No type and screen needed Pending labs/tests include: None TPAP assessment complete. Preoperative evaluation performed by Jenae Butler NP on 01/05/23 at 1:30 PM . Patient Active Problem List Diagnosis Urinary tract infection Vaginal pain Hyperthyroidism Past Medical History: Diagnosis Date Endometriosis Endometriosis - (Added by TW Conv) Hypertension Personal history of other diseases of the circulatory system History of hypertension - (Added by TW Conv) Personal history of other diseases of the musculoskeletal system and connective tissue History of fibromyositis - (Added by TW Conv) RA (rheumatoid arthritis) (HCC) Past Surgical History: Procedure Laterality Date OVARY SURGERY Ovarian Surgery - 1993 & 1994 (Added by TW Conv) CO TOTAL ABDOMINAL HYSTERECT W/WO RMVL TUBE OVARY Hysterectomy - 1990 (Added by TW Conv) CO UNLISTED PROCEDURE ABDOMEN PERITONEUM & OMENTUM Hernia Repair - 1995 (Added by BERTIN Conv) WRIST SURGERY Bilateral 2019 OB History No obstetric history on file. Allergies Allergen Reactions Adalimumab Unknown Hydroxychloroquine Nausea And Vomiting Stomach pain Amitriptyline Other (See comments) Drowsiness Etanercept Stomach upset Golimumab Stomach upset Med List Status: Nurse Complete Set By: Germaine Mckeon RN at 01/05/2023 8:24 AM Taking? Last Dose Start Date End Date Provider amLODIPine (NORVASC) 5 mg tablet 01/05/2023 08/22/22 -- ProviderArely MD azaTHIOprine (IMURAN) 50 mg tablet 01/05/2023 08/25/22 -- ProviderArely MD carvediloL (COREG) 6.25 mg tablet 01/05/2023 07/22/22 -- Provider, MD Arely cholecalciferol (VITAMIN D-3) 2000 unit tablet 01/05/2023 08/06/12 -- Provider, MD Arely losartan (COZAAR) 100 mg tablet 01/05/2023 -- -- ProviderArely MD omega 4-sls-qmz-fish oil (Fish OiL) 1,200 (144-216) mg capsule 01/05/2023 -- -- ProviderArely MD omeprazole (PriLOSEC) 40 mg capsule 01/05/2023 08/30/22 -- ProviderArely MD predniSONE (DELTASONE) 5 mg tablet Past Month 06/01/22 -- Provider, MD Arely tiZANidine (ZANAFLEX) 4 mg tablet 01/04/2023 01/31/14 -- ProviderArely MD traMADoL (ULTRAM) 50 mg tablet 01/05/2023 12/27/12 -- ProviderArely MD -- Patient not taking: No current facility-administered medications for this encounter. Current Outpatient Medications: amLODIPine (NORVASC) 5 mg tablet azaTHIOprine (IMURAN) 50 mg tablet carvediloL (COREG) 6.25 mg tablet cholecalciferol (VITAMIN D-3) 2000 unit tablet losartan (COZAAR) 100 mg tablet omega 5-nqw-iob-fish oil (Fish OiL) 1,200 (144-216) mg capsule omeprazole (PriLOSEC) 40 mg capsule predniSONE (DELTASONE) 5 mg tablet tiZANidine (ZANAFLEX) 4 mg tablet traMADoL (ULTRAM) 50 mg tablet Social History Tobacco Use Smoking Status Never Smokeless Tobacco Not on file Alcohol Use: Not on file Substance and Sexual Activity Drug Use Never Comment: no etoh Family History Problem Relation Age of Onset Breast cancer Sister 65 Breast cancer Father's Sister 62 There were no vitals filed for this visit. Relevant diagnostics: ECG(s): N/A Echocardiogram(s): N/A Stress test(s): N/A Cardiac catheterization(s): N/A PFT(s): N/A Vascular studies: N/A Other: 11/29/22: US Thyroid IMPRESSION: 1. Large 4.1 cm mixed cystic/solid and hypoechoic right thyroid nodule with irregular borders, which was reported to be most recently biopsied at outside hospital on 06/22/2022 with findings demonstrating benign follicular nodule Addendum: Of note, a subcentimeter, benign appearing spongiform nodule is noted in the inferior left thyroid and measures up to 5 mm in maximum dimension. Typically, we would not describe such a nodule explicitly. However, it may correspond in location to the minimal uptake noted in the inferior left thyroid gland on the patient's recent thyroid scintigraphy study. The significance of this finding is uncertain. This was discussed with Dr. Buck today. PT: No results found for requested labs within last 30 days. INR: No results found for requested labs within last 30 days. APTT: No results found for requested labs within last 30 days. Hgb A1C: No results found for requested labs within last 30 days. CBC RBC: No results found for requested labs within last 30 days. RDW: No results found for requested labs within last 30 days. MCHC: No results found for requested labs within last 30 days. MCH: No results found for requested labs within last 30 days. MCV: No results found for requested labs within last 30 days. Hct: No results found for requested labs within last 30 days. Hgb: No results found for requested labs within last 30 days. WBC: No results found for requested labs within last 30 days. MPV: No results found for requested labs within last 30 days. Platelets: No results found for requested labs within last 30 days. RDW CV: No results found for requested labs within last 30 days. RDW Sd: No results found for requested labs within last 30 days. BMP Glucose: No results found for requested labs within last 30 days. Calcium: No results found for requested labs within last 30 days. Sodium: No results found for requested labs within last 30 days. Potassium: No results found for requested labs within last 30 days. CO2: No results found for requested labs within last 30 days. Chloride: No results found for requested labs within last 30 days. BUN: No results found for requested labs within last 30 days. Creatinine: No results found for requested labs within last 30 days. Suzi index score: 100 DOS Physical Exam Attestation: With today's edits, I endorse the findings of the anesthesia pre-evaluation assessment dated: 01/05/2023. Airway Exam: Mallampati: II Cervical ROM: FROM Cardiovascular Exam: Rate: regular Rhythm: regular Pulmonary Exam: LCTA, bilat EENT Exam: trachea midline Dental Exam: Appears intact Current state: Patient's current state is cooperative and interactive. Anesthesia Plan ASA 2 My patient is approved for the Anesthesia Controlled Medication protocol when under care of a MEAT MOLDER Planned anesthesia: General Team communication plan: oral ET tube Induction: Induction: intravenous. Postoperative Plan: Postoperative administration opioids intended. No postoperative mechanical ventilation intended. Patient's planned disposition post procedure is Outpatient. No trial extubation planned. Informed Consent: Anesthesia plan and risks discussed with patient. Plan and Consent Comments: Plan GETA. Explained risks. Agreeable to proceed. Consent and Attending signature: I and/or my designee have discussed the anesthesia plan, benefits, possible alternatives, parental presence at time of induction (if indicated), and clinically relevant risks that may include dental injury, unintentional awareness, and/or other complications. The patient and/or parent/legal guardian understand, and agree to proceed. All questions answered. documented in this encounter Plan of Treatment Not on file documented as of this encounter Procedures Procedure Name Priority Date/Time Associated Diagnosis Comments CO AN PROCEDURE PLACEHOLDER Routine 01/25/2023 9:01 AM CDT CO AN ELECTIVE ENDOTRACHEAL AIRWAY Routine 01/25/2023 9:01 AM CDT documented in this encounter Results * CO AN ELECTIVE ENDOTRACHEAL AIRWAY, CO AN PROCEDURE PLACEHOLDER (01/25/2023 9:01 AM CDT) Narrative Fe Ramos CRNA - 01/25/2023 9:01 AM CDT Fe Ramos CRNA ? 01/25/2023 ??9:03 AM Airway Patient location: OR Urgency: elective Indications for airway management: anesthesia Difficult airway: no Staff: Supervising provider: Leo Ray MD Placed by: MEAT MOLDER: Fe Ramos CRNA Emergent airway documentation: Risks and benefits discussed: yes Consent obtained: yes Consent given by: patient Airway prep: Preoxygenated: yes Patient position: sniffing MILS maintained throughout: yes Mask difficulty assessment: 1 - vent by mask Spontaneous ventilation during airway: absent Sedation level during airway: GA Final airway details: Final airway type: endotracheal airway Tube type: NIM tube ETT size: 7.0 mm Cuffed: yes Technique used for successful ETT placement: video laryngoscopy Devices/Methods used in placement: intubating stylet Insertion site: oral Video blade type: Ospina Blade size: 2 Cormack-Lehane (direct): grade I - full view of glottis Cuff volume: 8 mL Cuff inflated with: air ETT to teeth: 21 cm Placement verified by: auscultation Airway secured with: silk tape Number of attempts: 1 Additional comments: Atraumatic intubation. Dentition unchanged following intubation. Elective use of macgrath to place NIMS tube. Leo Ray MD ANESTHESIA ORDERABLES Final Resu lt documented in this encounter Visit Diagnoses Not on filedocumented in this encounter Administered Medications Inactive Administered Medications - up to 3 most recent administrations Medication Order MAR Action Action Date Dose Rate Site dexAMETHasone (DECADRON) 4 mg/mL injection intravenous, Administer over 2 Minutes, As needed, Starting on Mon01/25/23 at 0846, Anesthesia Intra-op Given 01/25/2023 8:46 AM CDT 8 mg dexmedeTOMIDine (PRECEDEX) 80 mcg/20 mL (4 mcg/mL) in sodium chloride 0.9% (premix) intravenous, As needed, Starting on Mon01/25/23 at 0908, Anesthesia Intra-op Given 01/25/2023 10:53 AM CDT 8 mcg Given 01/25/2023 10:31 AM CDT 8 mcg Given 01/25/2023 9:24 AM CDT 8 mcg famotidine (PEPCID) injection intravenous, Administer over 2 Minutes, As needed, Starting on Mon01/25/23 at 0851, Anesthesia Intra-op Given 01/25/2023 8:51 AM CDT 20 mg fentaNYL (SUBLIMAZE) preservative free injection intravenous, As needed, Starting on Mon01/25/23 at 0848, Anesthesia Intra-op Given 01/25/2023 9:24 AM CDT 50 mcg Given 01/25/2023 9:01 AM CDT 50 mcg Given 01/25/2023 8:48 AM CDT 50 mcg HYDROmorphone (DILAUDID) injection intravenous, Administer over 2 Minutes, As needed, Starting on Mon01/25/23 at 1038, Anesthesia Intra-op Given 01/25/2023 10:52 AM CDT 0.2 mg Given 01/25/2023 10:47 AM CDT 0.2 mg Given 01/25/2023 10:38 AM CDT 0.4 mg ketorolac (TORADOL) 30 mg/mL (1 mL) injection intravenous, As needed, Starting on Mon01/25/23 at 1046, Anesthesia Intra-op Given 01/25/2023 10:46 AM CDT 15 mg Lactated Ringer's (LR) infusion 30 mL/hr, intravenous, Continuous, Starting on Mon01/25/23 at 0730, Pre-Op New Bag 01/25/2023 10:31 AM CDT Rate/Dose Verify 01/25/2023 8:29 AM CDT 30 mL/h r New Bag 01/25/2023 7:13 AM CDT 30 mL/hr 30 mL/hr lidocaine (cardiac) (XYLOCAINE) preservative free injection intravenous, As needed, Starting on Mon01/25/23 at 0836, Anesthesia Intra-op, Indications: Ventricular ArrhythmiasIndications:Ventri cular Arrhythmias Given 01/25/2023 8:36 AM CDT 60 mg ondansetron (ZOFRAN) injection intravenous, Administer over 2 Minutes, As needed, Starting on Mon01/25/23 at 1031, Anesthesia Intra-op Given 01/25/2023 10:31 AM CDT 4 mg phenylephrine (GWENDOLYN-SYNEPHRINE) 5 mg/50 mL (100 mcg/mL) in sodium chloride 0.9% (premix) intravenous, Continuous PRN, Starting on Mon01/25/23 at 0901, Anesthesia Intra-op New Bag 01/25/2023 9:01 AM CDT 0.2 mcg/kg/min 9.36 mL/hr propofoL (DIPRIVAN) 10 mg/mL IV intravenous, As needed, Starting on Mon01/25/23 at 0836, Anesthesia Intra-op Given 01/25/2023 8:36 AM CDT 160 mg succinylcholine (ANECTINE) injection intravenous, As needed, Starting on Mon01/25/23 at 0836, Anesthesia Intra-op Given 01/25/2023 8:36 AM CDT 90 mg documented in this encounter Care Teams Health Information Technologist Relationship Specialty Start Date End Date David Savage MD [address] [place] [address] PCP - General Internal Medicine 06/23/22 documented as of this encounter
--- OUTSIDE RECORDS SUMMARY | 2024-06-25 01:29 | XMS_ITS | Encounter Summary ---
Author Organization [facility] Facility Care Team Providers Care Janitorial Manager Name Role Phone Unavailable Primary Care Provider Unavailabl e Encounter Details Date Type Department Care Team (Late st Contact Info) Description 05/12/2010 7:50 PM CDT - 05/13/2010 4:01 AM T Hospital Encounter [facility] Andrea Frazier MD PhD [address] [place] [address] Abdominal pain, left lower quadrant; Constipation; Essential hypertension; Arthropathy; Other postprocedural states; Acquired absence of both cervix and uterus Social History Tobacco Use Types Packs/Day Years Used Date Smoking Tobacco: Never Assessed Comments Unknown Sex and Gender Information Value Date Recorded Sex Assigned at Not on file 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
--- OUTSIDE RECORDS SUMMARY | 2024-06-25 01:29 | XMS_ITS | Encounter Summary ---
Author Organization [facility] Healthcare Address [address] [place] [address] Care Team Providers Care Pipefitter Name Role Phone David Savage MD Primary Care Provider [phone] Reason for Visit * Auth/Cert (Routine) Specialty Diagnoses / Procedures Referred By Maria Luz law Referred To Contact Diagnoses Hyperthyroidism Hyperthyroidism [E05.90] Procedures [place] TOTAL THYROID LOBECTOMY UNI W/WO ISTHMUSECTOMY HEMITHYROIDECTOMY Referral ID Status Reason Start Date Expiration Date Visits Re quested Visits Authorized [id number] 1 1 Encounter Details Date Type Department Care Team (Late st Contact Info) Description 01/25/2023 8:30 AM CDT - 01/25/2023 12:05 PM CDT Surgery [facility] Operating Room [address] [place] [id number] Javi Buck MD [address] [address] HEMITHYROIDECTOMY Surgery Details Date/Time Status Location OR Service Patient Class Case Cl ass Case Type Trauma Case? 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 Gender Identity Not on file Sexual Orientation Not on file documented as of this encounter Last Filed Vital Signs Vital Sign Reading Time Taken Comments Blood Pressure 131/66 01/25/2023 12:00 PM CDT Pulse 84 01/25/2023 12:00 PM CDT Temperature 36.7 ??C (98.1 ??F) 01/25/2023 12:00 PM C DT Respiratory Rate 14 01/25/2023 12:00 PM CDT Oxygen Saturation 94% 01/25/2023 12:00 PM CDT Inhaled Oxygen Concentration - - Weight 78 kg (172 lb) 01/25/2023 7:12 AM CDT Height 149.9 cm (4' 11 ) 01/25/2023 7:12 AM CDT Body Mass Index 34.74 01/25/2023 12:30 PM CDT documented in this encounter Discharge Summaries * Jannie Wood, BLAST FURNACE KEEPER HELPER - 01/25/2023 1:07 PM CDT Inpatient Discharge Summary BRIEF OVERVIEW Admitting Provider: Javi Buck MD Discharge Provider: Javi Buck MD Primary Care Physician at Discharge: David Savage MD [phone] Admission Date: 01/25/2023 Discharge Date: 01/25/2023 Primary Discharge Diagnosis: hyperthyroidism Secondary Discharge Diagnosis: Principal Problem: Hyperthyroidism Resolved Problems: No resolved hospital problems. DETAILS OF HOSPITAL STAY Presenting Problem/History of Present Illness: Hyperthyroidism is a 67 y.o. 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 This had previously been biopsied twice and BENIGN. Indications for surgery included definitive treatment and relief of compressive symptoms. We offered her surgery and she agreed to proceed. Risks & benefits were discussed. In her case risks were average. Informed consent was signed. Hospital Course: Anjali Tian was admitted on January 25, 2023 and taken to the operating room for a HEMITHYROIDECTOMY (R) by Javi Buck MD. For full operative details, please dictated summary. Thepatient tolerated the procedure well and post operatively was admitted to the Oncologic surgery Service for observation. her diet was advanced and pain was controlled on IV and oral medication. The patient was then discharged on postoperative day 0 home in stable condition, tolerating a regular diet, voiding spontaneously, ambulating well and with her pain controlled on oral pain medication. Active Issues Requiring Follow-up: Surgical pathology Test Results Pending at Discharge: Pending Labs Order Current Status Surgical pathology Collected (01/25/23 1031) Operative Procedures Performed: Procedure(s): HEMITHYROIDECTOMY Discharge Details Physical Exam at Discharge: Discharge Condition: good Pulse: 79 Resp: 16 BP: 124/62 Temp: 36.6 ??C (97.9 ??F) Weight: 78 kg (172 lb) Pertinent Exam Findings at Discharge: Gen: A&Ox3, NAD, conversant CV: Regular rate and rhythm Pulm: Nonlabored breathing Abd: Soft, nontender, nondistended Ext: Moves all four extremities, warm and well perfused Skin: neck incision c/d/I with steri strip Discharge Disposition: Code Status at Discharge: full Discharge Instructions: Activity Instructions Activity order - May resume normal activities Increase activity as tolerated Patient may shower Diet Instructions Adult Discharge Diet Diet Type: Return to previous diet You may need to increase the fiber in your diet because Calcium may cause you to be constipated. You can do this by eating more bran, apples and pears with the skin left on and drinking prune and apricot nectar. Other Instructions Call provider for: Temperature -Temperature greater than 101 degrees F Call provider for: any questions or concerns . . . If during normal business hours, call [phone]. If after business hours, call the [facility] container crane operator at [phone] and nd ask for your surgeon by name for the Oncology Surgery Service. Call provider for: difficulty breathing or chest pain Call provider for: persistent nausea or vomiting Call provider for: redness, tenderness, or signs of infection (pain, swelling, redness, odor or green/yellow discharge around incision site) Call provider for: severe uncontrolled pain Call provider for: Signs of low calcium If you feel numbness/ tingling around your lips or in your fingers/toes, take 4 Tums immediately. Symptoms should improve within 30 minutes. If no improvement or requiring frequent additional supplements call you surgeon immediately. If during normal business hours, call [phone]. If after business hours, call the [facility] container crane operator at [phone] and nd ask for your surgeon by name for the Oncology Surgery Service. Discharge - Wound care Post-discharge Dressing Care-Surgical Dressing -You may leave your incision open to air -Special glue has been placed on your incision. It will flake off over 1 week. Do not pick, scratchor rub. This may cause it to come off before your incision has healed. -You have paper strips called steri-strips over your wounds. Do NOT pull them off early. If they donot fall off by two weeks, remove them. - It is also important to avoid sun exposure and utilize sun protection during healing process. You may shower after 48 hours. Do not allow the showerhead to hit the incision directly. You may allow water to run gently over the incision. Pat incision dry; do not scrub at the incision as this may loosen stitches. Do NOT submerge incision in tub, hot tub, pool, mckoy, river, etc until incision is healed and surgeon gives clearance. If your are discharge with a drain: Your drain should stay in until it is removed by your surgeon. Empty and record the output of your drain every 8 hours. If there is any change in the color of the drain output, increase in output, or your drain falls out, please call the office to let your surgeon know. If during normal business hours, call office # . If after normal business hours call the after hour exchange # and ask for your surgeon by name for the Oncology Surgery Service. Discontinue IV Do NOT drive or operate hazardous machinery for 24 hours. Do NOT make important personal or business decisions or sign legal documents for 24 hours. Limit your activities for 24 hours. DO NOT engage in sports, heavy work, or heavy lifting until your physician gives you permission. Post-discharge instructions If you have any unused medications (including opiods), dispose of these properly by mixing unused pills with dish detergent in plastic storage bag and dispose in trash. When taking pain medication, be careful as you walk, drive, climb stairs. Dizziness is not unusual. Discharge Medications: Your medication list START taking these medications acetaminophen 500 mg capsule 1,000 mg, oral, Every 6 hours PRN, Use first for management of pain ibuprofen 600 mg tablet 600 mg, oral, Every 6 hours PRN Commonly known as: ADVIL,MOTRIN CONTINUE taking these medications amLODIPine 5 mg tablet 5 mg, oral, Daily (early AM) Commonly known as: NORVASC ATIVAN ORAL oral, As needed azaTHIOprine 50 mg tablet 100 mg, oral, Daily (early AM) Commonly known as: IMURAN carvediloL 6.25 mg tablet 6.25 mg, oral, 2 times daily Commonly known as: COREG cholecalciferol 2000 unit tablet 4,000 Units, oral, Daily (early AM) Commonly known as: VITAMIN D-3 Fish OiL 1,200 (144-216) mg capsule 1 capsule, oral, 2 times daily Generic drug: omega 4-vaj-ahd-fish oil losartan 100 mg tablet 100 mg, oral, Daily (early AM) Commonly known as: COZAAR omeprazole 40 mg capsule 40 mg, oral, Daily before breakfast Commonly known as: PriLOSEC predniSONE 5 mg tablet 5-10 mg, oral, As needed, Exacerbation of RA Commonly known as: DELTASONE tiZANidine 4 mg tablet 4 mg, oral, Nightly Commonly known as: ZANAFLEX traMADoL 50 mg tablet 50 mg, oral, 2 times daily PRN Commonly known as: ULTRAM Outpatient Follow-Up: Future Appointments Date Time Provider Department Center 02/14/2023 8:30 AM Javi Buck MD [facility] Referrals and Follow-ups to Schedule Do NOT drive or operate hazardous machinery for 24 hours. As directed Do NOT make important personal or business decisions or sign legal documents for 24 hours. As directed Limit your activities for 24 hours. DO NOT engage in sports, heavy work, or heavy lifting until your physician gives you permission. As directed When taking pain medication, be careful as you walk, drive, climb stairs. Dizziness is not unusual.As directed Cosigned by Javi Buck MD at 01/25/2023 3:44 PM CDT documented in this encounter Medications at Time of Discharge amLODIPine (NORVASC) 5 mg tabletIndication s:hypertension Take 1 tablet (5 mg total) by mouth general teller before breakfast 08/22/2022 azaTHIOprine (IMURAN) 50 mg tabletIndication s:autoimmune disease,RA Take 2 tablets (100 mg total) by mouth general teller before breakfast 08/25/2022 carvediloL (COREG) 6.25 mg tabletIndication s:hypertension Take 1 tablet (6.25 mg total) by mouth 2 (two) times a day 07/22/2022 cholecalciferol (VITAMIN D-3) 2000 unit tabletIndication s:Vitamin D Deficiency Take 2 tablets (4,000 Units total) by mouth general teller before breakfast 08/06/2012 lorazepam (ATIVAN ORAL) Take by mouth as needed losartan (COZAAR) 100 mg tabletIndication s:hypertension Take 1 tablet (100 mg total) by mouth general teller before breakfast omega 1-pnl-sjb-fish oil (Fish OiL) 1,200 (144-216) mg capsuleIndicatio ns:hypertriglyce ridemia Take 1 capsule by mouth 2 (two) times a day omeprazole (PriLOSEC) 40 mg capsuleIndicatio ns:Treatment of Non-Bleeding Gastric Disorder Take 1 capsule (40 mg total) by mouth daily before breakfast 08/30/2022 predniSONE (DELTASONE) 5 mg tablet Take 1-2 tablets (5-10 mg) by mouth as needed Exacerbation of RA 06/01/2022 tiZANidine (ZANAFLEX) 4 mg tabletIndication s:Muscle Spasm Take 1 tablet (4 mg total) by mouth nightly 01/31/2014 traMADoL (ULTRAM) 50 mg tablet Take 1 tablet (50 mg total) by mouth 2 (two) times a day as needed 12/27/2012 acetaminophen 500 mg capsuleIndicatio ns:Pain Take 2 capsules (1,000 mg total) by mouth every 6 (six) hours as needed for pain Use first for management of pain 01/25/2023 ibuprofen (ADVIL,MOTRIN) 600 mg tablet Take 1 tablet (600 mg total) by mouth every 6 (six) hours as needed for pain 20 tablet 01/25/2023 documented as of this encounter Ordered Prescriptions Prescription Sig Dispense Quantity Refills Last Filled Start Date End Date ibuprofen (ADVIL,MOTRIN) 600 mg tablet Take 1 tablet (600 mg total) by mouth every 6 (six) hours as needed for pain 20 tablet 01/25/2023 acetaminophen 500 mg capsuleIndications :Pain Take 2 capsules (1,000 mg total) by mouth every 6 (six) hours as needed for pain Use first for management of pain 01/25/2023 documented in this encounter Discharge Disposition Disposition Code Departure Means Destination Comment s Discharge to home or self care documented in this encounter Progress Notes * Javi Buck MD - 01/25/2023 2:58 PM CDT Seen and examined in her hospital room. Intraoperative findings and course discussed with her and her . She is overall feeling well. Neck is soft there is some mild swelling inferiorly. This is quite soft. No ecchymosis. Voice is clear and at baseline. Can discharge this afternoon. PTU should be discontinued. * Jannie Wood NP - 01/25/2023 12:57 PM CDT General Surgery Daily Progress Subjective Chief complaint of thyroid adenoma post op day- 0 from HEMITHYROIDECTOMY (R) Interval History: 67 y/o F s/p right hemithyroidectomy. Pain controlled. Denies nausea, cp, sob, paraesthesia. Current Facility-Administered Medications: acetaminophen (TYLENOL) tablet 1,000 mg, 1,000 mg, oral, Q6H, Kel Ambriz MD benzocaine-menthoL (CHLORASEPTIC) lozenge 1 lozenge, 1 lozenge, mouth/throat, Q2H PRN, Jannie Wood, BLAST FURNACE KEEPER HELPER ibuprofen (ADVIL,MOTRIN) tablet 600 mg, 600 mg, oral, Q6H PRN, Kel Ambriz MD scopolamine patch 72 hour 1 patch, 1 patch, transdermal, Once, Leo Ray MD, 1 patch at 01/25/23 0707 Objective Physical Exam: Lungs: clear to auscultation bilaterally Heart: regular rate and rhythm, S1, S2 normal, no murmur, click, rub or gallop Abdomen: soft, non-tender; bowel sounds normal; no masses, no organomegaly Incision: Neck incisions c/d/I with steri strip Extremities: WWP, no edema Vitals: 24hr Min/Max: Temp Min: 36.5 ??C (97.7 ??F) Max: 37.2 ??C (99 ??F) Pulse Min: 72 Max: 95 BP Min: 127/71 Max: 148/76 Resp Min: 6 Max: 20 SpO2 Min: 92 % Max: 98 % Most Recent : Vitals: 01/25/23 1212 BP: Pulse: 95 Resp: Temp: SpO2: 95% No intake/output data recorded. I/O this shift: In: 1000 [I.V.:1000] Out: 5 [Blood:5] Assessment /Plan Principal Problem: Hyperthyroidism 67 y/o F s/p right thyroid lobectomy in NAD -Monitor VS, oxygenation, I&O -Acute surgical pain: scheduled APAP, ibuprofen PRN, lozenges PRN -DVT PPX: scd b/l, encourage ambulation; hold heparin subq for increased bleeding risk -ADAT Cosigned by Javi Buck MD at 01/25/2023 3:35 PM CDT documented in this encounter H&P Notes * Kel Ambriz MD - 01/25/2023 7:31 AM CDT I have reviewed the H&P, examined the patient, and endorse the findings as written. Plan of Care : Based on the above findings, I consider Anjali Tian to be an acceptable risk for : Procedure(s): HEMITHYROIDECTOMY Physical Exam: Vitals: 01/25/23 0712 BP: 148/76 Pulse: 77 Resp: 15 Temp: 37.1 ??C (98.8 ??F) SpO2: 96% General: Well-appearing, overweight female who appears her stated age. Eyes: No obvious exophthalmos or lid-lag. Voice: no obvious hoarseness Neck: No previous surgical scars, thyroid is enlarged on the right with palpation and swallow. Neckis a bit wide. Only moderate extension. Good creases; tiny bit of extra adiposity noted. Lymph: No palpable cervical or supraclavicular adenopathy. Respiratory: Non-labored respirations Skin: No obvious rashes, normal turgor, no lower extremity edema. Neurocognitive: Appropriate affect, mood, and is oriented to person, place, & time Cosigned by Javi Buck MD at 01/25/2023 7:54 AM CDT Source Note - Leo Ray MD - 01/05/2023 1:01 PM CDT Images from the original note were not included. Center for Preoperative Assessment and Planning Preoperative Evaluation Record Evaluation type/location: TPAP from [facility] Planned procedure site: [facility] PVT OR (Pod 1) Date: 01/05/23 NOTE: This note represents a preoperative evaluation initiated via telephone interview. NO PHYSICALEXAM was performed at the time of initial assessment. A physical exam may be added to this note anddocumented below. Anesthesia Evaluation Anjali Tian is a 67 y.o. female Procedure(s): HEMITHYROIDECTOMY Pre-Op Diagnosis Codes: * Hyperthyroidism [E05.90] HISTORY HPI Anjali Tian, 67 year old female, with history of anxiety, HTN, anemia, GERD, RA, and hyperthyroidism. Undergoing evaluation prior to right HEMITHYROIDECTOMY. Past Medical History Information obtained from: patient and chart. Neurological + Psychiatric history (PRN meds) - anxiety Pertinent negatives: seizures; neuromuscular disease; CVA/stroke and TIA Cardiovascular + Hypertension (Does not check BP at home) Hypertension year diagnosed: 1999. Pertinent negatives: CAD ; [place] ; CABG ; valvular heart disease; atrial [...] activity 2/2 knee pain. 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 Review of Systems + palpitations (occasionally) Pertinent negatives: productive cough; SOB; recent cold/flu; fever; chest pain; orthopnea; pedal edema; PND; previous transfusion; easy bruising; bleeding problems; syncope and dizziness PAT Summary and Plans Cardiac risk classification of planned procedure: intermediate cardiac risk. Preoperative assessment status: complete. Additional comments: Anjali Tian is a 67 y.o. female who is [...] provided by telephone and electronically sent via [employer]. Patient verbalized understanding of instructions. Blood bank [...] 1993 & 1994 (Added by TW Conv) [place] TOTAL ABDOMINAL HYSTERECT W/WO RMVL TUBE OVARY Hysterectomy - 1990 (Added by TW Conv) [place] UNLISTED PROCEDURE ABDOMEN PERITONEUM & OMENTUM Hernia Repair - 1995 (Added by TW Conv) WRIST SURGERY Bilateral 2019 OB History [...] (NORVASC) 5 mg tablet 01/05/2023 08/22/22 -- Provider, MD Arely azaTHIOprine (IMURAN) 50 mg tablet 01/05/2023 08/25/22 -- ProviderArely MD carvediloL (COREG) 6.25 mg tablet 01/05/2023 07/22/22 -- ProviderArely MD cholecalciferol (VITAMIN D-3) 2000 unit tablet 01/05/2023 08/06/12 -- Arely Jiménez MD losartan (COZAAR) 100 mg tablet 01/05/2023 -- -- Arely Jiménez MD omega 1-qhg-xkt-fish oil (Fish OiL) 1,200 (144-216) mg capsule 01/05/2023 -- -- Arely Jiménez MD omeprazole (PriLOSEC) 40 mg capsule 01/05/2023 08/30/22 -- Arely Jiménez MD predniSONE (DELTASONE) 5 mg tablet Past Month 06/01/22 -- Arely Jiménez MD tiZANidine (ZANAFLEX) 4 mg tablet 01/04/2023 01/31/14 -- Arely Jiménez MD traMADoL (ULTRAM) 50 mg tablet 01/05/2023 12/27/12 -- Arely Jiménez MD -- Patient not taking: No current facility-administered medications for this encounter. Current Outpatient Medications: amLODIPine (NORVASC) 5 mg tablet azaTHIOprine (IMURAN) 50 mg tablet carvediloL (COREG) 6.25 mg tablet cholecalciferol (VITAMIN D-3) 2000 unit tablet losartan (COZAAR) 100 mg tablet omega 5-idx-ajp-fish oil (Fish OiL) 1,200 (144-216) mg capsule [...] Medication protocol when under care of a CHIEF DRAFTER Planned anesthesia: General Team communication plan: oral [...] All questions answered. documented in this encounter Nursing Notes * Bambi Delgado RN - 01/25/2023 4:50 PM CDT Discharge instructions verbally read to patient. Patient stated that she understood instructions and did not have any questions at this time. RN removed peripheral IV prior to discharge. Patient discharged home via personal vehicle with family. documented in this encounter Miscellaneous Notes * Plan of Care - Bambi Delgado RN - 01/25/2023 4:08 PM CDT Problem: Health Behavior: Goal: Understanding of discharge needs will improve Outcome: Progressing Problem: Lack of Knowledge: Goal: Ability to develop a pain control plan will improve Outcome: Progressing Goal: Ability to identify pain intensity on a pain scale and rate it consistently will improve Outcome: Progressing Goal: Ability to notify healthcare provider of pain before it becomes unmanageable or unbearable will improve Outcome: Progressing Problem: Medication: Goal: Satisfaction with pain management regimen will improve Outcome: Progressing Problem: Sensory: Goal: Ability to identify factors that increase the pain will improve Outcome: Progressing Goal: Pain level will decrease Outcome: Progressing Problem: Lack of Knowledge: Goal: Ability to state ways to decrease the risk of falls will improve Outcome: Progressing Problem: Safety: Goal: Will remain free from falls Outcome: Progressing Goal: Will remain free from injury from falls Outcome: Progressing Goal: Will remain free from falls and injury in home environment Outcome: Progressing Goals: Clinical Goals for the Shift: Post-op Monitoring; Pain control; Tolerate diet; Discharge home Summary: * Op Note - Javi Buck MD - 01/25/2023 9:08 AM CDT Images from the original note were not included. FULL OPERATIVE REPORT SURGEON: Javi Buck MD 1st Telephone Lineman: Kel Ambriz MD 2nd Telephone Lineman: Dennis George MD 3rd Telephone Lineman: Carol Mead [facility] PREOPERATIVE DIAGNOSIS: Toxic right adenoma INDICATIONS is a 67 y.o. 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 This had previously been biopsied twice and BENIGN. Indications for surgery included definitive treatment and relief of compressive symptoms. We offered her surgery and she agreed to proceed. Risks & benefits were discussed. In her case risks were average. Informed consent was signed. Anesthesia: General endotracheal, local with 0.25% bupivacaine Prophylaxis: Sequential compression devices Lines: Peripheral IVs OPERATION Intraoperative cervical ultrasound Right hemithyroidectomy Intraoperative laryngeal nerve monitoring INTRAOPERATIVE FINDINGS We found a large right thyroid nodule that had essentially replaced the lobe. Both right sided parathyroids were identified and preserved on their pedicled. There did appear to be a bit of ectopic thyroid tissue along the posterior aspect of the upper parathyroid and we did try to excise some of this without harming the parathyroid. At case conclusion, laryngeal nerve monitoring revealed normal signal of the right recurrent laryngeal and vagus nerves, confirming an intact circuit. POSTOPERATIVE DIAGNOSIS: Toxic right adenoma DESCRIPTION OF PROCEDURE was brought to the operating room, and appropriate prophylaxis was provided. General endotracheal anesthesia was administered and the position of ET tube laryngeal nerve electrodes against the vocal cords confirmed visually. She was placed in suitable & safe cervical extension with a shoulder roll, arms were gently wrapped, and pressure points carefully padded. Ultrasound was per formed as an aid to plan our incision and call center support representative images were uploaded to the chart. We chose an incision location that matched with a natural skin crease. She was prepped and draped in the usual sterile fashion. A timeout was performed to verify correct patient, procedure, and laterality. An approximately 5-cm cervical incision was placed and dissection carried through the subcutaneous tissues and platysma using electrocautery. Subplatysmal flaps were raised superiorly and inferiorly.The deep cervical fascia was divided in the midline raphe, the strap muscles , and the thyroid gland identified. We did ligate the superior portion of the anterior jugular veins during dissection with vicryls and inferiorly, we used the LigaSure to ligate some crossing tributaries. We noted some normal pre-laryngeal lymphatic tissue which was removed en bloc with the pyramidal lobe. The pyramidal lobe was about 3cm in length and resected en bloc with the specimen. Attention was turned to the right side and the strap muscles were mobilized to the carotid sheath and the lateral paratracheal space entered. The lobe was bulbous and a bit stuck to the overlying sternothyroid muscle. As such, I did divide the sternothyroid muscle to allow for gland extirpation. Weligated some superficial veins between the muscle and thyroid with the LigaSure and silk ties. Oncethat was done, the anterior aspect of the lobe was exposed. We then developed the Space of Reeve between the upper pole of the thyroid gland and the larynx andmaintained a capsular dissection of the thyroid to avoid injury to the external branch of the superior laryngeal nerve, which was identified and preserved. Of note, the superior pole was a bit stuck to the pharyngeal muscles and there were some large veins medially which were controlled with ties and LigaSure. The upper pole vessels were then divided using LigaSure, reinforced with silk ties on the stay side, and the gland rotated anteromedially. The middle thyroid vein was ligated with LigaSure and silk ties and the paratracheal space dissected. The vagal signal was positive confirming an intact circuit. The right recurrent laryngeal nerve was then identified in orthotopic position and this tested positive using the nerve monitor. This was slightly tricky to find due to a lot of fibrofatty tissues in the paratracheal space. Superficial inferior thyroid vessels along the lower pole weredissected and ligated with LigaSure and clips or silk ties, further facilitating anteromedial rotation of the thyroid lobe. The course of the nerve was meticulously exposed, dividing terminal branches of the inferior thyroid artery using a combination of Ligasure, clips and/or silk ties. The right upper parathyroid was identified in orthotopic location, posterior to the recurrent nerve near its insertion and preserved on its vascular pedicle. The right lower parathyroid was identified in orthotopic location anterior to the recurrent nerve along the lateral aspect of the thyroid and preserved on its vascular pedicle. It was a bit intracapsular so I did leave a few millimeters of thyroid tissue on the parathyroid. We continued anteromedial rotation of the thyroid and divided the tissue at the Ligament of Suarez between silk ties. We left about 1cm of thyroid tissue the RLN insertion point to prevent injury to the nerve and to preserve parathyroid blood supply. The nodule itself was far away from this. The thyroid was then released from the trachea using a combination of sharp, blunt, and electrocautery dissection. We then dissected out the pyramidal lobe and then divided the isthmus to the left of midline, far away from the nodule which was quite spongy and soft. The specimen was then marked with a short stitch in the superior pole, a long stitch at the isthmus, and inspected for tissue suspicious for parathyroid. Finding none, it was photographed and sent topathology for permanent histology. The cut edge of the remaining thyroid was hemostatic. We then closely examined the right paratracheal space. There was no pathologic appearing vic tissue. Just superior to the parathyroid candidate, there appeared to be a bit of ectopic thyroid tissue. This was superior to the RLN insertion. We exposed this a bit more and it was quite hard to tell if this was just parathyroid or some thyroid. This was well away from the toxic nodule and likely notcontributing to her hyperthyroidism, however I elected to resect a bit of it with the LigaSure and we sent this separately as possible thyroid vs parathyroid tissue. The remaining parathyroid tissue looked viable. The right neck was irrigated and aspirated dry. Hemostasis was assured. The cut edge of the thyroidisthmus was hemostatic. was then placed in Trendelenburg position, anesthesia provided positive pressure to provoke bleeding and there was no additional major bleeding seen. Surgicel was placed for additional hemostasis. There were excellent signals of the vagus and recurrent laryngeal nerves. The wound was then closed in layers using interrupted Vicryl for the strap muscles in the midline (leaving a gap at the inferior aspect) and the platysma. Local anesthesia using 0.25% bupivacaine a was infiltrated into the subcutaneous tissues. Skin was closed with interrupted deep dermals and a knot-less subcuticular using Monocryl. Dermabond and steri-strips were applied. The patient tolerated the procedure well, was awoken from anesthesia and extubated without complication. Estimated Blood Loss: < 10 mL Specimens Removed: Right thyroid lobe and isthmus, short stitch in superior pole, long stitch at isthmus; additional thyroid vs parathyroid tissue Surgical Counts: All instrument, sponge, & needle counts were correct at case conclusion. Attestation: As attending surgeon, I was present and scrubbed for the duration of the operation with the exception of the closure for which I was immediately present. Javi Buck MD, MPH Endocrine Surgeon [facility] Image of Specimen: * Pre-Procedure Instructions - Jenae Butler NP - 01/05/2023 12:59 PM CDT [facility] Planning CP[facility] Clinic Location: [facility] The night before your surgery: * Do not eat anything after midnight the night before your procedure. and * Do not smoke or use tobacco products after midnight the night before surgery. It is best to stop smoking now to improve your health. The morning of your surgery: * You may have clear liquids on your surgery day. You must stop drinking two hours before you arrive to the surgery facility. Acceptable clear liquids include water, clear sports drinks, black coffee, or clear soda. DO NOT drink any milk, creamer, or alcohol. * Your surgeon's office may have provided additional instructions or restrictions. Please follow those instructions. * You may brush your teeth and rinse your mouth out. * Do not glue your dentures. * Do not wear jewelry, body piercings, makeup, hairpins, false eyelashes or contact lenses to the hospital. * Leave any valuables at home or with your family. * If you are still having menstrual cycles, you should come with a full bladder on the morning of surgery in order to provide a urine sample. * If you have an implantable device with a remote, bring the remote with you on the day of surgery. * If you use home oxygen, bring your portable oxygen tank with you on the day of surgery * If you are going to be admitted after surgery at [facility], COVID testing may be performed on the day of surgery, even if you are up to date on your COVID-19 vaccine. * If having surgery at [facility], you may want to bring a credit card if you want to use our Mobile Pharmacy for your discharge medications. Mobile pharmacy is not available at [facility], the Orthopedic Center, or the [place] [facility]. Instructions For Your Medications: Pre-Surgery Instructions: Medication Instructions amLODIPine (NORVASC) 5 mg tablet Take morning of surgery azaTHIOprine (IMURAN) 50 mg tablet Take per prescribing provider's instruction carvediloL (COREG) 6.25 mg tablet Take morning of surgery cholecalciferol (VITAMIN D-3) 2000 unit tablet Don't take on day of surgery losartan (COZAAR) 100 mg tablet Don't take on day of surgery omega 9-vbt-wnr-fish oil (Fish OiL) 1,200 (144-216) mg capsule Don't take on day of surgery omeprazole (PriLOSEC) 40 mg capsule Take morning of surgery predniSONE (DELTASONE) 5 mg tablet Take per prescribing provider's instruction tiZANidine (ZANAFLEX) 4 mg tablet Take on day of surgery if needed traMADoL (ULTRAM) 50 mg tablet Take on day of surgery if needed General Instructions For Medications: * Stop all of these medications 5 days prior to your surgery: excedrin, motrin, advil, ibuprofen, aleve, naproxen, meloxicam, celebrex, celecoxib. For medications that you are instructed to take on the morning of surgery, take the medications with a few sips of water. Stop all of these medications 7-14 days prior to your surgery: Vitamin E, Herbal medicines, Diet Pills If you have pain, you may take tylenol (acetaminophen). Do not take more than 6 tablets or 3000 mg (3 g) within a 24 period. Call your surgeon and the CPAP clinic if any of the following happens before surgery: Any changes in your health You have a fever You have any signs of an infection (chest, urinary tract or tooth) You have been to the Emergency Room or were in the hospital You have started taking any new medications You have questions about a bowel prep or special diet before surgery You have symptoms of COVID-19 such as a new or worsening cough, shortness of breath, fever, body aches, loss of taste or smell, diarrhea or vomiting, or sore throat. You have a household contact with COVID-19. You test positive for COVID-19. * Perioperative Nursing Note - Germaine Mckeon RN - 01/05/2023 8:30 AM CDT [facility] Preoperative Assessment and Planning Perioperative Nursing Note Telephone Preoperative Evaluation ([facility]) - TELEPHONE ONLY, NO PHYSICAL EXAM Date: 01/05/23 Vitals: 01/05/23 0825 Weight: 78 kg (172 lb) Height: 149.9 cm (4' 11 ) CHEST CIRCUMFERENCE: n/a Social History Tobacco Use Smoking Status Never Smokeless Tobacco Not on file Substance and Sexual Activity Drug Use Never Comment: no etoh Outpatient Medications Marked as Taking for the 01/25/23 encounter (Hospital Encounter) Medication Sig Dispense Refill amLODIPine (NORVASC) 5 mg tablet Take 1 tablet (5 mg total) by mouth general teller before breakfast azaTHIOprine (IMURAN) 50 mg tablet Take 2 tablets (100 mg total) by mouth general teller before breakfast carvediloL (COREG) 6.25 mg tablet Take 1 tablet (6.25 mg total) by mouth 2 (two) times a day cholecalciferol (VITAMIN D-3) 2000 unit tablet Take 2 tablets (4,000 Units total) by mouth general teller before breakfast losartan (COZAAR) 100 mg tablet Take 1 tablet (100 mg total) by mouth general teller before breakfast omega 7-uwa-szi-fish oil (Fish OiL) 1,200 (144-216) mg capsule Take 1 capsule by mouth 2 (two) times a day omeprazole (PriLOSEC) 40 mg capsule Take 1 capsule (40 mg total) by mouth daily before breakfast predniSONE (DELTASONE) 5 mg tablet Take 1-2 tablets (5-10 mg) by mouth as needed Exacerbation of RA tiZANidine (ZANAFLEX) 4 mg tablet Take 1 tablet (4 mg total) by mouth nightly traMADoL (ULTRAM) 50 mg tablet Take 1 tablet (50 mg total) by mouth 2 (two) times a day as needed Implants No active implants to display in this view. SKIN Piercings Remaining: Yes Wound (LDAs) Type of Wound (LDA): (none) SCREENINGS Suzi index score: 100 NUTRITION PATIENT CARE PLANNING Advance Directives (For Healthcare) Have you reviewed your Advance Directive and is it valid for this stay?: No Advance Directive: Patient has advance directive, copy not in chart Advance Directive not in Chart: Copy requested from family (pt to bring on dos) Communication/Finish Patcher Needs Communication Needs: Glasses Assistive Devices/DME: Eyeglasses Discharge Planning Type of Residence: Private residence Living Arrangements: Spouse/significant other Support Systems: Spouse/significant other Assistance Needed: spouse to provide DC ride post-op ASSESSMENT SPECIALIST NO ADDITIONAL COMMENTS/ FOLLOW UP * Pre-Procedure Instructions - Germaine Mckeon RN - 01/05/2023 8:28 AM CDT [facility]ESSMENT [facility]ING (CPAP) PRE-SURGICAL NURSING INSTRUCTIONS Telephone Assessment General Information Discussed with Patient: Surgery location provided to patient. Arrival time and surgical time will be provided to the patient by their surgeon. You should wear clothing that is clean, loose, comfortable and easy to get in and out of on the dayof surgery. You should remove nail coverings, artificial nails and nail thai prior to the day of surgery. You should leave your valuables and any jewelry at home. No metal or piercings are allowed in the operating room. You should bring your insurance card, a photo ID (example: School Health Aide's License) and a method of payment for any insurance copay, deductible or copay for discharge medications. You should bring a complete, up-to-date, list of all your medications on the day of surgery, including any over the counter medications or supplements you may take. Please note on your medication list, the last date & time you took each medication. The healthcare team, on the day of surgery, will ask for this information. You should bring your Advanced Directive and/or Living Will with you on the day of surgery if you have not verified a copy is already in your Epic Chart. If you are having surgery at [facility], please arrive on the day of surgery with the name and phone number of your local 24 hour pharmacy. Due to evening discharges, your routine pharmacy may be closed. In order to obtain your prescriptions that evening, your surgeon may need to send prescriptions to this pharmacy or have you take prescriptions to this pharmacy when you are discharged. Without this information, you may not be able to obtain your prescriptions that evening. A Guide for Patients Having Surgery: Your Pathway to Excellent Care OUR GOAL IS TO PROVIDE YOU WITH EXCELLENT CARE Use this guide to learn about what you can do before, during and after surgery to help your recovery. You are the most important person on your health care team. By becoming informed and involved, you can contribute to the success of your surgery. If your surgeon's directions are different than those in this guide, talk with your nurse or surgeon to confirm the information. It is important that you understand how to take care of yourself at home after surgery. Be sure to bring this guide with you on the day of surgery and take it home with you after surgery. Write down questions for your nurse or surgeon on the last page of this booklet. Important pages to be reviewed BEFORE surgery: Page 1: QR codes for Surgery Center maps Page 3: Types of Anesthesia Page 5: Tips for the day & night before surgery Page 6: When to stop eating BEFORE surgery and examples of clear liquids Page 7-10: Preventing Infection: Chlorhexidine Gluconate (CHG) Bathing Instructions You may access A Guide for Patients Having Surgery: Your Pathway to Excellent Care by the followinglink: [email or web address] How To Prepare Your Skin For Surgery Below is the Pre-Surgical Bathing Protocol you should follow for your surgery. If your surgeon provides you different bathing instructions, please follow your surgeon's orders. 2 Day CHG Bathing Protocol (no nasal ointment) PREVENTING INFECTION (DECOLONIZATION): Decolonization is the use of a topical antiseptic soap and sometimes a nasal ointment to remove bacteria (germs) from the skin's surface. Antiseptic soap: Chlorhexidine gluconate or CHG (brand name: Hibiclens??) Before surgery, your entire body must be thoroughly cleaned. CHG helps to reduce the bacteria on your skin. You may be given one or more bottles of CHG or you may be asked to obtain from your preferred pharmacy. Be sure to ask your pharmacist if you need help finding this product. Nasal ointment: Mupirocin (brand name: Bactroban) Your surgeon may also prescribe a topical ointment that is rubbed inside each of the nostrils to reduce the bacteria in your nose. Mupirocin ointment requires a prescription. If needed, it will be prescribed by your surgeon and obtained from your preferred pharmacy. SHOWERING WITH ANTISEPTIC SOAP (CHG) What You Need For Each Shower 60 mL (?? cup) of CHG 2 clean washcloths CHG Bathing Instructions First, shampoo and rinse your hair with your own shampoo (no conditioners). Do this so the antiseptic soap isn't washed off by your shampoo. Wash face with warm water. Turn off shower and stand away from the water. Use 2 clean washcloths to apply the antiseptic soap to all areas as described below: Pour 30 mL (1/8 cup) of CHG on washcloth #1: Using washcloth- start at jawline and firmly massage the soap into the skin in a circular motion to clean neck, shoulders, chest, back, both armpits, arms, hands and abdomen. Finish with legs and feet. Pour 30 mL (1/8 cup) of CHG on washcloth #2: Using washcloth- firmly massage the soap into the skinin a circular motion to clean groin area, perineum and buttocks. (Do not use CHG on genital area.) [place]: The CHG antiseptic soap will not bubble or lather very much. If you get soap in your eyes, ears or mouth, rinse well with cool water. When finished, leave the soap on your skin for 2 minutes before rinsing. Dry off with a clean fresh towel. Wear clean clothes or pajamas to sleep in. After showering DO NOT put on deodorant, hair products or conditioners, lotions or creams, powders,Vaseline or any non-essential products. If you cannot reach the surgical site, such as the back, please have someone help you. Shaving: You may shave your face, legs and underarms during your evening shower before you apply the CHG antiseptic soap. Be careful not to cut or yenifer your skin. Avoid shaving on the day of surgery. Deodorant: Patients following the 5-Day CHG protocol may apply deodorant on the days leading up to surgery, being sure, however, to avoid use on the evening before and day of surgery. All other products should be avoided for the full 5 days. 2-Day CHG Bathing Protocol The Evening Before Surgery: Take a shower with Antiseptic soap (CHG). Follow the steps for ???Showering with Antiseptic Soap (CHG)?? above. Change all linens on your bed so you are sleeping in clean fresh sheets and pillowcases. Remove nail coverings, artificial nails and nail thai. The Morning of Surgery: Take a shower with Antiseptic soap (CHG). Follow the steps for ???Showering with Antiseptic Soap (CHG)?? above. Put clean clothes on after you shower. Travel/Exposure Screening: Travel Screening Have you traveled outside the [place] in the last 6 months?: No Exposure Screening Have you been exposed to anyone who is sick in the last 30 days?: No Have you been exposed to or tested positive for COVID-19 within the last 10 days?: No Infectious Disease Screening Are you having any of the following:: None As of 05/03/2022 any COVID TESTING required for surgery will be set up by your surgeon's office. Please reach out to your surgeon's office if you develop any COVID symptoms, test positive for COVID or are exposed to a COVID positive person. If you have questions, please call the CPAP Staff at [phone], Monday-Monday 8am-4:30pm. All patients should read the below section: COVID 19 Updates & Visitor Policy: Please access [email or web address] for the most updated information. Information on [facility] & the Orthopedic Center: Please view [email or web address] (Patient & Visitor Information) for additional details regarding Advanced Directive forms, AWARE, directions, parking information, lodging, Internet access, dining and more. Information on [facility] or [facility] Surgery [place] ([facility]): Please view [email or web address] (Patient and Visitor Information) for parking/directions and more. For MyChart information, to activate account or password recovery, please go to [email or web address] or call [phone] (toll-free: [phone]). Information for Suicide Prevention: National Suicide Prevention Lifeline (1-913- 325-MFYQ (1651)). Surgery Times: For patients having surgery @ [facility] or [facility] Surgery [place] ([facility]), if your surgeon's office has not notified you of your surgery time by NOON THE BUSINESS DAY BEFORE your surgery, please call [phone] and ask for your surgeon's office documented in this encounter Plan of Treatment Not on file documented as of this encounter Procedures Procedure Name Priority Date/Time Associated Diagnosis Comments SURGICAL PATHOLOGY Routine 01/25/2023 10 :12 AM CDT Hyperthyroidism HEMITHYROIDECTOMY 01/25/2023 8:3 0 AM CDT Hyperthyroidism Special Needs nerveana monitor documented in this encounter Results * Surgical pathology (01/25/2023 10:12 AM CDT) Tissue (Thyroid, Resection, Partial/Total) 01/25/2023 10:12 AM CDT Tissue (Thyroid, Resection, Partial/Total) 01/25/2023 10:27 AM CDT Narrative PATHOLOGY [facility] - 01/31/2023 10:11 AM CDT EPIC results best viewed via link to PDF [facility] [place] [address] [place] [address] Note to Patients: This report may contain a detailed description of human tissue sent by a health care provider to the laboratory for pathologic evaluation. The content of this report is essential for diagnosis and may provide important critical findings. This information may be unfamiliar to patients to review without a medical professional present. It is advised that the patient review this report in the presence of a health care provider who can answer questions and explain the details. SURGICAL PATHOLOGY REPORT FINAL Patient Name: ?? ANJALI TIAN I. Gender: ??F : ??1955 (Age: 67) Address: ??[address], [place] ??[address] Hospital #: ??[id number] Taken:01/25/2023 Received:01/26/2023 Reported: 01/31/2023 Patient Type: [facility] OP In Bed ?? Service: Oncology Location: [place] [address] Physician(s): ??MD David Allen M.D. Diagnosis: ??A. ??Thyroid, right lobe and isthmus, hemithyroidectomy ? - Dominant nodule of nodular hyperplasia ?? B. ??Parathyroid, question additional thyroid tissue versus parathyroid , excision ? - Hypercellular parathyroid sja2/01/31/2023 08:05 By this signature, I attest that the above diagnosis is based upon my personal examination of the slides(and/or other material indicated in the diagnosis). Rhoda Celis M.D. Report Electronically Reviewed and Signed Out By ??Rhoda Celis M.D. 01/31/2023 10:11:19 Microscopic Description and Comment: Microscopic examination substantiates the above cited diagnosis. Brian Carey MD History: The patient is a 67-year-old woman presenting with hyperthyroidism. Operative procedure: Right hemithyroidectomy. Specimen(s) Received: A: Right Thyroid lobe and isthmus short stitch raygoza superior pole long stitch at isthmus B: Question additional thyroid tissue versus parathyroid Gross Description: Received in two formalin jars labeled with the patient's identifiers. A. ??Labeled right thyroid lobe and isthmus, short stitch raygoza superior pole, long stitch isthmus , is a 13.3 g thyroid lobe (4.9 x 3.0 x 2.5 cm) with isthmus (2.2 x 0.5 x 0.5 cm). ?? Involving 95% of the lobe, is a partially encapsulated nodule (4.9 x 2.6 x 2.2 cm). ??The nodule has a orta-hubbard to orta-brown cut surface with an enumerable amount of cystic spaces (0.1-0.6 cm in diameter). There is no gross hemorrhage, necrosis, or calcification. The nodule grossly abuts the capsule. The uninvolved parenchyma is red-brown and dense. The capsule is intact. The capsule is inked black. Photographs are taken. Activity Director sections are submitted. Summary of sections: A1 Superior pole with nodule, perpendicular A2 Superior pole with nodule A3 Mid pole with nodule A4 Inferior pole with nodule A5 Inferior pole with nodule, perpendicular A6 Isthmus Jar 1. B. ??Labeled question additional thyroid tissue versus parathyroid , is a <0.1 g orta nodule (0.7 x 0.5 x 0.5 cm). ??The nodule is entirely submitted in cassette B1. ??Jar 0. ? [facility]/01/26/2023 14:43 PA(s): Paulina Crowell By this signature, I attest that the above diagnosis is based upon my personal examination of the slides(and/or other material). Addenda/Procedures The performance characteristics of some immunohistochemical stains, fluorescence in-situ hybridization tests and immunophenotyping by flow cytometry cited in this report (if any) were determined by the Surgical Pathology and Flow Cytometry Departments at [facility] as part of an ongoing chief vendor quality program and in compliance with federally mandated regulations drawn from the Clinical Laboratory Improvement Act of 1988 (CLIA '88). ??Some of these tests rely on the use of analyte specific reagents and are subject to specific labeling requirements by the US Food and Drug Administration. ??Such diagnostic tests may only be performed in a facility that is certified by the Department of Health and Human Services as a high complexity laboratory under CLIA '88. ??The FDA has determined that such clearance or approval is not necessary. ??This test is used for clinical purposes. ??It should not be regarded as investigational or for research. ??Nevertheless, federal rules concerning the medical use of analyte specific reagents require that the following disclaimer be attached to the report: This test was developed and its performance characteristics determined by the Surgical Pathology and [facility] Cytometry Departments of [facility] [facility] ??It has not been cleared or approved by the U. S. Food and Drug Administration. IMAGES AND SCANNED DOCUMENTS, IF INCLUDED, ONLY VIEWABLE IN PDF VERSION OF REPORT T.K. Brandon Buck MD LAB PATHOLOGY ORDERABLES Final Result PATHOLOGY [facility] 3rd Floor [place], [place] [phone] documented in this encounter Visit Diagnoses Diagnosis Hyperthyroidism- Primary Thyrotoxicosis without mention of goiter or other cause, without mention of thyrotoxic crisis or storm Hyperthyroidism Thyrotoxicosis without mention of goiter or other cause, without mention of thyrotoxic crisis or storm Hyperthyroidism Thyrotoxicosis without mention of goiter or other cause, without mention of thyrotoxic crisis or storm documented in this encounter Admitting Diagnoses Diagnosis Hyperthyroidism Thyrotoxicosis without mention of goiter or other cause, without mention of thyrotoxic crisis or storm documented in this encounter Administered Medications Inactive Administered Medications - up to 3 most recent administrations Medication Order MAR Action Action Date Dose Rate Site acetaminophen (TYLENOL) tablet 1,000 mg 1,000 mg, oral, Once, On Mon01/25/23 at 1145, For 1 dose, Phase I, When able to tolerate PO., Indications: PainIndications:Pain Given 01/25/2023 11:31 AM CDT 1,000 mg acetaminophen (TYLENOL) tablet 1,000 mg 1,000 mg, oral, Every 6 hours, First dose on Mon01/25/23 at 1315, Start 6 hours after pre-op dose., Indications: PainIndications:Pain Given 01/25/2023 4:22 PM CDT 1,000 mg benzocaine-menthoL (CHLORASEPTIC) lozenge 1 lozenge 1 lozenge, mouth/throat, Every 2 hours PRN, sore throat, Starting on Mon01/25/23 at 1256 BUPivacaine (MARCAINE) 0.25 % (2.5 mg/mL) preservative free injection As needed, Starting on Mon01/25/23 at 1035, Intra-Op Given 01/25/2023 10:35 AM CDT 20 mL HYDROmorphone (DILAUDID) injection 0.2 mg 0.2 mg, intravenous, Administer over 2 Minutes, Every 10 min PRN, 1st line for pain, Starting on Mon01/25/23 at 1107, Phase I, Switch to 2nd line analgesic order if pain is uncontrolled or increasing after 2 doses. Notify Anesthesiologist if total PACU dose reaches 2 mg and pain score 5/10 or more., Indications: PainIndications:Pain Given 01/25/2023 11:36 AM CDT 0.2 mg Lactated Ringer's (LR) infusion 30 mL/hr, intravenous, Continuous, Starting on Mon01/25/23 at 0730, Pre-Op New Bag 01/25/2023 10:31 AM CDT Rate/Dose Verify 01/25/2023 8:29 AM CDT 30 mL/h r New Bag 01/25/2023 7:13 AM CDT 30 mL/hr 30 mL/hr scopolamine patch 72 hour 1 patch 1 patch, transdermal, Administer over 72 Hours, Once, On Mon01/25/23 at 0730, For 1 dose, Pre-Op Medication Applied 01/25/2023 7:07 AM CDT 1 patch Behind Right Ear sterile water irrigation As needed, Starting on Mon01/25/23 at 0830, Intra-Op Given 01/25/2023 8:25 AM CDT 1,000 mL Other (Comment) documented in this encounter Discontinued Medications Medication Sig Discontinue Reason Start Date End Da te propylthiouraciL (PTU) 50 mg tablet TAKE 1/2 TABLET BY MOUTH TWICE A DAY Therapy completed 11/24/2022 01/05/2023 documented as of this encounter Historical Medications * This list may reflect changes made after this encounter. lorazepam (ATIVAN ORAL) Take by mouth as needed added in this encounter Active and Recently Administered Medications Times are shown in CDT. Scheduled Medication Order 01/23/2023 01/24/2023 01/25/2023 acetaminophen (TYLENOL) tablet 1,000 mg (COMPLETED) 1,000 mg, oral, Once, On Mon01/25/23 at 1145, For 1 dose, Phase I, When able to tolerate PO., Indications: Pain 1131 (Given - Provid er: Adore Ruiz RN) acetaminophen (TYLENOL) tablet 1,000 mg 1,000 mg, oral, Every 6 hours, First dose on Mon01/25/23 at 1315, Start 6 hours after pre-op dose., Indications: Pain 1622 (Given - Provid er: Bambi Delgado RN) scopolamine patch 72 hour 1 patch 1 patch, transdermal, Administer over 72 Hours, Once, On Mon01/25/23 at 0730, For 1 dose, Pre-Op 0707 (Medication Jarred lied - Provider: Meenu Puente RN)1650 (Due: Medication Removed - Provider: Automatic Discharge Provider - Comment: Time automatically adjusted from order being discontinued) Continuous Medication Order 01/23/2023 01/24/2023 01/25/2023 Lactated Ringer's (LR) infusion (CANCELED) 30 mL/hr, intravenous, Continuous, Starting on Mon01/25/23 at 0730, Pre-Op 0713 (New Bag - Prov ider: Meenu Puente RN)0829 (Rate/Dose Verify - Provider: Fe Ramos CRNA)1030 (Paused - Provider: Fe Ramos CRNA - Comment: Switch to gravity)1031 (New Bag - Provider: Fe Ramos CRNA)1244 (Due: Stopped - Provider: Kel Ambriz MD) PRN Medication Order 01/23/2023 01/24/2023 01/25/2023 benzocaine-menthoL (CHLORASEPTIC) lozenge 1 lozenge 1 lozenge, mouth/throat, Every 2 hours PRN, sore throat, Starting on Mon01/25/23 at 1256 BUPivacaine (MARCAINE) 0.25 % (2.5 mg/mL) preservative free injection (CANCELED) As needed, Starting on Mon01/25/23 at 1035, Intra-Op 1035 (Given - Provid er: Kel Ambriz MD) HYDROmorphone (DILAUDID) injection 0.2 mg (CANCELED) 0.2 mg, intravenous, Administer over 2 Minutes, Every 10 min PRN, 1st line for pain, Starting on Mon01/25/23 at 1107, Phase I, Switch to 2nd line analgesic order if pain is uncontrolled or increasing after 2 doses. Notify Anesthesiologist if total PACU dose reaches 2 mg and pain score 5/10 or more., Indications: Pain 1136 (Given - Provid er: Adore Ruiz RN) ibuprofen (ADVIL,MOTRIN) tablet 600 mg 600 mg, oral, Every 6 hours PRN, 1st line for pain, Starting on Mon01/25/23 at 1244, Start 6 hours after perioperative ketorolac (TORADOL), if applicable. sterile water irrigation (CANCELED) As needed, Starting on Mon01/25/23 at 0830, Intra-Op 0825 (Given - Provid er: Javi Buck MD - Comment: IRRIGATION ON STERILE FIELD) documented in this encounter Orders Medications Ordered That Lex ht Not Have Been Administered Count Last Ordered Date First Ordered Date benzocaine-menthoL (CHLORASE PTIC) lozenge 1 lozenge 1 01/25/2023 Carrier Fluids for Secondary Infusion - 0.9% Sodium Chloride 01/25/2023 haloperidol (HALDOL) injection 1 mg 01/25 HYDROmorphone (DILAUDID) injection 0.4 mg 1 01/25/2023 ibuprofen (ADVIL,MOTRIN) tablet 600 mg 1 naloxone (NARCAN) 0.4 mg/mL injection 0.04-0.4 mg 1 01/25/2023 ondansetron (ZOFRAN) injection 4 mg 1 01/25 oxyCODONE (ROXICODONE) tablet 5 mg 2022 sodium chloride 0.9% flush 0.5-20 mL 1 01/07 Diet Count Last Ordered Date First Orde red Date ADULT DISCHARGE DIET 1 01/25/2023 Nursing Count Last Ordered Date First Orde red Date ACTIVITY 1 01/25/2023 DISCHARGE ACTIVITY 1 01/25/2023 DISCHARGE CALL PROVIDER 7 01/25/2023 DISCHARGE INSTRUCTIONS 01/25/2023 NURSING COMMUNICATION 4 01/25/2023 PATIENT MAY SHOWER 1 01/25/2023 WOUND CARE 1 01/25/2023 IV Count Last Ordered Date First Orde red Date DISCONTINUE IV 1 01/25/2023 Admission Count Last Ordered Date First Orde red Date INITIATE OUTPATIENT IN A BED 1 01/25/2023 Discharge Count Last Ordered Date First Orde red Date DISCHARGE PATIENT 1 01/25/2023 CORE MEASURES Count Last Ordered Date First Ord ered Date REASON FOR NO VTE PROPHYLAXI S - HOSPITAL ADMISSION - MEDICATIONS 1 01/25/2023 documented in this encounter Care Teams Pipefitter Relationship Specialty Start Date End Date David Savage MD [address] [facility] [address] [place] [phone] PCP - General Internal Medicine 06/23/22 documented as of this encounter
--- OUTSIDE RECORDS SUMMARY | 2024-06-25 01:29 | XMS_ITS | Encounter Summary ---
Author Organization [facility] Address [address] [place] [address] Phone Care Team Providers Care Vocational Rehabilitation Counselor Name Role Phone David Savage MD Primary Care Provider [phone] Reason for Referral * Diagnostic Imaging (Routine) - Closed Specialty Diagnoses / Procedures Referred By Contac t Referred To Contact Diagnoses Hyperthyroidism Thyroid nodule Procedures US Thyroid Javi Buck MD Phone: tel: fax: [facility] (All Locations) Referral ID Status Reason Start Date Expiration Date Visits Re quested Visits Authorized [id number] Closed 11/12/2022 12/12/2023 1 1 Encounter Details Date Type Department Care Team (Late st Contact Info) Description 11/12/2022 Documentation [facility] Surgery [address] [facility] 5th [place] [address] [place] [address] Javi Buck MD [address] [facility] [address] [place], [place] [id number] Social History Tobacco Use Types Packs/Day Years Used Date Smoking Tobacco: Never Comments Unknown Sex and Gender Information Value Date Recorded Sex Assigned at Not on file Legal 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 Ponce for bilateral hyperfunctioning nodules. Per notes, she is not tolerating MMI or PTU. No US available to review. She will need: -US neck -visit with me documented in this encounter Plan of Treatment Not on file documented as of this encounter Results * US Thyroid (11/29/2022 11:29 AM CDT) Anatomical Region Laterality Modality Head and Neck N/A Ultrasound 11/29/2022 11:3 3 AM CDT Addenda Addendum by Matt Magana MD on 11/29/2022 12:05 PM CDT Of note, a subcentimeter, benign appearing spongiform [...] This was discussed with Dr. Buck today. Electronically signed by: Matt Magana M.D. Impressions 11/29/2022 11:34 AM CDT 1. Large 4.1 cm mixed cystic/solid and hypoechoic right thyroid nodule with irregular borders, which was reported to be most recently biopsied at outside hospital on 06/22/2022 with findings demonstrating benign follicular nodule. ACR TI-RADS recommendations TR5 (>=7 points) (risk of malignancy > 20%) >=1 cm: FNA 0.5-0.9 cm: follow-up US every year for 5 years <0.5 cm: no further evaluation TR4 (4-6 points) (risk of malignancy 5-20%) >=1.5 cm: FNA 1-1.4 cm: follow-up US in 1, 2, 3, and 5 years <1.0 cm: no further evaluation TR3 (3 points) (risk of malignancy 2-5%) >=2.5 cm: FNA 1.5-2.4 cm: follow-up US in 1, 3, and 5 years <1.5 cm: no further evaluation TR2 (2 points) and TR1 (0 points) (risk of malignancy < 2%) No FNA or follow-up US Dictated by: Rosy Sales M.D. The radiology attending physician has personally reviewed this study, and had reviewed and/or edited this written report and agrees with it. Electronically signed by: Matt Magana M.D. Narrative 11/29/2022 11:34 AM CDT EXAMINATION: THYROID SONOGRAM HISTORY: ??67-year-old with hyperthyroidism and hyperfunctioning right thyroid nodule seen on thyroid scintigraphy 09/28/2022. ??Patient has had fine-needle aspiration of the right thyroid nodule dating back at least 10 years and most recently on 06/22/2022 at outside hospital, which was reported to be compatible with benign follicular nodule. Prior Biopsy: Yes, reported to be 06/22/2022 at outside hospital. Patient Risk Factors: None Prior Ultrasound: ??None FINDINGS: The thyroid is normal in size. Size right lobe: 4.9 cm craniocaudal, 2.8 cm transverse, 2.1 cm AP. Size left lobe: 3.8 cm craniocaudal, 1.3 cm transverse, 0.6 cm AP. Size isthmus: 0.1 cm AP. Estimated total number of nodules >/= 1 cm: 1 Number of spongiform nodules >/= 2 cm not described below (TR1): 0 Number of mixed cystic and solid nodules >/= 1.5 cm not described below (TR2): 0 There is a 4.1 x 2.6 x 2.0 cm right thyroid nodule that occupies most of the right thyroid lobe. ??The nodule is mixed cystic and solid and hypoechoic with irregular borders. ??The nodule demonstrates increased vascularity. Procedure Note Matt Magana MD - 11/29/2022 EXAMINATION: THYROID SONOGRAM HISTORY: 67-year-old with hyperthyroidism and hyperfunctioning right thyroid nodule seen on thyroid scintigraphy 09/28/2022. Patient has had fine-needle aspiration of the right thyroid nodule dating back at least 10 years and most recently on 06/22/2022 at outside hospital, which was reported to be compatible with benign follicular nodule. Prior Biopsy: Yes, reported to be 06/22/2022 at outside hospital. Patient Risk Factors: None Prior Ultrasound: None FINDINGS: The thyroid is normal in size. Size right lobe: 4.9 cm craniocaudal, 2.8 cm transverse, 2.1 cm AP. Size left lobe: 3.8 cm craniocaudal, 1.3 cm transverse, 0.6 cm AP. Size isthmus: 0.1 cm AP. Estimated total number of nodules >/= 1 cm: 1 Number of spongiform nodules >/= 2 cm not described below (TR1): 0 Number of mixed cystic and solid nodules >/= 1.5 cm not described below (TR2): 0 There is a 4.1 x 2.6 x 2.0 cm right thyroid nodule that occupies most of the right thyroid lobe. The nodule is mixed cystic and solid and hypoechoic with irregular borders. The nodule demonstrates increased vascularity. IMPRESSION: 1. Large 4.1 cm mixed cystic/solid and hypoechoic right thyroid nodule with irregular borders, which was reported to be most recently biopsied at outside hospital on 06/22/2022 with findings demonstrating benign follicular nodule. ACR TI-RADS recommendations TR5 (>=7 points) (risk of malignancy > 20%) >=1 cm: FNA 0.5-0.9 cm: follow-up US every year for 5 years <0.5 cm: no further evaluation TR4 (4-6 points) (risk of malignancy 5-20%) >=1.5 cm: FNA 1-1.4 cm: follow-up US in 1, 2, 3, and 5 years <1.0 cm: no further evaluation TR3 (3 points) (risk of malignancy 2-5%) >=2.5 cm: FNA 1.5-2.4 cm: follow-up US in 1, 3, and 5 years <1.5 cm: no further evaluation TR2 (2 points) and TR1 (0 points) (risk of malignancy < 2%) No FNA or follow-up US Dictated by: Rosy Sales M.D. The radiology attending physician has personally reviewed this study, and had reviewed and/or edited this written report and agrees with it. Electronically signed by: Matt Magana M.D. T.K. Brandon Buck MD IMG US PROCEDURES Edited Result - Final documented in this encounter Visit Diagnoses Diagnosis Thyroid nodule- Primary Nontoxic uninodular goiter Hyperthyroidism Thyrotoxicosis without mention of goiter or other cause, without mention of thyrotoxic crisis or storm Hyperthyroidism Thyrotoxicosis without mention of goiter or other cause, without mention of thyrotoxic crisis or storm Thyroid nodule Nontoxic uninodular goiter documented in this encounter Care Teams Vocational Rehabilitation Counselor Relationship Specialty Start Date End Date David Savage MD [address] [facility] [address] [place] [address] PCP - General Internal Medicine 06/23/22 documented as of this encounter
--- OUTSIDE RECORDS SUMMARY | 2024-06-25 01:29 | XMS_ITS | Encounter Summary ---
Author Organization [facility] Address [address] [place] [address] Care Team Providers Care Film Processing Supervisor Name Role Phone David Savage MD Primary Care Provider [phone] Reason for Referral * Diagnostic Imaging (Routine) - Closed Specialty Diagnoses / Procedures Referred By Maria Luz law Referred To Contact Diagnoses Hyperthyroidism Thyroid nodule Procedures US Thyroid Javi Buck MD Phone: tel: fax: [facility] (All Locations) Referral ID Status Reason Start Date Expiration Date Visits Re quested Visits Authorized [id number] Closed 11/12/2022 12/12/2023 1 1 Reason for Visit * Diagnostic Imaging (Routine) - Closed Specialty Diagnoses / Procedures Referred By Maria Luz law Referred To Contact Diagnoses Hyperthyroidism Thyroid nodule Procedures US Thyroid Javi Buck MD Phone: tel: fax: [facility] (All Locations) Referral ID Status Reason Start Date Expiration Date Visits Re quested Visits Authorized [id number] Closed 11/12/2022 12/12/2023 1 1 Encounter Details Date Type Department Care Team (Latest Contact Info) Description 11/29/2022 10:14 AM CDT - 11/29/2022 11:59 PM CDT Hospital Encounter [facility] [address] [place] [address] Hyperthyroidism; Thyroid nodule Discharge Disposition: Discharge to home or self care Social History Tobacco Use Types Packs/Day Years Used Date Smoking Tobacco: Never Comments Unknown Sex and Gender Information Value Date Recorded Sex Assigned at Not on file 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 Gender Identity Not on file Sexual Orientation Not on file documented as of this encounter Medications at Time of Discharge amLODIPine (NORVASC) 5 mg tabletIndication s:hypertension Take 1 tablet (5 mg total) by mouth netezza architect before breakfast 08/22/2022 azaTHIOprine (IMURAN) 50 mg tabletIndication s:autoimmune disease,RA Take 2 tablets (100 mg total) by mouth netezza architect before breakfast 08/25/2022 carvediloL (COREG) 6.25 mg tabletIndication s:hypertension Take 1 tablet (6.25 mg total) by mouth 2 (two) times a day 07/22/2022 cholecalciferol (VITAMIN D-3) 2000 unit tabletIndication s:Vitamin D Deficiency Take 2 tablets (4,000 Units total) by mouth netezza architect before breakfast 08/06/2012 losartan (COZAAR) 100 mg tabletIndication s:hypertension Take 1 tablet (100 mg total) by mouth netezza architect before breakfast omega 2-oay-mkt-fish oil (Fish OiL) 1,200 (144-216) mg capsuleIndicatio [...] (two) times a day as needed 12/27/2012 propylthiouraciL (PTU) 50 mg tablet TAKE 1/2 TABLET BY MOUTH TWICE A DAY 30 tablet 1 11/24/2022 3 documented as of this encounter Discharge Disposition Disposition Code Departure Means Destination Discharge to home or self care documented in this encounter Plan of Treatment Not on file documented as of this encounter Procedures Procedure Name Priority Date/Time Associated Diagnosis Comments US THYROID Schedule Routine, Read Routine (OP Routine) 11/29/2022 11:29 AM CDT Hyperthyroidism Thyroid nodule documented in this encounter Results * US Thyroid (11/29/2022 [...] it. Electronically signed by: Matt Magana M.D. us T.K. Brandon Buck MD [facility] [place] PROCEDURES Edited Result - Final documented in this encounter Visit Diagnoses Diagnosis Hyperthyroidism Thyrotoxicosis without mention of goiter or other cause, without mention of thyrotoxic crisis or storm Thyroid nodule Nontoxic uninodular goiter documented in this encounter Care Teams Film Processing Supervisor Relationship Specialty Start Date End Date David Savage MD [address] [facility] [facility] [address] [place] [address] PCP - General Internal Medicine 06/23/22 documented as of this encounter
--- OUTSIDE RECORDS SUMMARY | 2024-06-25 01:29 | XMS_ITS | Encounter Summary ---
Author Organization [facility] Healthcare Address [address] [place] [address] Care Team Providers Care Chemical Processing Equipment Repairer Name Role Phone David Savage MD Primary Care Provider [phone] Reason for Visit * Auth/Cert (Routine) Specialty Diagnoses / Procedures Referred By Maria Luz t Referred To Contact Diagnoses Hyperthyroidism Hyperthyroidism [E05.90] Procedures OK TOTAL THYROID LOBECTOMY UNI W/WO ISTHMUSECTOMY HEMITHYROIDECTOMY Referral ID Status Reason Start Date Expiration Date Visits Re quested Visits Authorized [id number] 1 1 Encounter Details Date Type Department Care Team (Latest Contact Info) Description 01/25/2023 6:18 AM CDT - 01/25/2023 4:50 PM CDT Hospital Encounter [address] [address] Javi Buck MD [address] [address] Hyperthyroidism Discharge Disposition: Discharge to home or self [...] on file Legal Sex Female 8:24 PM CODING ASSISTANT Gender Identity Not on file Sexual Orientation [...] - Weight 78 kg (172 lb) 01/25/2023 12:30 PM CDT Height 149.9 cm (4' 11 ) 01/25/2023 12:30 PM CDT Body Mass Index 34.74 01/25/2023 12:30 PM CDT documented in this encounter Discharge Summaries * Jannie Wood, OUTPATIENT PHYSICAL THERAPIST ASSISTANT - 01/25/2023 1:07 PM CDT Inpatient Discharge Summary BRIEF OVERVIEW Admitting Provider: Javi Buck MD Discharge Provider: Javi Buck MD Primary Care Physician at Discharge: David Savage MD [phone] Admission Date: 01/25/2023 Discharge Date: 01/25/2023 Primary [...] . If during normal business hours, call [phone]. If after business hours, call the [facility] warehouse forklift operator at [phone] and nd ask for your surgeon by [...] immediately. If during normal business hours, call [phone]. If after business hours, call the [facility] warehouse forklift operator at [phone] and nd ask for your surgeon by [...] oral, 2 times daily Generic drug: omega 1-wga-tky-fish oil losartan 100 mg tablet 100 mg, [...] 1 tablet (5 mg total) by mouth fire crew specialist before breakfast 08/22/2022 azaTHIOprine (IMURAN) 50 mg tabletIndication s:autoimmune disease,RA Take 2 tablets (100 mg total) by mouth fire crew specialist before breakfast 08/25/2022 carvediloL (COREG) 6.25 mg tabletIndication s:hypertension Take 1 tablet (6.25 mg total) by mouth 2 (two) times a day 07/22/2022 cholecalciferol (VITAMIN D-3) 2000 unit tabletIndication s:Vitamin D Deficiency Take 2 tablets (4,000 Units total) by mouth fire crew specialist before breakfast 08/06/2012 lorazepam (ATIVAN ORAL) Take by mouth as needed losartan (COZAAR) 100 mg tabletIndication s:hypertension Take 1 tablet (100 mg total) by mouth fire crew specialist before breakfast omega 4-fuj-xtg-fish oil (Fish OiL) 1,200 (144-216) mg capsuleIndicatio [...] 1 lozenge, mouth/throat, Q2H PRN, Jannie Wood, RAÚL ibuprofen (ADVIL,MOTRIN) tablet 600 mg, 600 mg, [...] Preoperative Evaluation Record Evaluation type/location: TPAP from [facility] Planned procedure site: [facility] PVT OR (Pod 1) Date: [...] year diagnosed: 1999. Pertinent negatives: CAD ; TX ; CABG ; valvular heart disease; atrial [...] activity 2/2 knee pain. Able to do parts facilitator without issue. Review of Systems + palpitations [...] provided by telephone and electronically sent via [employer]. Patient verbalized understanding of instructions. Blood bank [...] 1993 & 1994 (Added by TW Conv) [place] TOTAL ABDOMINAL HYSTERECT W/WO RMVL TUBE OVARY Hysterectomy - 1990 (Added by TW Conv) [place] UNLISTED PROCEDURE ABDOMEN PERITONEUM & OMENTUM Hernia [...] (NORVASC) 5 mg tablet 01/05/2023 08/22/22 -- Arely Jiménez MD azaTHIOprine (IMURAN) 50 mg tablet 01/05/2023 08/25/22 -- Arely Jiménez MD carvediloL (COREG) 6.25 mg tablet 01/05/2023 07/22/22 -- Arely Jiménez MD cholecalciferol (VITAMIN D-3) 2000 unit tablet 01/05/2023 08/06/12 -- Arely Jiménez MD losartan (COZAAR) 100 mg tablet 01/05/2023 -- -- Arely Jiménez MD omega 9-zfa-poj-fish oil (Fish OiL) 1,200 (144-216) mg capsule 01/05/2023 -- -- Arely Jiménez MD omeprazole (PriLOSEC) 40 mg capsule 01/05/2023 08/30/22 -- Provider, MD Arely predniSONE (DELTASONE) 5 mg tablet Past Month 06/01/22 -- Provider, MD Arely tiZANidine (ZANAFLEX) 4 mg tablet 01/04/2023 01/31/14 -- ProviderArely MD traMADoL (ULTRAM) 50 mg tablet 01/05/2023 12/27/12 -- Provider, Arely, -- Patient not taking: No current facility-administered medications for this encounter. Current Outpatient Medications: amLODIPine (NORVASC) 5 mg tablet azaTHIOprine (IMURAN) 50 mg tablet carvediloL (COREG) 6.25 mg tablet cholecalciferol (VITAMIN D-3) 2000 unit tablet losartan (COZAAR) 100 mg tablet omega 9-apq-fov-fish oil (Fish OiL) 1,200 (144-216) mg capsule [...] Medication protocol when under care of a WAITER/WAITRESS INFORMAL Planned anesthesia: General Team communication plan: oral [...] OPERATIVE REPORT SURGEON: Javi Buck MD 1st Frame Builder: Kel Ambriz MD 2nd Frame Builder: Dennis George MD 3rd Frame Builder: Carol Mead [facility] PREOPERATIVE DIAGNOSIS: Toxic right adenoma INDICATIONS is [...] an aid to plan our incision and route sales representative images were uploaded to the chart. [...] present. Javi Buck MD, MPH Endocrine Surgeon [facility] Image of Specimen: * Pre-Procedure Instructions - Jenae Butler NP - 01/05/2023 12:59 PM CDT [facility] Clinic Location: [facility] The night before your surgery: [...] going to be admitted after surgery at [facility], COVID testing may be performed on the day of surgery, even if you are up to date on your COVID-19 vaccine. * If having surgery at [facility], you may want to bring a credit card if you want to use our Mobile Pharmacy for your discharge medications. Mobile pharmacy is not available at [facility], the [facility], or the [facility]. Instructions For Your Medications: Pre-Surgery Instructions: Medication Instructions amLODIPine (NORVASC) 5 mg tablet Take morning of surgery azaTHIOprine (IMURAN) 50 mg tablet Take per prescribing provider's instruction carvediloL (COREG) 6.25 mg tablet Take morning of surgery cholecalciferol (VITAMIN D-3) 2000 unit tablet Don't take on day of surgery losartan (COZAAR) 100 mg tablet Don't take on day of surgery omega 8-lks-saz-fish oil (Fish OiL) 1,200 (144-216) mg capsule [...] COVID-19. * Perioperative Nursing Note - Germaine Mckeon, RN - 01/05/2023 8:30 AM CDT [facility] for Preoperative Assessment and Planning Perioperative Nursing Note Telephone Preoperative Evaluation ([facility]) - TELEPHONE ONLY, NO PHYSICAL [...] 1 tablet (5 mg total) by mouth fire crew specialist before breakfast azaTHIOprine (IMURAN) 50 mg tablet Take 2 tablets (100 mg total) by mouth fire crew specialist before breakfast carvediloL (COREG) 6.25 mg tablet Take 1 tablet (6.25 mg total) by mouth 2 (two) times a day cholecalciferol (VITAMIN D-3) 2000 unit tablet Take 2 tablets (4,000 Units total) by mouth fire crew specialist before breakfast losartan (COZAAR) 100 mg tablet Take 1 tablet (100 mg total) by mouth fire crew specialist before breakfast omega 7-dzc-sxs-fish oil (Fish OiL) 1,200 (144-216) mg capsule [...] from family (pt to bring on dos) Communication/Oliver Filter Operator Needs Communication Needs: Glasses Assistive Devices/DME: Eyeglasses Discharge Planning Type of Residence: Private residence Living Arrangements: Spouse/significant other Support Systems: Spouse/significant other Assistance Needed: spouse to provide DC ride post-op LOW EMISSION 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 You should leave your valuables and any jewelry at home. No metal or piercings are allowed in the operating room. You should bring your insurance card, a photo ID (example: Special Ed Assistant's License) and a method of payment for [...] If you are having surgery at [facility], please arrive on the day of surgery [...] Pathway to Excellent Care by the followinglink: [email or web address] How To Prepare Your Skin For Surgery [...] (Do not use CHG on genital area.) [place] Points: The CHG antiseptic soap will not [...] Remove nail coverings, artificial nails and nail citizen [place]. The Morning of Surgery: Take a shower [...] questions, please call the CPAP Staff at [phone], Monday-Monday 8am-4:30pm. All patients should read the below section: COVID 19 Updates & Visitor Policy: Please access [email or web address] for the most updated information. Information on [facility] & the [facility]: Please view [email or web address] (Patient & Visitor Information) for additional details regarding Advanced Directive forms, AWARE, directions, parking information, lodging, Internet access, dining and more. Information on [facility] or [facility] ([facility]): Please view [email or web address] (Patient and Visitor Information) for parking/directions and more. For MyChart information, to activate account or password recovery, please go to [email or web address] or call [phone] (toll-free: [phone]). Information for Suicide Prevention: National Suicide Prevention Lifeline (7-115- 991-HGRT (2518)). Surgery Times: For patients having surgery @ [facility] or [facility] ([facility]), if your surgeon's office has not notified you of your surgery time by NOON THE BUSINESS DAY BEFORE your surgery, please call [phone] and ask for your surgeon's office documented [...] Partial/Total) 01/25/2023 10:27 AM CDT Narrative PATHOLOGY [facility] - 01/31/2023 10:11 AM CDT EPIC results best viewed via link to PDF [facility] Luisa Muro Laboratory of Surgical [place] [address] Note to Patients: This report may contain [...] ??F : ??1955 (Age: 67) Address: ??[address] [place], [place] ??[address] Hospital #: ??[id number] Taken:01/25/2023 Received:01/26/2023 Reported: 01/31/2023 Patient Type: [facility] OP In Bed ?? Service: Oncology Location: [place] [address] Physician(s): ??MD David Allen M.D. Diagnosis: ??A. [...] capsule is inked black. Photographs are taken. Access Manager sections are submitted. Summary of sections: A1 [...] submitted in cassette B1. ??Jar 0. ? behu/01/26/2023 14:43 PA(s): Paulina Crowell By this signature, I attest that the above diagnosis is based upon my personal examination of the slides(and/or other material). Addenda/Procedures The performance characteristics of some immunohistochemical stains, fluorescence in-situ hybridization tests and immunophenotyping by flow cytometry cited in this report (if any) were determined by the Surgical Pathology and Flow Cytometry Departments at [facility] as part of an ongoing water quality control engineer program and in compliance with federally mandated [...] Surgical Pathology and Flow Cytometry Departments of [facility]. ??It has not been cleared or approved by the U. S. Food and Drug Administration. IMAGES AND SCANNED DOCUMENTS, IF INCLUDED, ONLY VIEWABLE IN PDF VERSION OF REPORT T.K. Brandon Buck MD LAB PATHOLOGY ORDERABLES Final Result PATHOLOGY [facility] 3rd Floor [place], [place] [phone] documented in this encounter Visit Diagnoses Diagnosis [...] sore throat, Starting on Mon01/25/23 at 1256 HYDROmorphone (DILAUDID) injection 0.2 mg 0.2 mg, [...] AM CDT 1 patch Behind Right Ear documented in this encounter Discontinued Medications Medication [...] Pain 1622 (Given - Provid er: Bambi Delgado, SVITLANA) scopolamine patch 72 hour 1 patch 1 [...] (CHLORASE PTIC) lozenge 1 lozenge 1 01/25/2023 BUPivacaine (MARCAINE) 0.25 % (2.5 mg/mL) preservative free injection 1 01/25/2023 Carrier Fluids for Secondary Infusion - 0.9% Sodium Chloride 1 01/25/2023 haloperidol (HALDOL) injection 1 mg 1 01/25 HYDROmorphone (DILAUDID) injection 0.4 mg 1 01/25/2023 ibuprofen (ADVIL,MOTRIN) tablet 600 mg 1 naloxone (NARCAN) 0.4 mg/mL injection 0.04-0.4 mg 1 01/25/2023 ondansetron (ZOFRAN) injection 4 mg 1 01/25 oxyCODONE (ROXICODONE) tablet 5 mg 1 2022 sodium chloride 0.9% flush 0.5-20 mL 1 01/07 sterile water irrigation 1 01/25/2023 Diet Count Last Ordered Date First Orde red Date ADULT DISCHARGE DIET 1 01/25/2023 Nursing Count Last Ordered Date First Orde red Date ACTIVITY 1 01/25/2023 DISCHARGE ACTIVITY 1 01/25/2023 DISCHARGE CALL PROVIDER 7 01/25/2023 DISCHARGE INSTRUCTIONS 1 01/25/2023 NURSING COMMUNICATION 4 01/25/2023 PATIENT MAY [...] 01/25/2023 documented in this encounter Care Teams Chemical Processing Equipment Repairer Relationship Specialty Start Date End Date David Savage MD [address] [place] [address] PCP - General Internal Medicine 06/23/22 documented as of this encounter
--- OUTSIDE RECORDS SUMMARY | 2024-06-25 01:29 | XMS_ITS | Encounter Summary ---
Author Organization [facility] Address [address] [place] [address] Phone Care Team Providers Care Group Leader Semiconductor Testing Name Role Phone David Savage MD Primary Care Provider [phone] Reason for Referral * Diagnostic Imaging (Routine) - Closed Specialty Diagnoses / Procedures Referred By Contac t Referred To Contact Procedures US Guided Thyroid Fine Needle Aspiration 1st Lesion ProviderArely MD [address] [phone] Phone: tel: Referral ID Status Reason Start Date Expiration Date Visits Re quested Visits Authorized [id number] Closed 09/13/2022 10/13/2023 1 1 ECTIVE SIGNAL SUPERINTENDENT * Diagnostic Imaging (Routine) - Closed Specialty Diagnoses / Procedures Referred By Contac t Referred To Contact Procedures US Thyroid ProviderArely MD [address] [phone] Phone: tel: Referral ID Status Reason Start Date Expiration Date Visits Re quested Visits Authorized [id number] Closed 09/13/2022 10/13/2023 1 1 ECTIVE SIGNAL SUPERINTENDENT Encounter Details Date Type Department Care Team (Late st Contact Info) Description 09/13/2022 Orders Only [facility] Endocrinology Metabolism and Lipid [address] [facility] 5th [place] [address] [place] [address] ProviderArely MD [address] [place] [address] Social History Tobacco Use Types Packs/Day Years Used Date Smoking Tobacco: Never Comments Unknown Sex and Gender Information Value Date Recorded Sex Assigned at Not on file Legal Sex Female 8:24 PM PROTECTIVE SIGNAL SUPERINTENDENT Gender Identity Not on file Sexual Orientation Not on file documented as of this encounter Plan of Treatment Not on file documented as of this encounter Procedures Procedure Name Priority Date/Time Associated Diagnosis Comments US GUIDED THYROID FINE NEEDLE ASPIRATION 1ST LESION Schedule Routine, Read Routine (OP Routine) 06/22/2022 US THYROID Schedule Routine, Read Routine (OP Routine) 06/12/2022 THYROID FUNCTION ADULT Routine 05/18/2022 documented in this encounter Results * US Guided Thyroid Fine Needle Aspiration 1st Lesion (06/22/2022) Anatomical Region Laterality Modality Thyroid N/A Ultrasound Historical Provider IMG US PROCEDURES Final R esult * US Thyroid (06/12/2022) Anatomical Region Laterality Modality Head and Neck N/A Ultrasound Historical Provider IMG US PROCEDURES Final R esult * Thyroid function adult (05/18/2022) Blood Historical Provider LAB BLOOD ORDERABLES Carissa l Result EXTERNAL LAB documented in this encounter Visit Diagnoses Not on filedocumented in this encounter Care Teams Group Leader Semiconductor Testing Relationship Specialty Start Date End Date David Savage MD [address] [place] [address] PCP - General Internal Medicine 06/23/22 documented as of this encounter
--- OUTSIDE RECORDS SUMMARY | 2024-06-25 01:29 | XMS_ITS | Encounter Summary ---
Author Organization [facility] Healthcare Address [address] [place] [address] Care Team Providers Care Advanced Practice Provider Name Role Phone David Savage MD Primary Care Provider [phone] Reason for Referral * Diagnostic Imaging (Routine) - Closed Specialty Diagnoses / Procedures Referred By Maria Luz law Referred To Contact Diagnoses Hyperthyroidism Thyroid nodule Procedures NM Thyroid Imaging NM Thyroid Request - Uptake and/or Imaging and/or Therapy in Hyperthyroid patients Alexandria Ponce MD [address] [address] Phone: tel: fax: External Order Referral ID Status Reason Start Date Expiration Date Visits Re quested Visits Authorized [id number] Closed 09/21/2022 10/16/2023 5 5 Reason for Visit * Diagnostic Imaging (Routine) - Closed Specialty Diagnoses / Procedures Referred By Maria Luz law Referred To Contact Diagnoses Hyperthyroidism Thyroid nodule Procedures NM Thyroid Imaging NM Thyroid Request - Uptake and/or Imaging and/or Therapy in Hyperthyroid patients Alexandria Ponce MD [address] [facility] [place] [address] Phone: tel: fax: External Order Referral ID Status Reason Start Date Expiration Date Visits Re quested Visits Authorized [id number] Closed 09/21/2022 10/16/2023 5 5 Encounter Details Date Type Department Care Team (Latest Contact Info) Description 09/28/2022 11:37 AM CDT - 09/28/2022 11:59 PM CDT Hospital Encounter [facility] Radiology [address] [place] [address] Hyperthyroidism; Thyroid nodule Discharge Disposition: Discharge to home or self care Social History Tobacco Use Types Packs/Day Years Used Date Smoking Tobacco: Never Comments Unknown Sex and Gender Information Value Date Recorded Sex Assigned at Not on file Legal Sex Female 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 Gender Identity Not on file Sexual Orientation Not on file documented as of this encounter Medications at Time of Discharge amLODIPine (NORVASC) 5 mg tabletIndication s:hypertension Take 1 tablet (5 mg total) by mouth hand cutter apprentice before breakfast 08/22/2022 azaTHIOprine (IMURAN) 50 mg tabletIndication s:autoimmune disease,RA Take 2 tablets (100 mg total) by mouth hand cutter apprentice before breakfast 08/25/2022 carvediloL (COREG) 6.25 mg tabletIndication s:hypertension Take 1 tablet (6.25 mg total) by mouth 2 (two) times a day 07/22/2022 cholecalciferol (VITAMIN D-3) 2000 unit tabletIndication s:Vitamin D Deficiency Take 2 tablets (4,000 Units total) by mouth hand cutter apprentice before breakfast 08/06/2012 losartan (COZAAR) 100 mg tabletIndication s:hypertension Take 1 tablet (100 mg total) by mouth hand cutter apprentice before breakfast omega 2-llq-gsj-fish oil (Fish OiL) 1,200 (144-216) mg capsuleIndicatio [...] (two) times a day as needed 12/27/2012 Flowflex COVID-19 Ag Home Test kit as directed 08/19/2022 3 methIMAzole (TAPAZOLE) 5 mg tablet Take 1/2 tab (2.5mg) daily. 45 tablet 1 10/04/2022 3 propylthiouraciL (PTU) 50 mg tablet 1/2 tab (25mg) twice daily. 30 tablet 1 10/31/2022 3 documented as of this encounter Discharge Disposition Disposition Code Departure Means Destination Discharge to home or self care documented in this encounter Plan of Treatment Not on file documented as of this encounter Procedures Procedure Name Priority Date/Time Associated Diagnosis Comments NM THYROID IMAGING Schedule Routine, Read Routine (OP Routine) 09/28/2022 1:07 PM CDT Hyperthyroidism Thyroid nodule documented in this encounter Results * NM Thyroid Imaging (09/28/2022 1:07 PM CDT) Anatomical Region Laterality Modality N/A Nuclear Medicine 09/28/2022 2:02 PM CDT Impressions 09/28/2022 2:22 PM CDT 1. ??Suspected hyperfunctioning nodule in the right thyroid lobe resulting in near complete suppression of background thyroid uptake. 2. ??A small focus of faint uptake in the mid to lower left thyroid lobe may represent a 2nd smaller nodule which is relatively hyperfunctioning compared to background thyroid parenchyma and is incompletely suppressed by the suspected larger hyperfunctioning nodule. ??Recommend thyroid ultrasound for further evaluation. Dictated by: Flo Pelayo M.D. The radiology attending physician has personally reviewed this study, and had reviewed and/or edited this written report and agrees with it. Electronically signed by: Areli Sauer M.D. Narrative 09/28/2022 2:22 PM CDT EXAMINATION: ??THYROID SCINTIGRAPHY DATE OF STUDY: 09/28/2022 RADIOPHARMACEUTICAL: 11.37 mCi Tc-99m pertechnetate i.v. ?? HISTORY: 67-year-old woman with hyperthyroidism and thyroid nodules dating back at least 10 years. ??Periportal, and the patient had benign fine-needle aspiration biopsy is approximately 10 years ago. Fine-needle aspiration biopsy on 06/22/2022 demonstrated findings compatible with benign follicular nodule. ??Per outside ultrasound guided thyroid biopsy report dated 06/22/2022, there is a 4.2 cm nodule in the right thyroid lobe. ??Evaluate for hyperfunctioning thyroid nodule. FINDINGS: ??The thyroid images demonstrate intense focal uptake in the right thyroid lobe measuring approximately 5 cm in craniocaudal extent. ??There is somewhat rounded faint focal uptake in the mid to lower left thyroid lobe measuring approximately 1.5 cm in craniocaudal extent. ??Otherwise, there is suppression of background thyroid uptake. Procedure Note Areli Sauer MD - 09/28/2022 EXAMINATION: THYROID SCINTIGRAPHY DATE OF STUDY: 09/28/2022 RADIOPHARMACEUTICAL: 11.37 mCi Tc-99m pertechnetate i.v. HISTORY: 67-year-old woman with hyperthyroidism and thyroid nodules dating back at least 10 years. Periportal, and the patient had benign fine-needle aspiration biopsy is approximately 10 years ago. Fine-needle aspiration biopsy on 06/22/2022 demonstrated findings compatible with benign follicular nodule. Per outside ultrasound guided thyroid biopsy report dated 06/22/2022, there is a 4.2 cm nodule in the right thyroid lobe. Evaluate for hyperfunctioning thyroid nodule. FINDINGS: The thyroid images demonstrate intense focal uptake in the right thyroid lobe measuring approximately 5 cm in craniocaudal extent. There is somewhat rounded faint focal uptake in the mid to lower left thyroid lobe measuring approximately 1.5 cm in craniocaudal extent. Otherwise, there is suppression of background thyroid uptake. IMPRESSION: 1. Suspected hyperfunctioning nodule in the right thyroid lobe resulting in near complete suppression of background thyroid uptake. 2. A small focus of faint uptake in the mid to lower left thyroid lobe may represent a 2nd smaller nodule which is relatively hyperfunctioning compared to background thyroid parenchyma and is incompletely suppressed by the suspected larger hyperfunctioning nodule. Recommend thyroid ultrasound for further evaluation. Dictated by: Flo Pelayo M.D. The radiology attending physician has personally reviewed this study, and had reviewed and/or edited this written report and agrees with it. Electronically signed by: Areli Sauer M.D. Alexandria Ponce MD IMG NM PROCEDURES Final Result documented in this encounter Visit Diagnoses Diagnosis Hyperthyroidism Thyrotoxicosis without mention of goiter or other cause, without mention of thyrotoxic crisis or storm Thyroid nodule Nontoxic uninodular goiter documented in this encounter Administered Medications Inactive Administered Medications - up to 3 most recent administrations Medication Order MAR Action Action Date Dose Rate Site tc-99m sodium pertechnetate injection 10 millicurie 10 millicurie, intravenous, Once in imaging, radiopharmaceutical, Starting on Mon09/28/22 at 1227, For 1 dose Given 09/28/2022 12:28 PM CDT 11.37 millicuries documented in this encounter Orders Medications Ordered That Lex ht Not Have Been Administered Count Last Ordered Date First Ordered Date tc-99m sodium pertechnetate injection 10 millicurie 1 09/28/2022 documented in this encounter Care Teams Advanced Practice Provider Relationship Specialty Start Date End Date David Savage MD [address] [facility] [address] [facility] [address] [place] [address] PCP - General Internal Medicine 06/23/22 documented as of this encounter
--- OUTSIDE RECORDS SUMMARY | 2024-06-25 01:29 | XMS_ITS | Encounter Summary ---
Author Organization [facility] Healthcare Address [address] [place] [address] Care Team Providers Care Supervisor Functional Testing Name Role Phone David Savage MD Primary Care Provider [phone] Encounter Details Date Type Department Care Team (Late st Contact Info) Description 12/08/2022 Conference of Physicians/Providers [facility] Surgeon [address] [place] [address] Kylie Iraheta MD [address] [facility] [address] [place], [place] [id number] Social History Tobacco Use Types Packs/Day Years Used Date Smoking Tobacco: Never Comments Unknown Sex and Gender Information Value Date Recorded Sex Assigned at Not on file Legal Sex Female 8:24 PM 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 Unable to tolerate medical therapy. NM imaging noted uptake in left concerning for multifocal disease Reviewed biochemical profile and the following during conference - 12/02/2022 Ultrasound: large right lobe nodule, hypoechoic with irregular borders and punctate foci of calcifications. Left - small (5mm) nodule, isoechoic, irregular borders, mixed cystic/solid that may correlate with NM results - 09/28/2022 Nuclear medicine scan: area of intense uptake in right thyroid causing some suppressingof surrounding thyroid tissue, correlating with right nodule. Faint uptake in left thyroid gland - possible this is background thyroid tissue that was not suppressed as much by right nodule. Question to be discussed: surgical management (hemithyroidectomy vs total thyroidectomy) - unclear correlation of left NM uptake and ultrasound results in left lobe. No clear indication that left thyroid contributing to hyperthyroidism - favor hemithyroidectomy Cosigned by Javi Buck MD at 12/08/2022 5:24 PM CDT documented in this encounter Plan of Treatment Not on file documented as of this encounter Visit Diagnoses Not on filedocumented in this encounter Care Teams Supervisor Functional Testing Relationship Specialty Start Date End Date David Savage MD [address] [facility] [address] [place] [address] PCP - General Internal Medicine 06/23/22 documented as of this encounter
--- OUTSIDE RECORDS SUMMARY | 2024-06-25 01:29 | XMS_ITS | Encounter Summary ---
Author Organization [facility] Address [address] [facility] [address] [place] [address] Phone Care Team Providers Care Services Coordinator Name Role Phone David Savage MD Primary Care Provider [phone] Reason for Referral * Diagnostic Imaging (Routine) - Closed Specialty Diagnoses / Procedures Referred By Contac t Referred To Contact Diagnoses Hyperthyroidism Thyroid nodule Procedures NM Thyroid Imaging NM Thyroid Request - Uptake and/or Imaging and/or Therapy in Hyperthyroid patients Alexandria Ponce MD [address] [place] [address] Phone: tel: fax: External Order Referral ID Status Reason Start Date Expiration Date Visits Re quested Visits Authorized [id number] Closed 09/21/2022 10/16/2023 5 5 SCAPE SPECIALIST Reason for Visit * Consultation (Urgent) - Closed Specialty Diagnoses / Procedures Referred By Contac t Referred To Contact Endocrinology Diagnoses Abnormal results of thyroid function studies David Savage MD [address] [facility] [address] [place] [address] [place] [address] Phone: tel: fax: [facility] (All Locations) Referral ID Status Reason Start Date Expiration Date V isits Requested Visits Authorized [id number] Closed Specialty Services Required 06/08/2022 07/08/2023 12 12 Encounter Details Date Type Department Care Team (Latest Contact Info) Description 09/08/2022 2:20 PM LANDSCAPE SPECIALIST Office Visit [facility] Endocrinology Metabolism and Lipid [address] [facility] 5th [place] [address] [place] [address] Alexandria Ponce MD [address] [place] [address] Hyperthyroidism (Primary Dx); Abnormal results of thyroid function studies; terminal makeup operator systemic steroid user; Thyroid nodule Social History Tobacco Use Types Packs/Day Years Used Date Smoking Tobacco: Never Tobacco Cessation:Counseling Given: Not Answered Comments Unknown Sex and Gender Information Value Date Recorded Sex Assigned at Not on file Legal Sex Female 8:24 PM LANDSCAPE SPECIALIST Gender Identity Not on file Sexual Orientation Not on file documented as of this encounter Last Filed Vital Signs Vital Sign Reading Time Taken Comments Blood Pressure 158/79 09/08/2022 2:21 PM LANDSCAPE SPECIALIST Pulse 96 09/08/2022 2:21 PM LANDSCAPE SPECIALIST Temperature 36.7 ??C (98.1 ??F) 09/08/2022 2:21 PM CS T Respiratory Rate - - Oxygen Saturation - - Inhaled Oxygen Concentration - - Weight 76.7 kg (169 lb 3.2 oz) 09/08/2022 2:21 P M LANDSCAPE SPECIALIST Height 149.9 cm (4' 11 ) 09/08/2022 2:21 PM LANDSCAPE SPECIALIST Body Mass Index 34.17 09/08/2022 2:21 PM LANDSCAPE SPECIALIST documented in this encounter Patient Instructions * Patient Instructions* Alexandria Ponce MD - 09/08/2022 2:20 PM LANDSCAPE SPECIALIST Check Thyroid function and abs. If elevated. --Start methimazole -- currently on coreg bid --Repeat FT4,FT3 in 2-3 weeks, then 2-3 month, avoid vitB7 right before testing --No thyroid ultrasound at this time, please send me previous records. -- avoid IV contrast studies, iodine-rich food or supplement while in hyperthyroidism -- We discussed the option of longer-term treatment with thionamides (specifically methimazole) vs definitive therapy with radioactive iodine ablation, if Grave disease. -- We discussed short-term use of medication, such as MMI and propranolol for control of symptoms, if thyroiditis. -- We discussed rare but potential side effects of methimazole including commonly seen side effects(up to 15%), including itching, rash, hives, joint pain and swelling, changes in taste, nausea, andvomiting. And rare but severe side effects, including agranulocytosis (<0.5%), hepatotoxicity (<0.1%). Patient should seek medical advice about side effects, fever/infection, abdominal pain/jaundice and have CBC and liver enzyme checked as the part of investigation. SCAPE SPECIALIST documented in this encounter Ordered Prescriptions Prescription Sig Dispense Quantity Refills Last Filled Start Date End Date propylthiouraciL (PTU) 50 mg tablet 1/2 tab (25mg) twice daily. 30 tablet 1 10/31/2022 11/24/2022 methIMAzole (TAPAZOLE) 5 mg tablet Take 1/2 tab (2.5mg) daily. 45 tablet 1 10/04/2022 10/31/2022 documented in this encounter Progress Notes * Alexandria Ponce MD - 09/08/2022 2:20 PM CST Endocrine Outpatient New Patient Note Date: 09/08/2022 [facility] Anjali Rodriguez is a pleasant 67 y.o. female coming today for evaluation of elevated thyroidfunction since 05/2022. Hx of Thyroid nodule 10 years with FNA twice benign 10 years ago and 06/2022 (moste recent) cystic (I don't have records). Hx of Prediabetes, HLD, BMI 33, managed by PCP Elevated thyroid function DX: 05/2022 TFT: 05/2022 suppressed TSH with elevated FT3, tg. Neg TPO, Tgab TX: No RISK FACTOR: Amiodarone no Iodine intake no VitB7/biotin no CT w/contrast no Flu/cold, neck pain no FHX of thyroid disease no Positive heat intolerance, sweating, anxiety, nervousness, hungry. Fatigue, heart racing. Negative weight loss, anxiety, tremor, diarrhea Negative hair loss Occasional difficult swallowing. Negative feeling neck fullness, odynophagia, choking, and dyspnea Negative history of head or neck radiation, family history of thyroid cancer 05/17/2022 FT3 4.7 (2.3-4.2); Outside lab 05/27/2022 TPO 1 (<9); Tgab <1 FT3 4.5 (2.3-4.2); Tg 67.4 (2.8-40.9); TSH<0.015 (0.465-4.68). 07/2022 ALT/AST 21/06 Prednisone med for RA. 4-5 days 8-12 times per year. Osteopenia. This end of Jul 2022 steroid injection for arthritis. Coreg 6.25 bid. Current Outpatient Medications Medication Sig Dispense Refill cholecalciferol (VITAMIN D-3) 2000 unit tablet Take 4,000 Units by mouth daily tiZANidine (ZANAFLEX) 4 mg tablet Take 4 mg by mouth nightly traMADoL (ULTRAM) 50 mg tablet Take 50 mg by mouth 2 (two) times a day as needed amLODIPine (NORVASC) 5 mg tablet Take 5 mg by mouth daily azaTHIOprine (IMURAN) 50 mg tablet Take 100 mg by mouth daily carvediloL (COREG) 6.25 mg tablet Take 6.25 mg by mouth 2 (two) times a day Flowflex COVID-19 Ag Home Test kit as directed losartan (COZAAR) 100 mg tablet Take by mouth daily omega 2-rtl-psr-fish oil (Fish OiL) 1,200 (144-216) mg capsule Take by mouth 2 (two) times a day omeprazole (PriLOSEC) 40 mg capsule Take by mouth daily predniSONE (DELTASONE) 5 mg tablet Take 5-10 mg by mouth daily No current facility-administered medications for this visit. Adalimumab, Hydroxychloroquine, Amitriptyline, Etanercept, and Golimumab Past Medical History: Diagnosis Date Endometriosis Endometriosis - (Added by TW Conv) Personal history of other diseases of the circulatory system History of hypertension - (Added by TW Conv) Personal history of other diseases of the musculoskeletal system and connective tissue History of fibromyositis - (Added by TW Conv) Past Surgical History: Procedure Laterality Date OVARY SURGERY Ovarian Surgery - 1993 & 1994 (Added by TW Conv) MT TOTAL ABDOMINAL HYSTERECT W/WO RMVL TUBE OVARY Hysterectomy - 1990 (Added by TW Conv) MT UNLISTED PROCEDURE ABDOMEN PERITONEUM & OMENTUM Hernia Repair - 1995 (Added by TW Conv) Social History Tobacco Use Smoking status: Never Smokeless tobacco: None Substance and Sexual Activity Alcohol use: None Drug use: None Sexual activity: None No family history on file. Fx: breast cancer ROS:Positive heat intolerance, sweating, anxiety, nervousness, hungry. Fatigue, heart racing. Endocrine: Negative for cold intolerance, heat intolerance, polydipsia, polyphagia and polyuria. Constitutional: Negative for chills, diaphoresis, and fever. Skin: Negative for color change and rash. HENT: Negative for congestion, mouth sores, rhinorrhea. Eyes: Negative for discharge and redness. Respiratory: Negative for apnea, cough and shortness of breath. Cardiovascular: Negative for chest pain. Gastrointestinal: Negative for abdominal pain, nausea and vomiting. Musculoskeletal: Negative for gait problem and neck stiffness. Neurological: Negative facial asymmetry, speech difficulty and weakness. Psychiatric/Behavioral: Negative for decreased concentration and mood abebe. BP 158/79 (BP Location: Left arm, Patient Position: Sitting) Pulse 96 Temp 36.7 ??C (98.1 ??F) (Oral) Ht 149.9 cm (4' 11 ) Wt 76.7 kg (169 lb 3.2 oz) BMI 34.17 kg/m?? Body mass index is 34.17 kg/m??. Body surface area is 1.79 meters squared. Wt Readings from Last 3 Encounters: 09/08/22 76.7 kg (169 lb 3.2 oz) BMI Readings from Last 3 Encounters: 09/08/22 34.17 kg/m?? Physical Exam: positive tarchy, tremor. Gen : no acute distress, alert, appropriate Skin : turgor normal, warm and dry HENT : normocephalic, atraumatic, moist mucus membranes. NO thyroid nodule palpable. Eyes : conjunctiva clear, anicteric, no proptosis/exophthalmos/lid lag, EOMI Pulm : non-labored, on room air, breathing normally CV : no JVD, no SOB Abd : soft, non-tender Musculoskeletal: range of motion unremarkable Extr : atraumatic Neuro : alert, speech fluent, comprehension intact, moving all extremities Psych : cooperative, appropriate affect & mood Assessment and Plan Elevated thyroid function without diffuse goiter DDX: Grave disease vs thyroiditis. Less likely toxic nodules has no ocular history or symptoms concerning for Graves ophthalmopathy. Check Thyroid function and abs. If elevated. --Start methimazole -- currently on coreg bid --Repeat FT4,FT3 in 2-3 weeks, then 2-3 month, avoid vitB7 right before testing --No thyroid ultrasound at this time, please send me previous records. -- avoid IV contrast studies, iodine-rich food or supplement while in hyperthyroidism -- We discussed the option of longer-term treatment with thionamides (specifically methimazole) vs definitive therapy with radioactive iodine ablation, if Grave disease. -- We discussed short-term use of medication, if thyroiditis. -- We discussed rare but potential side effects of methimazole including commonly seen side effects(up to 15%), including itching, rash, hives, joint pain and swelling, changes in taste, nausea, andvomiting. And rare but severe side effects, including agranulocytosis (<0.5%), hepatotoxicity (<0.1%). Patient should seek medical advice about side effects, fever/infection, abdominal pain/jaundice and have CBC and liver enzyme checked as the part of investigation. Steroid uses for RA. 8-12 times per year. Discuss endocrine risk. Pt will consult with RA for alternative meds. F/u 3 month. ADDENDUM ADDED ON 09/16/2022 Latest Reference Range & Units 09/09/22 09:17 Thyroglobulin ng/mL 74.5 (H) Thyroperoxidase ab <9 IU/mL 1 Free T3 2.3 - 4.2 pg/mL 4.3 (H) Free T4 0.8 - 1.8 ng/dL 1.2 TSH 0.40 - 4.50 mIU/L 0.01 (L) Thyroglobulin Antibody < or = 1 IU/mL <1 Thyroid Stim Immunoglobulin <140 % baseline <89 (H): Data is abnormally high (L): Data is abnormally low Called pt. And also send message. Thyroid function is elevated (not very high). But all thyroid antibodies (including Grave disease antibody) are negative. Next step is to have thyroid Tc99m scan andtry to make diagnosis Grave disease vs thyroiditis vs hot nodules (functioning nodule). I ordered it and our office will send to you and you can discuss with local provider to see if can be done locally . Our [facility] Nuclear Medicine scheduling is [phone], if plan to be done here. I received outside US and biopsy results. 06/10/2022 US showed 4.0 right nodule TR4. 2013 2.3cm with benign FNA results. 06/22/2022 pathology: benign consistent with follicular nodule. ADDENDUM ADDED ON 10/04/2022 09/28/2022 NM Tc99 thyroid scan: 1. Suspected hyperfunctioning nodule in the right [...] nodule. Recommend thyroid ultrasound for further evaluation. The lab and image results are consistent with diagnosis of toxic multinodular goiter (hot nodules causing elevated thyroid function). Called pt and recommend -- consider start methimazole 2.5mg once daily (or 5mg once another day, if it is gross to cut the pill). Repeat thyroid function (will send to your home) 4-6 weeks for dose titration. We would like to keep thyroid function in normal range to avoid hyperthyroid effects on cardiovascular system. -- please make an appointment at your next early convenient time to discuss permanent treatment, surgery vs radiation ablation. You can call [phone] Specialty Clinic (Option 1 speak to associate professor of media arts). I might consider surgery is better option since you have large nodules, but we need to discuss pros and cons for each option. Next visit also review all tests done so far. ADDENDUM ADDED ON 10/31/2022 Pt c/o muscle pain not typical for her RA symptoms. Concerns side effects MMI. Replied. Changed methimazole to propylthiouracil (ordered to [facility]). 1/2 tab 25mg twice daily for the propylthiouracil. It is the smallest dose, but two drugs may share some side effects. If still not tolerated, please let me know. SCAPE SPECIALIST SCAPE SPECIALIST documented in this encounter Miscellaneous Notes * Addendum Note - Alexandria Ponce MD - 09/08/2022 2:20 PM CSTAddended by: ALEXANDRIA PONCE on: 09/16/2022 12:54 PM Modules accepted: Orders SCAPE SPECIALIST * Addendum Note - Alexandria Ponce MD - 09/08/2022 2:20 PM CSTAddended by: ALEXANDRIA PONCE on: 10/04/2022 03:19 PM Modules accepted: Orders * Addendum Note - Alexandria Ponce MD - 09/08/2022 2:20 PM CSTAddended by: ALEXANDRIA PONCE on: 10/31/2022 01:16 PM Modules accepted: Orders documented in this encounter Plan of Treatment Scheduled Orders Name Type Priority Associated Diagnoses Orde r Schedule TSH Lab Routine Hyperthyroidism Expected: 12/09/2022, Expires: 4 T4, free Lab Routine Hyperthyroidism Expected: 12/09/2022, Expires: 4 T3, free Lab Routine Hyperthyroidism Expected: 12/09/2022, Expires: 4 TSH Lab Routine Hyperthyroidism Expected: 09/29/2022, Expires: 4 T3, free Lab Routine Hyperthyroidism Expected: 09/29/2022, Expires: 4 T4, free Lab Routine Hyperthyroidism Expected: 09/29/2022, Expires: 4 TSH Lab Routine Hyperthyroidism Expected: 11/15/2022 (Approximate), Expires: 10/05/2023 T4, free Lab Routine Hyperthyroidism Expected: 11/15/2022 (Approximate), Expires: 10/05/2023 T3, free Lab Routine Hyperthyroidism Expected: 11/15/2022 (Approximate), Expires: 10/05/2023 documented as of this encounter Procedures Procedure Name Priority Date/Time Associated Diagnosis Comments THYROGLOBULIN, THYROGLOBULIN ANTIBODIES Routine 09/09/2022 9:17 AM LANDSCAPE SPECIALIST Hyperthyroidism THYROID PEROXIDASE ANTIBODY Routine 09/09/2022 9:17 AM LANDSCAPE SPECIALIST Hyperthyroidism THYROID STIMULATING IMMUNOGLOBULIN Routine 09/09/2022 9:17 AM LANDSCAPE SPECIALIST Hyperthyroidism T3, FREE Routine 09/09/2022 9:17 AM LANDSCAPE SPECIALIST Hyperthyroidism TSH Routine 09/09/2022 9:17 AM LANDSCAPE SPECIALIST Hyperthyroidism T4, FREE Routine 09/09/2022 9:17 AM LANDSCAPE SPECIALIST Hyperthyroidism documented in this encounter Results * NM [...] by: Areli Sauer M.D. Alexandria Ponce MD [facility] PROCEDURES Final Result * (ABNORMAL) Thyroglobulin, Thyroglobulin Antibodies (09/09/2022 9:17 AM LANDSCAPE SPECIALIST) Pathologist [facility] Thyroglobulin ab <1 < or = 1 IU/mL [facility] Thyroglobulin 74.5(H) ng/mL [facility] Comment: ?Reference Range: ?Intact Thyroid ?? 2.8-40.9 ?Athyrotic ?<0.1 ?Note: Abnormal flagging is based ?on the reference interval for ?patients with intact thyroid. ? This test was performed using the [place] [employer] chemiluminescent method. Values obtained from different assay methods cannot be used interchangeably. Thyroglobulin levels, regardless of value, should not be interpreted as absolute evidence of the presence or absence of disease. For additional information, please refer to http://education.Garpun/faq/ZWT209 (This link is being provided for informational/ educational purposes only.) Blood 09/09/2022 9:17 AM LANDSCAPE SPECIALIST 09/09/2022 9:20 AM LANDSCAPE SPECIALIST Alexandria Ponce MD LAB BLOOD ORDERABLES Final Resul t [facility] [address] [place] [address] * Thyroid stimulating immunoglobulin (09/09/2022 9:17 AM LANDSCAPE SPECIALIST) Pathologist [facility] TSI <89 <140 % baseline [facility], Comment: Thyroid stimulating immunoglobulins (TSI) can engage the TSH receptors resulting in hyperthyroidism in Graves' disease patients. TSI levels can be useful in monitoring the clinical outcome of Graves' disease as well as assessing the potential for hyperthyroidism from maternal- transfer. TSI results greater than or equal to (>=) 140% of the Reference Control are considered positive. NOTE: A serum TSH level greater than 350 micro-International Units/mL can interfere with the TSI bioassay and potentially give false positive results. Patients who are and are suspected of having hyperthyroidism should have both TSI and human Chorionic Gonadotropin (hCG) tests measured. A serum hCG level greater than 40,625 mIU/mL can interfere with the TSI bioassay and may give false negative results. In these patients it is recommended that a second TSI be obtained when the hCG concentration falls below 40,625 mIU/mL (usually after approximately 20-weeks gestation). The analytical performance characteristics of this assay have been determined by [facility]. The modifications have not been cleared or approved by the FDA. This assay has been validated pursuant to the CLIA regulations and is used for clinical purposes. Blood 09/09/2022 9:17 AM LANDSCAPE SPECIALIST 09/09/2022 9:20 AM LANDSCAPE SPECIALIST Alexandria Ponce MD LAB BLOOD ORDERABLES Final Resul t Performing Organization Address City/[facility]/ZIP Co de Phone Number [facility], [address] [place] [address] * Thyroid peroxidase antibody (TPO) (09/09/2022 9:17 AM LANDSCAPE SPECIALIST) Thyroperoxidase ab 1 <9 IU/mL [facility] Blood 09/09/2022 9:17 AM LANDSCAPE SPECIALIST 09/09/2022 9:20 AM LANDSCAPE SPECIALIST Alexandria Ponce MD LAB BLOOD ORDERABLES Final Resul t [facility] [address] [place] [address] * (ABNORMAL) T3, free (09/09/2022 9:17 AM LANDSCAPE SPECIALIST) Free T3 4.3(H) 2.3 - 4.2 pg/mL [facility] Blood 09/09/2022 9:17 AM LANDSCAPE SPECIALIST 09/09/2022 9:20 AM LANDSCAPE SPECIALIST Alexandria Ponce MD LAB BLOOD ORDERABLES Final Resul t Performing Organization Address [facility] de Phone Number [facility] [address] [place] [address] * T4, free (09/09/2022 9:17 AM LANDSCAPE SPECIALIST) Free T4 1.2 0.8 - 1.8 ng/dL [facility] Blood 09/09/2022 9:17 AM LANDSCAPE SPECIALIST 09/09/2022 9:20 AM LANDSCAPE SPECIALIST Alexandria Ponce MD LAB BLOOD ORDERABLES Final Resul t Performing Organization Address [facility] Phone Number [facility] [address] [place] [address] * (ABNORMAL) TSH (09/09/2022 9:17 AM LANDSCAPE SPECIALIST) TSH 0.01(L) 0.40 - 4.50 mIU/L [facility] Blood 09/09/2022 9:17 AM LANDSCAPE SPECIALIST 09/09/2022 9:20 AM LANDSCAPE SPECIALIST us Alexandria Ponce MD LAB BLOOD ORDERABLES Final Resul t Performing Organization Address [facility] Phone Number [facility] [address] [place] [address] documented in this encounter Visit Diagnoses Diagnosis Hyperthyroidism- Primary Thyrotoxicosis without mention of goiter or other cause, without mention of thyrotoxic crisis or storm Abnormal results of thyroid function studies Nonspecific abnormal results of thyroid function study alf systemic steroid user Thyroid nodule Nontoxic uninodular goiter Hyperthyroidism Thyrotoxicosis without mention of goiter or other cause, without mention of thyrotoxic crisis or storm Thyroid nodule Nontoxic uninodular goiter documented in this encounter Discontinued Medications Medication Sig Discontinue Reason Start Date End Da te methIMAzole (TAPAZOLE) 5 mg tablet Take 1/2 tab (2.5mg) daily. 10/04/2022 10/31/2022 documented as of this encounter Historical Medications * This list may reflect changes made after this encounter. 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 operator before breakfast 08/25/2022 omeprazole (PriLOSEC) 40 mg capsuleIndicatio ns:Treatment of Non-Bleeding Gastric Disorder Take 1 capsule (40 mg total) by mouth daily before breakfast 08/30/2022 predniSONE (DELTASONE) 5 mg tablet Take 1-2 tablets (5-10 mg) by mouth as needed Exacerbation of RA 06/01/2022 traMADoL (ULTRAM) 50 mg tablet Take 1 tablet (50 mg total) by mouth 2 (two) times a day as needed 12/27/2012 tiZANidine (ZANAFLEX) 4 mg tabletIndication s:Muscle Spasm Take 1 tablet (4 mg total) by mouth nightly 01/31/2014 losartan (COZAAR) 100 mg tabletIndication s:hypertension Take 1 tablet (100 mg total) by mouth straight pin making machine operator before breakfast cholecalciferol (VITAMIN D-3) 2000 unit tabletIndication s:Vitamin D Deficiency Take 2 tablets (4,000 Units total) by mouth straight pin making machine operator before breakfast 08/06/2012 carvediloL (COREG) 6.25 mg tabletIndication s:hypertension Take 1 tablet (6.25 mg total) by mouth 2 (two) times a day 07/22/2022 amLODIPine (NORVASC) 5 mg tabletIndication s:hypertension Take 1 tablet (5 mg total) by mouth straight pin making machine operator before breakfast 08/22/2022 omega 6-fuo-mwt-fish oil (Fish OiL) 1,200 (144-216) mg capsuleIndicatio ns:hypertriglyce ridemia Take 1 capsule by mouth 2 (two) times a day Flowflex COVID-19 Ag Home Test kit as directed 08/19/2022 3 added in this encounter Orders Outpatient Referral Count Last Ordered Date Fir st Ordered Date AMB REFERRAL TO ENDOCRINOLOGY 1 09/08/2022 documented in this encounter Care Teams Services Coordinator Relationship Specialty Start Date End Date David Savage MD [address] [facility] [address] [place] [address] INTERNAL MEDICINE [place] [id number] PCP - General Internal Medicine 06/23/22 documented as of this encounter
--- OUTSIDE RECORDS SUMMARY | 2024-06-25 01:29 | XMS_ITS | Clinical Summary ---
Author Organization [facility] Address [facility] [place] [address] Care Team Providers Care Paramedical Aide Name Role Phone David Savage MD Primary Care Provider Allergies Active Allergy Reactions Criticality Noted Date Comments Adalimumab Unknown 12/09/2014 Amitriptyline Other (See comments) Low 02/22/2012 Drowsiness Etanercept Stomach upset Low 12/09/2014 Golimumab Stomach upset Low 12/09/2014 Hydroxychloroquine Nausea And Vomiting 04/09/20 15 Stomach pain Medications omega 5-roy-tja-fish oil (Fish OiL) 1,200 (144-216) mg capsuleIndicati ons:hypertrigly ceridemia Take 1 capsule by mouth 2 (two) times a day Active amLODIPine (NORVASC) 5 mg tabletIndicatio ns:hypertension Take 1 tablet (5 mg total) by mouth pharmaceutical scientist before breakfast 3 Active carvediloL (COREG) 6.25 mg tabletIndicatio ns:hypertension Take 1 tablet (6.25 mg total) by mouth 2 (two) times a day 3 Active cholecalciferol (VITAMIN D-3) 2000 unit tabletIndicatio ns:Vitamin D Deficiency Take 2 tablets (4,000 Units total) by mouth pharmaceutical scientist before breakfast 3 Active losartan (COZAAR) 100 mg tabletIndicatio ns:hypertension Take 1 tablet (100 mg total) by mouth pharmaceutical scientist before breakfast Active tiZANidine (ZANAFLEX) 4 mg [...] 2 tablets (100 mg total) by mouth pharmaceutical scientist before breakfast 3 Active lorazepam (ATIVAN ORAL) [...] tract infection 11/05/2007 Overview (10/20/2017): Description: Hx Surgical History Surgery Date Site/Laterality Comments SD TOTAL ABDOMINAL HYSTERECT W/WO RMVL TUBE OVARY Hysterectomy - 1990 (Added by TW Conv) OVARY SURGERY Ovarian Surgery - 1993 & 1994 (Added by TW Conv) SD UNLISTED PROCEDURE ABDOMEN PERITONEUM & OMENTUM Hernia Repair - 1995 (Added by TW Conv) WRIST SURGERY 07/10/2018 - 07/09/2019 Bilateral THYROIDECTOMY, PARTIAL 01/25/2023 Right Medical History Medical History Date Comments Endometriosis Endometriosis - (Added by TW Conv) Personal history of other di seases of the circulatory system History of hypertension - (A dded by TW Conv) Personal history of other di seases of the musculoskeletal system and connective tissue History of fibromyositis - ( Added by TW Conv) Hypertension RA (rheumatoid arthritis) (HCC) PONV (postoperative nausea and vomiting) Motion sickness Family History Medical History Relation Name Comments Breast cancer Father's Sister Breast cancer Sister Anesthesia problems Neg Hx Relation Name Status Comments Father's Sister Sister Social History Tobacco Use Types Packs/Day Years [...] on file 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 Gender Identity Not on file Sexual Orientation Not on file Obstetrics History Last Filed Vital Signs Vital Sign Reading [...] 02/14/2023 8:10 AM CDT Plan of Treatment Health Maintenance Due Date Last Done Comments Breast Cancer Screening-Mammogram 1955 Colon Cancer Screening-Colonoscopy 1955 Depression Screening 1955 Hepatitis C Screening 1955 DTaP/Tdap/Td Vaccine (1 - Tdap) 1966 Hepatitis B Screening 1973 Pneumococcal vaccine 65+ (2 of 2 - PPSV23 or PCV20) 05/14/2019 03/19/2019 Zoster Vaccine (2 of 2) 07/14/2019 05/19/2019 Osteoporosis Screening-Bone Density Scan 04/04/2020 04/04/2018, 04/04/2018 Well Visit 65+ 2020 Fall Risk Assessment 01/26/2024 01/25/2023 Covid-19 Vaccine (5 - 2023-2 5 season) 2024 05/06/2022, 05/28/2021, 09/30/2020, Additional history exists Influenza Vaccine (#1) 2024 , 04/26/2021, 03/09/2020, Additional history exists Insurance MEDICARE AET SENIOR [facility] MEDICARE AETNA SENIOR SUPPLEMENT Advance Directives For more information, please contact: [phone] * Full Code (Latest Code Status on File) Date Activated Date Inactivated Comments 01/25/2023 12:44 PM 01/25/2023 8:51 PM Care Teams Paramedical Aide Relationship Specialty Start Date End Date David Savage MD [address] [place] [address] PCP - General Internal Medicine 06/23/22
--- OUTSIDE RECORDS SUMMARY | 2024-06-25 01:29 | XMS_ITS | Encounter Summary ---
Author Organization [facility] Address [address] [place] [address] Phone Care Team Providers Care Systematic Theology Professor Name Role Phone David Savage MD Primary Care Provider [phone] Encounter Details Date Type Department Care Team (Late st Contact Info) Description 11/11/2022 Orders Only [facility] Endocrinology Metabolism and Lipid [address] [facility] 13th [place] [address] [place] [address] Alexandria Ponce MD [address] [place] [address] Social History Tobacco Use Types Packs/Day Years Used Date Smoking Tobacco: Never Comments Unknown Sex and Gender Information Value Date Recorded Sex Assigned at Not on file 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 Gender Identity Not on file Sexual Orientation Not on file documented as of this encounter Plan of Treatment Not on file documented as of this encounter Procedures Procedure Name Priority Date/Time Associated Diagnosis Comments COPY(IES) SENT TO: Routine 11/11/2022 9: 37 AM CDT T3, FREE Routine 11/11/2022 9:37 AM CDT TSH Routine 11/11/2022 9:37 AM CDT T4, FREE Routine 11/11/2022 9:37 AM CDT documented in this encounter Results * T3, free (11/11/2022 9:37 AM CDT) Free T3 4.2 2.3 - 4.2 pg/mL [facility] 11/11/2022 9:37 AM CDT 11/11/2022 9:42 AM CDT Narrative [facility] - 11/12/2022 12:19 AM CDT FASTING:NO FASTING: NO us Alexandria Ponce MD LAB BLOOD ORDERABLES Final Resul t Performing Organization Address [facility] Co de Phone Number [facility] [address] [place] [address] * T4, free (11/11/2022 9:37 AM CDT) Free T4 1.0 0.8 - 1.8 ng/dL [facility] 11/11/2022 9:37 AM CDT 11/11/2022 9:42 AM CDT Narrative [facility] - 11/12/2022 12:19 AM CDT FASTING:NO FASTING: NO us Alexandria Ponce MD LAB BLOOD ORDERABLES Final Resul t Performing Organization Address [facility] Co de Phone Number [facility] [address] [facility] [address] [place] [address] * (ABNORMAL) TSH (11/11/2022 9:37 AM CDT) TSH 0.06(L) 0.40 - 4.50 mIU/L [facility] 11/11/2022 9:37 AM CDT 11/11/2022 9:42 AM CDT Narrative [facility] - 11/12/2022 12:19 AM CDT FASTING:NO FASTING: NO us Alexandria Ponce MD LAB BLOOD ORDERABLES Final Resul t Performing Organization Address [facility] Co de Phone Number [facility] [address] [place] [address] * COPY(IES) SENT TO: (11/11/2022 9:37 AM CDT) COPY(IES) SENT TO: [facility] Comment: ?ASMITA CLARKE I ?[address] ?[place], [place] ?[address] 11/11/2022 9:37 AM CDT 11/11/2022 9:42 AM CDT Narrative [facility] - 11/12/2022 12:19 AM CDT FASTING:NO FASTING: NO Alexandria Ponce MD LAB BLOOD ORDERABLES Final Resul t Performing Organization Address [facility] Co de Phone Number [facility] documented in this encounter Visit Diagnoses Not on filedocumented in this encounter Care Teams Systematic Theology Professor Relationship Specialty Start Date End Date David Savage MD [address] [place] [address] PCP - General Internal Medicine 06/23/22 documented as of this encounter
--- OUTSIDE RECORDS SUMMARY | 2024-06-25 01:29 | XMS_ITS | Encounter Summary ---
Author Organization [facility] Address [address] [facility] [address] [place] [address] Phone Care Team Providers Care Belting Cutter Name Role Phone David Savage MD Primary Care Provider [phone] Reason for Referral * Consultation (Routine) - Closed Specialty Diagnoses / Procedures Referred By Contandrew t Referred To Contact Surgical Oncology Diagnoses Thyroid nodule, toxic or with hyperthyroidism Alexandria Ponce MD [address] [place] [address] Phone: tel: fax: Javi Lowe MD [address] [place] [address] Phone: tel: fax: Referral ID Status Reason Start Date Expiration Date V isits Requested Visits Authorized [id number] Closed Specialty Services Required 11/10/2022 12/10/2023 1 1 Question Answer Reason for surgical referral: Parathyroid & Thyroid - MNG 10 years with R nodule growing now 4.0cm with swallowing problem occasionally, FNA twice benign. Recent hyperthyroidism with NM scan showed hyperfunction nodules b/l. Consult for surgical option. Please select the performing region: [facility] (All Locations) [[id number]] To provider: Javi LOWE [[id number]] # of visits: 1 Comments MNG 10 years with R nodule growing now 4.0cm with swallowing problem occasionally, FNA twice benign. Recent hyperthyroidism with NM scan showed hyperfunction nodules b/l. Consult for surgical option. Reason for Visit * Consultation (Urgent) - Closed Specialty Diagnoses / Procedures Referred By Contac t Referred To Contact Endocrinology Diagnoses Abnormal results of thyroid function studies David Savage MD [address] [facility] [address] [place] [address] Phone: tel: fax: [facility] (All Locations) Referral ID Status Reason Start Date Expiration Date V isits Requested Visits Authorized [id number] Closed Specialty Services Required 06/08/2022 07/08/2023 12 12 Encounter Details Date Type Department Care Team (Latest Contact Info) Description 11/10/2022 1:40 PM CDT Office Visit [facility] Endocrinology Metabolism and Lipid [address] [facility] Medicine 5th [place] [address] [place] [id number] Alexandria Ponce MD [address] [place] [address] Hyperthyroidism (Primary Dx); Thyroid nodule, toxic or with hyperthyroidism Social History Tobacco Use Types Packs/Day Years Used Date Smoking Tobacco: Never Tobacco Cessation:Counseling Given: Not Answered Personal Safety Answer Date Recorded Have you ever been in or are you currently in a harmful physical or emotional relationship or is someone making you feel afraid or unsafe? 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 Gender Identity Not on file Sexual Orientation Not on file documented as of this encounter Last Filed Vital Signs Vital Sign Reading Time Taken Comments Blood Pressure 167/80 11/10/2022 1:26 PM CDT Pulse 86 11/10/2022 1:26 PM CDT Temperature 36.7 ??C (98 ??F) 11/10/2022 1:26 PM CDT Respiratory Rate - - Oxygen Saturation - - Inhaled Oxygen Concentration - - Weight 79.4 kg (175 lb) 11/10/2022 1:26 PM CDT Height 149.9 cm (4' 11 ) 11/10/2022 1:26 PM CDT Body Mass Index 35.35 11/10/2022 1:26 PM CDT documented in this encounter Patient Instructions * Patient Instructions* Alexandria Ponce MD - 11/10/2022 1:40 PM CDT Blood test for thyroid function in 1 week. Referral to surgical opinion. YOu should get phone call in 2 weeks. documented in this encounter Progress Notes * Alexandria Ponce MD - 11/10/2022 1:40 PM CDT Endocrine Outpatient F/U Patient Note Date: 11/10/2022 HPI Anjali Rodriguez is a pleasant 67 y.o. female coming today for elevated thyroid function since 05/2022. Hx of Thyroid nodule 10 years (now R 4.0cm) with FNA twice benign. Hx of Prediabetes, HLD, BMI 33, managed by PCP. Establish care 09/08/2022. Investigate showed hyperthyroid function and symptoms with negative TPO, Tgab, TSI. NM scan showed hyperfunctioning nodules. Didn't tolerated small dose MMI or PTU Thyroid nodule: 10 years ago 2013 2.3cm with benign FNA results. 06/10/2022 US showed 4.0 right nodule TR4. 06/22/2022 pathology: benign consistent with follicular nodule. Elevated thyroid function DX: 05/2022 TFT: 05/2022 suppressed TSH with elevated FT3, tg. Neg TPO, Tgab TX: MMI 2.5mg muscle pain PTU 25mg bid (GI issues) RISK FACTOR: NO Amiodarone no Iodine intake no VitB7/biotin no [...] Tg 67.4 (2.8-40.9); TSH<0.015 (0.465-4.68). 07/2022 ALT/AST 13/12 Prednisone med for RA. 4-5 days 8-12 times per year. Osteopenia. This end of Jul 2022 steroid injection for arthritis. Coreg 6.25 bid. 09/08/2022 TSH0.01, Tg 74 elevated, FT3 4.3 (>4.2), FT4 1.2 TSI, Tgab, TPO all negative. Next step is to have thyroid Tc99m scan and try to make diagnosis Grave disease vs thyroiditis vs hot nodules (functioning nodule). 09/28/2022 NM Tc99 thyroid scan: 1. Suspected [...] nodule. Recommend thyroid ultrasound for further evaluation. Current Outpatient Medications Medication Sig Dispense Refill amLODIPine (NORVASC) 5 mg tablet Take 1 tablet (5 mg total) by mouth daily azaTHIOprine (IMURAN) 50 mg tablet Take 2 tablets (100 mg total) by mouth daily carvediloL (COREG) 6.25 mg tablet Take 1 tablet (6.25 mg total) by mouth 2 (two) times a day cholecalciferol (VITAMIN D-3) 2000 unit tablet Take 2 tablets (4,000 Units total) by mouth daily losartan (COZAAR) 100 mg tablet Take by mouth daily omeprazole (PriLOSEC) 40 mg capsule Take by mouth daily tiZANidine (ZANAFLEX) 4 mg tablet Take 1 tablet (4 mg total) by mouth nightly traMADoL (ULTRAM) 50 mg tablet Take 1 tablet (50 mg total) by mouth 2 (two) times a day as needed Flowflex COVID-19 Ag Home Test kit as directed omega 0-fmh-brn-fish oil (Fish OiL) 1,200 (144-216) mg capsule Take by mouth 2 (two) times a day (Patient not taking: Reported on 11/10/2022) predniSONE (DELTASONE) 5 mg tablet Take 5-10 mg by mouth daily (Patient not taking: Reported on 11/10/2022) propylthiouraciL (PTU) 50 mg tablet 1/2 tab (25mg) twice daily. (Patient not taking: Reported on 11/10/2022) 30 tablet 1 No current facility-administered medications for this visit. [...] 1993 & 1994 (Added by TW Conv) [place] TOTAL ABDOMINAL HYSTERECT W/WO RMVL TUBE OVARY Hysterectomy - 1990 (Added by TW Conv) [place] UNLISTED PROCEDURE ABDOMEN PERITONEUM & OMENTUM Hernia Repair - 1995 (Added by TW Conv) Social History Tobacco Use Smoking status: Never Smokeless tobacco: None Vaping Use Vaping status: None Substance and Sexual Activity Alcohol use: None Drug use: None Sexual activity: None No family history on file. Fx: breast cancer ROS:Positive heat intolerance, sweating, anxiety, nervousness, hungry. Fatigue, heart racing. Occasionally swallowing issues. Endocrine: Negative for cold intolerance, heat intolerance, [...] for decreased concentration and mood abebe. BP 167/80 (BP Location: Left arm, Patient Position: Sitting) Pulse 86 Temp 36.7 ??C (98 ??F) (Oral) Ht 149.9 cm (4' 11 ) Wt 79.4 kg (175 lb) BMI 35.35 kg/m?? Body mass index is 35.35 kg/m??. Body surface area is 1.82 meters squared. Wt Readings from Last 3 Encounters: 11/10/22 79.4 kg (175 lb) 09/08/22 76.7 kg (169 lb 3.2 oz) BMI Readings from Last 3 Encounters: 11/10/22 35.35 kg/m?? 09/08/22 34.17 kg/m?? Physical Exam: positive tarchy, [...] appropriate affect & mood Assessment and Plan Anjali Rodriguez is a pleasant 67 y.o. female coming today for elevated thyroid function since 05/2022. Hx of Thyroid nodule 10 years (now R 4.0cm) with FNA twice benign. Hx of Prediabetes, HLD, BMI 33, managed by PCP. 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 Elevated FT3 and suppressed TSH. NM: 09/2022 hyperfunctioning nodule in the right thyroid lobe and likely 2nd nodule left. -- didn't tolerate MMI 2.5mg or PTU 25mg bid -- currently on coreg bid -- repeat TFT -- We discussed the option of longer-term treatment with thionamides (specifically methimazole) vs definitive therapy with radioactive iodine ablation Surgery:Risk of hypothyroid and other complication of surgery, benefit for removal nodules (4.0cm). Radiation: benefit: no surgery and easy process. Risk of hypothyroid and small risk of treatment failure. Steroid uses for RA. 8-12 times per year. Previous discuss endocrine risk. Pt will consult with RA for alternative meds. F/u 3 month TFT today and Refer to endocrine surgeon. MNG 10 years with R nodule growing now 4.0cm with swallowing problem occasionally, FNA twice benign. Recent hyperthyroidism with NM scan showed hyperfunction nodules b/l. Consult for surgical option. ADDENDUM ADDED ON 11/15/2022 11/11/2022 TSH 0.06, FT3 4.2 (2.3-4.2); FT4 1.0 Improvement from 09/2022. Thyroid function high normal. TSH is still suppressed. Message to pt. ADDENDUM ADDED ON 12/10/[address] Lowe. Plan F/u with the nuclear medicine team regarding the uptake on the LEFT --> is this significant or not? If no --> will proceed with right hemithyroidectomy in early January Repeat TFTs at [facility] in the next week Intraoperative laryngeal nerve monitoring Day surgery with 6 hour postoperative observation if hemithyroidectomy is pursued 01/25/2023 hemithyroidectomy R Pathology result Diagnosis: A. Thyroid, right lobe and isthmus, hemithyroidectomy - Dominant nodule of nodular hyperplasia B. Parathyroid, question additional thyroid tissue versus parathyroid , excision - Hypercellular parathyroid ADDENDUM ADDED ON 02/14/2023 I didn't see pt has any followup with me. Message to pt. I received surgeon note that you are doing fine after surgery. I noticed you don't have any followup appointment scheduled with me. If you would like to follow up here, please let us know. If you decide to continue followup with your primary doctor, I have listed things that you needto follow Thyroid function. You had elevated thyroid function in the past, you need to follow level and need to make sure it is fine in the future. Please also follow you primary doctor for calcium and parathyroid hormone level. I was not informedthat there was any abnormality of calcium in the past. However, it was incidentally found that yourparathyroid gland has hypercellular change (parathyroid glands regulate calcium). Your calcium and parathyroid hormone need to be followed and make sure they are fine. documented in this encounter Plan of Treatment Scheduled Orders Name Type Priority Associated Diagnoses Orde r Schedule TSH Lab Routine Thyroid nodule, toxic or with hyperthyroidism Expected: 12/11/2022 (Approximate), Expires: 11/11/2023 T4, free Lab Routine Thyroid nodule, toxic or with hyperthyroidism Expected: 12/11/2022 (Approximate), Expires: 11/11/2023 T3, free Lab Routine Thyroid nodule, toxic or with hyperthyroidism Expected: 12/11/2022 (Approximate), Expires: 11/11/2023 Scheduled Referrals Name Type Priority Associated Diagnoses Orde r Schedule Ambulatory referral to Surgical Oncology Outpatient Referral Routine Thyroid nodule, toxic or with hyperthyroidism Expected: 11/24/2022 (Approximate), Expires: 11/11/2023 documented as of this encounter Visit Diagnoses Diagnosis Hyperthyroidism- Primary Thyrotoxicosis without mention of goiter or other cause, without mention of thyrotoxic crisis or storm Thyroid nodule, toxic or with hyperthyroidism Toxic uninodular goiter without mention of thyrotoxic crisis or storm documented in this encounter Care Teams Belting Cutter Relationship Specialty Start Date End Date David Savage MD [address] [facility] [address] [facility] [address] [place] [address] PCP - General Internal Medicine 06/23/22 documented as of this encounter
--- OUTSIDE RECORDS SUMMARY | 2024-06-25 01:29 | XMS_ITS | Encounter Summary ---
Author Organization [facility] Address [address] [place] [address] Phone Care Team Providers Care Church History Teacher Name Role Phone David Savage MD Primary Care Provider [phone] Reason for Visit * Reason Comments Consult * Consultation (Routine) - Closed Specialty Diagnoses / Procedures Referred By Contac t Referred To Contact Surgical Oncology Diagnoses Thyroid nodule, toxic or with hyperthyroidism Alexandria Ponce MD [address] [place] [address] Phone: tel: fax: Javi Buck MD [address] [address] Phone: tel: fax: Referral ID Status Reason Start Date Expiration Date V isits Requested Visits Authorized [id number] Closed Specialty Services Required 11/10/2022 12/10/2023 1 1 Encounter Details Date Type Department Care Team (Latest Contact Info) Description 11/29/2022 11:30 AM CDT Office Visit [facility] Surgery [address] 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 Gender Identity Not on file Sexual Orientation Not on file documented as of this encounter Last Filed Vital Signs Vital Sign Reading Time Taken Comments Blood Pressure 158/82 11/29/2022 11:48 AM CDT Pulse 75 11/29/2022 11:48 AM CDT Temperature - - Respiratory Rate - - Oxygen Saturation - - Inhaled Oxygen Concentration - - Weight 79.3 kg (174 lb 12.8 oz) 023 11:48 AM CDT Height 149.9 cm (4' 11 ) 11/29/2022 11: 48 AM CDT Body Mass Index 35.31 11/29/2022 11:48 AM CDT documented in this encounter Progress Notes * Javi Buck MD - 11/29/2022 11:30 AM CDT Images from the original note were not included. ENDOCRINE SURGERY CONSULTATION NOTE Patient Name: Anjali Rodriguez Date of Visit: 11/29/2022 Consult Requested By: Alexandria Ponce MD PCP: David Savage MD CHIEF COMPLAINT: Hyperthyroidism - toxic adenoma vs toxic multinodular goiter HISTORY OF PRESENT ILLNESS is a 67 y.o. female who presents for surgical evaluation of hyperthyroidism due to either a toxic adenoma or toxic multinodular goiter. I visited with her today and Tameka Rodriguez MSP2 present. History obtained with the assistance of student Dr. Rodriguez This was initially discovered via blood work. She was found to have biochemical findings of hyperthyroidism. She does have a known right sided thyroid nodule and per report, this was previously biopsied TWICE and benign. Dr. Ponce ordered a thyroid uptake scan and this shows intense uptake in the region of the right thyroid nodule. There is also some faint uptake in the left lobe. I arranged for herto have a formal thyroid US today. Her symptoms related and attributable to this include some intermittent symptoms of hot flashes, palpitations, constipation/diarrhea fluctuation, some mild mood swings, anxiety. She was initially placed on MMI; she had improvement in her symptoms, but had bad muscle aches. This as then switched to PTU and she developed nausea/abdominal pain. Since then, she has been on BID coreg. Her symptoms arebetter than in the past. She notes some very mild intermittent dysphagia that is not terribly bothersome. She denies any new changes in her voice, dyspnea, or other major compressive symptoms. No previous neck surgeries. Laboratory studies currently are significant for suppressed by detectable TSH, normal FT3 and FT4. Of note those labs were shortly after the MMI/PTU was stopped. There was brief discussion of radioactive iodine therapy, however due to the size of the nodule, surgery was considered a better option. She has not had radiation treatment to the neck or face. No known family history of parathyroid, thyroid, pituitary, adrenal or pancreatic pathologies. Laboratory The following laboratory tests were obtained by others on a prior date of service and show mild hyperthyroidism. I have personally & independently reviewed all available and relevant laboratory values. Latest Reference Range & Units 09/09/22 09:17 11/11/22 09:37 Thyroglobulin ng/mL 74.5 (H) Thyroperoxidase ab <9 IU/mL 1 Free T3 2.3 - 4.2 pg/mL 4.3 (H) 4.2 Free T4 0.8 - 1.8 ng/dL 1.2 1.0 TSH 0.40 - 4.50 mIU/L 0.01 (L) 0.06 (L) Thyroglobulin Antibody < or = 1 IU/mL <1 Thyroid Stim Immunoglobulin <140 % baseline <89 Imaging The following imaging tests were obtained by me today. I have personally and independently reviewedthe available imaging and interpret these as a large right sided nodule. There is a very tiny, 5mm left sided spongiform nodule. I agree and concur with the radiologists' interpretation. Ultrasound [facility] November 2022: FINDINGS: The thyroid is normal in size. [...] 06/22/2022 with findings demonstrating benign follicular nodule Of note, a subcentimeter, benign appearing spongiform [...] This was discussed with Dr. Buck today. Thyroid uptake scan September 2022: IMPRESSION: 1. Suspected hyperfunctioning nodule in the [...] nodule. Recommend thyroid ultrasound for further evaluation. Pathology Fine needle aspiration -- per report, BENIGN x 2 PAST MEDICAL HISTORY: has a past medical history of Endometriosis, Hypertension, Personal history of other diseases of the circulatory system, Personal history of other diseases of the musculoskeletal system and connective tissue, and RA (rheumatoid arthritis) (HCC). PAST SURGICAL HISTORY: has a past surgical history that includes pr total abdominal hysterect w/wo rmvl tube ovary; Ovary surgery; and pr unlisted procedure abdomen peritoneum & omentum. 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 Denies tobacco use. FAMILY HISTORY: family history includes Breast cancer (age of onset: 62) in her father's sister; Breast cancer (age of onset: 65) in her sister. ALLERGIES: Adalimumab, Hydroxychloroquine, Amitriptyline, Etanercept, and Golimumab MEDICATIONS: HOME MEDICATIONS : amLODIPine (NORVASC) 5 mg tablet azaTHIOprine (IMURAN) 50 mg tablet carvediloL (COREG) 6.25 mg tablet cholecalciferol (VITAMIN D-3) 2000 unit tablet losartan (COZAAR) 100 mg tablet omega 4-fru-lsb-fish oil (Fish OiL) 1,200 (144-216) mg capsule omeprazole (PriLOSEC) 40 mg capsule predniSONE (DELTASONE) 5 mg tablet propylthiouraciL (PTU) 50 mg tablet tiZANidine (ZANAFLEX) 4 mg tablet traMADoL (ULTRAM) 50 mg tablet Flowflex COVID-19 Ag Home Test kit REVIEW of SYSTEMS Positive for intermittent symptoms of hyperthyroidism Negative per HPI Constitutional, eye, cardiovascular, respiratory, gastrointestinal, musculoskeletal, genitourinary,hematologic, skin, and psychiatric systems are otherwise negative, except as outlined above. PHYSICAL EXAM BP 158/82 Pulse 75 Ht 149.9 cm (4' 11 ) Wt 79.3 kg (174 lb 12.8 oz) BMI 35.31 kg/m?? General: Well-appearing, overweight female who appears her [...] and is oriented to person, place, & time. IMPRESSION: presents with hyperthyroidism consistent with either a large right sided toxic adenoma vs a toxic multinodular goiter. She has minimal compressive symptoms from the right thyroid nodule. Today we discussed treatment options for hyperthyroidism including radioactive iodine, surgery, or radiofrequency ablation (RFA). I discussed the pros and cons of each of these in detail with her. One thing that is not entirely clear to me is if this is a single toxic adenoma or a multinodular toxic goiter based on the NM uptake scan. I will have to reach out to the NM team to discuss further. Given the size of the right sided nodule, I would favor surgery vs RFA. If she chooses surgery (which is what she is leaning towards), total thyroidectomy and right hemithyroidectomy would be potential options. If the nuclear medicine team feels the left sided uptake is not all that consequential, I think we can do a right hemithyroidectomy to start. Will have to accept the potential that the left sided nodule becomes more functional in the future (if it is even mildly functional now) and may require HALL/surgery/RFA in the future. At this time, she likes the idea of right hemithyroidectomy. We can tentatively plan for this. She has a vacation planned at the end of December so surgery would have to be after that in January. [place] or CAM/PVT locations OK. I would like to ensure her thyroid function labs are stable. She will go to [facility] within a week to have more updated labs. She will likely need another set of labs next month as well. PLAN: F/u with the nuclear medicine team regarding the uptake on the LEFT --> is this significant or not? If no --> will proceed with right hemithyroidectomy in early January Repeat TFTs at [facility] in the next week Intraoperative laryngeal nerve monitoring Day surgery with 6 hour postoperative observation if hemithyroidectomy is pursued I explained the operation, the incision, the expected hospital stay, the role of students/trainees in her care, length of recovery, and postoperative follow up including possible thyroid hormone/calcium management. seems to understand our conversation and my recommendations. All of her questions were answered. We discussed the risks of surgery, including but not limited to, bleeding, infection, wound problems, fluid collections, the possible need for drainage tubes, injury to surrounding structures, thyrotoxicosis, and cardiopulmonary risks associated with general anesthesia. I explained the possibility of voice changes as a result of injury to recurrent laryngeal and/or superior laryngeal nerves (can be temporary in 3-6% of patients and permanent in <1% of patients), bleeding (requiring reoperation in approximately <1% of patients), the possibility for postoperative thyroid hormone supplementation, low calcium levels after surgery (as a result of hypoparathyroidism after total thyroidectomy, usually temporary) and the need for a possible second operation based on final pathology if hemithyroidectomy is pursued. For planned total thyroidectomy, there is always the small chance we would need to abort after hemithyroidectomy if we suspect recurrent nerve dysfunction intraoperatively and await return of function prior to completion thyroidectomy. Although preoperative imaging is not consistent with locally advanced thyroid cancer, there is always potential for the intraoperative diagnosis of unsuspected pathology, e.g. thyroid cancer involving the lymph nodes. Therefore, the consent will state proceed as indicated to allow me to perform the standard of care for any such unsuspected intraoperative scenarios. In her particular case, I would expect these risks to be average overall. Thank you very much for referring to our clinic and please do not hesitate to contactme with any questions. Our visit today lasted 30 minutes with >50% of this spent on counseling & coordination of care. I spent an additional 15 minutes reviewing records, labs, images, charting, and coordinating care, for a total encounter time today, 11/29/2022, of 45 minutes. Javi Buck MD, MPH Endocrine Surgeon Section of Surgical Oncology documented in this encounter Plan of Treatment Not on file documented as of this encounter Visit Diagnoses Diagnosis Thyroid nodule, toxic or with hyperthyroidism- Primary Toxic uninodular goiter without mention of thyrotoxic crisis or storm documented in this encounter Discontinued Medications Medication Sig Discontinue Reason Start Date End Da te Flowflex COVID-19 Ag Home Test kit as directed Therapy completed 08/19/2022 11/29/2022 documented as of this encounter Orders Outpatient Referral Count Last Ordered Date Fir st Ordered Date AMB REFERRAL TO SURGICAL ONCOLOGY 1 023 documented in this encounter Care Teams Church History Teacher Relationship Specialty Start Date End Date David Savage MD [address] [facility] [address] [place] [address] PCP - General Internal Medicine 06/23/22 documented as of this encounter
--- OUTSIDE RECORDS SUMMARY | 2024-06-25 01:29 | XMS_ITS | Encounter Summary ---
Author Organization [facility] Address [address] [place] [address] Care Team Providers Care Extrusion Technician Name Role Phone David Savage MD Primary Care Provider [phone] Reason for Visit * Diagnostic Imaging (Routine) - Closed Specialty Diagnoses / Procedures Referred By Contac t Referred To Contact Diagnoses Hyperthyroidism Thyroid nodule Procedures NM Thyroid Imaging NM Thyroid Request - Uptake and/or Imaging and/or Therapy in Hyperthyroid patients Alexandria Ponce MD [address] [facility] [address] [place] [address] Phone: tel: fax: External Order Referral ID Status Reason Start Date Expiration Date Visits Re quested Visits Authorized [id number] Closed 09/21/2022 10/16/2023 5 5 Encounter Details Date Type Department Care Team (Latest Contact Info) Description 09/28/2022 11:37 AM CDT - 09/28/2022 11:59 PM CDT Hospital Encounter [facility] Radiology [address] [place] [address] Discharge Disposition: Discharge to home or self care Social History Tobacco Use Types Packs/Day Years Used Date Smoking Tobacco: Never Comments Unknown Sex and Gender Information Value Date Recorded Sex Assigned at Not on file 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 Gender Identity Not on file Sexual Orientation Not on file documented as of this encounter Medications at Time of Discharge amLODIPine (NORVASC) 5 mg tabletIndication s:hypertension Take 1 tablet (5 mg total) by mouth cane cutter before breakfast 08/22/2022 azaTHIOprine (IMURAN) 50 mg tabletIndication s:autoimmune disease,RA Take 2 tablets (100 mg total) by mouth cane cutter before breakfast 08/25/2022 carvediloL (COREG) 6.25 mg tabletIndication s:hypertension Take 1 tablet (6.25 mg total) by mouth 2 (two) times a day 07/22/2022 cholecalciferol (VITAMIN D-3) 2000 unit tabletIndication s:Vitamin D Deficiency Take 2 tablets (4,000 Units total) by mouth cane cutter before breakfast 08/06/2012 losartan (COZAAR) 100 mg tabletIndication s:hypertension Take 1 tablet (100 mg total) by mouth cane cutter before breakfast omega 8-sam-vjr-fish oil (Fish OiL) 1,200 (144-216) mg capsuleIndicatio [...] by: Areli Sauer M.D. Alexandria Ponce MD [facility] PROCEDURES Final Result documented in this encounter Visit Diagnoses Not on filedocumented in this encounter Care Teams Extrusion Technician Relationship Specialty Start Date End Date David Savage MD [address] [facility] [address] [place] [address] PCP - General Internal Medicine 06/23/22 documented as of this encounter
--- OUTSIDE RECORDS SUMMARY | 2024-06-25 01:31 | XMS_ITS | Continuity of Care Document ---
Author Organization [facility] Address [address] [facility] [address] [place] [address] Phone Care Team Providers Care Tracer Clerk Name Role Phone King OD, Ferdinand Unavailable Unavailable Procedures Procedure Date Eye Exam, New Patient Eye Exam & Treatment Refraction Advance Directives Directive Yes / No Effective Date File Name No Information Encounters Encounter Description Practice Location Reason(s) For Visit Diagnoses Date Provider Providers Copied on Encounter [facility], [address] [place] [address] [address], [place], [place], [id number], tel:[phone] [facility] No Information [address] King OD Ferdinand. [address] [facility] , [address], [place], [place], [facility], [place]. tel:[phone] [facility], [address] [place] [address] [address], [place], [place], [id number], tel:[phone] [facility] No Information [address]ette. [address] [facility] , [address], [place], [address], [place]. tel:[phone] Family History Family Member Type Diagnosis Age At Onset No Information Payers Payer name Insurance type Covered libertarian ID Authoriza tion(s) No Information Social History Type Description Quantity Date Captured Comments Sex Female Smoking Status No Information Chief Complaint And Reason For Visit No Information Reason For Referral Reason For Referral No Information History Of Present Illness Encounter Date Complaint History Of Prese nt Illness No Information Functional Status Date Functional Assessmen t No Information Instructions Date Instruction Additional Infor mation No Information Assessments Type Assessment Date No Information Patient Care Teams Name Effective Dates (start - stop) Status Members No Information
== END 2024-06-21 15:22 | disposition home or self-care (01) ==
LOC: ANHCARD 15:23
PROVIDERS: PCP Internal Medicine; Visit Provider Internal Medicine
DX: R94.31 Abnormal electrocardiogram [ECG] [EKG] (principal)
CPT/HCPCS: C8929; Q9957

== ENCOUNTER 2024-07-11 09:11 | Outpatient (CLI) | payer MEDICARE, SELFPAY ==
[2024-07-11 12:50] LABS: Alanine Aminotransferase 13 U/L (6-35); Aspartate Amino Transferase 20 U/L (14-36)
== END 2024-07-11 09:12 | disposition home or self-care (01) ==
PROVIDERS: PCP Internal Medicine; Visit Provider Podiatrist Foot & Ankle Surgery
DX: B35.1 Tinea unguium (principal)
CPT/HCPCS: 36415; 84450; 84460

== ENCOUNTER 2024-08-30 10:02 | Outpatient (CLI) | payer MEDICARE, SELFPAY ==
--- OUTSIDE RECORDS SUMMARY | 2024-08-30 10:43 | XMS_ITS | Encounter Summary ---
Author Organization [facility] Address [address] [facility] [place] [address] Care Team Providers Care Vice President Global Advertising Sales Name Role Phone Unavailable Primary Care Provider Unavailabl e Encounter Details Date Type Department Care Team (Late st Contact Info) Description 12/31/2012 [facility] Outpatient Visit EXTERNAL NON-[facility] DEPT Grupo Moura MD [address] [place] [phone] Social History Tobacco Use Types Packs/Day Years [...]
--- OUTSIDE RECORDS SUMMARY | 2024-08-30 10:43 | XMS_ITS | Encounter Summary ---
Author Organization [facility] Address [address] [facility] [place] [address] Care Team Providers Care Agents' Records Clerk Name Role Phone Unavailable Primary Care Provider Unavailabl e Encounter Details Date Type Department Care Team (Late st Contact Info) Description 12/26/2012 [facility] Outpatient Visit EXTERNAL NON-[facility] DEPT Grupo Moura MD [address] [place] [id number] Social History Tobacco Use Types Packs/Day Years [...]
--- OUTSIDE RECORDS SUMMARY | 2024-08-30 10:43 | XMS_ITS | Clinical Summary ---
Author Organization [facility] Address [address] [place] [address] Care Team Providers Care Grocery Clerk Marking Name Role Phone Unavailable Primary Care Provider Unavailabl e Source Comments [facility],non-owned Affiliates and Associated Physician Practices is amultiple site organization consisting of ambulatory clinics and hospital sitesin [place], [place], [place] and [place]. This disclosure is being madepursuant to the Care Everywhere program and may not contain all information available regarding this patient. Last updated 18.[facility] Allergies Active Allergy Reactions Criticality Noted Date [...] Comments Blood Pressure 120/70 07/26/2016 2:39 PM POULTRY HELPER Pulse 89 07/26/2016 2:39 PM POULTRY HELPER Temperature 36.8 C (98.3 F) 07/26/2016 2:39 PM POULTRY HELPER Respiratory Rate 16 07/26/2016 2:39 PM POULTRY HELPER Oxygen Saturation - - Inhaled Oxygen Concentration - - Weight 74.4 kg (164 lb) 07/26/2016 2:39 PM POULTRY HELPER Height 149.9 cm (4' 11 ) 07/26/2016 2:39 PM POULTRY HELPER Body Mass Index 33.12 07/26/2016 2:39 PM POULTRY HELPER Plan of Treatment Health Maintenance Due Date Last Done Comments COLOGUARD (AGES 45-75) - COL ON CA SCREENING 1955 COLON MONITORING 1955 COLONOSCOPY - COLON CA SCREENING 1955 CT COLONOGRAPHY - COLON CA SCREENING 1955 Colorectal Cancer Screening 1955 FIT - COLON CA SCREENING 1955 FLEX SIG - COLON CA SCREENING 1955 LIPID TESTING 1955 MAMMOGRAM 1955 MEDICARE AWV 12 MONTHS 1955 DTAP/TDAP/TD VACCINES (1 - Tdap) 1974 PNEUMOCOCCAL VACCINE 50+ (1 of 1 - PCV) 2005 ZOSTER VACCINE (1 of 2) 2005 COVID-19 VACCINE (1 - 2023-2 5 season) 2024 INFLUENZA VACCINE (#1) 2024 DEPRESSION SCREENING 07/10/2024 Respiratory Syncytial Virus (RSV) Vaccine Pt: or [...] patient's age to complete this topic MENINGOCOCCAL (Group B) VACCINE Aged Out No longer eligible based on patient's age to complete this topic MENINGOCOCCAL VACCINE Aged Out No cathryn aliyah eligible based on patient's age to complete this topic Procedures Procedure Name Priority Date/Time Associated Diagnosis Comments DEXA BONE DENSITY AXIAL SKELETON Routine 04/04/2018 2:06 PM CDT Osteoporosis screening HEPATITIS SCREEN ACUTE Routine 07/21/2011 3:59 PM POULTRY HELPER Fatigue from Last 3 Months or Most Recently Relevant to Health Maintenance Results * DEXA BONE DENSITY AXIAL SKELETON (04/04/2018 2:06 PM CDT) Anatomical Region Laterality Modality Mammography 04/04/2018 3:17 PM CDT Narrative 04/04/2018 3:25 PM CDT BONE MINERAL DENSITY STUDY INDICATION: Ovarian failure. [...] * HEPATITIS SCREEN ACUTE (07/21/2011 3:59 PM POULTRY HELPER) Hepatitis A Virus Antibody IgM Negative Negative [facility] ACCOUNT BILL Hepatitis B Virus Surface Antigen Negative Negative [facility] ACCOUNT BILL Hepatitis B Core Virus Antibody IgM Negative Negative [facility] ACCOUNT BILL Hepatitis C Virus Antibody <0.1 0.0 - 0.9 s/co ratio [facility] ACCOUNT BILL Comment: Negative: < 0.8 Indeterminate 0.8 - 0.9 Positive: > 0.9 . In order to reduce the incidence of a false positive result, the CDC recommends that all s/co ratios between 1.0 and 10.9 be confirmed with additional RIBA or PCR testing. Blood specimen (specimen) BLOOD SPECIMEN / Unknown 07/21/2011 3:59 PM POULTRY HELPER 07/21/2011 10:03 PM POULTRY HELPER Narrative Resulting Agency Comment [facility] [address] [id number] Grupo Moura MD LAB - CHEMISTRY O RDERABLES [facility] ACCOUNT BILL from Last 3 Months or Most Recently Relevant to Health Maintenance SydAnjali randle I Personal/Family Self 1955 [address] [place] [address] SydAnjali randle I Personal/Family Self 1955 [address] [place] [address]
--- OUTSIDE RECORDS SUMMARY | 2024-08-30 10:43 | XMS_ITS | Clinical Summary ---
Author Organization [facility] Address [address] [place] [address] Care Team Providers Care Internal Controls Specialist Name Role Phone David Savage MD Primary Care Provider [phone] Social History Tobacco Use Types Packs/Day Years [...] Immunization or 60+ Years Completed 06/06/2023 Meningococcal B Vaccine Aged Out No l onger eligible based on patient's age to complete this topic Meningococcal Vaccine Aged Out No cathryn aliyah eligible based on patient's age to complete this topic RSV Immunizations Under 20 Months Aged Out No longer eligible based on patient's age to complete this topic Insurance MEDICARE Care Teams Internal Controls Specialist Relationship Specialty Start Date End Date David Savage MD [address] [place] [address] PCP - General INTERNAL MEDICINE 03/13/24
--- OUTSIDE RECORDS SUMMARY | 2024-08-30 10:43 | XMS_ITS | Continuity of Care Document ---
Author Organization [facility] Address [address] [place] [address] Phone Care Team Providers Care Ecommerce Manager Name Role Phone King OD, Ferdinand Unavailable Unavailable Procedures Procedure Date Eye Exam, New Patient Eye Exam & Treatment Refraction Advance Directives Directive Yes / No Effective Date File Name No Information Encounters Encounter Description Practice Location Reason(s) For Visit Diagnoses Date Provider Providers Copied on Encounter [facility], [address] [place] [address] [address], [place], [place], [id number], tel:[phone] [facility] No Information 3-[address] King OD Ferdinand. [address] [place] , [address], [place], [place], [facility], [place]. tel:[phone] [facility], [address] [place] [address] [address], [place], [place], [id number], tel:[phone] [facility] [place] No Information [address] Iraheta Jeanette. [address] [place] , [address], [place], [address], [place]. tel:[phone] Family History Family Member Type Diagnosis Age At Onset No Information Payers Payer name Insurance type Covered republican ID Authoriza tion(s) No Information Social History [...]
--- OUTSIDE RECORDS SUMMARY | 2024-08-30 10:43 | XMS_ITS | Encounter Summary ---
Author Organization [facility] Address [address] [place] [address] Care Team Providers Care Safe Expert Name Role Phone Unavailable Primary Care Provider Unavailabl e Encounter Details Date Type Department Care Team (Late st Contact Info) Description 06/08/2012 [facility] Visit EXTERNAL NON-SS DEPT Grupo Moura MD [address] [place] [id number] Social History Tobacco Use Types Packs/Day Years [...]
--- OUTSIDE RECORDS SUMMARY | 2024-08-30 10:43 | XMS_ITS | Encounter Summary ---
Author Organization [facility] Address [address] [place] [address] Care Team Providers Care Payroll Accounting Manager Name Role Phone Unavailable Primary Care Provider Unavailabl e Encounter Details Date Type Department Care Team (Late st Contact Info) Description 06/05/2012 [facility] EXTERNAL NON-SS DEPT Grupo Moura MD [address] [place] [id number] Social History Tobacco Use Types Packs/Day Years [...]
--- OUTSIDE RECORDS SUMMARY | 2024-08-30 10:44 | XMS_ITS | Referral Summary ---
Author Organization [facility] Address [address] [facility] [place] [address] Care Team Providers Care Spot Welder Line Name Role Phone David Savage MD Primary Care Provider [phone] Allergies Active Allergy Reactions Criticality Noted Date Comments Adalimumab Unknown 12/09/2014 Amitriptyline Other (See comments) Low 02/22/2012 Drowsiness Etanercept Stomach upset Low 12/09/2014 Golimumab Stomach upset Low 12/09/2014 Hydroxychloroquine Nausea And Vomiting 04/09/20 15 Stomach pain Medications omega 7-mct-oez-fish oil (Fish OiL) 1,200 (144-216) mg capsuleIndicati ons:hypertrigly ceridemia Take 1 capsule by mouth 2 (two) times a day Active amLODIPine (NORVASC) 5 mg tabletIndicatio ns:hypertension Take 1 tablet (5 mg total) by mouth director of radiology before breakfast 3 Active carvediloL (COREG) 6.25 mg tabletIndicatio ns:hypertension Take 1 tablet (6.25 mg total) by mouth 2 (two) times a day 3 Active cholecalciferol (VITAMIN D-3) 2000 unit tabletIndicatio ns:Vitamin D Deficiency Take 2 tablets (4,000 Units total) by mouth director of radiology before breakfast 3 Active losartan (COZAAR) 100 mg tabletIndicatio ns:hypertension Take 1 tablet (100 mg total) by mouth director of radiology before breakfast Active tiZANidine (ZANAFLEX) 4 mg [...] 2 tablets (100 mg total) by mouth director of radiology before breakfast 3 Active lorazepam (ATIVAN ORAL) [...] on file 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 Gender Identity Not on file Sexual Orientation Not on file Last Filed Vital Signs Vital Sign Reading Time Taken Comments Blood Pressure 124/62 01/25/2023 1:45 PM CDT Pulse 79 01/25/2023 1:45 PM CDT Temperature 36.6 C (97.9 F) 01/25/2023 12:30 PM CDT Respiratory Rate 16 01/25/2023 1:45 PM CDT Oxygen Saturation 93% 01/25/2023 1:45 PM CDT Inhaled Oxygen Concentration - - Weight 78 kg (172 lb) 02/14/2023 8:10 AM CDT Height 149.9 cm (4' 11 ) 02/14/2023 8:10 AM CDT Body Mass Index 34.74 02/14/2023 8:10 AM CDT Plan of Treatment Not on file Insurance MEDICARE [facility] MEDICARE [employer] SENIOR SUPPLEMENT Advance Directives For more information, please contact: [phone] * Full Code (Latest Code Status on File) Date Activated Date Inactivated Comments 01/25/2023 12:44 PM 01/25/2023 8:51 PM Care Teams Spot Welder Line Relationship Specialty Start Date End Date David Savage MD [address] [place] [address] PCP - General Internal Medicine 06/23/22
--- OUTSIDE RECORDS SUMMARY | 2024-08-30 10:44 | XMS_ITS | Patient Health Summary ---
Author Organization [facility] Address [address] [place] [address] Care Team Providers Care Professor Of Art Name Role Phone Unavailable Primary Care Provider Unavailabl e Note from [facility],non-owned Affiliates and Associated Physician Practices is amultiple site organization consisting of ambulatory clinics and hospital sitesin [place], [place], [place] and [place]. This disclosure is being madepursuant to the Care Everywhere program and may not contain all information available regarding this patient. Last updated 18.[facility] Allergies * Amitriptyline(Drowsiness) * Enbrel(GI Discomfort) * [...] Comments Blood Pressure 120/70 07/26/2016 2:39 PM CLINICAL ASSESSMENT MANAGER Pulse 89 07/26/2016 2:39 PM CLINICAL ASSESSMENT MANAGER Temperature 36.8 C (98.3 F) 07/26/2016 2:39 PM CLINICAL ASSESSMENT MANAGER Respiratory Rate 16 07/26/2016 2:39 PM CLINICAL ASSESSMENT MANAGER Oxygen Saturation - - Inhaled Oxygen Concentration - - Weight 74.4 kg (164 lb) 07/26/2016 2:39 PM CLINICAL ASSESSMENT MANAGER Height 149.9 cm (4' 11 ) 07/26/2016 2:39 PM CLINICAL ASSESSMENT MANAGER Body Mass Index 33.12 07/26/2016 2:39 PM CLINICAL ASSESSMENT MANAGER Procedures * XR KNEE BILAT 2VW OR [...] REFLX (POSITIVE)(Performed 04/09/2015) Performed for Rheumatoid arthritis(714.0) ([facility]) * VAL BLOOD SCREEN W/REFLEX TITER(Performed 04/09/2015) Performed for Rheumatoid arthritis(714.0) ([facility]) * RHEUMATOID FACTOR BLOOD QUANTITATIVE(Performed 04/09/2015) Performed for Rheumatoid arthritis(714.0) ([facility]) * PORPHYRINS TOTAL BLOOD(Performed 04/09/2015) Performed for Abdominal pain, generalized * REF LAB-SPECIMEN NOT CENTRIFUGED(Performed 12/09/2014) * C-REACTIVE PROTEIN(Performed 12/09/2014) Performed for Medication monitoring encounter * CBC W AUTO DIFFERENTIAL(Performed 12/09/2014) Performed for Medication monitoring encounter * COMPREHENSIVE METABOLIC PANEL(Performed 12/09/2014) Performed for Medication monitoring encounter * C-REACTIVE PROTEIN(Performed 08/06/2013) Performed for Rheumatoid Arthritis ([facility]) * COMPREHENSIVE METABOLIC PANEL(Performed 08/06/2013) Performed for Immunosuppressed status ([facility]), Medication monitoring encounter * CBC W AUTO DIFFERENTIAL(Performed 08/06/2013) Performed for Immunosuppressed status ([facility]), Medication monitoring encounter * CATALINO STAINING PATTERNS REFLEXED(Performed 11/21/2012) Performed for Rheumatoid arthritis ([facility]) * VAL BLOOD SCREEN W/REFLEX TITER(Performed 11/21/2012) Performed for Rheumatoid arthritis ([facility]) * CYCLIC CITRUL PEPTIDE ANTIBODY IGG/IGA (CCP)(Performed 11/21/2012) Performed for Rheumatoid arthritis ([facility]) * RHEUMATOID FACTOR BLOOD QUANTITATIVE(Performed 11/21/2012) Performed for Rheumatoid arthritis ([facility]) * VDRL BLOOD(Performed 06/28/2012) Performed for Acquired [...] ONE OR TWO VIEWS (07/17/2020 10:14 AM CLINICAL ASSESSMENT MANAGER) Anatomical Region Laterality Modality Lower Extremity Radiographic Sofy ging 07/17/2020 2:35 PM CLINICAL ASSESSMENT MANAGER Narrative 07/17/2020 2:37 PM CLINICAL ASSESSMENT MANAGER EXAM: XR KNEE BILAT 2VW OR LESS*[id number] INDICATION: Bilateral knee pain COMPARISON: none available [...] 07/17/2020 EXAM: XR KNEE BILAT 2VW OR LESS*[id number] INDICATION: Bilateral knee pain COMPARISON: none available [...] THAN -2.5 SD BELOW T-SCORE Edited by Dyea Solorio on 04/04/2018 3:23 PM Reading Radiologist: [...] SAMPLE S / Unknown 12/11/2017 Wes Singh AIRCRAFT DISPATCHER-INVENTORY CONTROL MANAGER LAB - POINT OF CARE ORDERABLES * CULTURE URINE (07/26/2016 2:41 PM CLINICAL ASSESSMENT MANAGER) Only the most recent of2 resultswithin the time period is included. Urine Culture Routine Final report [facility] ACCOUNT BILL Result 1 [facility] ACCOUNT BILL Comment: Mixed urogenital sheridan Less than 10,000 colonies/mL Urine URINE SPECIMEN OBTAINED BY CLEAN CATCH PROCEDURE / Unknown 07/26/2016 2:41 PM CLINICAL ASSESSMENT MANAGER 07/26/2016 Narrative Resulting Agency Comment [facility] [address] [place] [phone] Felecia Haney Alireza AIRCRAFT DISPATCHER-INVENTORY CONTROL MANAGER LAB - MICROBI OLOGY ORDERABLES [facility] [place] [address] * (ABNORMAL) URINALYSIS AUTO - POINT OF CARE (AMB) STL (07/26/2016 2:40 PM CLINICAL ASSESSMENT MANAGER) Clarity UA POCT clear Color UA POCT yellow Leukocyte UA 15 Negative Nitrite UA POCT neg Negative Urobilinogen UA 0.2 0.1 - 1.0 Protein UA POCT 15 Negative pH UA 5.0 5.0 - 8.0 pH units Blood UA 50 Negative Specific [place] UA POCT 1.020 1.002 - 1.030 Ketone UA neg Negative Bilirubin UA POCT neg Negative Glucose UA neg Negative Expiration Date [id number] Lot # [id number] QC Verified Yes Yes URINE / Unknown 07/26/2016 2 :40 PM CLINICAL ASSESSMENT MANAGER Felecia Haney Alireza AIRCRAFT DISPATCHER-INVENTORY CONTROL MANAGER LAB - POINT O F CARE ORDERABLES * PORPHOBILINOGEN URINE QUANTITATIVE (04/20/2015 2:21 PM CDT) Pathologist [facility] [place] Total Volume 1100 mL [facility] Porphobilinogen umol/24 Hour Urine 0.0 <2.4 mg/24 h [facility] Interpretation see note [facility] Comment: Porphobilinogen (PBG) was within the normal range. This test may not detect an elevation of PBG if the patient is asymptomatic or is undergoing treatment at the time of collection. Test Performed at: [email or web address]/[address] MIMI WILSON MD,PHD Urine specimen (specimen) TIMED URINE SPECIMEN / Unknown 04/20/2015 2:21 PM CDT 04/20/2015 2:22 PM CDT Grupo Moura MD LAB - URINE CHEMI STRY ORDERABLES [facility] [address] [place] [address] * INTERPRETATION (7) (PO REF LAB) (04/09/2015 3:57 PM CDT) Interpretation [facility] Comment: This finding suggests Sjogren's syndrome. These antibodies may occasionally be positive early in other connective tissue diseases. A positive result at this stage of testing stops further testing, and does not preclude additional positive antibodies. Clinical correlation is required to assess the need for testing additional analytes. Test Performed at: [facility] [place] [address] ALYSSA MILLER DO,MPH 04/09/2015 3:57 PM CDT 04/09/2015 3:58 PM CDT Narrative Authorizing Provider Result Case Moura MD LAB - SEROLOGY OR DERABLES Performing Organization Address [facility] de Phone Number [facility] [phone] [place] [address] * STAGE 1 REFLEXED (PO REF LAB) (04/09/2015 3:57 PM CDT) dsDNA Antibody 2 IU/mL [facility] Comment: IU/mL Interpretation < or = 4 Negative 5-9 Indeterminate > or = 10 Positive SM Antibody <1.0 NEG <1.0 NEG AI [facility] SM/SQL TECH Antibody <1.0 NEG <1.0 NEG AI [facility] SQL TECH Antibody <1.0 NEG <1.0 NEG AI [facility] Chromatin Nucleosomal Antibody <1.0 NEG <1.0 NEG AI [facility] Comment: Test Performed at: [employer] [facility] [place] [address] ALYSSA MILLER DO,MPH 04/09/2015 3:57 PM CDT 04/09/2015 3:58 PM CDT Narrative Authorizing Provider Result Case Moura MD LAB - CHEMISTRY O RDERABLES Performing Organization Address [facility] Co de Phone Number [facility] [phone] [place] [address] * (ABNORMAL) STAGE 2 REFLEXED (PO REF LAB) (04/09/2015 3:57 PM CDT) Sjogren's Antibodies (SSA) 2.3 POS(A) <1.0 NEG AI [facility] Sjogren's Antibodies (SSB) <1.0 NEG <1.0 NEG AI [facility] SCL-70 Antibody <1.0 NEG <1.0 NEG AI [facility] Bela-1 Antibody <1.0 NEG <1.0 NEG AI [facility] Comment: Test Performed at: [employer] [place] [address] ALYSSA MILLER DO,MPH 04/09/2015 3:57 PM CDT 04/09/2015 3:58 PM CDT Narrative Authorizing Provider Result Case Moura MD LAB - CHEMISTRY O RDERABLES Performing Organization Address City/[facility]/ZIP Co de Phone Number [address] [address] * (ABNORMAL) VAL W REFLX (POSITIVE) (PO REF LAB) (04/09/2015 3:57 PM CDT) [facility] ANAchoice [TM] Screen POSITIVE( A) NEGATIVE [facility] Comment: Test Performed at: [place] [address] ALYSSA MILLER DO,MPH Blood specimen (specimen) BLOOD SPECIMEN / Unknown 04/09/2015 3:57 PM CDT 04/09/2015 3:58 PM CDT Narrative Authorizing Provider Result Case Moura MD LAB - SEROLOGY OR DERABLES Performing Organization Address [facility] Co de Phone Number [address] [address] * RHEUMATOID FACTOR BLOOD QUANTITATIVE (04/09/2015 3:57 PM CDT) Only the most recent of3 resultswithin the time period is included. Pathologist [facility] [place] Rheumatoid Factor 8 <14 IU/mL [facility] Comment: Test Performed at: [place] [address] ALYSSA MILLER DO,MPH Blood specimen (specimen) BLOOD SPECIMEN / Unknown 04/09/2015 3:57 PM CDT 04/09/2015 3:58 PM CDT Narrative Authorizing Provider Result Case Moura MD LAB - CHEMISTRY O RDERABLES Performing Organization Address [facility] Co de Phone Number [facility] [address] [place] [address] * (ABNORMAL) VAL BLOOD TITER (04/09/2015 3:57 PM CDT) Pathologist [facility] [place] VAL Pattern DUAL(A) [facility] VAL SEE BELOW(A) titer [facility] Comment: Pattern:ATYPICAL SPECKLED Titer: 1:640 Pattern:HOMOGENEOUS Titer: 1:160 Reference Range <1:40 Negative 1:40-1:80 Low Antibody Level >1:80 Elevated Antibody Level Test Performed at: [facility] [address] ALYSSA MILLER DO,MPH 04/09/2015 3:57 PM CDT 04/09/2015 3:58 PM CDT Grupo Moura MD LAB - CHEMISTRY O LESIAERABTETY Performing Organization Address [facility] Co de Phone Number [address] [address] * (ABNORMAL) VAL BLOOD SCREEN W/REFLEX TITER (04/09/2015 3:57 PM CDT) Only the most recent of3 resultswithin the time period is included. Pathologist [facility] [place] VAL Screen POSITIVE( A) NEGATIVE [facility] Comment: Test Performed at: [employer] [address] ALYSSA MILLER DO,MPH Blood specimen (specimen) BLOOD SPECIMEN / Unknown 04/09/2015 3:57 PM CDT 04/09/2015 3:58 PM CDT Grupo Moura MD LAB - CHEMISTRY O RDERABETTY Performing Organization Address [facility] Co de Phone Number [facility] [id number] [place] [address] * (ABNORMAL) PORPHYRINS TOTAL BLOOD (04/09/2015 3:53 PM CDT) Pathologist [facility] [place] Uroporphyrin SEE NOTE 0.2 OR LESS mcg/L [...] mcg/L [facility] Interpretation SEE NOTE [facility] Comment: Coproporphyrin was mildly elevated. All other porphyrins were within the normal range. An isolated mild elevation of coproporphyrin is likely of no clinical significance. However, this level of coproporphyrin has been found in mild cases of hereditary coproporphyria (HCP), variegate porphyria (CUSTOMS AND BORDER PROTECTION OFFICER), and in liver disease. If you haven't [...] disorders. Interpretation reviewed by: Zoraida Gonzalez, Ph.D., [facility] IF YOU HAVE ANY QUESTIONS REGARDING THESE RESULTS, PLEASE CONTACT THE [facility] AT ext [phone] or ext [phone] AND ASK TO SPEAK WITH THE COLD STORAGE SUPERINTENDENT FARM [employer]. FOR GENERAL QUESTIONS ABOUT [employer], PLEASE CALL THE GENE INFO LINE AT [phone]. REPORT COMMENT: COLLECTION KIT GIVEN TO PATIENT. PATIENT ADVISED TO RETURN. Test Performed at: [email or web address] [address] [place] [address] DAR MATAMOROS MD PHD Blood specimen (specimen) BLOOD SPECIMEN / Unknown 04/09/2015 3:53 PM CDT 04/09/2015 3:55 PM CDT Narrative Authorizing Provider Result Case Moura MD LAB - CHEMISTRY O RDERABLES Performing Organization Address [facility] [place] [address] * NO REF LAB-SPECIMEN NOT CENTRIFUGED (12/09/2014 3:19 PM CDT) [facility] Specimen Integrity Compromised See Below [facility] Comment: Whole blood, unspun or partially spun gel barrier tube was received more than 6 hours since collection. A false elevation of K, Phos and LD as well as a false decrease in glucose may occur due to prolonged contact with red cells. Test Performed at: [place] [address] ALYSSA MILLER DO,MPH 12/09/2014 3:19 PM CDT 12/10/2014 5:11 AM CDT Sabrina Mcdaniels APRNMASS[facility]US[facility] LAB - CHEMISTRY ORDERABLES Performing Organization Address [facility] [place] [address] * C-REACTIVE PROTEIN (12/09/2014 3:19 PM CDT) Only the most recent of7 resultswithin the time period is included. [facility] C-Reactive Protein 0.19 <0.80 mg/dL [facility] Comment: Please be advised that patients taking Carboxypenicillins may exhibit falsely decreased C-Reactive Protein levels due to an analytical interference in this assay. Test Performed at: [place] [email or web address] [address] ALYSSA MILLER DO,MPH Blood specimen (specimen) BLOOD SPECIMEN / Unknown 12/09/2014 3:19 PM CDT 12/10/2014 5:11 AM CDT Sabrina Mcdaniels AIRCRAFT DISPATCHERMASSACHUSETTS MENTAL HEALTH CENTER LAB - CHEMISTRY ORDERABLES Performing Organization Address [facility] [place] [address] * (ABNORMAL) CBC W AUTO DIFFERENTIAL (12/09/2014 3:19 PM CDT) Only the most recent of8 resultswithin the time period is included. [facility] White Blood Cell Count 11.5(H) 3.8 - [...] 0.4 % [facility] Comment: Test Performed at: [place] [address] [place] [address] ALYSSA MILLER DO,MPH Blood specimen (specimen) BLOOD SPECIMEN / Unknown 12/09/2014 3:19 PM CDT 12/10/2014 5:11 AM CDT Sabrina Mcdaniels AIRCRAFT DISPATCHER-INVENTORY CONTROL MANAGER LAB - HEMATOLOGY ORDERABLES [facility] [address] [place] [address] * (ABNORMAL) COMPREHENSIVE METABOLIC PANEL (12/09/2014 3:19 PM CDT) Only the most recent of5 resultswithin the time period is included. [facility] Glucose 115(H) 65 - 99 mg/dL [facility] Comment: Fasting reference interval BUN 18 7 - 25 mg/dL [facility] Creatinine 0.83 0.50 - 1.05 mg/dL [facility] Comment: For patients >49 years of age, the reference limit for Creatinine is approximately 13% higher for people identified as -Honduran. eGFR by MDRD 77 > OR = [...] 29 U/L [facility] Comment: Test Performed at: [facility] [facility] [employer] [address] ALYSSA MILLER DO,MPH Blood specimen (specimen) BLOOD SPECIMEN / Unknown 12/09/2014 3:19 PM CDT 12/10/2014 5:11 AM CDT Sabrina Mcdaniesl AIRCRAFT DISPATCHER-INVENTORY CONTROL MANAGER LAB - CHEMISTRY ORDERABLES Performing Organization Address City/[facility] Co de Phone Number [facility] [address] [place] [address] * (ABNORMAL) CYCLIC CITRUL PEPTIDE ANTIBODY IGG/IGA (CCP) (11/21/2012 5:01 PM CDT) [facility] Antibodies IgG/IgA 69(H) 0 - 19 units [facility] ACCOUNT BILL Comment: Negative <20 Weak positive 20 - 39 Moderate positive 40 - 59 Strong positive >59 BLOOD SPECIMEN / Unknown 11/21/2012 5:01 PM CDT 11/21/2012 9:48 PM CDT Narrative Resulting Agency Comment [facility] [address] [phone] Grupo Moura MD LAB - SEROLOGY OR [...] be associated with a variety of diseases. See interpre- tation below: . Pattern Antigen Detected Suggested Disease Association Homogeneous DNA(ds,ss,), High titers - SLE (Smooth) Histone Speckled Sm, SQL TECH, SCL-70, SLE,MCTD,Scleroderma,Sjogrens SS-A/SS-B Nucleolar SCL-70, PM-1/SCL High titers Scleroderma Poly- myositis/Scleroderma Overlap Centromere Centromere PSS w/Crest syndrome variable BLOOD SPECIMEN / Unknown 11/21/2012 5:01 PM CDT 11/21/2012 9:48 PM CDT Narrative Resulting Agency Comment [facility] [place] [id number] [facility] [phone] Grupo Moura MD LAB - PATHOLOGY/C YTOLOGY ORDERABLES [facility] ACCOUNT BILL * VDRL BLOOD (06/28/2012 10:29 AM CLINICAL ASSESSMENT MANAGER) VDRL [facility] INSURANCE BILL Comment:Non Reactive VDRL Titer NOT NEEDED [facility] INSURANCE BILL Comment:Ancillary determined the test is not needed Blood specimen (specimen) BLOOD SPECIMEN / Unknown 06/28/2012 10:29 AM CLINICAL ASSESSMENT MANAGER 06/28/2012 1:27 PM CLINICAL ASSESSMENT MANAGER Narrative Resulting Agency Comment [address] [phone] Bubba Hawkins MD LAB - SEROLOGY ORDER DAYNE [facility] INSURANCE BILL * VITAMIN B6 (06/28/2012 10:29 AM CLINICAL ASSESSMENT MANAGER) Vitamin B6 28.0 2.0 - 32.8 ug/L [facility] INSURANCE BILL Blood specimen (specimen) BLOOD SPECIMEN / Unknown 06/28/2012 10:29 AM CLINICAL ASSESSMENT MANAGER 06/28/2012 1:27 PM CLINICAL ASSESSMENT MANAGER Narrative Resulting Agency Comment [facility] [phone] Bubba Hawkins MD LAB - CHEMISTRY ELIEZER BACON [facility] INSURANCE BILL * (ABNORMAL) VITAMIN B12 FOLATE PANEL (06/28/2012 10:29 AM CLINICAL ASSESSMENT MANAGER) Vitamin B12 1026(H) 211 - 946 pg/mL [facility] INSURANCE BILL Folate 16.2 >3.0 ng/mL [facility] INSURANCE BILL Comment: A serum folate concentration of less than 3.1 ng/mL is considered to represent clinical deficiency. Blood specimen (specimen) BLOOD SPECIMEN / Unknown 06/28/2012 10:29 AM CLINICAL ASSESSMENT MANAGER 06/28/2012 1:27 PM CLINICAL ASSESSMENT MANAGER Narrative Resulting Agency Comment [facility] [place] [address] [facility] [phone] Bubba Hawkins MD LAB - CHEMISTRY ELIEZER BACON [facility] INSURANCE BILL * HEAVY METALS BLOOD SCREEN (06/28/2012 10:28 AM CLINICAL ASSESSMENT MANAGER) Lead Blood 1 0 - 19 ug/dL [facility] INSURANCE BILL Comment: The Centers for Disease Control and Prevention states blood lead levels less than 10 ug/dL in children have been associated with numerous adverse health effects. [facility] Guidelines: Blood lead levels in the range 5-9 ug/dL have been associated with adverse health effects in children aged 6 years and younger. . Environmental Exposure: WHO Recommendation <20 Occupational Exposure: OSHA Lead Std 40 SAÚL 30 . Detection Limit = 1 Arsenic 5 2 - 23 ug/L [facility] INSURANCE BILL Comment:Detection Limit = 1 Mercury 1.2 0.0 - 14.9 ug/L [facility] INSURANCE BILL Comment: Environmental Exposure: <15.0 Occupational Exposure: SAÚL - Inorganic Mercury: 15.0 . Detection Limit = 1.0 Cadmium None Detected 0.0 - 1.2 ug/L [facility] INSURANCE BILL Comment: Environmental Exposure: Nonsmokers 0.3 - 1.2 Smokers 0.6 - 3.9 Occupational Exposure: OSHA Cadmium Std 5.0 SAÚL 5.0 . Detection Limit = 0.5 BLOOD SPECIMEN / Unknown 06/28/2012 10:28 AM CLINICAL ASSESSMENT MANAGER 06/28/2012 1:27 PM CLINICAL ASSESSMENT MANAGER Narrative Resulting Agency Comment [facility] [address] [phone] Bubba Hawkins MD LAB - CHEMISTRY ELIEZER BACON [facility] INSURANCE BILL * VITAMIN E (06/28/2012 10:28 AM CLINICAL ASSESSMENT MANAGER) Vitamin E Alpha Tocopherol 12.3 4.6 - 17.8 mg/L [facility] INSURANCE BILL Blood specimen (specimen) BLOOD SPECIMEN / Unknown 06/28/2012 10:28 AM CLINICAL ASSESSMENT MANAGER 06/28/2012 1:27 PM CLINICAL ASSESSMENT MANAGER Narrative Resulting Agency Comment [facility] [address] [phone] Bubba Hawkins MD LAB - CHEMISTRY ELIEZER BACON Performing Organization Address City/[facility]/ZIP Co de Phone Number [facility] INSURANCE BILL * IRON + TIBC PANEL (06/28/2012 10:28 AM CLINICAL ASSESSMENT MANAGER) TIBC 268 250 - 450 ug/dL [facility] INSURANCE BILL UIBC 168 150 - 375 ug/dL [facility] INSURANCE BILL Iron 100 35 - 155 ug/dL [facility] INSURANCE BILL Iron Saturation 37 15 - 55 % [facility] INSURANCE BILL Blood specimen (specimen) BLOOD SPECIMEN / Unknown 06/28/2012 10:28 AM CLINICAL ASSESSMENT MANAGER 06/28/2012 1:27 PM CLINICAL ASSESSMENT MANAGER Narrative Resulting Agency Comment [facility] [address] [phone] Bubba Hawkins MD LAB - CHEMISTRY ELIEZER BACON [facility] INSURANCE BILL * EMG WITH NERVE CONDUCTION STUDY (06/28/2012) Bubba Hawkins MD NEUROLOGY ORDERABLES Performing Organization Address City/[facility]/ZIP Co de Phone Number [facility] RESULT SCAN * IMAGING/RADIOLOGY/XRAY RESULTS ORDER (06/26/2012) Only the most recent of2 resultswithin the time period is included. Anatomical Region Laterality Modality Other Bubba Hawkins MD IMAGING * (ABNORMAL) VITAMIN D 25-HYDROXY (06/18/2012 3:52 PM CLINICAL ASSESSMENT MANAGER) Only the most recent of2 resultswithin the time period is included. Vitamin D, 25 Hydroxy 22.6(L) 30.0 - 100.0 ng/mL [facility] ACCOUNT BILL Comment: Vitamin D deficiency has been defined by the [place] of [employer] and an Endocrine Society practice guideline as a level of serum 25-OH vitamin D less than 20 ng/mL (1,2). The Endocrine Society went on to further define vitamin D insufficiency as a level between 21 and 29 ng/mL (2). 1. IOM ([place] [employer]). 2010. Dietary reference intakes for calcium and D. [place]: The National Academies Press. 2. Lamar MF, Kartik LINK, Kaity MUELLER, et al. Evaluation, treatment, and prevention of vitamin D deficiency: an Endocrine Society clinical practice guideline. JCEM. 2010; 96(7):1911-30. Blood specimen (specimen) BLOOD SPECIMEN / Unknown 06/18/2012 3:52 PM CLINICAL ASSESSMENT MANAGER 06/18/2012 8:56 PM CLINICAL ASSESSMENT MANAGER Narrative Resulting Agency Comment [facility] [address] [phone] Grupo Moura MD LAB - CHEMISTRY O RDERABLES [facility] ACCOUNT BILL * EMG WITH NERVE CONDUCTION STUDY (11/24/2011) David Savage MD NEUROLOGY ORDERABLES * LAB RESULTS ORDER (11/23/2011) David Savage MD LAB - THERAPEUTIC DR UG MONITORING ORDERABLES * (ABNORMAL) URINALYSIS ROUTINE W/REFLEX TO CULTURE (07/21/2011 3:59 PM CLINICAL ASSESSMENT MANAGER) Specific [place] UA 1.014 1.005 - 1.030 [facility] ACCOUNT [...] BLOOD SPECIMEN / Unknown 07/21/2011 3:59 PM CLINICAL ASSESSMENT MANAGER 07/21/2011 10:03 PM CLINICAL ASSESSMENT MANAGER Narrative Resulting Agency Comment [facility] [address] [phone] Grupo Moura MD LAB - URINALYSIS ORDERABLES Performing Organization Address City/State/[facility] Co de Phone Number [facility] ACCOUNT BILL * (ABNORMAL) URINALYSIS MICROSCOPIC ONLY (07/21/2011 3:59 PM CLINICAL ASSESSMENT MANAGER) WBC UA 6-10(A) 0 - 5 /hpf [...] BLOOD SPECIMEN / Unknown 07/21/2011 3:59 PM CLINICAL ASSESSMENT MANAGER 07/21/2011 10:03 PM CLINICAL ASSESSMENT MANAGER Narrative Resulting Agency Comment [facility] [place] [address] [place] [phone] Authorizing Provider Result Case Moura MD LAB - URINALYSIS ORDERABLES Performing Organization Address City/[facility] de Phone Number [facility] ACCOUNT BILL * CK BLOOD (07/21/2011 3:59 PM CLINICAL ASSESSMENT MANAGER) Only the most recent of2 resultswithin the time period is included. CK 39 24 - 173 U/L [facility] ACCOUNT BILL Blood specimen (specimen) BLOOD SPECIMEN / Unknown 07/21/2011 3:59 PM CLINICAL ASSESSMENT MANAGER 07/21/2011 10:03 PM CLINICAL ASSESSMENT MANAGER Narrative Resulting Agency Comment [facility] [address] [phone] Grupo Moura MD LAB - CHEMISTRY O RDERABLES Performing Organization Address [facility] de Phone Number [facility] ACCOUNT BILL * HEPATITIS SCREEN ACUTE (07/21/2011 3:59 PM CLINICAL ASSESSMENT MANAGER) Hepatitis A Virus Antibody IgM Negative Negative [...] BLOOD SPECIMEN / Unknown 07/21/2011 3:59 PM CLINICAL ASSESSMENT MANAGER 07/21/2011 10:03 PM CLINICAL ASSESSMENT MANAGER Narrative Resulting Agency Comment [facility] [address] [phone] Grupo Moura MD LAB - CHEMISTRY O RDERABLES Performing Organization Address [facility] de Phone Number [facility] ACCOUNT BILL
--- OUTSIDE RECORDS SUMMARY | 2024-08-30 10:44 | XMS_ITS | Clinical Summary ---
Author Organization [facility] Address [facility] [place] [address] Care Team Providers Care Cylinder Honer Name Role Phone David Savage MD Primary Care Provider [phone] Allergies Active Allergy Reactions Criticality Noted Date Comments Adalimumab Unknown 12/09/2014 Amitriptyline Other (See comments) Low 02/22/2012 Drowsiness Etanercept Stomach upset Low 12/09/2014 Golimumab Stomach upset Low 12/09/2014 Hydroxychloroquine Nausea And Vomiting 04/09/20 15 Stomach pain Medications omega 0-jsu-eba-fish oil (Fish OiL) 1,200 (144-216) mg capsuleIndicati ons:hypertrigly ceridemia Take 1 capsule by mouth 2 (two) times a day Active amLODIPine (NORVASC) 5 mg tabletIndicatio ns:hypertension Take 1 tablet (5 mg total) by mouth shoe shanker before breakfast 3 Active carvediloL (COREG) 6.25 mg tabletIndicatio ns:hypertension Take 1 tablet (6.25 mg total) by mouth 2 (two) times a day 3 Active cholecalciferol (VITAMIN D-3) 2000 unit tabletIndicatio ns:Vitamin D Deficiency Take 2 tablets (4,000 Units total) by mouth shoe shanker before breakfast 3 Active losartan (COZAAR) 100 mg tabletIndicatio ns:hypertension Take 1 tablet (100 mg total) by mouth shoe shanker before breakfast Active tiZANidine (ZANAFLEX) 4 mg [...] 2 tablets (100 mg total) by mouth shoe shanker before breakfast 3 Active lorazepam (ATIVAN ORAL) [...] Hx Surgical History Surgery Date Site/Laterality Comments ND TOTAL ABDOMINAL HYSTERECT W/WO RMVL TUBE OVARY Hysterectomy - 1990 (Added by TW Conv) OVARY SURGERY Ovarian Surgery - 1993 & 1994 (Added by TW Conv) ND UNLISTED PROCEDURE ABDOMEN PERITONEUM & OMENTUM Hernia [...] on file 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 Gender Identity Not on file Sexual Orientation [...] Pneumococcal vaccine 65+ (2 of 2 - PPSV23) 05/14/2019 03/19/2019 Zoster Vaccine (2 of 2) 07/14/2019 05/19/2019 Osteoporosis Screening-Bone Density Scan 04/04/2020 04/04/2018, 04/04/2018 Well Visit 65+ 2020 Fall Risk Assessment 01/26/2024 01/25/2023 Covid-19 Vaccine (5 - 2023-2 5 season) 2024 05/06/2022, 05/28/2021, 09/30/2020, Additional history exists Influenza Vaccine (#1) 2024 2, 04/26/2021, 03/09/2020, Additional history exists [facility] MEDIC[facility] AETNA SENIOR SUPPLEMENT Advance Directives For more information, please contact: [phone] * Full Code (Latest Code Status on File) Date Activated Date Inactivated Comments 01/25/2023 12:44 PM 01/25/2023 8:51 PM Care Teams Cylinder Honer Relationship Specialty Start Date End Date David Savage MD [address] [facility] [address] [place], [place] [id number] PCP - General Internal Medicine 06/23/22
--- OUTSIDE RECORDS SUMMARY | 2024-08-30 10:44 | XMS_ITS | Referral Summary ---
Author Organization [facility] Address [address] [place] [address] Care Team Providers Care Spot Worker Name Role Phone Unavailable Primary Care Provider Unavailabl e Source Comments [facility],non-owned Affiliates and Associated Physician Practices is amultiple site organization consisting of ambulatory clinics and hospital sitesin [place], [place], [place] and [place]. This disclosure is being madepursuant to the Care Everywhere program and may not contain all information available regarding this patient. Last updated 18.[facility] Allergies Active Allergy Reactions Criticality Noted Date [...] Comments Blood Pressure 120/70 07/26/2016 2:39 PM CRYPTOLOGICAL TECHNICIAN Pulse 89 07/26/2016 2:39 PM CRYPTOLOGICAL TECHNICIAN Temperature 36.8 C (98.3 F) 07/26/2016 2:39 PM CRYPTOLOGICAL TECHNICIAN Respiratory Rate 16 07/26/2016 2:39 PM CRYPTOLOGICAL TECHNICIAN Oxygen Saturation - - Inhaled Oxygen Concentration - - Weight 74.4 kg (164 lb) 07/26/2016 2:39 PM CRYPTOLOGICAL TECHNICIAN Height 149.9 cm (4' 11 ) 07/26/2016 2:39 PM CRYPTOLOGICAL TECHNICIAN Body Mass Index 33.12 07/26/2016 2:39 PM CRYPTOLOGICAL TECHNICIAN Plan of Treatment Not on file Procedures Procedure Name Priority Date/Time Associated Diagnosis Comments DEXA BONE DENSITY AXIAL SKELETON Routine 04/04/2018 2:06 PM CDT Osteoporosis screening HEPATITIS SCREEN ACUTE Routine 07/21/2011 3:59 PM CRYPTOLOGICAL TECHNICIAN Fatigue from Last 3 Months or Most [...] * HEPATITIS SCREEN ACUTE (07/21/2011 3:59 PM CRYPTOLOGICAL TECHNICIAN) Hepatitis A Virus Antibody IgM Negative Negative [...] BLOOD SPECIMEN / Unknown 07/21/2011 3:59 PM CRYPTOLOGICAL TECHNICIAN 07/21/2011 10:03 PM CRYPTOLOGICAL TECHNICIAN Narrative Resulting Agency Comment [facility] [address] [id number] Grupo Moura MD LAB - CHEMISTRY O RDERABLES [facility] ACCOUNT BILL from Last 3 Months or Most Recently Relevant to Health Maintenance Administered Medications Anjali Rodriguez I Personal/Family Self 1955 [address] [place] [address] Anjali Rodriguez I Personal/Family Self 1955 [address] [place] [address]
[2024-08-30 11:08] LABS: Basophils Absolute Auto 0.1 K/mm3 (0.0-0.1); Basophils Percent Auto 0.9 % (0.2-1.2); Eosinophils Absolute Auto 0.2 K/mm3 (0-0.3); Eosinophils Percent Auto 2.3 % (0-4.4); Immature Granulocyte Absolute 0.02 K/mm3 (0.00-0.031); Immature Granulocyte Percent A 0.2 % (0-0.5); Lymphocytes Absolute Auto 1.38 K/mm3 (0.9-3.2); Mean Corpuscular HGB Conc 32.5 g/dl (32-36); Mean Corpuscular Hemoglobin 30.7 pg (26-34); Mean Corpuscular Volume 94.3 fl (80-100); Mean Platelet Volume 9.3 fl (7.4-10.4); Monocytes Absolute Auto 0.7 K/mm3 (0.1-0.6); Monocytes Percent Auto 9.1 % (2.6-8.5); Neutrophils Absolute Auto 5.7 K/mm3 (1.3-6.7); Neutrophils Percent Auto 70.5 % (45.5-73.1); Platelet Count Result 335 k/mm3 (150-375); Red Blood Count 4.24 M/mm3 (4.2-5.4); Red Cell Distribution Width 13.7 % (11.5-14.5); White Blood Count 8.1 K/mm3 (4.5-10.0)
[2024-08-30 11:21] LABS: Albumin Level 4.7 g/dL (3.5-5.1); Estimated Glomerular Filt Rate > 60; Glucose 101 mg/dL (65-110)
[2024-08-30 11:24] LABS: Hemoglobin A1C 5.8 % (<5.7)
[2024-08-30 11:25] LABS: Urine Cotinine NEGATIVE
[2024-08-30 12:26] LABS: MRSA (PCR) NOT DETECTED (NOT DETECTE)
== END 2024-08-30 10:03 | disposition home or self-care (01) ==
LOC: ANHSURGERY 10:06
PROVIDERS: PCP Internal Medicine; Visit Provider Orthopaedic Surgery
DX: Z01.812 Encounter for preprocedural laboratory examination (principal); M17.12 Unilateral primary osteoarthritis, left knee
CPT/HCPCS: 80307; 82040; 82565; 82947; 83036; 85025; 87641

== ENCOUNTER 2024-09-23 00:11 | Day surgery (SDC) | payer MEDICARE, SELFPAY ==
[2024-08-30 10:22] VITALS: BP 169/85; PULSE 73; RESP 16; TEMP 36.8; O2SAT 100; BMI 36.9
--- NOTE | 2024-08-30 10:42 | PC.NURSE ---
Report to the Outpatient Waiting Room, entrance under the green pavilion located off [facility], at time _1000am on date _09/23/24 . Planned Procedure Time: _1200pm .? Time changes happen often and if your time is changed the preop area will call you the afternoon before. - You and your visitor will be asked to self-screen and do not enter if you have any COVID symptoms. Please call surgeon if you need to reschedule. - A mask is optional within the hospital at this time. Patients may have clear liquids (water, carbonated beverages, clear teas, apple juice) until 3 hours prior to surgery with a maximum of 20 ounces. - No food from midnight until time of surgery and no smoking, or chewing tobacco (or any form of nicotine). No chewing gum, candy or mints. (0900am) - Take only the following medications with a SIP of water on the morning of surgery: __Coreg, Amlodipine, Levothyroxine, Lorazepam if needed, Tramadol if needed DO NOT STOP ANY OF YOUR OTHER PRESCRIPTION MEDICATIONS PRIOR TO SURGERY EXCEPT THE FOLLOWING Hold all vitamins and supplements for 3 days per anesthesiologist.Date to take last dose____09/19/24 Medications to discontinue per physician ____HOLD Imuran for 2 weeks preop and post op per RA Suarez date of last dose is 09/07/24 Please no make-up, nail occitan, hairspray, perfume, deodorant, or body powder the day of surgery.? No jewelry (including any body piercings) or valuables the day of surgery, leave them at home.? Please take a shower or bath the night before, or the morning of, surgery with an antibacterial soap.? Wear comfortable, loose fitting clothing.? - Jewelry must be removed prior to entering the operating room.? Rings and piercings that are not removed may be cut off. - The hospital will not accept responsibility for valuables.? - Please leave all valuables, including medications, at home the day of surgery. If you are going home after surgery, a licensed pile driver engineer must drive you home.? - NO public transportation without another adult if you receive anesthesia. - We recommend that an adult stay with you for 24 hours following discharge. - We also recommend that you do not drive, make important decision, drink alcoholic beverages, or take any drugs that were not prescribed by your health care provider for at least 24 hours after your discharge time. Follow any additional instructions given to you from your surgeon. Telephone instructions given to __patient and and asked if any additional questions and then verbalized understanding. Patient advised to call surgeon office or pre surgery nurse liaison [phone] if any additional questions.
[2024-09-23] VITALS (16 sets, daily range): BP systolic 153–178; BP diastolic 75–89; PULSE 73–95; RESP 13–18; TEMP 35.9–37.2; O2SAT 94–99
--- NOTE | ~2024-09-23 | XR_ITS ---
EXAMINATION: [id number] DATE: 09/23/2024 17:05 INDICATION: Postoperative evaluation following left total knee arthroplasty. TECHNIQUE: Anteroposterior and lateral views of the left knee were obtained. COMPARISON: None. FINDINGS: Left total knee arthroplasty with patellar resurfacing appears well seated and in near anatomic align ment. No fractures identified. Expected postoperative subcutaneous and intra-articular gas. IMPRESSION: 1. Left total knee arthroplasty, negative for postoperative purposes. Reviewed, dictated and finalized at location A.
--- OUTSIDE RECORDS SUMMARY | 2024-09-23 00:14 | XMS_ITS | Encounter Summary ---
Author Organization [facility] Address [address] [facility] [place] [address] Care Team Providers Care Men'S Custom Hair Piece Consultant Name Role Phone Unavailable Primary Care Provider Unavailabl e Encounter Details Date Type Department Care Team (Late st Contact Info) Description 12/26/2012 [facility] EXTERNAL NON-[facility] DEPT Grupo Moura MD [address] [place] [id number] Social History Tobacco Use Types Packs/Day Years [...]
--- OUTSIDE RECORDS SUMMARY | 2024-09-23 00:14 | XMS_ITS | Clinical Summary ---
Author Organization [facility] Address [address] [place] [address] Care Team Providers Care Mixer Whipped Topping Name Role Phone David Savage MD Primary Care Provider [phone] Social History Tobacco Use Types Packs/Day Years [...] complete this topic Insurance MEDICARE Care Teams Mixer Whipped Topping Relationship Specialty Start Date End Date David Savage MD [address] [place] [address] PCP - General INTERNAL MEDICINE 03/13/24
--- OUTSIDE RECORDS SUMMARY | 2024-09-23 00:14 | XMS_ITS | Encounter Summary ---
Author Organization [facility] Address [address] [facility] [place] [address] Care Team Providers Care Teacher Of The Deaf Name Role Phone Unavailable Primary Care Provider Unavailabl e Encounter Details Date Type Department Care Team (Late st Contact Info) Description 06/05/2012 [facility] EX[facility]NAL NON-SS DEPT Grupo Moura MD [address] [place] [id number] Social History Tobacco Use Types Packs/Day Years [...]
--- OUTSIDE RECORDS SUMMARY | 2024-09-23 00:14 | XMS_ITS | Clinical Summary ---
Author Organization [facility] Address [address] [place] [address] Care Team Providers Care Computer Hardware Technician Name Role Phone Unavailable Primary Care Provider Unavailabl e Source Comments [facility],non-owned Affiliates and Associated Physician Practices is amultiple site organization consisting of ambulatory clinics and hospital sitesin [place], [place], [place] and [place]. This disclosure is being madepursuant to the Care Everywhere program and may not contain all information available regarding this patient. Last updated 18.[facility] Allergies Active Allergy Reactions Criticality Noted Date [...] Comments Blood Pressure 120/70 07/26/2016 2:39 PM ONLINE MARKETER Pulse 89 07/26/2016 2:39 PM ONLINE MARKETER Temperature 36.8 C (98.3 F) 07/26/2016 2:39 PM ONLINE MARKETER Respiratory Rate 16 07/26/2016 2:39 PM ONLINE MARKETER Oxygen Saturation - - Inhaled Oxygen Concentration - - Weight 74.4 kg (164 lb) 07/26/2016 2:39 PM ONLINE MARKETER Height 149.9 cm (4' 11 ) 07/26/2016 2:39 PM ONLINE MARKETER Body Mass Index 33.12 07/26/2016 2:39 PM ONLINE MARKETER Plan of Treatment Health Maintenance Due Date [...] to complete this topic MENINGOCOCCAL (Group B) VACC INE SHARED DECISION-MAKING Aged Out No longer eligibl e based on patient's age to complete this topic MENINGOCOCCAL GROUPS A/C/Y/W VACCINE Aged Out No longer eligible b ased on patient's age to complete this topic Procedures Procedure Name Priority Date/Time Associated Diagnosis Comments DEXA BONE DENSITY AXIAL SKELETON Routine 04/04/2018 2:06 PM CDT Osteoporosis screening HEPATITIS SCREEN ACUTE Routine 07/21/2011 3:59 PM ONLINE MARKETER Fatigue from Last 3 Months or Most [...] * HEPATITIS SCREEN ACUTE (07/21/2011 3:59 PM ONLINE MARKETER) Hepatitis A Virus Antibody IgM Negative Negative [...] BLOOD SPECIMEN / Unknown 07/21/2011 3:59 PM ONLINE MARKETER 07/21/2011 10:03 PM ONLINE MARKETER Narrative Resulting Agency Comment [facility] [address] [id number] Grupo Moura MD LAB - CHEMISTRY O RDERABLES Performing Organization Address City/State/[facility] Co de Phone Number [facility] ACCOUNT BILL from Last 3 Months or Most Recently Relevant to Health Maintenance Anjali Rodriguez I Personal/Family Self 1955 [address] [facility] [place] [address] Anjali Rodriguez I Personal/Family Self 1955 [address] [place] [address]
--- OUTSIDE RECORDS SUMMARY | 2024-09-23 00:14 | XMS_ITS | Continuity of Care Document ---
Author Organization [facility] Address [address] [place] [address] Phone Care Team Providers Care Baccarat Dealer Name Role Phone King OD, Ferdinand Unavailable Unavailable Procedures Procedure Date Eye Exam, New Patient Eye Exam & Treatment Refraction Advance Directives Directive Yes / No Effective Date File Name No Information Encounters Encounter Description Practice Location Reason(s) For Visit Diagnoses Date Provider Providers Copied on Encounter [facility], [address] [place] [address] [address], [place], [place], [id number], tel:[phone] SEC [facility] No Information [address] King OD Ferdinand. [address] [place] , [address], [place], [place], [facility], [place]. tel:[phone] [facility], [address] [place] [address] [address], [place], [place], [id number], tel:[phone] [facility] [place] No Information [address] Ira[address] Jeanette. [address] [place] , [address], [place], [address], [place]. tel:[phone] Family History Family Member Type Diagnosis Age At Onset No Information Payers Payer name Insurance type Covered constitution party ID Authoriza tion(s) No Information Social History [...]
--- OUTSIDE RECORDS SUMMARY | 2024-09-23 00:14 | XMS_ITS | Encounter Summary ---
Author Organization [facility] Address [address] [facility] [place] [address] Care Team Providers Care Quality Director Name Role Phone Unavailable Primary Care Provider Unavailabl e Encounter Details Date Type Department Care Team (Late st Contact Info) Description 06/08/2012 [facility] DEPT Grupo Moura MD [address] [place] [id number] Social History Tobacco Use Types Packs/Day Years [...]
--- OUTSIDE RECORDS SUMMARY | 2024-09-23 00:14 | XMS_ITS | Encounter Summary ---
Author Organization [facility] Address [address] [place] [address] Care Team Providers Care Senior Cytogenetic Technologist Name Role Phone Unavailable Primary Care Provider Unavailabl e Encounter Details Date Type Department Care Team (Late st Contact Info) Description 12/31/2012 [facility] Visit EXTERNAL NON-SS DEPT Grupo Moura MD [address] [place] [id number] Social History Tobacco Use Types Packs/Day Years [...]
--- OUTSIDE RECORDS SUMMARY | 2024-09-23 00:15 | XMS_ITS | Referral Summary ---
Author Organization [facility] Address [facility] [place] [address] Care Team Providers Care Cork Tipper Name Role Phone David Savage MD Primary Care Provider [phone] Allergies Active Allergy Reactions Criticality Noted Date Comments Adalimumab Unknown 12/09/2014 Amitriptyline Other (See comments) Low 02/22/2012 Drowsiness Etanercept Stomach upset Low 12/09/2014 Golimumab Stomach upset Low 12/09/2014 Hydroxychloroquine Nausea And Vomiting 04/09/20 15 Stomach pain Medications omega 4-xgy-djs-fish oil (Fish OiL) 1,200 (144-216) mg capsuleIndicati ons:hypertrigly ceridemia Take 1 capsule by mouth 2 (two) times a day Active amLODIPine (NORVASC) 5 mg tabletIndicatio ns:hypertension Take 1 tablet (5 mg total) by mouth carcass trimmer before breakfast 3 Active carvediloL (COREG) 6.25 mg tabletIndicatio ns:hypertension Take 1 tablet (6.25 mg total) by mouth 2 (two) times a day 3 Active cholecalciferol (VITAMIN D-3) 2000 unit tabletIndicatio ns:Vitamin D Deficiency Take 2 tablets (4,000 Units total) by mouth carcass trimmer before breakfast 3 Active losartan (COZAAR) 100 mg tabletIndicatio ns:hypertension Take 1 tablet (100 mg total) by mouth carcass trimmer before breakfast Active tiZANidine (ZANAFLEX) 4 mg [...] 2 tablets (100 mg total) by mouth carcass trimmer before breakfast 3 Active lorazepam (ATIVAN ORAL) [...] on file 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 MEDICARE AETNA SENIOR SUPPLEMENT Advance Directives For more information, please contact: [phone] * Full Code (Latest Code Status on File) Date Activated Date Inactivated Comments 01/25/2023 12:44 PM 01/25/2023 8:51 PM Care Teams Cork Tipper Relationship Specialty Start Date End Date David Savage MD [address] [place] [address] PCP - General Internal Medicine 06/23/22
--- OUTSIDE RECORDS SUMMARY | 2024-09-23 00:15 | XMS_ITS | Referral Summary ---
Author Organization [facility] Address [address] [place] [address] Care Team Providers Care Account Collector Name Role Phone Unavailable Primary Care Provider Unavailabl e Source Comments [facility],non-owned Affiliates and Associated Physician Practices is amultiple site organization consisting of ambulatory clinics and hospital sitesin [place], [place], [place] and [place]. This disclosure is being madepursuant to the Care Everywhere program and may not contain all information available regarding this patient. Last updated 18.[facility] Allergies Active Allergy Reactions Criticality Noted Date [...] Comments Blood Pressure 120/70 07/26/2016 2:39 PM SUPERVISOR ASBESTOS TEXTILE Pulse 89 07/26/2016 2:39 PM SUPERVISOR ASBESTOS TEXTILE Temperature 36.8 C (98.3 F) 07/26/2016 2:39 PM SUPERVISOR ASBESTOS TEXTILE Respiratory Rate 16 07/26/2016 2:39 PM SUPERVISOR ASBESTOS TEXTILE Oxygen Saturation - - Inhaled Oxygen Concentration - - Weight 74.4 kg (164 lb) 07/26/2016 2:39 PM SUPERVISOR ASBESTOS TEXTILE Height 149.9 cm (4' 11 ) 07/26/2016 2:39 PM SUPERVISOR ASBESTOS TEXTILE Body Mass Index 33.12 07/26/2016 2:39 PM SUPERVISOR ASBESTOS TEXTILE Plan of Treatment Not on file Procedures Procedure Name Priority Date/Time Associated Diagnosis Comments DEXA BONE DENSITY AXIAL SKELETON Routine 04/04/2018 2:06 PM CDT Osteoporosis screening HEPATITIS SCREEN ACUTE Routine 07/21/2011 3:59 PM SUPERVISOR ASBESTOS TEXTILE Fatigue from Last 3 Months or Most [...] * HEPATITIS SCREEN ACUTE (07/21/2011 3:59 PM SUPERVISOR ASBESTOS TEXTILE) Hepatitis A Virus Antibody IgM Negative Negative [...] BLOOD SPECIMEN / Unknown 07/21/2011 3:59 PM SUPERVISOR ASBESTOS TEXTILE 07/21/2011 10:03 PM SUPERVISOR ASBESTOS TEXTILE Narrative Resulting Agency Comment [facility] [address] [id number] Grupo Moura MD LAB - CHEMISTRY O RDERABLES [facility] ACCOUNT BILL from Last 3 Months or Most Recently Relevant to Health Maintenance Administered Medications Anjali Rodriguez I Personal/Family Self [address] [place] [address] Anjali Rodriguez I Personal/Family Self 1955 [address] [place] [address]
--- OUTSIDE RECORDS SUMMARY | 2024-09-23 00:15 | XMS_ITS | Patient Health Summary ---
Author Organization [facility] Address [address] [place] [address] Care Team Providers Care Financial Services Associate Name Role Phone Unavailable Primary Care Provider Unavailabl e Note from [facility],non-owned Affiliates and Associated Physician Practices is amultiple site organization consisting of ambulatory clinics and hospital sitesin [place] and [place]. This disclosure is being madepursuant to the Care Everywhere program and may not contain all information available regarding this patient. Last updated 18.[facility] [employer] Allergies * Amitriptyline(Drowsiness) * Enbrel(GI Discomfort) * [...] Comments Blood Pressure 120/70 07/26/2016 2:39 PM PAPER FINAL INSPECTOR Pulse 89 07/26/2016 2:39 PM PAPER FINAL INSPECTOR Temperature 36.8 C (98.3 F) 07/26/2016 2:39 PM PAPER FINAL INSPECTOR Respiratory Rate 16 07/26/2016 2:39 PM PAPER FINAL INSPECTOR Oxygen Saturation - - Inhaled Oxygen Concentration - - Weight 74.4 kg (164 lb) 07/26/2016 2:39 PM PAPER FINAL INSPECTOR Height 149.9 cm (4' 11 ) 07/26/2016 2:39 PM PAPER FINAL INSPECTOR Body Mass Index 33.12 07/26/2016 2:39 PM PAPER FINAL INSPECTOR Procedures * XR KNEE BILAT 2VW OR [...] REFLX (POSITIVE)(Performed 04/09/2015) Performed for Rheumatoid arthritis(714.0) ([facility]) * VAL BLOOD SCREEN W/REFLEX TITER(Performed 04/09/2015) Performed for Rheumatoid arthritis(714.0) ([facility]) * RHEUMATOID FACTOR BLOOD QUANTITATIVE(Performed 04/09/2015) Performed for Rheumatoid arthritis(714.0) ([facility]) * PORPHYRINS TOTAL BLOOD(Performed 04/09/2015) Performed for Abdominal pain, generalized * REF LAB-SPECIMEN NOT CENTRIFUGED(Performed 12/09/2014) * C-REACTIVE PROTEIN(Performed 12/09/2014) Performed for Medication monitoring encounter * CBC W AUTO DIFFERENTIAL(Performed 12/09/2014) Performed for Medication monitoring encounter * COMPREHENSIVE METABOLIC PANEL(Performed 12/09/2014) Performed for Medication monitoring encounter * C-REACTIVE PROTEIN(Performed 08/06/2013) Performed for Rheumatoid Arthritis ([facility]) * COMPREHENSIVE METABOLIC PANEL(Performed 08/06/2013) Performed for Immunosuppressed status ([facility]), Medication monitoring encounter * CBC W AUTO DIFFERENTIAL(Performed 08/06/2013) Performed for Immunosuppressed status ([facility]), Medication monitoring encounter * CATALINO STAINING PATTERNS REFLEXED(Performed 11/21/2012) Performed for Rheumatoid arthritis ([facility]) * VAL BLOOD SCREEN W/REFLEX TITER(Performed 11/21/2012) Performed for Rheumatoid arthritis ([facility]) * CYCLIC CITRUL PEPTIDE ANTIBODY IGG/IGA (CCP)(Performed 11/21/2012) Performed for Rheumatoid arthritis ([facility]) * RHEUMATOID FACTOR BLOOD QUANTITATIVE(Performed 11/21/2012) Performed for Rheumatoid arthritis ([facility]) * VDRL BLOOD(Performed 06/28/2012) Performed for Acquired [...] ONE OR TWO VIEWS (07/17/2020 10:14 AM PAPER FINAL INSPECTOR) Anatomical Region Laterality Modality Lower Extremity Radiographic Sofy ging 07/17/2020 2:35 PM PAPER FINAL INSPECTOR Narrative 07/17/2020 2:37 PM PAPER FINAL INSPECTOR EXAM: XR KNEE BILAT 2VW OR LESS*[id number] INDICATION: Bilateral knee pain COMPARISON: none available [...] 07/17/2020 EXAM: XR KNEE BILAT 2VW OR LESS*[id number] INDICATION: Bilateral knee pain COMPARISON: none available [...] SAMPLE S / Unknown 12/11/2017 Wes Singh FASHION SUPERVISOR-POLE TRUCK DRIVER LAB - POINT OF CARE ORDERABLES * CULTURE URINE (07/26/2016 2:41 PM PAPER FINAL INSPECTOR) Only the most recent of2 resultswithin the time period is included. Urine Culture Routine Final report [facility] ACCOUNT BILL Result 1 [facility] ACCOUNT BILL Comment: Mixed urogenital sheridan Less than 10,000 colonies/mL Urine URINE SPECIMEN OBTAINED BY CLEAN CATCH PROCEDURE / Unknown 07/26/2016 2:41 PM PAPER FINAL INSPECTOR 07/26/2016 Narrative Resulting Agency Comment [facility] [address] [place] [id number] Felecia Haney Alireza FASHION SUPERVISOR-POLE TRUCK DRIVER LAB - MICROBI OLOGY ORDERABLES [facility] [place] [address] * (ABNORMAL) URINALYSIS AUTO - POINT OF CARE (AMB) STL (07/26/2016 2:40 PM PAPER FINAL INSPECTOR) Clarity UA POCT clear Color UA POCT yellow Leukocyte UA 15 Negative Nitrite UA POCT neg Negative Urobilinogen UA 0.2 0.1 - 1.0 Protein UA POCT 15 Negative pH UA 5.0 5.0 - 8.0 pH units Blood UA 50 Negative Specific Melvin UA POCT 1.020 1.002 - 1.030 Ketone UA neg Negative Bilirubin UA POCT neg Negative Glucose UA neg Negative Expiration Date [id number] Lot # [id number] QC Verified Yes Yes URINE / Unknown 07/26/2016 2 :40 PM PAPER FINAL INSPECTOR Felecia Haney Alireza FASHION SUPERVISOR-POLE TRUCK DRIVER LAB - POINT O F CARE ORDERABLES * PORPHOBILINOGEN URINE QUANTITATIVE (04/20/2015 2:21 PM CDT) Pathologist [facility] Total Volume 1100 mL [facility] Porphobilinogen umol/24 Hour Urine 0.0 <2.4 mg/24 h [facility] Interpretation see note [facility] Comment: Porphobilinogen (PBG) was within the normal range. This test may not detect an elevation of PBG if the patient is asymptomatic or is undergoing treatment at the time of collection. Test Performed at: [facility]/[address] MIMI WILSON MD,PHD Urine specimen (specimen) TIMED URINE SPECIMEN / Unknown 04/20/2015 2:21 PM CDT 04/20/2015 2:22 PM CDT Grupo Moura MD LAB - URINE CHEMI STRY ORDERABLES [facility] [address] [place] [address] * INTERPRETATION (7) (PO REF LAB) (04/09/2015 3:57 PM CDT) Interpretation [facility] Comment: This finding suggests Sjogren's syndrome. These antibodies may occasionally be positive early in other connective tissue diseases. A positive result at this stage of testing stops further testing, and does not preclude additional positive antibodies. Clinical correlation is required to assess the need for testing additional analytes. Test Performed at: [facility] [place] [address] ALYSSA MILLER DO,MPH 04/09/2015 3:57 PM CDT 04/09/2015 3:58 PM CDT Narrative Authorizing Provider Result Case Moura MD LAB - SEROLOGY OR DERABLES Performing Organization Address [facility] de Phone Number [facility] [id number] [place] [address] * STAGE 1 REFLEXED (PO REF LAB) (04/09/2015 3:57 PM CDT) dsDNA Antibody 2 IU/mL [facility] Comment: IU/mL Interpretation < or = 4 Negative 5-9 Indeterminate > or = 10 Positive SM Antibody <1.0 NEG <1.0 NEG AI [facility] SM/SAP FICO BUSINESS ANALYST Antibody <1.0 NEG <1.0 NEG AI [facility] SAP FICO BUSINESS ANALYST Antibody <1.0 NEG <1.0 NEG AI [facility] Chromatin Nucleosomal Antibody <1.0 NEG <1.0 NEG AI [facility] Comment: Test Performed at: [facility] [employer] [place] [address] ALYSSA MILLER DO,MPH 04/09/2015 3:57 PM CDT 04/09/2015 3:58 PM CDT Narrative Authorizing Provider Result Case Moura MD LAB - CHEMISTRY O RDERABLES Performing Organization Address [facility] Co de Phone Number [facility] [phone] [place] [address] * (ABNORMAL) STAGE 2 REFLEXED (PO REF LAB) (04/09/2015 3:57 PM CDT) Sjogren's Antibodies (SSA) 2.3 POS(A) <1.0 NEG AI [facility] Sjogren's Antibodies (SSB) <1.0 NEG <1.0 NEG AI [facility] SCL-70 Antibody <1.0 NEG <1.0 NEG AI [facility] Bela-1 Antibody <1.0 NEG <1.0 NEG AI [facility] Comment: Test Performed at: [facility] [address] ALYSSA MILLER DO,MPH 04/09/2015 3:57 PM CDT 04/09/2015 3:58 PM CDT Narrative Authorizing Provider Result Case Moura MD LAB - CHEMISTRY O RDERABLES Performing Organization Address City/[facility]/ZIP Co de Phone Number [address] [address] * (ABNORMAL) VAL W REFLX (POSITIVE) (PO REF LAB) (04/09/2015 3:57 PM CDT) [facility] ANAchoice [TM] Screen POSITIVE( A) NEGATIVE [facility] Comment: Test Performed at: [place] [address] ALYSSA MILLER DO,MPH Blood specimen (specimen) BLOOD SPECIMEN / Unknown 04/09/2015 3:57 PM CDT 04/09/2015 3:58 PM CDT Narrative Authorizing Provider Result Case Moura MD LAB - SEROLOGY OR DERABLES Performing Organization Address [facility] Co de Phone Number [address] [address] * RHEUMATOID FACTOR BLOOD QUANTITATIVE (04/09/2015 3:57 PM CDT) Only the most recent of3 resultswithin the time period is included. Pathologist [facility] Rheumatoid Factor 8 <14 IU/mL [facility] Comment: Test Performed at: [employer] [place] [address] ALYSSA MILLER DO,MPH Blood specimen (specimen) BLOOD SPECIMEN / Unknown 04/09/2015 3:57 PM CDT 04/09/2015 3:58 PM CDT Narrative Authorizing Provider Result Case Moura MD LAB - CHEMISTRY O RDERABLES Performing Organization Address [facility] Co de Phone Number [facility] [address] [place] [address] * (ABNORMAL) VAL BLOOD TITER (04/09/2015 3:57 PM CDT) Pathologist [facility] VAL Pattern DUAL(A) [facility] VAL SEE BELOW(A) titer [facility] Comment: Pattern:ATYPICAL SPECKLED Titer: 1:640 Pattern:HOMOGENEOUS Titer: 1:160 Reference Range <1:40 Negative 1:40-1:80 Low Antibody Level >1:80 Elevated Antibody Level Test Performed at: [facility] [place] [address] ALYSSA MILLER DO,MPH 04/09/2015 3:57 PM CDT 04/09/2015 3:58 PM CDT Grupo Moura MD LAB - CHEMISTRY O LESIAERABETTY Performing Organization Address [facility] Co de Phone Number [address] [address] * (ABNORMAL) VAL BLOOD SCREEN W/REFLEX TITER (04/09/2015 3:57 PM CDT) Only the most recent of3 resultswithin the time period is included. Pathologist [facility] VAL Screen POSITIVE( A) NEGATIVE [facility] Comment: Test Performed at: [facility] [id number] ALYSSA MILLER DO,MPH Blood specimen (specimen) BLOOD SPECIMEN / Unknown 04/09/2015 3:57 PM CDT 04/09/2015 3:58 PM CDT Grupo Moura MD LAB - CHEMISTRY O RDERABETTY Performing Organization Address [facility] Co de Phone Number [facility] [phone] [place] [address] * (ABNORMAL) PORPHYRINS TOTAL BLOOD (04/09/2015 3:53 PM CDT) Pathologist [facility] Uroporphyrin SEE NOTE 0.2 OR LESS mcg/L [...] cases of hereditary coproporphyria (HCP), variegate porphyria (OILFIELD PLANT AND FIELD OPERATOR), and in liver disease. If you haven't [...] disorders. Interpretation reviewed by: Zoraida Gonzalez, Ph.D., [facility] IF YOU HAVE ANY QUESTIONS REGARDING THESE RESULTS, PLEASE CONTACT THE [facility] AT ext [phone] or ext [phone] AND ASK TO SPEAK WITH THE LOCK ASSEMBLER FITNESS SALES ASSOCIATE. FOR GENERAL QUESTIONS ABOUT [facility] GENETIC TESTING, PLEASE CALL THE GENE INFO LINE AT [phone]. REPORT COMMENT: COLLECTION KIT GIVEN TO PATIENT. PATIENT ADVISED TO RETURN. Test Performed at: [facility] [address] [place] [address] DAR MATAMOROS MD PHD Blood specimen (specimen) BLOOD SPECIMEN / Unknown 04/09/2015 3:53 PM CDT 04/09/2015 3:55 PM CDT Narrative Authorizing Provider Result Case Moura MD LAB - CHEMISTRY O RDERABLES Performing Organization Address [facility] [place] [address] * NO REF LAB-SPECIMEN NOT CENTRIFUGED (12/09/2014 3:19 PM CDT) [facility] Specimen Integrity Compromised See Below [facility] Comment: Whole blood, unspun or partially spun gel barrier tube was received more than 6 hours since collection. A false elevation of K, Phos and LD as well as a false decrease in glucose may occur due to prolonged contact with red cells. Test Performed at: [employer] [place] [address] ALYSSA MILLER DO,MPH 12/09/2014 3:19 PM CDT 12/10/2014 5:11 AM CDT Sabrina Mcdaniels [facility] LAB - CHEMISTRY ORDERABLES Performing Organization Address [facility] [place] [address] * C-REACTIVE PROTEIN (12/09/2014 3:19 PM CDT) Only the most recent of7 resultswithin the time period is included. [facility] C-Reactive Protein 0.19 <0.80 mg/dL [facility] Comment: Please be advised that patients taking Carboxypenicillins may exhibit falsely decreased C-Reactive Protein levels due to an analytical interference in this assay. Test Performed at: [facility] [id number] [address] ALYSSA MILLER DO,MPH Blood specimen (specimen) BLOOD SPECIMEN / Unknown 12/09/2014 3:19 PM CDT 12/10/2014 5:11 AM CDT Sabrina Mcdaniels FASHION SUPERVISORFALL [facility]IVER [facility] LAB - CHEMISTRY ORDERABLES Performing Organization Address [facility] [place] [address] * (ABNORMAL) CBC W AUTO DIFFERENTIAL (12/09/2014 3:19 PM CDT) Only the most recent of8 resultswithin the time period is included. [facility] White Blood Cell Count 11.5(H) 3.8 - [...] 0.4 % [facility] Comment: Test Performed at: [facility] [id number] [place] [address] ALYSSA MILLER DO,MPH Blood specimen (specimen) BLOOD SPECIMEN / Unknown 12/09/2014 3:19 PM CDT 12/10/2014 5:11 AM CDT Sabrina Mcdaniels FASHION SUPERVISOR-POLE TRUCK DRIVER LAB - HEMATOLOGY ORDERABLES [facility] [address] [place] [address] * (ABNORMAL) COMPREHENSIVE METABOLIC PANEL (12/09/2014 3:19 PM CDT) Only the most recent of5 resultswithin the time period is included. [facility] Glucose 115(H) 65 - 99 mg/dL [facility] Comment: Fasting reference interval BUN 18 7 - 25 mg/dL [facility] Creatinine 0.83 0.50 - 1.05 mg/dL [facility] Comment: For patients >49 years of age, the reference limit for Creatinine is approximately 13% higher for people identified as -Surinamese. eGFR by MDRD 77 > OR = [...] 29 U/L [facility] Comment: Test Performed at: [facility] [address] ALYSSA MILLER DO,MPH Blood specimen (specimen) BLOOD SPECIMEN / Unknown 12/09/2014 3:19 PM CDT 12/10/2014 5:11 AM CDT Sabrina Mcdaniels FASHION SUPERVISOR-POLE TRUCK DRIVER LAB - CHEMISTRY ORDERABLES Performing Organization Address City/[facility] Co de Phone Number [facility] [address] [place] [address] * (ABNORMAL) CYCLIC CITRUL PEPTIDE ANTIBODY IGG/IGA (CCP) (11/21/2012 5:01 PM CDT) CCP Antibodies IgG/IgA 69(H) 0 - 19 units [facility] ACCOUNT BILL Comment: Negative <20 Weak positive 20 - 39 Moderate positive 40 - 59 Strong positive >59 BLOOD SPECIMEN / Unknown 11/21/2012 5:01 PM CDT 11/21/2012 9:48 PM CDT Narrative Resulting Agency Comment [facility] [address] [phone] Grupo Moura MD LAB - SEROLOGY OR [...] titers - SLE (Smooth) Histone Speckled Sm, SAP FICO BUSINESS ANALYST, SCL-70, SLE,MCTD,Scleroderma,Sjogrens SS-A/SS-B Nucleolar SCL-70, PM-1/SCL High titers Scleroderma Poly- myositis/Scleroderma Overlap Centromere Centromere PSS w/Crest syndrome variable BLOOD SPECIMEN / Unknown 11/21/2012 5:01 PM CDT 11/21/2012 9:48 PM CDT Narrative Resulting Agency Comment [facility] [place] [id number] [facility] [id number] Grupo Moura MD LAB - PATHOLOGY/C YTOLOGY ORDERABLES [facility] ACCOUNT BILL * VDRL BLOOD (06/28/2012 10:29 AM PAPER FINAL INSPECTOR) VDRL [facility] INSURANCE BILL Comment:Non Reactive VDRL Titer NOT NEEDED [facility] INSURANCE BILL Comment:Ancillary determined the test is not needed Blood specimen (specimen) BLOOD SPECIMEN / Unknown 06/28/2012 10:29 AM PAPER FINAL INSPECTOR 06/28/2012 1:27 PM PAPER FINAL INSPECTOR Narrative Resulting Agency Comment [address] [phone] Bubba Hawkins MD LAB - SEROLOGY ORDER DAYNE [facility] INSURANCE BILL * VITAMIN B6 (06/28/2012 10:29 AM PAPER FINAL INSPECTOR) Vitamin B6 28.0 2.0 - 32.8 ug/L [facility] INSURANCE BILL Blood specimen (specimen) BLOOD SPECIMEN / Unknown 06/28/2012 10:29 AM PAPER FINAL INSPECTOR 06/28/2012 1:27 PM PAPER FINAL INSPECTOR Narrative Resulting Agency Comment [facility] [phone] Bubba Hawkins MD LAB - CHEMISTRY ELIEZER BACON [facility] INSURANCE BILL * (ABNORMAL) VITAMIN B12 FOLATE PANEL (06/28/2012 10:29 AM PAPER FINAL INSPECTOR) Vitamin B12 1026(H) 211 - 946 pg/mL [facility] INSURANCE BILL Folate 16.2 >3.0 ng/mL [facility] INSURANCE BILL Comment: A serum folate concentration of less than 3.1 ng/mL is considered to represent clinical deficiency. Blood specimen (specimen) BLOOD SPECIMEN / Unknown 06/28/2012 10:29 AM PAPER FINAL INSPECTOR 06/28/2012 1:27 PM PAPER FINAL INSPECTOR Narrative Resulting Agency Comment [facility] [place] [address] [facility] [phone] Bubba Hawkins MD LAB - CHEMISTRY ELIEZER BACON [facility] INSURANCE BILL * HEAVY METALS BLOOD SCREEN (06/28/2012 10:28 AM PAPER FINAL INSPECTOR) Lead Blood 1 0 - 19 ug/dL [facility] INSURANCE BILL Comment: The Centers for Disease Control and Prevention states blood lead levels less than 10 ug/dL in children have been associated with numerous adverse health effects. [facility] Guidelines: Blood lead levels in the range [...] BLOOD SPECIMEN / Unknown 06/28/2012 10:28 AM PAPER FINAL INSPECTOR 06/28/2012 1:27 PM PAPER FINAL INSPECTOR Narrative Resulting Agency Comment [facility] [address] [phone] Bubba Hawkins MD LAB - CHEMISTRY ELIEZER BACON [facility] INSURANCE BILL * VITAMIN E (06/28/2012 10:28 AM PAPER FINAL INSPECTOR) Vitamin E Alpha Tocopherol 12.3 4.6 - 17.8 mg/L [facility] INSURANCE BILL Blood specimen (specimen) BLOOD SPECIMEN / Unknown 06/28/2012 10:28 AM PAPER FINAL INSPECTOR 06/28/2012 1:27 PM PAPER FINAL INSPECTOR Narrative Resulting Agency Comment [facility] [address] [phone] Bubba Hawkins MD LAB - CHEMISTRY ELIEZER BACON Performing Organization Address City/[facility]/ZIP Co de Phone Number [facility] INSURANCE BILL * IRON + TIBC PANEL (06/28/2012 10:28 AM PAPER FINAL INSPECTOR) TIBC 268 250 - 450 ug/dL [facility] INSURANCE BILL UIBC 168 150 - 375 ug/dL [facility] INSURANCE BILL Iron 100 35 - 155 ug/dL [facility] INSURANCE BILL Iron Saturation 37 15 - 55 % [facility] INSURANCE BILL Blood specimen (specimen) BLOOD SPECIMEN / Unknown 06/28/2012 10:28 AM PAPER FINAL INSPECTOR 06/28/2012 1:27 PM PAPER FINAL INSPECTOR Narrative Resulting Agency Comment [facility] [address] [phone] Bubba Hawkins MD LAB - CHEMISTRY ELIEZER BACON [facility] INSURANCE BILL * EMG WITH NERVE CONDUCTION STUDY (06/28/2012) Bubba Hawkins MD NEUROLOGY ORDERABLES Performing Organization Address City/[facility]/ZIP Co de Phone Number [facility] RESULT SCAN * IMAGING/RADIOLOGY/XRAY RESULTS ORDER (06/26/2012) Only the most recent of2 resultswithin the time period is included. Anatomical Region Laterality Modality Other Bubba Hawkins MD IMAGING * (ABNORMAL) VITAMIN D 25-HYDROXY (06/18/2012 3:52 PM PAPER FINAL INSPECTOR) Only the most recent of2 resultswithin the time period is included. Vitamin D, 25 Hydroxy 22.6(L) 30.0 - 100.0 ng/mL [facility] ACCOUNT BILL Comment: Vitamin D deficiency has been defined by the [place] of [employer] and an Endocrine Society practice guideline as a level of serum 25-OH vitamin D less than 20 ng/mL (1,2). The Endocrine Society went on to further define vitamin D insufficiency as a level between 21 and 29 ng/mL (2). 1. IOM ([place] of [employer]). 2010. Dietary reference intakes for calcium and D. [place]: The National Academies Press. 2. Lamar MF, Kartik LINK, Kaity MUELLER, et al. Evaluation, treatment, and prevention of vitamin D deficiency: an Endocrine Society clinical practice guideline. JCEM. 2010; 96(7):1911-30. Blood specimen (specimen) BLOOD SPECIMEN / Unknown 06/18/2012 3:52 PM PAPER FINAL INSPECTOR 06/18/2012 8:56 PM PAPER FINAL INSPECTOR Narrative Resulting Agency Comment [facility] [address] [phone] Grupo Moura MD LAB - CHEMISTRY O RDERABLES [facility] ACCOUNT BILL * EMG WITH NERVE CONDUCTION STUDY (11/24/2011) David Savage MD NEUROLOGY ORDERABLES * LAB RESULTS ORDER (11/23/2011) David Savage MD LAB - THERAPEUTIC DR UG MONITORING ORDERABLES * (ABNORMAL) URINALYSIS ROUTINE W/REFLEX TO CULTURE (07/21/2011 3:59 PM PAPER FINAL INSPECTOR) Specific Melvin UA 1.014 1.005 - 1.030 [facility] ACCOUNT [...] BLOOD SPECIMEN / Unknown 07/21/2011 3:59 PM PAPER FINAL INSPECTOR 07/21/2011 10:03 PM PAPER FINAL INSPECTOR Narrative Resulting Agency Comment [facility] [address] [phone] Grupo Moura MD LAB - URINALYSIS ORDERABLES Performing Organization Address City/State/[facility] Co de Phone Number [facility] ACCOUNT BILL * (ABNORMAL) URINALYSIS MICROSCOPIC ONLY (07/21/2011 3:59 PM PAPER FINAL INSPECTOR) WBC UA 6-10(A) 0 - 5 /hpf [...] BLOOD SPECIMEN / Unknown 07/21/2011 3:59 PM PAPER FINAL INSPECTOR 07/21/2011 10:03 PM PAPER FINAL INSPECTOR Narrative Resulting Agency Comment [facility] [address] [place] [phone] Authorizing Provider Result Case Moura MD LAB - URINALYSIS ORDERABLES Performing Organization Address City/[facility] de Phone Number [facility] ACCOUNT BILL * CK BLOOD (07/21/2011 3:59 PM PAPER FINAL INSPECTOR) Only the most recent of2 resultswithin the time period is included. CK 39 24 - 173 U/L [facility] ACCOUNT BILL Blood specimen (specimen) BLOOD SPECIMEN / Unknown 07/21/2011 3:59 PM PAPER FINAL INSPECTOR 07/21/2011 10:03 PM PAPER FINAL INSPECTOR Narrative Resulting Agency Comment [facility] [address] [phone] Grupo Moura MD LAB - CHEMISTRY O RDERABLES Performing Organization Address [facility] de Phone Number [facility] ACCOUNT BILL * HEPATITIS SCREEN ACUTE (07/21/2011 3:59 PM PAPER FINAL INSPECTOR) Hepatitis A Virus Antibody IgM Negative Negative [...] BLOOD SPECIMEN / Unknown 07/21/2011 3:59 PM PAPER FINAL INSPECTOR 07/21/2011 10:03 PM PAPER FINAL INSPECTOR Narrative Resulting Agency Comment [facility] [address] [phone] Grupo Moura MD LAB - CHEMISTRY O RDERABLES Performing Organization Address [facility] de Phone Number [facility] ACCOUNT BILL
--- OUTSIDE RECORDS SUMMARY | 2024-09-23 00:15 | XMS_ITS | Clinical Summary ---
Author Organization [facility] Address [facility] [place] [address] Care Team Providers Care Trains Dispatcher Supervisor Name Role Phone David Savage MD Primary Care Provider [phone] Allergies Active Allergy Reactions Criticality Noted Date Comments Adalimumab Unknown 12/09/2014 Amitriptyline Other (See comments) Low 02/22/2012 Drowsiness Etanercept Stomach upset Low 12/09/2014 Golimumab Stomach upset Low 12/09/2014 Hydroxychloroquine Nausea And Vomiting 04/09/20 15 Stomach pain Medications omega 8-nxu-fuc-fish oil (Fish OiL) 1,200 (144-216) mg capsuleIndicati ons:hypertrigly ceridemia Take 1 capsule by mouth 2 (two) times a day Active amLODIPine (NORVASC) 5 mg tabletIndicatio ns:hypertension Take 1 tablet (5 mg total) by mouth gum machine operator before breakfast 3 Active carvediloL (COREG) 6.25 mg tabletIndicatio ns:hypertension Take 1 tablet (6.25 mg total) by mouth 2 (two) times a day 3 Active cholecalciferol (VITAMIN D-3) 2000 unit tabletIndicatio ns:Vitamin D Deficiency Take 2 tablets (4,000 Units total) by mouth gum machine operator before breakfast 3 Active losartan (COZAAR) 100 mg tabletIndicatio ns:hypertension Take 1 tablet (100 mg total) by mouth gum machine operator before breakfast Active tiZANidine (ZANAFLEX) 4 mg [...] 2 tablets (100 mg total) by mouth gum machine operator before breakfast 3 Active lorazepam (ATIVAN ORAL) [...] Hx Surgical History Surgery Date Site/Laterality Comments [place] TOTAL ABDOMINAL HYSTERECT W/WO RMVL TUBE OVARY Hysterectomy - 1990 (Added by TW Conv) OVARY SURGERY Ovarian Surgery - 1993 & 1994 (Added by TW Conv) [place] UNLISTED PROCEDURE ABDOMEN PERITONEUM & OMENTUM Hernia [...] on file Legal Sex Female 8:24 PM METALLURGICAL INSPECTOR Gender Identity Not on file Sexual Orientation [...] 04/26/2021, 03/09/2020, Additional history exists [facility] [place] [address] MEDICARE [employer] SENIOR SUPPLEMENT Advance Directives For more information, please contact: [phone] * Full Code (Latest Code Status on File) Date Activated Date Inactivated Comments 01/25/2023 12:44 PM 01/25/2023 8:51 PM Care Teams Trains Dispatcher Supervisor Relationship Specialty Start Date End Date David Savage MD [address] [facility] [address] [place], [place] [id number] PCP - General Internal Medicine 06/23/22
[2024-09-23] MEDS: TRANEXAMIC ACID 1,000MG/ISO100 1,000 MG/100 ML BAG 200 MG IVPB (10:55)
[2024-09-23] MEDS: ACETAMINOPHEN 500 MG TABLET 1000 MG PO (10:55)
[2024-09-23] MEDS: LACTATED RINGERS 1,000 ML 30 ML IV CONT ×2 (10:55→15:30)
--- NOTE | 2024-09-23 12:02 | WPDHPUPDATE1 ---
History and Physical Update Update Date/Time: 09/23/24 12:02 History and Physical has been reviewed, including an updated exam of the patient. There are NO changes in the patient's condition. Risks, benefits, and alternatives have been discussed and questions answered. Patient agrees to proceed with procedure.
--- NOTE | 2024-09-23 12:14 | P.PNAN_ITS ---
Anes - Initial Pre Proc Eval Procedure: Operation Date: 09/23/24 12:00 Proposed Procedures p Left Total Knee Arthroplasty - Fernando Styles MD Date/Time: 09/23/24 12:14 Surgeon: Fernando Styles MD Pre Op Diagnosis: primary oa left knee Patient Data Age: 69 Gender: F Height: 1.5 m Weight: 81 kg Last Vital Signs Temp 37.2 C 09/23/24 10:55 Pulse 73 09/23/24 10:55 Resp 14 09/23/24 10:55 BP 173/78 H 09/23/24 10:55 Pulse Ox 99 09/23/24 10:55 O2 Del Method Room Air 09/23/24 10:55 Allergies Allergy/AdvReac Type Severity Reaction Status Date / Time tofacitinib (From Xeljanz) AdvReac Intermediate Other Verified 08/30/24 10:13 ezetimibe (From Zetia) AdvReac Mild myalgia Verified 08/30/24 10:13 Yfiuzfh-CPZ-PxD Reductase AdvReac Unknown Muscle Pain Verified 08/30/24 10:13 Inhibitor (Mhqfywg-Xbk-Xml Reductase Inhibitor) bempedoic acid (From AdvReac Muscle Pain Verified 08/30/24 10:13 Nexletol) Home Medications ?Medication ?Instructions ?Recorded ?Confirmed ?Type turmeric 400 mg capsule 400 mg PO DAILY 10/30/19 08/30/24 History omega-3 fatty acids-vitamin E 4 cap PO DAILY 11/30/20 08/30/24 History 1,000 mg capsule tizanidine 4 mg capsule 4 mg PO .qd PRN muscle spasticity 12/27/21 08/30/24 Rx #90 caps cholecalciferol (vitamin D3) 100 100 mcg PO DAILY 10/24/22 08/30/24 History mcg (4,000 unit) tablet acetaminophen 500 mg tablet 1,000 mg PO TID 08/11/23 08/30/24 History (Tylenol Extra Strength) vjrycwdqczqg-pohgmdt-rcvzo acid 1 tablet PO DAILY 08/11/23 08/30/24 History 400 mcg-lutein 250 mcg chewable tablet (Centrum Silver) lorazepam 0.5 mg tablet 0.5 mg PO TID PRN anxiety #30 tabs 10/05/23 08/30/24 Rx terbinafine HCl 250 mg tablet 250 mg PO DAILY 10/05/23 08/30/24 History azathioprine 50 mg tablet 50 mg PO TID 04/25/24 08/30/24 History prednisone 10 mg tablet 10 mg PO BID #20 tabs 04/25/24 08/30/24 Rx carvedilol 6.25 mg tablet See Rx Instructions .Route 05/21/24 08/30/24 Rx .COMPLEX #180 tabs losartan 100 mg tablet See Rx Instructions .Route 05/21/24 08/30/24 Rx .COMPLEX #90 tabs levothyroxine 100 mcg tablet 100 mcg PO DAILY #90 tabs 07/04/24 08/30/24 Rx amlodipine 5 mg tablet See Rx Instructions .Route 07/12/24 08/30/24 Rx .COMPLEX #90 tabs tramadol 50 mg tablet 50 mg PO Q12H PRN pain 08/30/24 08/30/24 History aspirin 81 mg tablet,delayed 81 mg PO BID 14 days #28 tabs 09/23/24 Rx release meloxicam 15 mg tablet 15 mg PO DAILY #30 tabs 09/23/24 Rx oxycodone-acetaminophen 5 mg-325 1 - 2 tablet PO Q4-6H PRN pain 7 09/23/24 Rx mg tablet days #30 tabs prednisone 5 mg tablet 5 mg PO DAILY 3 weeks #21 tabs 09/23/24 Rx Laboratory Tests 09/23/24 10:19 Blood Type O Positive Antibody Screen Negative Patient hx anesthesia problems: none Family hx anesthesia problems: none Results Review: All pre-operative results and documents have been reviewed as part of the pre- operative evaluation. [facility] Past Medical History Medical History DJD (degenerative joint disease) of knee Family history of heart disease Nocturia Left radial head fracture Muscle cramps at night Hypothyroidism associated with surgical procedure BMI 35.0-35.9,adult Breast tenderness in female Fullness of breast Elevated serum creatinine FHx: breast cancer Abnormal urinalysis Heterozygous familial hypercholesterolemia Colon cancer screening Gastritis Anxiety with depression Hypersomnolence Encounter for routine adult health examination with abnormal findings Low hemoglobin Statin intolerance Back pain Nausea Abdominal pain Anemia Osteopenia Left flank pain Exposure to COVID-19 virus Frequent headaches BMI 34.0-34.9,adult Follow up Right shoulder pain Acne BMI 33.0-33.9,adult Sjogrens syndrome Fibromyalgia Encounter for screening mammogram for malignant neoplasm of breast Pre-diabetes Encounter for routine adult health examination without abnormal findings BMI 32.0-32.9,adult 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 GERD (gastroesophageal reflux disease) Anxiety Seborrheic dermatitis Rheumatoid arthritis Insomnia Hormone replacement therapy (HRT) Hyperlipidemia Benign essential hypertension Family History Family History Mother Hypertension Cerebrovascular accident Father Hypertension Family history of heart disease in male family member before age 55, Onset Age: 60 Family history of cardiovascular disease Sibling Cerebrovascular accident Hypertension Family history of cardiovascular disease, Onset Age: 67 Other Family history of coronary artery disease Family history of premature coronary heart disease Social History Social History Smoking status: Never smoker Second hand tobacco smoke exposure: No Alcohol intake: never Substance use type: does not use Current Housing: Decline to Answer Concerned About Future Housing: Decline to Answer Difficulty Paying Gas/Electric Bills: Decline to Answer Difficulty Paying for Meds: Decline to Answer Currently Unemployed: Decline to Answer Education: Decline to Answer Difficulty w/ Childcare or Family Care: Decline to Answer Living arrangements: with family Additional living arrangements comments: Gender identity (if verbalized by the patient): Female Spiritual care concerns: No Anes - Eval Final PreProcedure Day of Procedure 09/23/24 12:14 Patient weight: obese Heart: regular rate and rhythm Lungs: clear to auscultation Airway: Mallampati scale class II Neurological: alert and oriented Last oral intake: >/= 8 hours ASA classification: III Emergent: no Anesthetic plan: proceed Anesthesia type and monitoring: general LMA and standard monitoring Results Review: All pre-operative results and documents have been reviewed as part of the pre- operative evaluation. Informed Consent: The patient's anesthetic plan and its attendant risks and benefits were discussed with the patient/family/POA. Questions were solicited and answers provided to the satisfaction of the patient/family/POA.
[2024-09-23] MEDS: ceFAZolin 2 GM/D5W 50 ML 2 GM/50 ML BAG IVPB ×2 (12:55→20:21)
[2024-09-23] MEDS: SODIUM CHLORIDE 0.9% IV 37.7 ML, MORPHINE SULFATE INJ (*CRX) 2 MG, ROPivacaine HCL 1% 2... INFILTRATE (13:35)
[2024-09-23] MEDS: GENTAMICIN BONE CEMENT REFOBACIN 1 EACH TOPICAL (13:48)
[2024-09-23] MEDS: TRANEXAMIC ACID 1,000 MG/10 ML AMPUL 1000 MG IV PUSH (15:12)
--- NOTE | 2024-09-23 15:14 | W.PM.PROC2 ---
Procedure Note - Detailed Date of Procedure 09/23/24 Pre-op Diagnosis Left knee degenerative arthritis. Post-op Diagnosis Same Procedure Performed Calipered, kinematically aligned total knee replacement left knee. Surgeon Fernando Styles MD Manager Technical Sales Svitlana Plascencia PA-C Anesthesia General Indications Primary patellofemoral arthritis Findings According to the calipered kinematic alignment principles, the knee was balanced by the following verification checks incorporating 6 caliper measurements, using an insert goniometer to select the insert thickness, and adjusting the tibial resection following the kinematic alignment algorithm (see figure 160.10 published in [employer] chapter on kinematic alignment total knee arthroplasty.) The steps verified the femoral and tibial components were kinematically aligned coincident to the patient's pre arthritic joint lines, which closely restored the [place] tribe tibial compartment forces and ligament laxities without ligament release. The 3Jamacta t3n MagazinK SperiKA knee, designed specifically for kinematic alignment, fit optimally. The record of verification checks were documented and scanned into the chart. Distal Femoral Resection: Distal Medial 8 mm, Distal Lateral 8 mm Target thickness of 8mm Unworn, 6mm Worn (No Cartilage). Posterior Femoral Resection: Posterior Medial 7 mm, Posterior Lateral 7 mm. Target thickness of 7mm Unworn, 5mm Worn (No Cartilage). Description of Procedure General anesthesia was administered. A well-padded tourniquet was placed high on the thigh. The limb was prepped and draped in the usual sterile fashion. The limb was exsanguinated and the tourniquet inflated to 300 mmHg. A longitudinal incision was created over the midline of the knee. Sharp dissection was taken through subcutaneous tissues. Electrocautery was used for hemostasis. A trivector approach to the knee joint was performed. The ACL, anterior horns of the menisci, and fat pad were excised, and a subperiosteal dissection was carried along the posterior medial border of the tibia. The thickness of the [place] tribe patella was measured with a caliper. The patella was resected using the oscillating saw. The best fitting anatomic patella button was selected. The fixation holes were drilled. When the patella and patella buttons combined thickness was thicker than the [place] tribe patella, the patella was recut. Starting midway between the top of the notch in the anterior femoral cortex, I drilled a 9 mm diameter hole parallel to the anterior cortex to minimize flexion of the femoral component and promote patella tracking. I verified the existence of a 5-10 mm bone bridge between the posterior aspect of the hole and the anterior limit of the intercondylar notch. An intraosseous positioning gissel was inserted 10 cm into the femur perpendicular to the distal joint line and parallel to the anterior cortex. I used a distal femoral referencing guide that compensated 2 mm when the cartilage was worn on the distal medial femoral condyle, and 2 mm when the cartilage was worn on the distal lateral femoral condyle. The basis for setting the distal and posterior femoral resection guide is knowing that the varus and valgus grade II to IV Kellegren-Andrea osteoarthritic knees have negligible bone wear at 0? and 90? and that the mean full-thickness cartilage wear approximates 2 mm. I measured the thickness of distal femoral resections with a caliper to +/- 0.5 mm. The thickness of each resection was adjusted to match the thickness of the respective condyle of the femoral component within 0.5 mm of target after compensating for cartilage wear and kerf. When the distal resection was 1-2 mm too thin, a recut guide was used to adjust the cut. When the distal resection was too thick, a 1 or 2 mm thick washer was fixed to the back of the 4-in-1 chamfer block to andrew a corrective gap between the femoral component and distal femur. I set posterior femoral referencing guide at 0? orientation to position the pin holes for the 4 in 1 chamfer block. The homero wing measured the width of the distal femoral resection and selected the size of the 4 in 1 chamfer block and femoral component. The AP sizer confirmed the size. I measured the thickness of the posterior femoral resections with a caliper before making the anterior and chamfer cuts. I adjusted the thicknesses of each resection to match the thickness of the respective condyle of the femoral component within +/-0.5 mm after compensating for cartilage wear and curve. When a posterior resection femoral resection was 1-2 mm too thick or thin a corrective correction was made by shifting or rotating the 4 in 1 chamfer block as needed. The chamfer block was secured in the correct position with compression screws. The anterior and chamfer femoral resections were made. These caliper measurements and corrections verified that the femoral component was set coincident with the patient's pre-arthritic distal and posterior femoral joint lines. I removed all the medial and lateral femoral and tibial osteophytes to restore the pre arthritic length of the medial and lateral collateral ligaments. I sunshine AP lines along the major axis of the lateral tibial plateau in between the tibial spines which identified the flexion extension plane of the knee. A conventional extramedullary tibial resection guide was applied to the ankle. An homero wing was placed medially in the saw slot. The varus valgus angle of the tibial resection guide was adjusted until the guide paralleled the proximal tibial articular surface after compensating for cartilage and bone wear. The slope of flexion extension angle of the tibial resection guide was adjusted until the homero wing paralleled the slope of the medial tibia after compensating for wear. The AP axis of the tibial resection guide was adjusted parallel to the two lines. The proximal tibia was resected, partially releasing the insertion of the posterior cruciate ligament. The thickness of the medial and lateral lateral tibial condyle was measured at the base of the tibial spines. I visually verified the slope of the medial border of the resection was parallel to the patient's pre arthritic slope after compensating for cartilage and bone wear. I removed the remnants of the posterior horns of the menisci and posterior osteophytes and cauterized the inferior lateral genicular vessels. The Aquamantys bipolar device was also used to for additional hemostasis. When the knee had a preoperative flexion contracture of 20? or more I teased the capsule off the posterior femur with a curved 3 quarter-inch osteotome. I administered the posterior femoral periosteal injection by delivering 10 cc using a 20 gauge spinal needle at the most medial and 10 cc at the most lateral femoral spur surface which reduced the risk of injury to the posterior neurovascular structures. I followed 6 options in a decision tree to fine tune the varus valgus and posterior slope orientation of the tibial component to restore the patient's pre arthritic tibial joint line and limb alignment. First, I adjusted the varus-valgus orientation of the proximal tibia resection working in 1 degree to 2 degree increments until there was negligible medial and lateral lift off of the distal femoral and proximal tibial resection from the spacer block during a varus valgus laxity assessment in extension. I selected the largest anatomic shape trial tibial base plate that fit within the cortical boundary of the proximal tibial resection. The base plate was best fit parallel to the cortical boundary which set the Internal-external orientation of the anterior to posterior and medial to lateral positions. The best fit method set the AP axis of the tibial base plate and insert parallel to the flexion extension plane of the pre arthritic knee. I pinned the trial tibial base plate, prepared the cruciate slot, and fixed the base plate to the tibia with the cruciate stem. I inserted the trial femoral component. The knee was placed in full extension. Varus valgus laxity is of the knee with trial components were assessed. When asymmetric laxity was observed a 1-2 degree varus or valgus recut guide was used to fine tune the tibial resection until the laxity was 1 degree or less in full extension like the [place] tribe knee. The following steps determined the optimal insert thickness within +/-1 mm. First I inserted an insert goniometer that matched the thickness of the spacer block. I reduced the patella and then with the knee in maximum extension, I verified the knee hyperextended a few degrees and had negligible varus valgus laxity, like the pre arthritic knee. Next, I measured the external tibial orientation which was the angle the insert goniometer intersected the sagittal line on the medial condyle of the femoral trial component. Then with the knee in 15-30 degrees flexion I verified a 3-4 mm gap in the lateral compartment and no gap in the medial compartment during a 2nd varus valgus laxity test. Next, I placed the knee in 90? of flexion and the foot resting on the operating table and measured the internal tibial orientation. I repeated the steps until I identified the insert thickness that provided the highest external tibia orientation in extension and the highest internal tibial orientation at 90? flexion without anterior lift-off of the insert from the tibial base plate. The insert with this thickness was implanted. I applied a posterior drawer test with the tibia distracted by gravity and verified no posterior subluxation of the tibia relative to the femur. The patella remained centered on the trochlea and tracked well throughout the entire arc of flexion and extension. I used pulse lavage to clean the bony surfaces of debris and dried bone. I cemented the tibial, femoral, and patellar components using 1 bag of methylmethacrylate with Gentamycin, then rechecked the stability at full extension, 15-30 degrees, and 90? flexion and verified spiritism of the entire arc of motion of the knee. The circulating nurse confirmed the sponge and needle counts were correct. I used pulse lavage to rinse the joint and wound. The extensor mechanism was closed with interrupted #1 Vicryl suture and #1 running Stratafix suture. The subcutaneous layer was closed with interrupted #1 Vicryl suture followed by 2-0 Stratafix and 3-0 Stratafix. Steri-Strips placed on the skin. Silver impregnated occlusive dressing applied to the wound. A light gauze wrap and Shamar bandage were placed. The patient was transferred to the recovery room in stable condition. There were no complications. Implants Medacta GMK spheriKA Femoral component SpheriKA size 2+, tibial component size 2, vitamin-E flex insert, thickness 10 mm, Anatomic patella implant size 32. Estimated Blood Loss 20 Drains No Pathology None sent Complications No immediate complications Condition Stable Disposition PACU [facility] Billing Surgery - Charge Forward: Surgery Billing
[2024-09-23] MEDS: fentaNYL CITRATE INJ (*CRX) 100 MCG/2 ML VIAL 25 MCG IV PUSH ×7 (15:45→17:15)
[2024-09-23] MEDS: ACETAMINOPHEN 325 MG TABLET 650 MG PO ×2 (18:52→23:24)
[2024-09-23] MEDS: predniSONE 5 MG TABLET PO (18:53)
[2024-09-23] MEDS: oxyCODONE/ACETAMINOPHEN (*CRX) 10-325 MG TABLET 1 TAB PO (18:53)
[2024-09-23] MEDS: SENNA/DOCUSATE SODIUM TABLET 2 TAB PO (18:53)
[2024-09-23] MEDS: MELOXICAM 7.5 MG TABLET PO (18:54)
[2024-09-23] MEDS: SODIUM CHLORIDE 0.9% IV 1,000 ML 125 ML IV CONT (19:02)
[2024-09-23] MEDS: FAMOTIDINE 20 MG TABLET PO (20:20)
[2024-09-23] MEDS: ASPIRIN 81 MG ENTERIC TABLET PO (20:20)
[2024-09-23] MEDS: CYCLOBENZAPRINE HCL 10 MG TABLET PO (20:20)
[2024-09-23] MEDS: carvediloL 6.25 MG TABLET BY MOUTH (20:21)
[2024-09-23] MEDS: oxyCODONE/ACETAMINOPHEN (*CRX) 5-325 MG TABLET 1 TABLET PO (23:24)
[2024-09-24 03:23] VITALS: BP 152/70; PULSE 86; RESP 16; TEMP 37.1; O2SAT 98
[2024-09-24] MEDS: ACETAMINOPHEN 325 MG TABLET 650 MG PO ×2 (04:29→11:39)
[2024-09-24] MEDS: LEVOTHYROXINE SODIUM 100 MCG TABLET PO (04:29)
[2024-09-24] MEDS: ceFAZolin 2 GM/D5W 50 ML 2 GM/50 ML BAG IVPB ×2 (04:29→11:40)
[2024-09-24] MEDS: oxyCODONE/ACETAMINOPHEN (*CRX) 10-325 MG TABLET 1 TAB PO ×2 (04:30→09:37)
[2024-09-24 06:45] LABS: Basophils Percent Auto 0.3 % (0.2-1.2); Eosinophils Percent Auto 0.1 % (0-4.4); Hematocrit 35.9 % (37.0-47.0); Hemoglobin 11.8 g/dL (12.0-15.0); Immature Granulocyte Absolute 0.13 K/mm3 (0.00-0.031); Immature Granulocyte Percent A 0.8 % (0-0.5); Lymphocytes Absolute Auto 0.71 K/mm3 (0.9-3.2); Lymphocytes Percent Auto 4.5 % (18.3-44.2); Mean Corpuscular HGB Conc 32.9 g/dl (32-36); Mean Corpuscular Hemoglobin 30.5 pg (26-34); Mean Corpuscular Volume 92.8 fl (80-100); Mean Platelet Volume 9.3 fl (7.4-10.4); Monocytes Absolute Auto 1.2 K/mm3 (0.1-0.6); Monocytes Percent Auto 7.3 % (2.6-8.5); Neutrophils Absolute Auto 13.9 K/mm3 (1.3-6.7); Platelet Count Result 307 k/mm3 (150-375); Red Blood Count 3.87 M/mm3 (4.2-5.4); Red Cell Distribution Width 13.9 % (11.5-14.5); White Blood Count 15.9 K/mm3 (4.5-10.0)
[2024-09-24 07:02] LABS: Anion Gap 10 mmol/L (4-12); Blood Urea Nitrogen 20 mg/dL (7-17); Calcium 9.3 mg/dL (8.4-10.2); Carbon Dioxide 26 mmol/L (22-30); Chloride 102 mmol/L (98-107); Estimated Glomerular Filt Rate 47; Glucose 155 mg/dL (65-110); Potassium 5.3 mmol/L (3.4-5.0); Sodium 138 mmol/L (137-145)
[2024-09-24 07:53] VITALS: BP 162/77; PULSE 81; RESP 16; TEMP 36.2; O2SAT 92
[2024-09-24 08:00] VITALS: O2SAT 92
[2024-09-24] MEDS: ASPIRIN 81 MG ENTERIC TABLET PO (09:33)
[2024-09-24] MEDS: FAMOTIDINE 20 MG TABLET PO (09:33)
[2024-09-24] MEDS: MELOXICAM 7.5 MG TABLET PO (09:33)
[2024-09-24] MEDS: carvediloL 6.25 MG TABLET BY MOUTH (09:33)
[2024-09-24] MEDS: amLODIPine BESYLATE 5 MG TABLET BY MOUTH (09:33)
[2024-09-24] MEDS: polyethylene glycoL 3350 17 GM POWD.PACK PO (09:33)
[2024-09-24] MEDS: CYCLOBENZAPRINE HCL 10 MG TABLET PO (09:33)
[2024-09-24] MEDS: SENNA/DOCUSATE SODIUM TABLET 2 TAB PO (09:33)
[2024-09-24] MEDS: LOSARTAN POTASSIUM 100 MG TABLET PO (09:45)
[2024-09-24 12:00] VITALS: BP 140/72; PULSE 85; RESP 18; TEMP 36.6; O2SAT 94
== END 2024-09-24 14:30 | disposition home or self-care (01) ==
LOC: ANHSURGERY 09:35 → ANH3MEDSUR 17:40
PROVIDERS: Physician Assistant Surgical; PCP Internal Medicine; Visit Provider Orthopaedic Surgery
PROC: (CPT 27447; principal; 2024-09-23 12:00)
DX: M17.12 Unilateral primary osteoarthritis, left knee (principal); E66.9 Obesity, unspecified; Z68.36 Body mass index [BMI] 36.0-36.9, adult
CPT/HCPCS: 27447; 36415; 73560; 80048; 85025; 86850; 86900; 86901; 97110; 97116; 97161; 97165; 97530; 97535; C1776; A9270; C1713; J0171; J0690; J1100; J1885; J2003; J2250; J2270; J2405; J2704; J2795; J3010; J7030; J7120; J7512

== ENCOUNTER 2024-11-26 10:16 | Outpatient (CLI) | payer MEDICARE, SELFPAY ==
--- NOTE | ~2024-11-26 | XR_ITS ---
XR knee RT 3V Ordering provider: David Savage MD History: . M25.569 - Pain in unspecified knee, NKI, PAIN 4 MON. . Comparison: None. FINDINGS: BONES: No acute fracture or dislocation. JOINT SPACES: Narrowing of the medial compartment. Marginal osteophytes seen in the knee and patella. SOFT TISSUES: Ossification in the area of the insertion of the quadriceps tendon. IMPRESSION: No acute osseous abnormality right knee. Reviewed, dictated and finalized at location A.
--- OUTSIDE RECORDS SUMMARY | 2024-11-26 10:31 | XMS_ITS | Encounter Summary ---
Author Organization [facility] Address [address] [facility] [place] [address] Care Team Providers Care Washer Meat Name Role Phone Unavailable Primary Care Provider Unavailabl e Encounter Details Date Type Department Care Team (Late st Contact Info) Description 06/08/2012 SS Outpatient Visit EXTERNAL NON-SS DEPT Grupo Moura MD [address] [place] [id number] Social History Tobacco Use Types Packs/Day Years Used Date Smoking Tobacco: Never Alcohol Use Standard Drinks/Week Comments No 0 (1 standard drink = 0.6 oz pur e alcohol) Comments No Sex and Gender Information Value Date Recorded Sex Assigned at Not on file 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
--- OUTSIDE RECORDS SUMMARY | 2024-11-26 10:31 | XMS_ITS | Referral Summary ---
Author Organization [facility] Address [facility] [place] [address] Care Team Providers Care Healthcare Management Name Role Phone David Savage MD Primary Care Provider Allergies Active Allergy Reactions Criticality Noted Date Comments Adalimumab Unknown 12/09/2014 Amitriptyline Other (See comments) Low 02/22/2012 Drowsiness Etanercept Stomach upset Low 12/09/2014 Golimumab Stomach upset Low 12/09/2014 Hydroxychloroquine Nausea And Vomiting 04/09/20 15 Stomach pain Medications omega 2-dkl-zqh-fish oil (Fish OiL) 1,200 (144-216) mg capsuleIndicati ons:hypertrigly ceridemia Take 1 capsule by mouth 2 (two) times a day Active amLODIPine (NORVASC) 5 mg tabletIndicatio ns:hypertension Take 1 tablet (5 mg total) by mouth early childhood associate before breakfast 3 Active carvediloL (COREG) 6.25 mg tabletIndicatio ns:hypertension Take 1 tablet (6.25 mg total) by mouth 2 (two) times a day 3 Active cholecalciferol (VITAMIN D-3) 2000 unit tabletIndicatio ns:Vitamin D Deficiency Take 2 tablets (4,000 Units total) by mouth early childhood associate before breakfast 3 Active losartan (COZAAR) 100 mg tabletIndicatio ns:hypertension Take 1 tablet (100 mg total) by mouth early childhood associate before breakfast Active tiZANidine (ZANAFLEX) 4 mg [...] 2 tablets (100 mg total) by mouth early childhood associate before breakfast 3 Active lorazepam (ATIVAN ORAL) [...] on file 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
--- OUTSIDE RECORDS SUMMARY | 2024-11-26 10:31 | XMS_ITS | Encounter Summary ---
Author Organization [facility] Health Address [address] [facility] [place] [address] Care Team Providers Care Tableman Name Role Phone Unavailable Primary Care Provider Unavailabl e Encounter Details Date Type Department Care Team (Late st Contact Info) Description 06/05/2012 [facility] Grupo Moura MD [address] [place] [address] Social History Tobacco Use Types Packs/Day Years Used Date Smoking Tobacco: Never Alcohol Use Standard Drinks/Week Comments No 0 (1 standard drink = 0.6 oz pur e alcohol) Comments No Sex and Gender Information Value Date Recorded Sex Assigned at Not on file 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
--- OUTSIDE RECORDS SUMMARY | 2024-11-26 10:31 | XMS_ITS | Encounter Summary ---
Author Organization [facility] Health Address [address] [place] [address] Care Team Providers Care Angle Shear Operator Name Role Phone Unavailable Primary Care Provider Unavailabl e Encounter Details Date Type Department Care Team (Late st Contact Info) Description 12/26/2012 [facility] DEPT Grupo Moura MD [address] [place] [address] Social History Tobacco Use Types Packs/Day Years Used Date Smoking Tobacco: Never Alcohol Use Standard Drinks/Week Comments No 0 (1 standard drink = 0.6 oz pur e alcohol) Comments No Sex and Gender Information Value Date Recorded Sex Assigned at Not on file 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
--- OUTSIDE RECORDS SUMMARY | 2024-11-26 10:31 | XMS_ITS | Encounter Summary ---
Author Organization [facility] Health Address [address] [facility] [place] [address] Care Team Providers Care Technician Submarine Cable Equipment Name Role Phone Unavailable Primary Care Provider Unavailabl e Encounter Details Date Type Department Care Team (Late st Contact Info) Description 12/31/2012 [facility]-SS DEPT Grupo Moura MD [address] [place] [address] Social History Tobacco Use Types Packs/Day Years Used Date Smoking Tobacco: Never Alcohol Use Standard Drinks/Week Comments No 0 (1 standard drink = 0.6 oz pur e alcohol) Comments No Sex and Gender Information Value Date Recorded Sex Assigned at Not on file 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
--- OUTSIDE RECORDS SUMMARY | 2024-11-26 10:31 | XMS_ITS | Continuity of Care Document ---
Author Organization [facility] Address [address] [facility] [address] [place] [address] Phone Care Team Providers Care Manager Policy Name Role Phone King OD, Ferdinand Unavailable Unavailable Procedures Procedure Date Eye Exam, New Patient Eye Exam & Treatment Refraction Advance Directives Directive Yes / No Effective Date File Name No Information Encounters Encounter Description Practice Location Reason(s) For Visit Diagnoses Date Provider Providers Copied on Encounter [facility], [address] [place] [address] [address], [place], [place], [id number], tel:[phone] [facility] No Information 3-200 8 King OD Ferdinand. [address] [facility] , [address], [place], [place], [facility], [place]. tel:[phone] [facility], [address] [place] [address] [address], [place], [place], [id number], tel:[phone] [facility] [place] No Information [address] Iraheta Jeanette. [address] [facility] [address] , [address], [place], [address], [place]. tel:[phone] Family History Family Member Type Diagnosis Age [...]
--- OUTSIDE RECORDS SUMMARY | 2024-11-26 10:31 | XMS_ITS | Clinical Summary ---
Author Organization [facility] Address [address] [place] [address] Care Team Providers Care Player Development Executive Name Role Phone David Savage MD Primary Care Provider [phone] Social History Tobacco Use Types Packs/Day Years [...] Zoster Vaccines (2 of 2) 07/14/2019 05/19/2019 Pneumococcal Vaccine: 50+ Years (2 of 2 - PPSV23) 03/19/2020 03/19/2019 Annual Medicare Wellness Visit 2020 COVID-19 Vaccine ( season) 2024 05/06/2022, 05/28/2021, 09/30/2020, Additional history exists Dexa Scan (General) Completed [...] age [place] [id number] Care Teams Player Development Executive Relationship Specialty Start Date End Date David Savage MD [address] - [facility] [address] [place] [address] PCP - General INTERNAL MEDICINE 03/13/24
--- OUTSIDE RECORDS SUMMARY | 2024-11-26 10:31 | XMS_ITS | Clinical Summary ---
Author Organization [facility] [employer] Address [address] [facility] [place] [address] Care Team Providers Care Facilities Operations Technician Name Role Phone Unavailable Primary Care Provider Unavailabl e Source Comments [facility],non-owned Affiliates and Associated Physician Practices is amultiple site organization consisting of ambulatory clinics and hospital sitesin [place], [place], [place] and [place]. This disclosure is being madepursuant to the Care Everywhere program and may not contain all information available regarding this patient. Last updated 18.[facility] [employer] Allergies Active Allergy Reactions Criticality Noted Date Comments Amitriptyline 02/22/2012 Drowsiness Enbrel GI Discomfort 12/09/2014 Adalimumab GI Discomfort 12/09/2014 Hydroxychloroquine Nausea and/or Vomiting 04/09 Stomach pain Golimumab GI Discomfort 12/09/2014 Medications * Be aware that medications may not be up to date on this document. Alwaysverify current medications with the patient. FISH OIL 1200 MG CAPS Take by mouth 2 times daily. Active Cyanocobalamin (B-12) 1000 MCG CAPS Take 1,000 mg by mouth once daily. 1 qd. Active aspirin 325 MG tablet Take 325 mg by mouth daily. Active vitamin D, cholecalciferol , 2000 UNITS tabletIndicatio ns:Vitamin d deficiency Take 2 Tabs by mouth once daily. 3 Active Additional Information Patient taking differently: 2,000 UnitsOral DAILY, Reported on 04/09/2015 indapamide (LOZOL) 2.5 MG tablet Take 2.5 mg by mouth once daily. Active traMADol (ULTRAM) 50 MG tablet Take 1 Tab by mouth 2 times daily as needed for Pain. 60 Tab 0 3 Active losartan (COZAAR) 100 MG tablet Take by mouth once daily. Active amLODIPine (NORVASC) 5 MG tablet Take by mouth once daily. Active tiZANidine (ZANAFLEX) 4 MG tabletIndicatio ns:Myofascial pain Take 1 Tab by mouth at bedtime. 90 Tab 3 4 Active Active Problems Problem Noted Date Diagnosed [...] on file Legal Sex Female 4:24 AM LEGAL LIBRARIAN Gender Identity Not on file Sexual Orientation Not on file Last Filed Vital Signs Vital Sign Reading Time Taken Comments Blood Pressure 120/70 07/26/2016 2:39 PM LEGAL LIBRARIAN Pulse 89 07/26/2016 2:39 PM LEGAL LIBRARIAN Temperature 36.8 C (98.3 F) 07/26/2016 2:39 PM LEGAL LIBRARIAN Respiratory Rate 16 07/26/2016 2:39 PM LEGAL LIBRARIAN Oxygen Saturation - - Inhaled Oxygen Concentration - - Weight 74.4 kg (164 lb) 07/26/2016 2:39 PM LEGAL LIBRARIAN Height 149.9 cm (4' 11 ) 07/26/2016 2:39 PM LEGAL LIBRARIAN Body Mass Index 33.12 07/26/2016 2:39 PM LEGAL LIBRARIAN Plan of Treatment Health Maintenance Due Date [...] VACCINE (1 - 2023-2 5 season) 2024 DEPRESSION SCREENING 07/10/2024 INFLUENZA VACCINE (Season Ended) 2025 Respiratory Syncytial Virus (RSV) Vaccine Pt: or [...] HEPATITIS SCREEN ACUTE Routine 07/21/2011 3:59 PM LEGAL LIBRARIAN Fatigue from Last 3 Months or Most [...] 3:25 PM Rio Carlton MD DEXA ORDERABLES Final Result * HEPATITIS SCREEN ACUTE (07/21/2011 3:59 PM LEGAL LIBRARIAN) Hepatitis A Virus Antibody IgM Negative Negative [...] BLOOD SPECIMEN / Unknown 07/21/2011 3:59 PM LEGAL LIBRARIAN 07/21/2011 10:03 PM LEGAL LIBRARIAN Narrative Resulting Agency Comment [facility] [address] [id number] Grupo Moura MD LAB - CHEMISTRY ORDERABLE S Final Result [facility] ACCOUNT BILL [id number] [place] [address] from Last 3 Months or Most Recently Relevant to Health Maintenance Insurance MEDICARE MEDICARE
--- OUTSIDE RECORDS SUMMARY | 2024-11-26 10:31 | XMS_ITS | Clinical Summary ---
Author Organization [facility] Address [facility] [place] [address] Care Team Providers Care Household Appliance Repairer Name Role Phone David Savage MD Primary Care Provider [phone] Allergies Active Allergy Reactions Criticality Noted Date Comments Adalimumab Unknown 12/09/2014 Amitriptyline Other (See comments) Low 02/22/2012 Drowsiness Etanercept Stomach upset Low 12/09/2014 Golimumab Stomach upset Low 12/09/2014 Hydroxychloroquine Nausea And Vomiting 04/09/20 15 Stomach pain Medications omega 8-mjm-awz-fish oil (Fish OiL) 1,200 (144-216) mg capsuleIndicati ons:hypertrigly ceridemia Take 1 capsule by mouth 2 (two) times a day Active amLODIPine (NORVASC) 5 mg tabletIndicatio ns:hypertension Take 1 tablet (5 mg total) by mouth echo vascular tech before breakfast 3 Active carvediloL (COREG) 6.25 mg tabletIndicatio ns:hypertension Take 1 tablet (6.25 mg total) by mouth 2 (two) times a day 3 Active cholecalciferol (VITAMIN D-3) 2000 unit tabletIndicatio ns:Vitamin D Deficiency Take 2 tablets (4,000 Units total) by mouth echo vascular tech before breakfast 3 Active losartan (COZAAR) 100 mg tabletIndicatio ns:hypertension Take 1 tablet (100 mg total) by mouth echo vascular tech before breakfast Active tiZANidine (ZANAFLEX) 4 mg [...] 2 tablets (100 mg total) by mouth echo vascular tech before breakfast 3 Active lorazepam (ATIVAN ORAL) [...] Hx Surgical History Surgery Date Site/Laterality Comments [place] TOTAL ABDOMINAL HYSTERECT W/WO RMVL TUBE OVARY Hysterectomy - 1990 (Added by TW Conv) OVARY SURGERY Ovarian Surgery - 1993 & 1994 (Added by TW Conv) [place] UNLISTED PROCEDURE ABDOMEN PERITONEUM & OMENTUM Hernia [...] on file Legal Sex Female 8:24 PM SENIOR BOOKKEEPER Gender Identity Not on file Sexual Orientation [...] 04/26/2021, 03/09/2020, Additional history exists [facility] AETNA SENIOR SUPPLEMENT Advance Directives For more information, please contact: [phone] * Full Code (Latest Code Status on File) Date Activated Date Inactivated Comments 01/25/2023 12:44 PM 01/25/2023 8:51 PM Care Teams Household Appliance Repairer Relationship Specialty Start Date End Date David Savage MD [address] [facility] [address] INTER[address] MEDICINE [place], [place] [id number] PCP - General Internal Medicine 06/23/22
== END 2024-11-26 10:17 | disposition home or self-care (01) ==
LOC: ANHIMG 10:18
PROVIDERS: PCP Internal Medicine; Visit Provider Internal Medicine
DX: M17.11 Unilateral primary osteoarthritis, right knee (principal)
CPT/HCPCS: 73562

== ENCOUNTER 2025-01-27 11:18 | Outpatient (CLI) | payer MEDICARE, SELFPAY ==
--- OUTSIDE RECORDS SUMMARY | 2025-01-27 11:23 | XMS_ITS | Encounter Summary ---
Author Organization [facility] Health Address [address] [facility] [place] [address] Care Team Providers Care Tile Installer Name Role Phone Unavailable Primary Care Provider Unavailabl e Encounter Details Date Type Department Care Team (Late st Contact Info) Description 12/31/2012 [facility]PT Grupo Moura MD [address] [place] [address] Social History Tobacco Use Types Packs/Day Years Used Date Smoking Tobacco: Never Alcohol Use Standard Drinks/Week Comments No 0 (1 standard drink = 0.6 oz pur e alcohol) Comments No Sex and Gender Information Value Date Recorded Sex Assigned at Not on file Legal Sex Female 4:24 AM DOOR CAPTAIN Gender Identity Not on file Sexual Orientation Not on file documented as of this encounter Plan of Treatment Not on file documented as of this encounter Visit Diagnoses Not on filedocumented in this encounter
--- OUTSIDE RECORDS SUMMARY | 2025-01-27 11:24 | XMS_ITS | Continuity of Care Document ---
Author Organization [facility] Address [address] [facility] [address] [place] [address] Phone Care Team Providers Care Cruise Guide Name Role Phone King OD, Efrdinand Unavailable Unavailable Procedures Procedure Date Eye Exam, New Patient Eye Exam & Treatment Refraction Advance Directives Directive Yes / No Effective Date File Name No Information Encounters Encounter Description Practice Location Reason(s) For Visit Diagnoses Date Provider Providers Copied on Encounter [facility], [address] [place] [address] [address], [place], [place], [id number], tel:[phone] SEC [facility] No Information 3-200 8 King OD Ferdinand. [address] [facility] [place] , [address], [place], [place], [facility], [place]. tel:[phone] [facility], [address] [place] [address] [address], [place], [place], [id number], tel:[phone] [facility] [place] No Information [address] Iraheta Jeanette. [address] [facility] [place] , [address], [place], [address], [place]. tel:[phone] Family History Family Member Type Diagnosis Age At Onset No Information Payers Payer name Insurance type Covered green party ID Authoriza tion(s) No Information Social [...]
--- OUTSIDE RECORDS SUMMARY | 2025-01-27 11:24 | XMS_ITS | Clinical Summary ---
Author Organization [facility] Address [facility] [place] [address] Care Team Providers Care Boner Meat Name Role Phone David Savage MD Primary Care Provider Allergies Active Allergy Reactions Criticality Noted Date Comments Adalimumab Unknown 12/09/2014 Amitriptyline Other (See comments) Low 02/22/2012 Drowsiness Etanercept Stomach upset Low 12/09/2014 Golimumab Stomach upset Low 12/09/2014 Hydroxychloroquine Nausea And Vomiting 04/09/20 15 Stomach pain Medications omega 9-ozc-gnv-fish oil (Fish OiL) 1,200 (144-216) mg capsuleIndicati ons:hypertrigly ceridemia Take 1 capsule by mouth 2 (two) times a day Active amLODIPine (NORVASC) 5 mg tabletIndicatio ns:hypertension Take 1 tablet (5 mg total) by mouth social worker aide before breakfast 3 Active carvediloL (COREG) 6.25 mg tabletIndicatio ns:hypertension Take 1 tablet (6.25 mg total) by mouth 2 (two) times a day 3 Active cholecalciferol (VITAMIN D-3) 2000 unit tabletIndicatio ns:Vitamin D Deficiency Take 2 tablets (4,000 Units total) by mouth social worker aide before breakfast 3 Active losartan (COZAAR) 100 mg tabletIndicatio ns:hypertension Take 1 tablet (100 mg total) by mouth social worker aide before breakfast Active tiZANidine (ZANAFLEX) 4 mg [...] 2 tablets (100 mg total) by mouth social worker aide before breakfast 3 Active lorazepam (ATIVAN ORAL) [...] Hx Surgical History Surgery Date Site/Laterality Comments [place] TOTAL ABDOMINAL HYSTERECT W/WO RMVL TUBE OVARY Hysterectomy - 1990 (Added by TW Conv) OVARY SURGERY Ovarian Surgery - 1993 & 1994 (Added by TW Conv) [place] UNLISTED PROCEDURE ABDOMEN PERITONEUM & OMENTUM Hernia [...] on file Legal Sex Female 8:24 PM MAT REPAIRER Gender Identity Not on file Sexual Orientation [...] 8:10 AM CDT Height 149.9 cm (4' 11) 02/14/2023 8:10 AM CDT Body Mass Index [...] 05/28/2021, 09/30/2020, Additional history exists Influenza Vaccine (Season Ended) 2025 05/06/2022, 04/26/2021, 03/09/2020, Additional history exists Insurance [facility] AETNA SENIOR SUPPLEMENT Advance Directives For more information, please contact: [phone] * Full Code (Latest Code Status on File) Date Activated Date Inactivated Comments 01/25/2023 12:44 PM 01/25/2023 8:51 PM Care Teams Boner Meat Relationship Specialty Start Date End Date David Savage MD [address] [facility] [address] INTERNAL MEDICINE [place], [place] [id number] PCP - General Internal Medicine 06/23/22
--- OUTSIDE RECORDS SUMMARY | 2025-01-27 11:24 | XMS_ITS | Encounter Summary ---
Author Organization [facility] Health Address [address] [facility] [place] [address] Care Team Providers Care Glove Cutter Name Role Phone Unavailable Primary Care Provider Unavailabl e Encounter Details Date Type Department Care Team (Late st Contact Info) Description 12/26/2012 [facility] Grupo Moura MD [address] [place] [address] Social History Tobacco Use Types Packs/Day Years Used Date Smoking Tobacco: Never Alcohol Use Standard Drinks/Week Comments No 0 (1 standard drink = 0.6 oz pur e alcohol) Comments No Sex and Gender Information Value Date Recorded Sex Assigned at Not on file Legal Sex Female 4:24 AM MENTAL HEALTH NURSE Gender Identity Not on file Sexual Orientation Not on file documented as of this encounter Plan of Treatment Not on file documented as of this encounter Visit Diagnoses Not on filedocumented in this encounter
--- OUTSIDE RECORDS SUMMARY | 2025-01-27 11:24 | XMS_ITS | Clinical Summary ---
Author Organization [facility] [employer] Address [address] [facility] [place] [address] Care Team Providers Care Javascript Application Developer Name Role Phone Unavailable Primary Care Provider Unavailabl e Source Comments [facility],non-owned Affiliates and Associated Physician Practices is amultiple site organization consisting of ambulatory clinics and hospital sitesin [place], [place], [place] and [place]. This disclosure is being madepursuant to the Care Everywhere program and may not contain all information available regarding this patient. Last updated 18.[facility] [employer] Allergies Active Allergy Reactions Criticality Noted [...] on file Legal Sex Female 4:24 AM DEPUTY PROGRAM MANAGER Gender Identity Not on file Sexual Orientation Not on file Last Filed Vital Signs Vital Sign Reading Time Taken Comments Blood Pressure 120/70 07/26/2016 2:39 PM DEPUTY PROGRAM MANAGER Pulse 89 07/26/2016 2:39 PM DEPUTY PROGRAM MANAGER Temperature 36.8 C (98.3 F) 07/26/2016 2:39 PM DEPUTY PROGRAM MANAGER Respiratory Rate 16 07/26/2016 2:39 PM DEPUTY PROGRAM MANAGER Oxygen Saturation - - Inhaled Oxygen Concentration - - Weight 74.4 kg (164 lb) 07/26/2016 2:39 PM DEPUTY PROGRAM MANAGER Height 149.9 cm (4' 11) 07/26/2016 2:39 PM DEPUTY PROGRAM MANAGER Body Mass Index 33.12 07/26/2016 2:39 PM DEPUTY PROGRAM MANAGER Plan of Treatment Health Maintenance Due Date [...] season) 2024 DEPRESSION SCREENING 07/10/2024 INFLUENZA VACCINE (#1) 2025 Respiratory Syncytial Virus (RSV) Vaccine Pt: [...] HEPATITIS SCREEN ACUTE Routine 07/21/2011 3:59 PM DEPUTY PROGRAM MANAGER Fatigue from Last 3 Months or Most [...] * HEPATITIS SCREEN ACUTE (07/21/2011 3:59 PM DEPUTY PROGRAM MANAGER) Hepatitis A Virus Antibody IgM Negative [...] BLOOD SPECIMEN / Unknown 07/21/2011 3:59 PM DEPUTY PROGRAM MANAGER 07/21/2011 10:03 PM DEPUTY PROGRAM MANAGER Narrative Resulting Agency Comment [facility] [address] [id number] Grupo Moura MD LAB - CHEMISTRY ORDERABLE S Final Result [facility] ACCOUNT BILL [id number] [place] [address] from Last 3 Months or Most Recently Relevant to Health Maintenance Insurance MEDICARE MEDICARE
--- OUTSIDE RECORDS SUMMARY | 2025-01-27 11:24 | XMS_ITS | Encounter Summary ---
Author Organization [facility] Health Address [address] [facility] [place] [address] Care Team Providers Care Taper Operator Name Role Phone Unavailable Primary Care Provider Unavailabl e Encounter Details Date Type Department Care Team (Late st Contact Info) Description 06/05/2012 [facility] Grupo Moura MD [address] [place] [address] Social History Tobacco Use Types Packs/Day Years Used Date Smoking Tobacco: Never Alcohol Use Standard Drinks/Week Comments No 0 (1 standard drink = 0.6 oz pur e alcohol) Comments No Sex and Gender Information Value Date Recorded Sex Assigned at Not on file Legal Sex Female 4:24 AM HAND TOOL LAPPER Gender Identity Not on file Sexual Orientation Not on file documented as of this encounter Plan of Treatment Not on file documented as of this encounter Visit Diagnoses Not on filedocumented in this encounter
--- OUTSIDE RECORDS SUMMARY | 2025-01-27 11:24 | XMS_ITS | Clinical Summary ---
Author Organization [facility] Address [address] [place] [address] Care Team Providers Care Meat And Seafood Manager Name Role Phone David Savage MD Primary Care Provider [phone] Social History Tobacco Use Types Packs/Day Years [...] [place] [id number] Care Teams Meat And Seafood Manager Relationship Specialty Start Date End Date David Savage MD [address] - [facility] [address] [place] [address] PCP - General INTERNAL MEDICINE 03/13/24
--- OUTSIDE RECORDS SUMMARY | 2025-01-27 11:24 | XMS_ITS | Referral Summary ---
Author Organization [facility] Address [facility] [place] [address] Care Team Providers Care Claims Service Adjustor Name Role Phone David Savage MD Primary Care Provider [phone] Allergies Active Allergy Reactions Criticality Noted Date Comments Adalimumab Unknown 12/09/2014 Amitriptyline Other (See comments) Low 02/22/2012 Drowsiness Etanercept Stomach upset Low 12/09/2014 Golimumab Stomach upset Low 12/09/2014 Hydroxychloroquine Nausea And Vomiting 04/09/20 15 Stomach pain Medications omega 4-box-lts-fish oil (Fish OiL) 1,200 (144-216) mg capsuleIndicati ons:hypertrigly ceridemia Take 1 capsule by mouth 2 (two) times a day Active amLODIPine (NORVASC) 5 mg tabletIndicatio ns:hypertension Take 1 tablet (5 mg total) by mouth customer agent before breakfast 3 Active carvediloL (COREG) 6.25 mg tabletIndicatio ns:hypertension Take 1 tablet (6.25 mg total) by mouth 2 (two) times a day 3 Active cholecalciferol (VITAMIN D-3) 2000 unit tabletIndicatio ns:Vitamin D Deficiency Take 2 tablets (4,000 Units total) by mouth customer agent before breakfast 3 Active losartan (COZAAR) 100 mg tabletIndicatio ns:hypertension Take 1 tablet (100 mg total) by mouth customer agent before breakfast Active tiZANidine (ZANAFLEX) 4 mg [...] 2 tablets (100 mg total) by mouth customer agent before breakfast 3 Active lorazepam (ATIVAN ORAL) [...] file Legal Sex Female 8:24 PM FOOD BEVERAGE SERVER Gender Identity Not on file Sexual Orientation [...] of Treatment Not on file Insurance MEDICARE [facility] MEDICARE AETNA SENIOR SUPPLEMENT Advance Directives For more information, please contact: [phone] * Full Code (Latest Code Status on File) Date Activated Date Inactivated Comments 01/25/2023 12:44 PM 01/25/2023 8:51 PM Care Teams Claims Service Adjustor Relationship Specialty Start Date End Date David Savage MD [address] [place] [address] [place] [address] PCP - General Internal Medicine 06/23/22
--- OUTSIDE RECORDS SUMMARY | 2025-01-27 11:24 | XMS_ITS | Encounter Summary ---
Author Organization [facility] Health Address [address] [place] [address] Care Team Providers Care Motor Inspection Mechanic Name Role Phone Unavailable Primary Care Provider Unavailabl e Encounter Details Date Type Department Care Team (Late st Contact Info) Description 06/08/2012 [facility] EXTERNAL NON-[facility] DEPT Grupo Moura MD [address] [place] [id number] Social History Tobacco Use Types Packs/Day Years Used Date Smoking Tobacco: Never Alcohol Use Standard Drinks/Week Comments No 0 (1 standard drink = 0.6 oz pur e alcohol) Comments No Sex and Gender Information Value Date Recorded Sex Assigned at Not on file Legal Sex Female 4:24 AM SUSTAINABLE DEVELOPMENT POLICY ANALYST Gender Identity Not on file Sexual Orientation Not on file documented as of this encounter Plan of Treatment Not on file documented as of this encounter Visit Diagnoses Not on filedocumented in this encounter
[2025-01-27 11:51] LABS: Hematocrit 38.5 % (37.0-47.0); Hemoglobin 12.4 g/dL (12.0-15.0)
[2025-01-27 12:11] LABS: Albumin Level 4.4 g/dL (3.5-5.1); Estimated Glomerular Filt Rate 59; Glucose 92 mg/dL (65-110)
== END 2025-01-27 11:19 | disposition home or self-care (01) ==
PROVIDERS: PCP Internal Medicine; Visit Provider Orthopaedic Surgery
DX: R73.03 Prediabetes (principal); D64.9 Anemia, unspecified; R79.89 Other specified abnormal findings of blood chemistry; E53.8 Deficiency of other specified B group vitamins
CPT/HCPCS: 36415; 82040; 82565; 82947; 85014; 85018

== ENCOUNTER 2025-06-13 02:18 | Day surgery (SDC) | payer MEDICARE, SELFPAY ==
[2025-05-27 10:32] VITALS: BMI 35.6
[2025-06-13 10:53] VITALS: BP 157/92; PULSE 121; RESP 20; TEMP 36.2; O2SAT 98; BMI 34.3
[2025-06-13] MEDS: LACTATED RINGERS 1,000 ML 150 ML IV CONT (11:12)
--- NOTE | 2025-06-13 11:23 | WPDANESEPPF ---
Anes - Initial Pre Proc Eval Procedure: Operation Date: 06/13/25 14:00 Proposed Procedures p Screening Colonoscopy - Clinton Willams MD Date/Time: 06/13/25 11:23 Surgeon: Clinton Willams MD Pre Op Diagnosis: +Cologuard/screening Patient Data Age: 70 Gender: F Height: 1.5 m Weight: 77.2 kg Last Vital Signs Temp 36.2 C L 06/13/25 10:53 Pulse 121 H 06/13/25 10:53 Resp 20 06/13/25 10:53 BP 157/92 H 06/13/25 10:53 Pulse Ox 98 06/13/25 10:53 O2 Del Method Room Air 06/13/25 10:53 Allergies Allergy/AdvReac Type Severity Reaction Status Date / Time tofacitinib (From Xeljanz) AdvReac Intermediate Other Verified 06/13/25 10:52 ezetimibe (From Zetia) AdvReac Mild myalgia Verified 06/13/25 10:52 Wdzqkgx-KFI-QpM Reductase AdvReac Unknown Muscle Pain Verified 06/13/25 10:52 Inhibitor (Jrlmjtu-Qqo-Yet Reductase Inhibitor) bempedoic acid (From AdvReac Muscle Pain Verified 06/13/25 10:52 Nexletol) Home Medications ?Medication ?Instructions ?Recorded ?Confirmed ?Type turmeric 400 mg capsule 400 mg PO DAILY 10/30/19 06/13/25 History omega-3 fatty acids-vitamin E 4 cap PO DAILY 11/30/20 06/13/25 History 1,000 mg capsule tizanidine 4 mg capsule 4 mg PO .qd PRN muscle spasticity 12/27/21 06/10/25 Rx #90 caps cholecalciferol (vitamin D3) 100 100 mcg PO DAILY 10/24/22 06/13/25 History mcg (4,000 unit) tablet acetaminophen 500 mg tablet 1,000 mg PO TID 08/11/23 06/10/25 History (Tylenol Extra Strength) adfhgghplpcb-wvaohhh-lxppm acid 1 tablet PO DAILY 08/11/23 06/13/25 History 400 mcg-lutein 250 mcg chewable tablet (Centrum Silver) lorazepam 0.5 mg tablet 0.5 mg PO TID PRN anxiety #30 tabs 10/05/23 06/10/25 Rx azathioprine 50 mg tablet 50 mg PO TID 04/25/24 06/10/25 History Held on 05/27/25. Instructions: .Provider Order tramadol 50 mg tablet 50 mg PO Q12H PRN pain 08/30/24 06/10/25 History levothyroxine 100 mcg tablet 100 mcg PO DAILY #90 tabs 12/05/24 06/13/25 Rx carvedilol 6.25 mg tablet See Rx Instructions .Route 12/15/24 06/13/25 Rx .COMPLEX #180 tabs berberine chloride 500 mg capsule 500 mg PO DAILY 03/06/25 06/13/25 History aspirin 81 mg tablet,delayed 81 mg PO DAILY 05/27/25 06/13/25 History release losartan 100 See Rx Instructions .Route 05/27/25 06/13/25 Rx mg-hydrochlorothiazide 25 mg tablet .COMPLEX #90 tabs amlodipine 5 mg tablet See Rx Instructions .Route 06/10/25 06/13/25 Rx .COMPLEX #90 tabs inclisiran 284 mg/1.5 mL 284 mg subcut [id number] 06/10/25 06/13/25 History subcutaneous syringe (Leqvio) metformin 500 mg tablet,extended 500 mg PO DAILY #90 tabs 06/10/25 06/13/25 Rx release 24 hr (Glucophage XR) Laboratory Tests 06/13/25 11:10 POC Capillary Glucose 137 H mg/dl (65-105) Patient hx anesthesia problems: none Family hx anesthesia problems: none Results Review: All pre-operative results and documents have been reviewed as part of the pre-operative evaluation. [facility] Past Medical History Medical History (Reviewed 06/10/25 @ 10:33 by Snehal Trinh [facility]) Abdominal pain Abnormal urinalysis Acne Anemia Anxiety Anxiety with depression Back pain Benign essential hypertension BMI 32.0-32.9,adult BMI 33.0-33.9,adult BMI 34.0-34.9,adult BMI 35.0-35.9,adult Breast tenderness in female Colon cancer screening DJD (degenerative joint disease) of knee Elevated serum creatinine Encounter for routine adult health examination with abnormal findings Encounter for routine adult health examination without abnormal findings Encounter for screening mammogram for malignant neoplasm of breast Exposure to COVID-19 virus Family history of heart disease FHx: breast cancer Fibromyalgia Follow up Frequent headaches Fullness of breast Gastritis GERD (gastroesophageal reflux disease) Heterozygous familial hypercholesterolemia Hormone replacement therapy (HRT) Hyperlipidemia Hypersomnolence Hypothyroidism associated with surgical procedure Insomnia Left flank pain Left radial head fracture Low hemoglobin Muscle cramps at night Nausea Nocturia On nursing home drug therapy Osteopenia Pre-diabetes Rheumatoid arthritis Right shoulder pain Seborrheic dermatitis Sjogrens syndrome Statin intolerance Urinary frequency Family History Family History (Reviewed 06/10/25 @ 10:33 by Snehal Trinh [facility]) Mother Hypertension Cerebrovascular accident Father Hypertension Family history of heart disease in male family member before age 55, Onset Age: 60 Family history of cardiovascular disease Sibling Cerebrovascular accident Hypertension Family history of cardiovascular disease, Onset Age: 67 Other Family history of coronary artery disease Family history of premature coronary heart disease Social History Social History (Reviewed 06/10/25 @ 10:33 by Snehal Trinh [facility]) Smoking status: Never smoker Second hand tobacco smoke exposure: No Alcohol intake: never Substance use: never Substance use type: does not use Lack of Transportation: No Lack of Food: Never True Current Housing: Decline to Answer Concerned About Future Housing: Decline to Answer Difficulty Paying Gas/Electric Bills: Decline to Answer Difficulty Paying for Meds: Decline to Answer Currently Unemployed: Decline to Answer Education: Decline to Answer Difficulty w/ Childcare or Family Care: Decline to Answer Living arrangements: with family Additional living arrangements comments: Gender identity (if verbalized by the patient): Female Spiritual care concerns: No Anes - Eval Final PreProcedure Day of Procedure 06/13/25 11:23 Patient weight: obese Heart: regular rate and rhythm Lungs: clear to auscultation Airway: Mallampati scale class II Neurological: alert and oriented Last oral intake: >/= 8 hours ASA classification: III Emergent: no Anesthetic plan: proceed Anesthesia type and monitoring: general GIVS and standard monitoring Results Review: All pre-operative results and documents have been reviewed as part of the pre-operative evaluation. Informed Consent: The patient's anesthetic plan and its attendant risks and benefits were discussed with the patient/family/POA. Questions were solicited and answers provided to the satisfaction of the patient/family/POA.
[2025-06-13 11:24] VITALS: PULSE 104
[2025-06-13] MEDS: FAMOTIDINE 20 MG/2 ML VIAL IV PUSH (11:32)
[2025-06-13] MEDS: ONDANSETRON INJ 4 MG/2 ML VIAL IV PUSH (11:32)
--- NOTE | 2025-06-13 11:35 | PM.HPGS ---
History of Present Illness History of Present Illness Consent: Risks, benefits, and alternatives have been discussed and questions answered. Patient agrees to proceed with procedure. Chief complaint: +Cologuard/screening Narrative: Anjali Rodriguez is a 70 year old female with last colonoscopy, + cologuard Review of Systems Review of Systems: All systems reviewed & are unremarkable except as noted in HPI and below PMFSH Past Medical History Medical History Abdominal pain Abnormal urinalysis Acne Anemia Anxiety Anxiety with depression Back pain Benign essential hypertension BMI 32.0-32.9,adult BMI 33.0-33.9,adult BMI 34.0-34.9,adult BMI 35.0-35.9,adult Breast tenderness in female Colon cancer screening DJD (degenerative joint disease) of knee Elevated serum creatinine Encounter for routine adult health examination with abnormal findings Encounter for routine adult health examination without abnormal findings Encounter for screening mammogram for malignant neoplasm of breast Exposure to COVID-19 virus Family history of heart disease FHx: breast cancer Fibromyalgia Follow up Frequent headaches Fullness of breast Gastritis GERD (gastroesophageal reflux disease) Heterozygous familial hypercholesterolemia Hormone replacement therapy (HRT) Hyperlipidemia Hypersomnolence Hypothyroidism associated with surgical procedure Insomnia Left flank pain Left radial head fracture Low hemoglobin Muscle cramps at night Nausea Nocturia 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 Osteopenia Pre-diabetes Rheumatoid arthritis Right shoulder pain Seborrheic dermatitis Sjogrens syndrome Statin intolerance Urinary frequency Family History Family History Mother Hypertension Cerebrovascular accident Father Hypertension Family history of heart disease in male family member before age 55, Onset Age: 60 Family history of cardiovascular disease Sibling Cerebrovascular accident Hypertension Family history of cardiovascular disease, Onset Age: 67 Other Family history of coronary artery disease Family history of premature coronary heart disease Social History Social History Smoking status: Never smoker Second hand tobacco smoke exposure: No Alcohol intake: never Substance use: never Substance use type: does not use Lack of Transportation: No Lack of Food: Never True Current Housing: Decline to Answer Concerned About Future Housing: Decline to Answer Difficulty Paying Gas/Electric Bills: Decline to Answer Difficulty Paying for Meds: Decline to Answer Currently Unemployed: Decline to Answer Education: Decline to Answer Difficulty w/ Childcare or Family Care: Decline to Answer Living arrangements: with family Additional living arrangements comments: Gender identity (if verbalized by the patient): Female Spiritual care concerns: No Meds Home Medications and Allergies Home Medications ?Medication ?Instructions ?Recorded ?Confirmed ?Type turmeric 400 mg capsule 400 mg PO DAILY 10/30/19 06/13/25 History omega-3 fatty acids-vitamin E 4 cap PO DAILY 11/30/20 06/13/25 History 1,000 mg capsule tizanidine 4 mg capsule 4 mg PO .qd PRN muscle spasticity 12/27/21 06/10/25 Rx #90 caps cholecalciferol (vitamin D3) 100 100 mcg PO DAILY 10/24/22 06/13/25 History mcg (4,000 unit) tablet acetaminophen 500 mg tablet 1,000 mg PO TID 08/11/23 06/10/25 History (Tylenol Extra Strength) xnikckqiiuta-msmjnqo-vzkmp acid 1 tablet PO DAILY 08/11/23 06/13/25 History 400 mcg-lutein 250 mcg chewable tablet (Centrum Silver) lorazepam 0.5 mg tablet 0.5 mg PO TID PRN anxiety #30 tabs 10/05/23 06/10/25 Rx azathioprine 50 mg tablet 50 mg PO TID 04/25/24 06/10/25 History Held on 05/27/25. Instructions: .Provider Order tramadol 50 mg tablet 50 mg PO Q12H PRN pain 08/30/24 06/10/25 History levothyroxine 100 mcg tablet 100 mcg PO DAILY #90 tabs 12/05/24 06/13/25 Rx carvedilol 6.25 mg tablet See Rx Instructions .Route 12/15/24 06/13/25 Rx .COMPLEX #180 tabs berberine chloride 500 mg capsule 500 mg PO DAILY 03/06/25 06/13/25 History aspirin 81 mg tablet,delayed 81 mg PO DAILY 05/27/25 06/13/25 History release losartan 100 See Rx Instructions .Route 05/27/25 06/13/25 Rx mg-hydrochlorothiazide 25 mg tablet .COMPLEX #90 tabs amlodipine 5 mg tablet See Rx Instructions .Route 06/10/25 06/13/25 Rx .COMPLEX #90 tabs inclisiran 284 mg/1.5 mL 284 mg subcut [id number] 06/10/25 06/13/25 History subcutaneous syringe (Leqvio) metformin 500 mg tablet,extended 500 mg PO DAILY #90 tabs 06/10/25 06/13/25 Rx release 24 hr (Glucophage XR) Allergies Allergy/AdvReac Type Severity Reaction Status Date / Time tofacitinib (From Xeljanz) AdvReac Intermediate Other Verified 06/13/25 10:52 ezetimibe (From Zetia) AdvReac Mild myalgia Verified 06/13/25 10:52 Prgdqsj-EOS-FfL Reductase AdvReac Unknown Muscle Pain Verified 06/13/25 10:52 Inhibitor (Exqiwiw-Mem-Tre Reductase Inhibitor) bempedoic acid (From AdvReac Muscle Pain Verified 06/13/25 10:52 Nexletol) Vital Signs Vital Signs - 24 hr 06/13/25 10:53 06/13/25 11:24 Temperature 97.2 F L Pulse Rate 121 H 104 H Respiratory Rate 20 Blood Pressure 157/92 H Pulse Oximetry 98 Oxygen Delivery Room Air Exam Const: General: comfortable and no acute distress HENMT: Face/Nose/Sinus: Normal nares present Eyes: General: appearance normal, both eyes and all related structures Neck: Neck: no JVD Resp: Auscultation: clear to auscultation bilaterally Cardio: Rate: regular rate Rhythm: regular rhythm GI: Inspection: non-distended GI Palp: Yes Soft to palpation Skin: General skin exam: normal color Extrem: General: normal to inspection Psych: Mental Status: mental status grossly normal Assessment and Plan Assessment and plan (1) Positive colorectal cancer screening using Cologuard test: Code(s): R19.5 - Other fecal abnormalities Status: Acute Assessment and Plan: colonoscopy
--- NOTE | 2025-06-13 11:53 | S_PTH ---
PATIENT: Anjali Rodriguez I LOC: [facility]#:[id number] AGE/SX: 70/F ROOM: RE06/13/[address]: Clinton Willams MD : 1955 BED: DIS: 06/13/2025 SPEC #: [id number] RECD: 06/13/25 13:41 STATUS: GERSON CUBA #: [id number] PAMELA: 06/13/25 11:[address]: Clinton Willams DEPT: [facility] Surgical RECD BY: Analia Van ENTERED: 06/13/25 13:41 SP TYPE: Surgical OTHR DR: David Savage MD Tissues: A - Colon Polypectomy B - Colon Polypectomy C - Colon Polypectomy Procedures: Hematoxylin and Eosin Stain Gross and Microscopic Level 4
[2025-06-13 11:55] VITALS: BP 123/68; PULSE 108; RESP 21; O2SAT 96
[2025-06-13 12:05] VITALS: BP 131/63; PULSE 104; RESP 19; O2SAT 97
[2025-06-13 12:15] VITALS: BP 153/78; PULSE 89; RESP 14; O2SAT 99
== END 2025-06-13 12:22 | disposition home or self-care (01) ==
PROVIDERS: PCP Internal Medicine; Referring Provider Internal Medicine; Visit Provider Internal Medicine Gastroenterology
PROC: 0DJD8ZZ Inspection of Lower Intestinal Tract, Via Natural or Artificial Opening Endoscopic (ICD-10-PCS; CPT 45378; principal; 2025-06-13 14:00)
DX: R19.5 Other fecal abnormalities (principal); D12.2 Benign neoplasm of ascending colon; D12.3 Benign neoplasm of transverse colon; D12.4 Benign neoplasm of descending colon; K64.8 Other hemorrhoids; K57.30 Diverticulosis of large intestine without perforation or abscess without bleeding; E78.5 Hyperlipidemia, unspecified; E03.9 Hypothyroidism, unspecified; I10 Essential (primary) hypertension; D64.9 Anemia, unspecified; F41.8 Other specified anxiety disorders; R73.03 Prediabetes; M35.00 Sjogren syndrome, unspecified; K21.9 Gastro-esophageal reflux disease without esophagitis; R35.0 Frequency of micturition; M79.7 Fibromyalgia; E78.01 Familial hypercholesterolemia; M85.88 Other specified disorders of bone density and structure, other site; M06.9 Rheumatoid arthritis, unspecified; L21.9 Seborrheic dermatitis, unspecified; M17.10 Unilateral primary osteoarthritis, unspecified knee; G47.10 Hypersomnia, unspecified; G47.00 Insomnia, unspecified; E66.9 Obesity, unspecified; Z68.34 Body mass index [BMI] 34.0-34.9, adult; Z79.82 Long term (current) use of aspirin; Z79.891 Long term (current) use of opiate analgesic; Z79.84 Long term (current) use of oral hypoglycemic drugs; Z79.890 Hormone replacement therapy; Z79.899 Other long term (current) drug therapy; Z80.3 Family history of malignant neoplasm of breast; Z82.49 Family history of ischemic heart disease and other diseases of the circulatory system
CPT/HCPCS: 45385; 82948; 88305; J2003; J2405; J2704; J7120